=== PATIENT | male | born 1935 | race Caucasian/White ===

== ENCOUNTER 2018-07-13 18:11 | Inpatient (IN) | payer MEDICARE, BC ==
[2018-07-13] MEDS ORDERED: LORazepam 2 MG/ML INJ IM STA (19:20)
[2018-07-13 19:58] LABS: Basophils % (A) 0 %; Eosinophils # (A) 0.2 k/uL (0-0.7); Eosinophils % (A) 4 %; HCT 34.3 % (39.0-53.0); HGB 11.2 gm/dL (13.0-17.5); Lymphocytes # (A) 1.3 k/uL (1.0-4.8); Lymphocytes % (A) 26 %; MCH 31.4 pg (25.0-35.0); MCHC 32.7 g/dL (31.0-37.0); Mean Platelet Volume 7.8; Monocytes # (A) 0.5 k/uL (0-1.0); Monocytes % (A) 9 %; Neutrophils # (A) 2.8 k/uL (1.3-7.7); Neutrophils % (A) 58 %; Platelet Count 133 k/uL (150-450); RBC 3.57 m/uL (4.30-5.90); RDW 14.2 % (11.5-15.5); WBC 4.8 k/uL (3.8-10.6)
[2018-07-13 20:10] LABS: Acetaminophen <10.0 ug/mL; Alcohol <10 mg/dL; Anion Gap 6 mmol/L; Blood Urea Nitrogen 32 mg/dL (9-20); Calcium 8.6 mg/dL (8.4-10.2); Carbon Dioxide 31 mmol/L (22-30); Chloride 103 mmol/L (98-107); Glucose 84 mg/dL (74-99); Potassium 4.6 mmol/L (3.5-5.1); Salicylate <1.0 mg/dL; Sodium 140 mmol/L (137-145)
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
[2018-07-14 02:39] LABS: Appearance,Urine Cloudy (Clear); Bacteria,Urine Rare /hpf; Bilirubin,Urine Negative (Negative); Blood,Urine Large (Negative); Color,Urine Red; Glucose,Urine (UA) Negative (Negative); Ketones,Urine Trace (Negative); Leukocyte Esterase,Urine Trace (Negative); Nitrite,Urine Negative (Negative); PH, Urine 7.5 (5.0-8.0); Protein,Urine 2+ (Negative); RBC,Urine >182 /hpf (0-5); Specific Gravity,Urine 1.018 (1.001-1.035); Urobilinogen,Urine <2.0 mg/dL (<2.0); WBC,Urine 18 /hpf (0-5)
[2018-07-14 02:50] LABS: Amphetamine Screen,Urine Not Detected (NotDetected); Barbiturate Screen,Urine Not Detected (NotDetected); Benzodiazepines Screen,Urine Detected (NotDetected); Cocaine Screen,Urine Not Detected (NotDetected); Methadone Screen, Urine Not Detected (NotDetected); Opiate Screen,Urine Not Detected (NotDetected); Oxycodone Screen, Urine Not Detected (NotDetected); Phencyclidine Screen,Urine Not Detected (NotDetected); Tricyclic Antidepressant,Urine Not Detected (NotDetected); Urn Cannabinoid Scrn Not Detected (NotDetected)
[2018-07-14 05:13] LABS: Valproic Acid (Depakene) 71.6 ug/mL
[2018-07-15] MEDS ORDERED: traZODone HCL 50 MG TAB PO ONE (00:28)
[2018-07-16] MEDS ORDERED: LEVOTHYROXINE 25 MCG TAB PO SCH (08:00)
[2018-07-16] MEDS ORDERED: TAMSULOSIN 0.4 MG CAP.ER.24H PO SCH (08:30)
[2018-07-16] MEDS ORDERED: ASPIRIN 325 MG TAB PO SCH (09:00)
[2018-07-16] MEDS ORDERED: FUROSEMIDE 20 MG TAB PO SCH (09:00)
[2018-07-16] MEDS ORDERED: DIVALPROEX ER 250 MG TAB.ER.24H PO SCH (09:00)
[2018-07-16] MEDS ORDERED: MELOXICAM 7.5 MG TAB PO SCH (09:00)
[2018-07-16] MEDS ORDERED: LORATADINE 10 MG TAB PO SCH (09:00)
[2018-07-16] MEDS: SENNOSIDES 8.6 MG TAB PO SCH ×2 (09:09→21:51)
[2018-07-16] MEDS ORDERED: THIAMINE 100 MG TAB PO SCH (12:00)
[2018-07-16] MEDS ORDERED: FOLIC ACID 1 MG TAB PO SCH (12:00)
[2018-07-16] MEDS ORDERED: CHOLECALCIFEROL 1,000 UNIT TAB PO SCH (12:00)
[2018-07-16] MEDS ORDERED: traZODone HCL 50 MG TAB PO SCH (21:00)
[2018-07-16] MEDS ORDERED: DIVALPROEX 500 MG TABLET.DR PO SCH ×2 (21:00→22:00)
[2018-07-16] MEDS ORDERED: MAGNESIUM HYDROXIDE 2,400 MG/10 ML CUP PO PRN (21:37)
[2018-07-16] MEDS ORDERED: ACETAMINOPHEN TAB 325 MG TAB PO PRN (21:37)
[2018-07-16] MEDS ORDERED: MAG HYDROX/AL HYDROX/SIMETH 30 ML CUP PO PRN (21:37)
[2018-07-17] MEDS: HALOPERIDOL 1 MG TAB PO SCH ×3 (01:01→09:39)
[2018-07-17] MEDS: LEVOTHYROXINE 25 MCG TAB PO SCH (05:43)
[2018-07-17] MEDS ORDERED: LEVOTHYROXINE 25 MCG TAB PO SCH (06:00)
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
[2018-07-17 07:00] VITALS: RESP 20
[2018-07-17] MEDS ORDERED: MELOXICAM 7.5 MG TAB PO SCH (09:00)
[2018-07-17] MEDS ORDERED: TAMSULOSIN 0.4 MG CAP.ER.24H PO SCH (09:00)
[2018-07-17] MEDS ORDERED: SENNOSIDES 8.6 MG TAB PO SCH (09:00)
[2018-07-17] MEDS ORDERED: FUROSEMIDE 20 MG TAB PO SCH ×2 (09:00)
[2018-07-17] MEDS ORDERED: DIVALPROEX ER 250 MG TAB.ER.24H PO SCH (09:00)
[2018-07-17] MEDS ORDERED: ASPIRIN 325 MG TAB PO SCH (09:00)
[2018-07-17 09:39] LABS: HGB 12.4 gm/dL (13.0-17.5); MCH 30.9 pg (25.0-35.0); MCHC 31.7 g/dL (31.0-37.0); MCV 97.4 fL (80.0-100.0); Mean Platelet Volume 7.8; Platelet Count 156 k/uL (150-450); RBC 4.01 m/uL (4.30-5.90); RDW 14.5 % (11.5-15.5); WBC 6.1 k/uL (3.8-10.6)
[2018-07-17] MEDS: DIVALPROEX ER 250 MG TAB.ER.24H PO SCH (09:39)
[2018-07-17] MEDS: CHOLECALCIFEROL 1,000 UNIT TAB PO SCH (09:39)
[2018-07-17] MEDS: THIAMINE 100 MG TAB PO SCH (09:40)
[2018-07-17] MEDS: LORATADINE 10 MG TAB PO SCH (09:40)
[2018-07-17] MEDS: SENNOSIDES 8.6 MG TAB PO SCH (09:40)
[2018-07-17 09:48] LABS: Albumin 3.5 g/dL (3.5-5.0); Calcium 8.9 mg/dL (8.4-10.2); Potassium 5.5 mmol/L (3.5-5.1); Total Bilirubin 0.3 mg/dL (0.2-1.3); Total Protein 6.4 g/dL (6.3-8.2)
[2018-07-17 10:39] LABS: Band Neutrophils % 1 %; Eosinophils # (M) 0.31 k/uL (0-0.7); Lymphocytes # (M) 1.53 k/uL (1.0-4.8); Monocytes # (M) 0.49 k/uL (0-1.0); Neutrophils % (M) 61 %; Nucleated Red Blood Cells 0 /100 WBC (0-0); Total Cells Counted 100
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
[2018-07-17] MEDS ORDERED: ALBUTEROL NEBULIZED 2.5 MG/3 ML INHALATION PRN (11:12)
--- NOTE | 2018-07-17 12:03 | XR ---
EXAMINATION TYPE: XR chest 1V portable DATE OF EXAM: 07/17/2018 COMPARISON: 06/12/2013 HISTORY: Shortness of breath TECHNIQUE: Single frontal view of the chest is obtained. FINDINGS: There is no focal air space opacity, pleural effusion, or pneumothorax seen. Pulmonary hy perinflation and flattening the diaphragms is seen. Calcified right pleural plaques are noted along t he hemidiaphragm. Moderate multilevel degenerative change of the thoracic spine is noted. Diffuse oss eous demineralization is seen. The cardiac silhouette size is within normal limits. The osseous str uctures are intact. IMPRESSION: No acute cardiopulmonary process. Radiographic sequela of COPD.
[2018-07-17] MEDS: FOLIC ACID 1 MG TAB PO SCH (12:41)
[2018-07-17] MEDS: CEPHALEXIN 250 MG CAP PO SCH ×3 (12:42→20:50)
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
[2018-07-17 19:38] LABS: Hemoglobin A1C 5.7 % (4.0-6.0)
[2018-07-17] MEDS: risperiDONE ODT 1 MG TAB PO SCH (20:49)
[2018-07-17] MEDS ORDERED: traZODone HCL 50 MG TAB PO SCH ×2 (21:00)
[2018-07-17] MEDS: FORMOTEROL FUMARATE 20 MCG/2 ML NEBU INHALATION SCH (21:07)
[2018-07-17] MEDS: IPRATROPIUM 0.5 MG/2.5 ML NEBU INHALATION SCH (21:07)
[2018-07-17] MEDS ORDERED: DIVALPROEX 500 MG TABLET.DR PO SCH (22:00)
[2018-07-18] MEDS: LEVOTHYROXINE 25 MCG TAB PO SCH (05:32)
[2018-07-18 06:25] VITALS: BP 114/61; TEMP 98.1
[2018-07-18] MEDS: CEPHALEXIN 250 MG CAP PO SCH ×2 (08:15→14:17)
[2018-07-18] MEDS: risperiDONE ODT 1 MG TAB PO SCH (08:16)
[2018-07-18] MEDS: LORATADINE 10 MG TAB PO SCH (08:16)
[2018-07-18] MEDS: DIVALPROEX ER 250 MG TAB.ER.24H PO SCH (08:16)
[2018-07-18] MEDS: SENNOSIDES 8.6 MG TAB PO SCH (08:16)
[2018-07-18] MEDS: CHOLECALCIFEROL 1,000 UNIT TAB PO SCH (08:16)
[2018-07-18] MEDS: THIAMINE 100 MG TAB PO SCH (08:16)
[2018-07-18] MEDS: IPRATROPIUM 0.5 MG/2.5 ML NEBU INHALATION SCH ×2 (09:01→14:16)
[2018-07-18] MEDS: FORMOTEROL FUMARATE 20 MCG/2 ML NEBU INHALATION SCH (09:01)
[2018-07-18 10:14] LABS: Calcium 8.8 mg/dL (8.4-10.2); Potassium 5.8 mmol/L (3.5-5.1)
[2018-07-18] MEDS ORDERED: SODIUM POLYSTYRENE SULFONATE 15 GM/60 ML BOTTLE PO STA (10:40)
[2018-07-18] MEDS ORDERED: SODIUM CHLORIDE 0.9% 1,000 ML IV SCH (10:45)
--- NOTE | 2018-07-18 12:57 | P.PN ---
Progress Note - Text Progress Note Date: 07/18/18 Clinical Problems: Bipolar disorder type I most recent episode manic, acute exacerbation of COPD, hyperkalemia with dehydration, hematuria, tobacco use disorder, hypothyroidism Interim history: I reviewed the medical record, interviewed the patient and discussed case with the treatment team. I also spoke with the consulting heat set operator. The patient is a 83-year-old male with long history of a psychiatric illness. He presented to the unit voluntarily with a history of increasing agitation and aggressive behavior. Information obtainable from the patient is extremely limited due to his thought disorganization and slurred speech. He talked excessively about a number of topics often jumping erratically from topic to topic. He appears to believe that the admission was prompted by conflict with another resident at his [facility] home. According to the record he has attended some therapeutic groups and slept 5 hours last night. The therapist described him as disheveled, garbled with rapid and slurred speech. He has had no episodes of aggression since admission. I spoke with the consulting heat set operator who recommended transfer to medicine unit for the treatment of a hyperkalemia and dehydration. Mental status exam: He presented as a disheveled appearing elderly male who was pleasant on approach. He drooled during the interview. His T- shirt had multiple stains. He appeared to attend to the interview. He walked with an unsteady and slow gait. He had distressed facial expression. He was alert and oriented to person and place. He showed choreiform movements of the trunk arms and legs there were more prominent while he was talking. His speech was spontaneous with increased rate, rhythm and volume. His affect was labile and intense intense. He did not express suicidal ideation, wishes or homicidal ideation. He denied feeling depressed, hopeless or helpless. He is angry about this hospitalization. He appeared paranoid and suspicious and his monologue about another resident at his [facility] suggested paranoid delusions. His thinking was concrete and associations were not fully coherent, logical and goal directed. He denied hallucinations and did not appear to be responding to internal stimuli. Assessment: He appears severely and persistently mentally ill and unchanged from admission. He benefit from continue inpatient psychiatric hospitalization to address Mood and psychotic presentation. Plan: Transferred to the medicine unit as per recommendation of the medical receptionist assistant. One-to-one sitter while on medicine service. Continue current psychotropic medications-Depakote 500 mg at bedtime in 2049 mg daily, trazodone 50 mg at bedtime and Risperdal M tablets 1 mg twice a day. Transfer back to the psychiatric unit once medically stable.
[2018-07-18] MEDS: FOLIC ACID 1 MG TAB PO SCH (14:18)
[2018-07-18 14:25] VITALS: PULSE 92
== END 2018-07-18 14:41 | disposition short-term general hospital (02) | DRG 885 ==
LOC: EC 18:11 → 3MHU 07-16 21:30
PROVIDERS: ADMIT Psychiatry & Neurology Psychiatry; ATTEND Psychiatry & Neurology Psychiatry
DX: F31.2 Bipolar disorder, current episode manic severe with psychotic features (principal); J44.1 Chronic obstructive pulmonary disease with (acute) exacerbation; N39.0 Urinary tract infection, site not specified; E03.9 Hypothyroidism, unspecified; F17.200 Nicotine dependence, unspecified, uncomplicated; Z79.82 Long term (current) use of aspirin; Z79.899 Other long term (current) drug therapy; Z79.890 Hormone replacement therapy; Z65.3 Problems related to other legal circumstances; M19.90 Unspecified osteoarthritis, unspecified site; Z96.642 Presence of left artificial hip joint; F10.11 Alcohol abuse, in remission; E86.0 Dehydration; E87.5 Hyperkalemia; F03.90 Unspecified dementia, unspecified severity, without behavioral disturbance, psychotic disturbance, mood disturbance, and anxiety; I10 Essential (primary) hypertension; R09.02 Hypoxemia; Z91.81 History of falling; E55.9 Vitamin D deficiency, unspecified; R31.9 Hematuria, unspecified; Z80.3 Family history of malignant neoplasm of breast
CPT/HCPCS: 36415; 71045; 80048; 80053; 80061; 80164; 80306; 80320; 81001; 83036; 83520; 84443; 85025; 94640; 96372; 99285

== ENCOUNTER 2018-07-18 10:46 | Inpatient (IN) | payer MEDICARE, BC ==
[2018-07-18] MEDS ORDERED: ACETAMINOPHEN TAB 325 MG TAB PO PRN (15:25)
[2018-07-18] MEDS ORDERED: ONDANSETRON 4 MG/2 ML VIAL IVP PRN (15:25)
[2018-07-18] MEDS ORDERED: NALOXONE 0.4 MG/ML 1 ML VIAL IV PRN (15:25)
[2018-07-18] MEDS ORDERED: TEMAZEPAM 15 MG CAP PO PRN (15:25)
[2018-07-18 17:05] LABS: Calcium 8.4 mg/dL (8.4-10.2); Potassium 5.2 mmol/L (3.5-5.1)
[2018-07-18] MEDS ORDERED: ALBUTEROL NEBULIZED 2.5 MG/3 ML INHALATION PRN (17:34)
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
[2018-07-18] MEDS ORDERED: DIVALPROEX 500 MG TABLET.DR PO SCH (21:00)
[2018-07-18] MEDS: IPRATROPIUM-ALBUTEROL 3 ML NEB INHALATION SCH (21:12)
[2018-07-18] MEDS: risperiDONE ODT 1 MG TAB PO SCH (21:50)
[2018-07-18] MEDS: SENNOSIDES 8.6 MG TAB PO SCH (21:50)
[2018-07-18] MEDS: SODIUM CHLORIDE 0.9% 1,000 ML IV SCH (21:52)
[2018-07-19] MEDS: SODIUM CHLORIDE 0.9% 1,000 ML IV SCH ×2 (00:55→09:03)
[2018-07-19 06:01] LABS: Appearance,Urine Clear (Clear); Bilirubin,Urine Negative (Negative); Blood,Urine Negative (Negative); Color,Urine Yellow; Glucose,Urine (UA) Negative (Negative); Ketones,Urine Negative (Negative); Leukocyte Esterase,Urine Negative (Negative); Nitrite,Urine Negative (Negative); Protein,Urine Negative (Negative); Specific Gravity,Urine 1.013 (1.001-1.035); Urobilinogen,Urine <2.0 mg/dL (<2.0)
[2018-07-19 06:02] LABS: HCT 31.5 % (39.0-53.0); HGB 10.1 gm/dL (13.0-17.5); MCH 31.1 pg (25.0-35.0); MCHC 32.1 g/dL (31.0-37.0); MCV 96.7 fL (80.0-100.0); Mean Platelet Volume 7.1; Platelet Count 154 k/uL (150-450); RBC 3.26 m/uL (4.30-5.90); RDW 14.6 % (11.5-15.5); WBC 6.4 k/uL (3.8-10.6)
[2018-07-19 06:16] LABS: ALT 23 U/L (21-72); AST 26 U/L (17-59); Albumin 2.8 g/dL (3.5-5.0); Alkaline Phosphatase 47 U/L (38-126); Anion Gap 5 mmol/L; Blood Urea Nitrogen 34 mg/dL (9-20); Calcium 7.9 mg/dL (8.4-10.2); Carbon Dioxide 30 mmol/L (22-30); Chloride 105 mmol/L (98-107); Glucose 79 mg/dL (74-99); Magnesium 2.1 mg/dL (1.6-2.3); Potassium 4.7 mmol/L (3.5-5.1); Sodium 140 mmol/L (137-145); Total Bilirubin 0.3 mg/dL (0.2-1.3); Total Protein 5.4 g/dL (6.3-8.2)
[2018-07-19] MEDS: IPRATROPIUM-ALBUTEROL 3 ML NEB INHALATION SCH ×2 (07:44→10:55)
[2018-07-19 08:56] VITALS: RESP 18
[2018-07-19] MEDS: SENNOSIDES 8.6 MG TAB PO SCH (08:59)
[2018-07-19] MEDS: risperiDONE ODT 1 MG TAB PO SCH (08:59)
[2018-07-19] MEDS ORDERED: LORATADINE 10 MG TAB PO SCH (09:00)
[2018-07-19] MEDS ORDERED: predniSONE 20 MG TAB PO SCH (09:00)
[2018-07-19] MEDS ORDERED: DIVALPROEX ER 250 MG TAB.ER.24H PO SCH (09:00)
[2018-07-19] MEDS ORDERED: TAMSULOSIN 0.4 MG CAP.ER.24H PO SCH (09:00)
[2018-07-19] MEDS ORDERED: THIAMINE 100 MG TAB PO SCH (09:00)
[2018-07-19] MEDS ORDERED: FOLIC ACID 1 MG TAB PO SCH (09:00)
[2018-07-19] MEDS ORDERED: CHOLECALCIFEROL 1,000 UNIT TAB PO SCH (09:00)
[2018-07-19] MEDS ORDERED: traZODone HCL 50 MG TAB PO SCH (09:00)
--- NOTE | 2018-07-19 10:33 | P.DS ---
Providers Date of admission: 07/18/18 14:57 Expected date of discharge: 07/19/18 Attending physician: Charis Kirk DO Consults: 07/18/18 17:39 Consult Physician Routine Consulting Provider: Umair Koch Reason/Comments: aggression Do you want consulting provider notified?: Yes Primary care physician: Stated None Hospital Course: Discharge Diagnosis: 1. Hyperkalemia with dehydration, failed outpatient treatment 2. Acute exacerbation of COPD 3. Probably urinary tract infection, urine had cleared after Keflex was initiated one day prior mental health unit 4. Dementia with aggression 5. Tobacco abuse 6. Hypothyroidism Hospital Course: Patient is a 83-year-old male past medical history of COPD, hypertension, vitamin D deficiency, and mild dementia who initially was sent in from his adult foster care facility due to aggressive behaviors. Initially from the ER he was admitted to the psychiatric unit. On arrival to the psychiatric unit he did have an event of hypoxemia at 84% on room air. He was subsequently seen by our service for his H&P evaluation in the mental health unit. He was found have acute exacerbation of COPD and hematuria with possible urinary tract infection. He was started on bronchodilators, prednisone, and Keflex. He was noted to be slightly hyperkalemic and dehydrated. His diuretics were held and NSAIDs were stopped. Laboratory analysis was repeated this morning which confirmed worsening hyperkalemia and a potassium of 5.8. He is also appeared more dehydrated with elevated BUN. It was determined that he was more appropriate for the medical floor and hence he was transferred to selective care unit. He received a dose of Kayexalate and IV fluids. Repeat potassium was down to 5.2. His fluids were continued as his Lasix and NSAIDs or continue to be held. By the morning of 07/19 his potassium had normalized and his BUN was greatly improved. He was determined stable to return to mental health unit. He had improved faster than anticipated. He was subsequently discharged mental health. He will come to need to complete his prednisone therapy, Keflex, and maintain off of NSAIDs. His Lasix will be changed every other day. Patient seen and examined at bedside. Feeling well. Eating and drinking well. Still with a flight of ideas and difficult to obtain information. He states that he is not short of breath he has been up and moving to the bathroom without any difficulties. Vital signs reviewed and stable. General: non toxic, no distress, appears at stated age Derm: warm, dry Head: atraumatic, normocephalic, symmetric Eyes: EOMI, no lid lag, anicteric sclera Mouth: no lip lesion, mucus membranes moist Cardiovascular: S1S2 reg, no murmur, positive posterior tibial pulse bilateral, Lungs: CTA bilateral, no rhonchi, no rales , no accessory muscle use Abdominal: soft, nontender to palpation, no guarding, no appreciable organomegaly Ext: no gross muscle atrophy, no edema, no contractures Neuro: CN II-XI grossly intact, no focal neuro deficits Psych: Alert, oriented, pressured speech, flight of ideas, anxious A total of 25 minutes of time were spent preparing this complex discharge summary . Patient Condition at Discharge: Stable Plan - Discharge Summary Discharge Rx Participant: No New Discharge Prescriptions: New Acetaminophen Tab [Tylenol] 650 mg PO Q6HR PRN tab PRN Reason: Mild Pain Or Fever > 100.5 Albuterol Nebulized [Ventolin Nebulized] 2.5 mg INHALATION RT-Q2H PRN nebu PRN Reason: Shortness Of Breath Or Wheezing Cephalexin [Keflex] 250 mg PO Q6HR 3 Days #12 cap Ipratropium-Albuterol Nebulize [Duoneb 0.5 mg-3 mg/3 ml Soln] 3 ml INHALATION RT-QID ampul.neb Loratadine [Claritin] 10 mg PO DAILY tab predniSONE 40 mg PO DAILY 3 Days tab risperiDONE ODT [RisperDAL M-TAB] 1 mg PO BID tab Continue Tamsulosin HCl [Flomax] 0.4 mg PO DAILY traZODone HCL 50 mg PO DAILY Divalproex ER [Depakote ER] 250 mg PO DAILY Levothyroxine Sodium 25 mcg PO DAILY Thiamine [Vitamin B-1] 100 mg PO DAILY Sennosides [Senna] 8.6 mg PO BID Divalproex Sodium [Depakote] 500 mg PO HS Cholecalciferol (Vitamin D3) [Vitamin D3] 2,000 unit PO DAILY Discontinued Furosemide [Lasix] 20 mg PO DAILY Fexofenadine HCl 60 mg PO BID Folic Acid 1 mg PO DAILY Celecoxib [CeleBREX] 100 mg PO DAILY Aspirin EC [Ecotrin] 325 mg PO DAILY Discharge Medication List Divalproex ER [Depakote ER] 250 mg PO DAILY 07/13/18 [History] Levothyroxine Sodium 25 mcg PO DAILY 07/13/18 [History] Tamsulosin HCl [Flomax] 0.4 mg PO DAILY 07/13/18 [History] traZODone HCL 50 mg PO DAILY 07/13/18 [History] Cholecalciferol (Vitamin D3) [Vitamin D3] 2,000 unit PO DAILY 07/14/18 [History] Divalproex Sodium [Depakote] 500 mg PO HS 07/14/18 [History] Sennosides [Senna] 8.6 mg PO BID 07/14/18 [History] Thiamine [Vitamin B-1] 100 mg PO DAILY 07/14/18 [History] Acetaminophen Tab [Tylenol] 650 mg PO Q6HR PRN tab 07/19/18 [Rx] Albuterol Nebulized [Ventolin Nebulized] 2.5 mg INHALATION RT-Q2H PRN nebu [Rx] Cephalexin [Keflex] 250 mg PO Q6HR 3 Days #12 cap 07/19/18 [Rx] Ipratropium-Albuterol Nebulize [Duoneb 0.5 mg-3 mg/3 ml Soln] 3 ml INHALATION RT -QID ampul.neb 07/19/18 [Rx] Loratadine [Claritin] 10 mg PO DAILY tab 07/19/18 [Rx] predniSONE 40 mg PO DAILY 3 Days tab 07/19/18 [Rx] risperiDONE ODT [RisperDAL M-TAB] 1 mg PO BID tab 07/19/18 [Rx] Activity/Diet/Wound Care/Special Instructions: renal diet, activity as tolerated BMP in AM Discharge Disposition: TRANSFER TO PSYCH HOSP/UNIT
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
[2018-07-19 12:33] VITALS: BP 146/49; PULSE 89; TEMP 97.5
== END 2018-07-19 12:57 | DRG 641 ==
LOC: 3SCARD 14:57
PROVIDERS: ADMIT Internal Medicine; ATTEND Internal Medicine
DX: E87.5 Hyperkalemia (principal); F03.91 Unspecified dementia, unspecified severity, with behavioral disturbance; J44.1 Chronic obstructive pulmonary disease with (acute) exacerbation; N39.0 Urinary tract infection, site not specified; E03.9 Hypothyroidism, unspecified; E86.0 Dehydration; F17.200 Nicotine dependence, unspecified, uncomplicated; I10 Essential (primary) hypertension; R09.02 Hypoxemia; Z79.82 Long term (current) use of aspirin; Z80.3 Family history of malignant neoplasm of breast; Z87.440 Personal history of urinary (tract) infections; Z96.642 Presence of left artificial hip joint; Z79.899 Other long term (current) drug therapy; F31.9 Bipolar disorder, unspecified
CPT/HCPCS: 80048; 80053; 81003; 83735; 85027; 94640

== ENCOUNTER 2018-07-19 12:33 | Inpatient (IN) | payer MEDICARE, BC ==
[2018-07-19] MEDS ORDERED: MAGNESIUM HYDROXIDE 2,400 MG/10 ML CUP PO PRN (14:31)
[2018-07-19] MEDS ORDERED: MAG HYDROX/AL HYDROX/SIMETH 30 ML CUP PO PRN (14:31)
[2018-07-19] MEDS ORDERED: ACETAMINOPHEN TAB 325 MG TAB PO PRN (14:31)
[2018-07-19 14:47] VITALS: BMI 24.5
[2018-07-19] MEDS: CEPHALEXIN 250 MG CAP PO SCH ×2 (17:58→22:59)
[2018-07-19] MEDS: DIVALPROEX 500 MG TABLET.DR PO SCH (20:23)
[2018-07-19] MEDS: SENNOSIDES 8.6 MG TAB PO SCH (20:24)
[2018-07-19] MEDS: risperiDONE ODT 1 MG TAB PO SCH (20:24)
[2018-07-19] MEDS: IPRATROPIUM-ALBUTEROL 3 ML NEB INHALATION SCH ×2 (20:38→20:39)
[2018-07-20] MEDS: LEVOTHYROXINE 25 MCG TAB PO SCH (05:37)
[2018-07-20] MEDS: CEPHALEXIN 250 MG CAP PO SCH ×4 (05:37→23:12)
[2018-07-20] MEDS: CHOLECALCIFEROL 1,000 UNIT TAB PO SCH (08:57)
[2018-07-20] MEDS: DIVALPROEX ER 250 MG TAB.ER.24H PO SCH (08:57)
[2018-07-20] MEDS: SENNOSIDES 8.6 MG TAB PO SCH ×2 (08:58→20:33)
[2018-07-20] MEDS: THIAMINE 100 MG TAB PO SCH (08:58)
[2018-07-20] MEDS: predniSONE 20 MG TAB PO SCH (08:58)
[2018-07-20] MEDS: FUROSEMIDE 10 MG TAB PO SCH (08:58)
[2018-07-20] MEDS: risperiDONE ODT 1 MG TAB PO SCH ×2 (08:58→20:33)
[2018-07-20] MEDS: LORATADINE 10 MG TAB PO SCH (08:58)
[2018-07-20] MEDS: TAMSULOSIN 0.4 MG CAP.ER.24H PO SCH (08:58)
[2018-07-20] MEDS: IPRATROPIUM-ALBUTEROL 3 ML NEB INHALATION SCH ×4 (09:33→18:47)
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
[2018-07-20] MEDS: DIVALPROEX 500 MG TABLET.DR PO SCH (20:32)
[2018-07-20] MEDS: traZODone HCL 50 MG TAB PO SCH (20:33)
[2018-07-20] MEDS: TEMAZEPAM 15 MG CAP PO PRN (23:12)
[2018-07-21] MEDS: CEPHALEXIN 250 MG CAP PO SCH ×4 (06:45→22:46)
[2018-07-21] MEDS: LEVOTHYROXINE 25 MCG TAB PO SCH (06:45)
[2018-07-21] MEDS: FUROSEMIDE 10 MG TAB PO SCH (09:02)
[2018-07-21] MEDS: DIVALPROEX ER 250 MG TAB.ER.24H PO SCH (09:02)
[2018-07-21] MEDS: LORATADINE 10 MG TAB PO SCH (09:02)
[2018-07-21] MEDS: CHOLECALCIFEROL 1,000 UNIT TAB PO SCH (09:02)
[2018-07-21] MEDS: risperiDONE ODT 1 MG TAB PO SCH ×2 (09:03→20:28)
[2018-07-21] MEDS: predniSONE 20 MG TAB PO SCH (09:03)
[2018-07-21] MEDS: TAMSULOSIN 0.4 MG CAP.ER.24H PO SCH (09:03)
[2018-07-21] MEDS: THIAMINE 100 MG TAB PO SCH (09:03)
[2018-07-21] MEDS: SENNOSIDES 8.6 MG TAB PO SCH ×2 (09:03→20:28)
[2018-07-21] MEDS: IPRATROPIUM-ALBUTEROL 3 ML NEB INHALATION SCH ×4 (09:43→20:51)
--- NOTE | 2018-07-21 20:18 | P.PN ---
Progress Note - Text Progress Note Date: 07/21/18 IDENTIFICATION DATA: 83 year male transferred back to the mental health unit after spending a day on the medical floor for dehydration and hyperkalemia. [facility] petitioned the patient for hostile, threatening, aggressive, and sexually inappropirate behaviors. INTERVAL HISTORY: No major behavioral problems reported on the unit. He says he likes going to all his assigned groups. He reports six to seven hours of sleep. He reports good appetite. He reports being compliant with his medications. No side effects reported. He denies current symptoms of depression. 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 MENTAL STATUS EXAMINATION: Patient walks with a walker. He appeared younger than his stated age in fair grooming and hygiene. He has pill rolling tremor. His speech and thought process are tangential, pressured with flight of ideas. He denies current auditory or visual hallucinations. He denies paranoia. He is alert and oriented. X 4. He denies current suicidal or homicidal ideations. ASSESSMENT AND PLAN: Continue current medications Continue 1:1 monitoring Continue safety precautions
[2018-07-21] MEDS: traZODone HCL 50 MG TAB PO SCH (20:28)
[2018-07-21] MEDS: DIVALPROEX 500 MG TABLET.DR PO SCH (20:28)
[2018-07-21] MEDS: TEMAZEPAM 15 MG CAP PO PRN (22:46)
[2018-07-22] MEDS: CEPHALEXIN 250 MG CAP PO SCH ×3 (06:39→18:04)
[2018-07-22] MEDS: LEVOTHYROXINE 25 MCG TAB PO SCH (06:39)
[2018-07-22] MEDS: LORazepam 1 MG TAB PO PRN (06:54)
[2018-07-22] MEDS: SENNOSIDES 8.6 MG TAB PO SCH ×2 (08:48→20:33)
[2018-07-22] MEDS: CHOLECALCIFEROL 1,000 UNIT TAB PO SCH (08:48)
[2018-07-22] MEDS: predniSONE 20 MG TAB PO SCH (08:48)
[2018-07-22] MEDS: FUROSEMIDE 10 MG TAB PO SCH (08:49)
[2018-07-22] MEDS: THIAMINE 100 MG TAB PO SCH (08:49)
[2018-07-22] MEDS: LORATADINE 10 MG TAB PO SCH (08:49)
[2018-07-22] MEDS: DIVALPROEX ER 250 MG TAB.ER.24H PO SCH (08:49)
[2018-07-22] MEDS: risperiDONE ODT 1 MG TAB PO SCH ×2 (08:49→20:33)
[2018-07-22] MEDS: TAMSULOSIN 0.4 MG CAP.ER.24H PO SCH (08:49)
[2018-07-22] MEDS: IPRATROPIUM-ALBUTEROL 3 ML NEB INHALATION SCH ×4 (09:03→20:19)
--- NOTE | 2018-07-22 18:29 | P.PN ---
Progress Note - Text Progress Note Date: 07/22/18 IDENTIFICATION DATA: 83 year male transferred back to the mental health unit after spending a day on the medical floor for dehydration and hyperkalemia. [facility] petitioned the patient for hostile, threatening, aggressive, and sexually inappropirate behaviors. INTERVAL HISTORY: He says he enjoys going to groups and says they have good conversations there. He says staff here are nice. 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 He reports good sleep and appetite. He is not sure if his friend will visit him today or not. He takes his medications as prescribed. MENTAL STATUS EXAMINATION: Patient walks with a walker. He appeared his stated age in fair grooming and hygiene. He has pill rolling tremor. His speech and thought process are tangential, pressured with flight of ideas. He denies current auditory or visual hallucinations. He denies paranoia. He is alert and oriented. X 4. He denies current suicidal or homicidal ideations. ASSESSMENT AND PLAN: Continue current medications Continue 1:1 monitoring Continue safety precautions
[2018-07-22] MEDS: traZODone HCL 50 MG TAB PO SCH (20:33)
[2018-07-22] MEDS: DIVALPROEX 500 MG TABLET.DR PO SCH (20:33)
[2018-07-23] MEDS: LORazepam 1 MG TAB PO PRN (04:10)
[2018-07-23] MEDS: DIVALPROEX ER 250 MG TAB.ER.24H PO SCH (08:13)
[2018-07-23] MEDS: TAMSULOSIN 0.4 MG CAP.ER.24H PO SCH (08:13)
[2018-07-23] MEDS: SENNOSIDES 8.6 MG TAB PO SCH ×2 (08:13→20:57)
[2018-07-23] MEDS: risperiDONE ODT 1 MG TAB PO SCH ×2 (08:13→20:57)
[2018-07-23] MEDS: LORATADINE 10 MG TAB PO SCH (08:13)
[2018-07-23] MEDS: LEVOTHYROXINE 25 MCG TAB PO SCH (08:13)
[2018-07-23] MEDS: CHOLECALCIFEROL 1,000 UNIT TAB PO SCH (08:13)
[2018-07-23] MEDS: THIAMINE 100 MG TAB PO SCH (08:13)
[2018-07-23] MEDS: FUROSEMIDE 10 MG TAB PO SCH (08:13)
[2018-07-23] MEDS: IPRATROPIUM-ALBUTEROL 3 ML NEB INHALATION SCH ×4 (08:54→21:48)
[2018-07-23] MEDS ORDERED: LORazepam 0.5 MG TAB PO PRN (12:49)
--- NOTE | 2018-07-23 12:59 | P.PN ---
Progress Note - Text Progress Note Date: 07/23/18 Clinical Problems: Bipolar disorder type I most recent episode manic, acute exacerbation of COPD, hyperkalemia with dehydration resells, hematuria, tobacco use disorder, hypothyroidism, alcohol use disorder unspecified. Interim history: I reviewed the medical record, interviewed the patient and discuss his treatment and treatment plan during team meeting. He was difficult to interview. He appeared sedated and his speech was more dysarthric. According to the record, he received 1 mg of lorazepam this morning for agitation. He slept only 2 hours last night. He remains on one-to-one due to his unsteady gait and generalized weakness. The last metabolic panel was from 07/19/2018. Mental status exam: He presented as a frail and casually groomed and dressed elderly male who was pleasant on approach. He did not make eye contact but appeared to attend to the interview. He traveled some but not as much as he did prior to his transfer to the medicine unit. He had a flat facial expression. He was oriented to person only. He was not restless or agitated. He showed chloroform movements of his arms and legs. His gait was unsteady and he walked with the aid of a 4-point walker. His speech was dysarthric and difficult to understand. His affect was blunted. He did not express clear ideas reference or delusional thoughts. His thinking was concrete. He did not appear to be responding to internal stimuli. Assessment: He appears more sedated than he did on Monday. His speech is more dysarthric. His gait is more unsteady. I suspect the changes are related to the use of when necessary lorazepam or possibly increasing the dose of risperidone (to 2 mg twice a day). Plan: Continue inpatient hospitalization. Continue safety precautions with one- to-one. Continue Depakote 250 mg daily and 500 mg at bedtime, Risperdal 2 mg twice a day and trazodone 50 mg at bedtime. Discontinue temazepam 15 mg at bedtime and decrease lorazepam to 0.5 mg by mouth 3 times a day when necessary for agitation or anxiety. Repeat basic metabolic panel. Encourage participation in therapeutic groups and activities as tolerated. Evaluate clinical status and response to treatment on a daily basis.
[2018-07-23 16:02] LABS: Calcium 8.9 mg/dL (8.4-10.2); Potassium 4.6 mmol/L (3.5-5.1)
[2018-07-23] MEDS: DIVALPROEX 500 MG TABLET.DR PO SCH (20:57)
[2018-07-23] MEDS: traZODone HCL 50 MG TAB PO SCH (20:57)
[2018-07-24] MEDS: ALBUTEROL NEBULIZED 2.5 MG/3 ML INHALATION PRN (04:55)
[2018-07-24] MEDS: LEVOTHYROXINE 25 MCG TAB PO SCH (05:45)
[2018-07-24] MEDS: risperiDONE ODT 1 MG TAB PO SCH ×2 (07:53→20:06)
[2018-07-24] MEDS: LORATADINE 10 MG TAB PO SCH (07:54)
[2018-07-24] MEDS: TAMSULOSIN 0.4 MG CAP.ER.24H PO SCH (07:54)
[2018-07-24] MEDS: DIVALPROEX ER 250 MG TAB.ER.24H PO SCH (07:54)
[2018-07-24] MEDS: THIAMINE 100 MG TAB PO SCH (07:54)
[2018-07-24] MEDS: SENNOSIDES 8.6 MG TAB PO SCH ×2 (07:54→20:06)
[2018-07-24] MEDS: CHOLECALCIFEROL 1,000 UNIT TAB PO SCH (07:54)
[2018-07-24] MEDS: FUROSEMIDE 10 MG TAB PO SCH (07:54)
[2018-07-24] MEDS: IPRATROPIUM-ALBUTEROL 3 ML NEB INHALATION SCH ×4 (10:58→20:41)
--- NOTE | 2018-07-24 11:48 | P.PN ---
Progress Note - Text Interval history: The patient is found in group he continues to be on one-to- one supervision for fall risk staff report that the patient has been demonstrating improvement. He is demonstrated no agitated behavior he has been participating in groups to the best of his ability. He has been compliant with medication. In my absence it appears he was admitted to the medical floor briefly for hyperkalemia that has now normalized. He continues on Depakote and Risperdal was titrated to 2 mg twice daily. The patient's states he is doing well here he feels the staff have been helpful He indicates he is eating adequately, and sleeping at night. He is willing to return to his [facility] home placement. Mental status exam: The patient is a thin elderly male dressed in his own clothing. He is ambulating with a walker with shuffling steps. Eye contact is appropriate. He has a mumbling type speech most of what he is sane is understandable however. He indicates his mood is good he is reporting no suicidal or homicidal thoughts. He is reporting no auditory or visual hallucinations or any specific delusions. He demonstrates no verbal or physical aggressiveness. He continues to have some circumstantial thinking. He does continue to demonstrate movement of his extremities which may be a chronic phenomenon due to prior medication use. Affect is appropriately expressive. He is oriented to person he is able to name this place as a psychiatric unit in [place] he incorrectly names a day the week as Monday and then with another attempt later in the interview he states Monday. Plan: The patient is demonstrating improvement. He has been placed on Risperdal which is been titrated. A presumed UTI was treated. Hyperkalemia was discovered and treated. It appears that he is stabilizing we will consider a transition back to his [facility] home placement possibly this week. Vital signs reviewed. We will continue to monitor him for safety.
[2018-07-24] MEDS: DIVALPROEX 500 MG TABLET.DR PO SCH (20:06)
[2018-07-24] MEDS: traZODone HCL 50 MG TAB PO SCH (20:06)
[2018-07-25] MEDS: LEVOTHYROXINE 25 MCG TAB PO SCH (05:49)
[2018-07-25] MEDS: DIVALPROEX ER 250 MG TAB.ER.24H PO SCH (08:50)
[2018-07-25] MEDS: FUROSEMIDE 10 MG TAB PO SCH (08:50)
[2018-07-25] MEDS: risperiDONE ODT 1 MG TAB PO SCH ×2 (08:50→21:06)
[2018-07-25] MEDS: SENNOSIDES 8.6 MG TAB PO SCH ×2 (08:50→21:06)
[2018-07-25] MEDS: LORATADINE 10 MG TAB PO SCH (08:50)
[2018-07-25] MEDS: THIAMINE 100 MG TAB PO SCH (08:50)
[2018-07-25] MEDS: CHOLECALCIFEROL 1,000 UNIT TAB PO SCH (08:51)
[2018-07-25] MEDS: TAMSULOSIN 0.4 MG CAP.ER.24H PO SCH (08:51)
[2018-07-25] MEDS: IPRATROPIUM-ALBUTEROL 3 ML NEB INHALATION SCH ×4 (08:57→20:42)
--- NOTE | 2018-07-25 11:02 | P.PN ---
Progress Note - Text Interval history: The patient is found in the [facility] he continues to have one-to-one supervision for fall risk. He indicates his mood is good. He states everyone is been helpful he enjoys the food here. Staff report that he has slowed down in terms of his manic symptoms. He demonstrates no agitated behavior. Staff report that he is participating in groups playing card games etc. The patient is eligible to return to his [facility] home upon discharge. Mental status exam: The patient is a thin male appearing his stated age. He is dressed in his own clothing. He ambulates with a walker. Eye contact is appropriate. He is verbose he has spontaneous speech. He is redirectable. He does mumble at times but is able to clarify his statement once asked to repeat himself. He is reporting no suicidal or homicidal thoughts. He is endorsing no auditory or visual hallucinations he is endorsing no specific delusions. There is no observed evidence of psychosis at this time he does not appear hypomanic or manic. Insight and judgment improved. Plan: The patient will be appropriate for discharge tomorrow. We will draw a Depakote level tomorrow morning. We will continue to monitor him for safety. He is on one-to-one supervision for fall precautions only.
[2018-07-25] MEDS ORDERED: DIVALPROEX ER 500 MG TAB.ER.24H PO SCH (21:00)
[2018-07-25] MEDS: traZODone HCL 50 MG TAB PO SCH (21:06)
[2018-07-26 00:31] VITALS: BP 165/71; RESP 22; TEMP 97.8
[2018-07-26] MEDS: ALBUTEROL NEBULIZED 2.5 MG/3 ML INHALATION PRN (00:39)
[2018-07-26] MEDS: LEVOTHYROXINE 25 MCG TAB PO SCH (05:55)
[2018-07-26] MEDS: THIAMINE 100 MG TAB PO SCH (09:39)
[2018-07-26] MEDS: risperiDONE ODT 1 MG TAB PO SCH (09:39)
[2018-07-26] MEDS: TAMSULOSIN 0.4 MG CAP.ER.24H PO SCH (09:40)
[2018-07-26] MEDS: DIVALPROEX ER 250 MG TAB.ER.24H PO SCH (09:40)
[2018-07-26] MEDS: LORATADINE 10 MG TAB PO SCH (09:40)
[2018-07-26] MEDS: SENNOSIDES 8.6 MG TAB PO SCH (09:40)
[2018-07-26] MEDS: CHOLECALCIFEROL 1,000 UNIT TAB PO SCH (09:40)
[2018-07-26] MEDS: FUROSEMIDE 10 MG TAB PO SCH (09:40)
[2018-07-26] MEDS: IPRATROPIUM-ALBUTEROL 3 ML NEB INHALATION SCH ×3 (10:00→17:57)
[2018-07-26 10:12] VITALS: PULSE 80
--- NOTE | 2018-07-26 10:55 | P.DS ---
Providers Date of admission: 07/19/18 13:07 Expected date of discharge: 07/26/18 Attending physician: Mason Hua Consults: 07/19/18 14:31 Consult Physician Routine Consulting Provider: Ramon Whitaker Consult Reason/Comments: history and physical Do you want consulting provider notified?: Yes Primary care physician: Stated None - Discharge Diagnosis(es) (1) Severe manic bipolar 1 disorder with psychotic behavior Current Visit: Yes Status: Acute Priority: High Hospital Course: Brief summary of admission note: This patient is an 83-year-old male who was admitted to the mental health unit from his [facility] home with acute symptoms of shira and psychosis. The patient has a well-established diagnosis of bipolar disorder and has had multiple psychiatric hospitalizations in the past. He has a history of excessive alcohol use but that has been in remission for years. He had been more restless impulsive and aggressive and had symptoms of psychosis. He demonstrated pressured speech flight of ideas and a labile affect. For full details please refer to my psychiatric evaluation. Summary of hospital course: The patient was admitted to the mental health unit in voluntarily. I performed the initial psychiatric evaluation. It was discovered that he had hyperkalemia and he was transferred to the general medical floor for ongoing treatment. He was given IV fluids and was medically stabilized with Kayexalate. He was treated for presumed urinary tract infection. The patient was continued on his Depakote and Risperdal was started initially at 1 mg twice daily. This was titrated to 2 mg twice daily. The patient demonstrated significant improvement while on the mental health unit. He is no longer demonstrating symptoms of shira or psychosis. We have maintained him on a one-to-one supervision for fall risk but not for behavior. Staff report that the patient has been participating in eating showering and has been pleasant and cooperative. A motor vehicle representative from his [facility] home will be meeting with him today prior to discharge. Mental status exam: The patient is an alert 83-year-old male appearing his stated age. He is dressed in his own clothing. He is able to ambulate with a walker. Eye contact is appropriate. He recognizes me by name upon approach. He is reporting a good mood he states he feels calm. He endorses no feelings of irritability or anger. He is endorsing no auditory or visual hallucinations or any specific delusions. He reports no thoughts of self -harm or harm to others. Thought process can be circumstantial and tangential at times but he does not appear to be manic any longer. Insight and judgment have improved. He demonstrates repetitive movements of his arms and legs that have been observed throughout the admission. Affect is bright and pleasant. He uses humor very often throughout our interaction. Impressions 1. Bipolar 1 disorder most recent manic with psychosis, alcohol use disorder in sustained remission 2. History of COPD, recent hyperkalemia and dehydration, recent suspected urinary tract infection Plan: The patient will be discharged today back to his [facility] home. He will continue on Depakote ER 500 mg in the evening 250 mg in the morning, Risperdal 2 mg twice daily. There is no imminent safety risk is appropriate for transition back to his AF home placement. He is instructed to return to the hospital if any acute safety concerns. The [facility] home staff will meet with the patient prior to his discharge. The patient will follow-up with his primary care physician and any other necessary specialist as needed. Patient Condition at Discharge: Stable Plan - Discharge Summary New Discharge Prescriptions: New Divalproex ER [Depakote ER] 500 mg PO HS #30 tab.er.24h risperiDONE [RisperDAL] 2 mg PO BID #60 tab traZODone HCL [Desyrel] 50 mg PO HS #30 tab Continue Tamsulosin HCl [Flomax] 0.4 mg PO DAILY Levothyroxine Sodium 25 mcg PO DAILY Thiamine [Vitamin B-1] 100 mg PO DAILY Sennosides [Senna] 8.6 mg PO BID Cholecalciferol (Vitamin D3) [Vitamin D3] 2,000 unit PO DAILY Acetaminophen Tab [Tylenol] 650 mg PO Q6HR PRN tab PRN Reason: Mild Pain Or Fever > 100.5 Albuterol Nebulized [Ventolin Nebulized] 2.5 mg INHALATION RT-Q2H PRN nebu PRN Reason: Shortness Of Breath Or Wheezing Ipratropium-Albuterol Nebulize [Duoneb 0.5 mg-3 mg/3 ml Soln] 3 ml INHALATION RT-QID ampul.neb Loratadine [Claritin] 10 mg PO DAILY tab Furosemide [Lasix] 10 mg PO DAILY #30 dose Divalproex ER [Depakote ER] 250 mg PO DAILY #30 tab.er.24h Discontinued traZODone HCL 50 mg PO DAILY Divalproex Sodium [Depakote] 500 mg PO HS Cephalexin [Keflex] 250 mg PO Q6HR 3 Days #12 cap predniSONE 40 mg PO DAILY 3 Days tab risperiDONE ODT [RisperDAL M-TAB] 1 mg PO BID tab Discharge Medication List Levothyroxine Sodium 25 mcg PO DAILY 07/13/18 [History] Tamsulosin HCl [Flomax] 0.4 mg PO DAILY 07/13/18 [History] Cholecalciferol (Vitamin D3) [Vitamin D3] 2,000 unit PO DAILY 07/14/18 [History] Sennosides [Senna] 8.6 mg PO BID 07/14/18 [History] Thiamine [Vitamin B-1] 100 mg PO DAILY 07/14/18 [History] Acetaminophen Tab [Tylenol] 650 mg PO Q6HR PRN tab 07/19/18 [Rx] Albuterol Nebulized [Ventolin Nebulized] 2.5 mg INHALATION RT-Q2H PRN nebu [Rx] Furosemide [Lasix] 10 mg PO DAILY #30 dose 07/19/18 [Rx] Ipratropium-Albuterol Nebulize [Duoneb 0.5 mg-3 mg/3 ml Soln] 3 ml INHALATION RT -QID ampul.neb 07/19/18 [Rx] Loratadine [Claritin] 10 mg PO DAILY tab 07/19/18 [Rx] Divalproex ER [Depakote ER] 250 mg PO DAILY #30 tab.er.24h 07/26/18 [Rx] Divalproex ER [Depakote ER] 500 mg PO HS #30 tab.er.24h 07/26/18 [Rx] risperiDONE [RisperDAL] 2 mg PO BID #60 tab 07/26/18 [Rx] traZODone HCL [Desyrel] 50 mg PO HS #30 tab 07/26/18 [Rx] Follow up Appointment(s)/Referral(s): Leeroy John MD [STAFF PHYSICIAN] - 1 Week
== END 2018-07-26 16:56 | disposition home or self-care (01) | DRG 885 ==
LOC: 3MHU 13:07
PROVIDERS: ADMIT Psychiatry & Neurology Psychiatry; ATTEND Psychiatry & Neurology Psychiatry
DX: F31.2 Bipolar disorder, current episode manic severe with psychotic features (principal); J44.1 Chronic obstructive pulmonary disease with (acute) exacerbation; N39.0 Urinary tract infection, site not specified; J44.9 Chronic obstructive pulmonary disease, unspecified; F03.90 Unspecified dementia, unspecified severity, without behavioral disturbance, psychotic disturbance, mood disturbance, and anxiety; R31.9 Hematuria, unspecified; I10 Essential (primary) hypertension; E55.9 Vitamin D deficiency, unspecified; M19.91 Primary osteoarthritis, unspecified site; R47.1 Dysarthria and anarthria; E03.9 Hypothyroidism, unspecified; F17.210 Nicotine dependence, cigarettes, uncomplicated; Z71.6 Tobacco abuse counseling; Z96.642 Presence of left artificial hip joint; Z87.81 Personal history of (healed) traumatic fracture; Z80.3 Family history of malignant neoplasm of breast; Z79.890 Hormone replacement therapy; Z79.52 Long term (current) use of systemic steroids; Z79.899 Other long term (current) drug therapy; Z65.3 Problems related to other legal circumstances; F10.11 Alcohol abuse, in remission; Z87.440 Personal history of urinary (tract) infections; Z91.81 History of falling
CPT/HCPCS: 80048; 80164; 94640

== ENCOUNTER 2018-08-31 19:57 | Inpatient (IN) | payer MEDICARE, BC ==
[2018-08-31] MEDS ORDERED: IPRATROPIUM-ALBUTEROL 3 ML NEB INHALATION STA ×2 (20:34→22:34)
[2018-08-31 20:50] LABS: Anisocytosis Slight; Basophils % (A) 0 %; Eosinophils % (A) 0 %; HCT 36.6 % (39.0-53.0); HGB 10.9 gm/dL (13.0-17.5); Hypochromasia Marked; Lymphocytes # (A) 0.4 k/uL (1.0-4.8); Lymphocytes % (A) 5 %; MCHC 29.8 g/dL (31.0-37.0); Macrocytosis Moderate; Mean Platelet Volume 7.7; Monocytes # (A) 0.6 k/uL (0-1.0); Monocytes % (A) 8 %; Neutrophils # (A) 6.8 k/uL (1.3-7.7); Neutrophils % (A) 85 %; Platelet Count 131 k/uL (150-450); RBC 3.52 m/uL (4.30-5.90); RDW 16.5 % (11.5-15.5); WBC 8.1 k/uL (3.8-10.6)
[2018-08-31 20:51] LABS: MCV 103.9 fL (80.0-100.0)
[2018-08-31 20:56] LABS: Partial Thromboplastin Time 29.8 sec (22.0-30.0); Prothrombin Time 10.5 sec (9.0-12.0)
[2018-08-31 20:59] LABS: ALT 98 U/L (21-72); AST 71 U/L (17-59); Albumin 3.4 g/dL (3.5-5.0); Alkaline Phosphatase 74 U/L (38-126); Blood Urea Nitrogen 50 mg/dL (9-20); Calcium 8.9 mg/dL (8.4-10.2); Chloride 97 mmol/L (98-107); Glucose 162 mg/dL (74-99); Potassium 5.8 mmol/L (3.5-5.1); Salicylate <1.0 mg/dL; Sodium 143 mmol/L (137-145); Total Bilirubin 0.2 mg/dL (0.2-1.3); Total Protein 6.5 g/dL (6.3-8.2)
[2018-08-31 21:05] LABS: Anion Gap 5 mmol/L
[2018-08-31 21:06] LABS: Carbon Dioxide 41 mmol/L (22-30)
--- NOTE | 2018-08-31 21:29 | CT ---
EXAMINATION TYPE: CT brain wo con DATE OF EXAM: 08/31/2018 COMPARISON: None HISTORY: AMS CT DLP: 1274.40 mGycm Automated exposure control for dose reduction was used. FINDINGS: There is patchy hypodensity in the periventricular white matter. There is cerebral cortical atrophy. There is no mass effect nor midline shift. There is no sign of intracranial hemorrhage. There is muco berlin thickening in the ethmoid air cells. Calvarium is intact. IMPRESSION: CEREBRAL ATROPHY AND CHRONIC SMALL VESSEL ISCHEMIA. NO HEMORRHAGE. ETHMOID SINUSITIS.
--- NOTE | 2018-08-31 21:35 | XR ---
EXAMINATION TYPE: XR chest 1V DATE OF EXAM: 08/31/2018 COMPARISON: 07/17/2018 HISTORY: Altered mental status TECHNIQUE: Single frontal view of the chest is obtained. FINDINGS: There is patchy infiltrate in the right lung. Heart is borderline enlarged. There is sligh t blunting of right costophrenic angle. There is mild congestion. Thoracic aorta is atheromatous. IMPRESSION: There is probably new mild heart failure compared to old exam. Right lower lobe pneumoni a is possible.
[2018-08-31 21:44] LABS: VBG PH 7.27 (7.31-7.41)
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
[2018-08-31] MEDS ORDERED: FUROSEMIDE 10 MG/ML 2 ML VIAL IV ONE (22:34)
[2018-08-31] MEDS ORDERED: methylPREDNISolone SOD SUCCI 125 MG/2 ML VIAL IV STA (22:46)
[2018-08-31 22:51] LABS: Appearance,Urine Clear (Clear); Bilirubin,Urine Negative (Negative); Blood,Urine Negative (Negative); Color,Urine Light Yellow; Glucose,Urine (UA) Negative (Negative); Ketones,Urine Negative (Negative); Leukocyte Esterase,Urine Negative (Negative); Nitrite,Urine Negative (Negative); Protein,Urine Negative (Negative); Urobilinogen,Urine <2.0 mg/dL (<2.0)
[2018-08-31 23:05] LABS: Amphetamine Screen,Urine Not Detected (NotDetected); Barbiturate Screen,Urine Not Detected (NotDetected); Benzodiazepines Screen,Urine Not Detected (NotDetected); Cocaine Screen,Urine Not Detected (NotDetected); Methadone Screen, Urine Not Detected (NotDetected); Opiate Screen,Urine Not Detected (NotDetected); Oxycodone Screen, Urine Not Detected (NotDetected); Phencyclidine Screen,Urine Not Detected (NotDetected); Tricyclic Antidepressant,Urine Not Detected (NotDetected); Urn Cannabinoid Scrn Not Detected (NotDetected)
[2018-08-31] MEDS ORDERED: CEFEPIME 2 GM in SODIUM CHLORIDE 0.9% 50 ML IVPB STA (23:12)
[2018-08-31] MEDS ORDERED: VANCOMYCIN IV PER PHARMACY 1 EACH MISC MISCELLANE PRN (23:12)
[2018-08-31 23:20] LABS: ABG Base Excess 24.2 mmol/L; ABG PH 7.42 (7.35-7.45); ABG PO2 134 mmHg (83-108); ABG TCO2 51 mmol/L (19-24)
[2018-08-31 23:24] LABS: ABG PCO2 76 mmHg (35-45)
[2018-08-31 23:25] LABS: ABG HCO3 49 mmol/L (21-25)
[2018-08-31] MEDS ORDERED: NALOXONE 0.4 MG/ML 1 ML VIAL IV PRN (23:39)
[2018-08-31] MEDS ORDERED: ACETAMINOPHEN TAB 325 MG TAB PO PRN (23:39)
[2018-08-31] MEDS ORDERED: ALBUTEROL NEBULIZED 2.5 MG/3 ML INHALATION PRN (23:42)
[2018-08-31] MEDS ORDERED: VANCOMYCIN 1,500 MG in SODIUM CHLORIDE 0.9% 250 ML IVPB ONE (23:45)
[2018-09-01] MEDS ORDERED: CEFEPIME 2 GM in SODIUM CHLORIDE 0.9% 50 ML IVPB SCH ×2
[2018-09-01] MEDS ORDERED: methylPREDNISolone SOD SUCCI 125 MG/2 ML VIAL IV SCH
[2018-09-01] MEDS: ALBUTEROL NEBULIZED 2.5 MG/3 ML INHALATION SCH ×3 (01:23→07:12)
[2018-09-01 03:21] LABS: Glucose,Whole Blood 81 mg/dL (75-99)
[2018-09-01 05:59] LABS: Glucose,Whole Blood 199 mg/dL (75-99)
[2018-09-01 06:03] LABS: Anisocytosis Slight; Basophils % (A) 0 %; Eosinophils % (A) 0 %; HCT 32.9 % (39.0-53.0); Hypochromasia Moderate; Lymphocytes # (A) 0.3 k/uL (1.0-4.8); Lymphocytes % (A) 3 %; MCH 31.6 pg (25.0-35.0); MCHC 30.5 g/dL (31.0-37.0); MCV 103.5 fL (80.0-100.0); Macrocytosis Moderate; Mean Platelet Volume 7.5; Monocytes # (A) 0.5 k/uL (0-1.0); Monocytes % (A) 5 %; Neutrophils # (A) 9.3 k/uL (1.3-7.7); Neutrophils % (A) 91 %; Platelet Count 135 k/uL (150-450); RBC 3.18 m/uL (4.30-5.90); WBC 10.1 k/uL (3.8-10.6)
--- NOTE | 2018-09-01 06:04 | XR ---
EXAMINATION TYPE: XR chest 1V DATE OF EXAM: 09/01/2018 HISTORY: CHF. REFERENCE: Previous study dated 08/31/2018. FINDINGS: Lung volumes are prominent. The heart is mildly enlarged. There is vascular congestion and improving changes of pulmonary edema. There is worsening, confluent airspace opacity in the left lowe r lobe. There is also some increased opacity in the right lower lobe. IMPRESSION: 1. COPD. 2. MILD CARDIOMEGALY. 3. IMPROVING CHANGES OF CONGESTIVE HEART FAILURE. 4. I CANNOT EXCLUDE CONFLUENT EDEMA OR PNEUMONIA BOTH LUNG BASES.
[2018-09-01 06:05] LABS: Blood Urea Nitrogen 50 mg/dL (9-20); Calcium 8.6 mg/dL (8.4-10.2); Chloride 97 mmol/L (98-107); Glucose 79 mg/dL (74-99); Magnesium 2.3 mg/dL (1.6-2.3); Phosphorus 4.9 mg/dL (2.5-4.5); Potassium 5.7 mmol/L (3.5-5.1); Sodium 143 mmol/L (137-145)
[2018-09-01 06:06] LABS: ABG Base Excess 22.3 mmol/L; ABG PCO2 68 mmHg (35-45); ABG PH 7.44 (7.35-7.45); ABG PO2 67 mmHg (83-108); ABG TCO2 49 mmol/L (19-24)
[2018-09-01 06:11] LABS: Anion Gap 3 mmol/L
[2018-09-01 06:13] LABS: Carbon Dioxide 43 mmol/L (22-30)
[2018-09-01 06:38] LABS: Poikilocytosis (M) Present; Toxic Granulation Present
[2018-09-01] MEDS: methylPREDNISolone SOD SUCCI 125 MG/2 ML VIAL IV SCH ×3 (06:55→21:34)
[2018-09-01] MEDS: HEPARIN SODIUM,PORCINE 5,000 UNIT/ML 1 ML VIAL SQ SCH ×2 (08:45→16:07)
[2018-09-01] MEDS: PANTOPRAZOLE 40 MG/10 ML VIAL IV SCH (08:45)
[2018-09-01] MEDS: CEFEPIME 2 GM in SODIUM CHLORIDE 0.9% 50 ML IVPB SCH ×2 (08:45→16:07)
[2018-09-01] MEDS: VANCOMYCIN 1,500 MG in SODIUM CHLORIDE 0.9% 250 ML IVPB SCH ×2 (08:45→21:37)
[2018-09-01] MEDS: FUROSEMIDE 10 MG/ML 2 ML VIAL IV SCH ×2 (08:46→21:33)
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
[2018-09-01] MEDS ORDERED: PIPERACILLIN-TAZOBACTAM 3.375 GM in SODIUM CHLORIDE 0.9% 100 ML IVPB SCH (09:30)
[2018-09-01] MEDS: IPRATROPIUM-ALBUTEROL 3 ML NEB INHALATION SCH ×4 (10:46→23:00)
[2018-09-01] MEDS ORDERED: BENZOCAINE SPRAY 1 CAN TOPICAL STA (12:03)
[2018-09-01 12:14] LABS: Glucose,Whole Blood 96 mg/dL (75-99)
[2018-09-01] MEDS ORDERED: SODIUM POLYSTYRENE SULFONATE 15 GM/60 ML BOTTLE PO STA (13:42)
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
[2018-09-01] MEDS ORDERED: VANCOMYCIN 1,250 MG in SODIUM CHLORIDE 0.9% 250 ML IVPB SCH (18:00)
[2018-09-01 18:13] LABS: Glucose,Whole Blood 112 mg/dL (75-99)
[2018-09-01] MEDS: traZODone HCL 50 MG TAB PO SCH (21:34)
[2018-09-01] MEDS: DIVALPROEX ER 500 MG TAB.ER.24H PO SCH (21:34)
[2018-09-01] MEDS: SENNOSIDES 8.6 MG TAB PO SCH (21:34)
[2018-09-01] MEDS: risperiDONE 2 MG TAB PO SCH (21:34)
[2018-09-01] MEDS: PIPERACILLIN-TAZOBACTAM 3.375 GM in SODIUM CHLORIDE 0.9% 100 ML IVPB SCH (21:38)
[2018-09-02 00:03] LABS: Glucose,Whole Blood 94 mg/dL (75-99)
[2018-09-02] MEDS: CEFEPIME 2 GM in SODIUM CHLORIDE 0.9% 50 ML IVPB SCH ×3 (00:06→16:13)
[2018-09-02] MEDS: HEPARIN SODIUM,PORCINE 5,000 UNIT/ML 1 ML VIAL SQ SCH ×3 (00:06→16:13)
[2018-09-02] MEDS: methylPREDNISolone SOD SUCCI 125 MG/2 ML VIAL IV SCH ×4 (00:06→18:23)
[2018-09-02] MEDS: IPRATROPIUM-ALBUTEROL 3 ML NEB INHALATION SCH ×6 (03:11→23:15)
[2018-09-02] MEDS: PIPERACILLIN-TAZOBACTAM 3.375 GM in SODIUM CHLORIDE 0.9% 100 ML IVPB SCH ×3 (04:18→20:40)
[2018-09-02 04:56] LABS: Anisocytosis Slight; Basophils % (A) 0 %; Eosinophils % (A) 0 %; HCT 32.3 % (39.0-53.0); HGB 10.3 gm/dL (13.0-17.5); Hypochromasia Slight; Lymphocytes # (A) 0.5 k/uL (1.0-4.8); Lymphocytes % (A) 4 %; MCH 31.7 pg (25.0-35.0); MCHC 31.9 g/dL (31.0-37.0); MCV 99.4 fL (80.0-100.0); Macrocytosis Slight; Mean Platelet Volume 8.4; Monocytes # (A) 0.6 k/uL (0-1.0); Monocytes % (A) 5 %; Neutrophils # (A) 11.3 k/uL (1.3-7.7); Neutrophils % (A) 90 %; RBC 3.25 m/uL (4.30-5.90); RDW 17.4 % (11.5-15.5); WBC 12.7 k/uL (3.8-10.6)
[2018-09-02 05:04] LABS: Calcium 8.4 mg/dL (8.4-10.2); Magnesium 2.3 mg/dL (1.6-2.3); Phosphorus 4.3 mg/dL (2.5-4.5)
[2018-09-02] MEDS: LEVOTHYROXINE 25 MCG TAB PO SCH (05:35)
[2018-09-02 05:57] LABS: Platelet Count 97 k/uL (150-450)
--- NOTE | 2018-09-02 06:13 | XR ---
EXAMINATION TYPE: XR chest 1V DATE OF EXAM: 09/02/2018 HISTORY: CHF. REFERENCE: Previous study dated 09/01/2018. FINDINGS: The heart remains mildly prominent. There continues be vascular congestion. There is conflu ent airspace disease at the right lung base. I cannot exclude tiny, bilateral effusions. IMPRESSION: 1. MILD CARDIOMEGALY. 2. MILD, CONTINUING CHANGES OF CONGESTIVE HEART FAILURE. 3. I CANNOT EXCLUDE CONFLUENT EDEMA OR PNEUMONIA RIGHT LUNG BASE.
--- NOTE | 2018-09-02 06:53 | ECHOF ---
Referral Reason:chf MEASUREMENTS -------- HEIGHT: 180.3 cm WEIGHT: 81.6 kg BP: 140/72 RVIDd: 3.4 cm (< 3.3) IVSd: 1.2 cm (0.6 - 1.1) LVIDd: 5.1 cm (3.9 - 5.3) LVPWd: 1.2 cm (0.6 - 1.1) IVSs: 1.5 cm LVIDs: 3.5 cm LVPWs: 1.5 cm LAESV Index (A-L): 28.98 ml/m Ao Diam: 3.6 cm (2.0 - 3.7) AV Cusp: 1.7 cm (1.5 - 2.6) LA Diam: 3.2 cm (2.7 - 3.8) EPSS: 0.5 cm MV E Kingsley: 1.02 m/s MV DecT: 220 ms MV A Kingsley: 0.95 m/s MV E/A Ratio: 1.08 RAP: 15.00 mmHg RVSP: 45.97 mmHg MV EF SLOPE: 176.05 mm/s (70 - 150) MV EXCURSION: 2.21 cm (> 18.000) FINDINGS -------- Sinus rhythm. This was a technically good study. The left ventricular size is normal. There is mild concentric left ventricular hypertrophy. Overa ll left ventricular systolic function is normal with, an EF between 55 - 60 %. The right ventricle is mildly enlarged. LA is midly dilated 29-33ml/m2. RA appears enlarged. Aortic valve is trileaflet and is moderately thickened. There is no evidence of aortic regurgitatio n. There is no evidence of aortic stenosis. The mitral valve is normal. The mitral valve leaflets are mildly thickened. Moderate mitral regur gitation is present. Mild tricuspid regurgitation present. There is mild pulmonary hypertension. The right ventricular systolic pressure, as measured by Doppler, is 45.97mmHg. Trace/mild (physiologic) pulmonic regurgitation. The aortic root size is normal. The inferior vena cava is dilated with poor inspiratory collapse which is consistent with estimated r ight atrial pressure of 20 mmHg. There is a trivial pericardial effusion present. CONCLUSIONS -------- 1. Sinus rhythm. 2. This was a technically good study. 3. The left ventricular size is normal. 4. There is mild concentric left ventricular hypertrophy. 5. Overall left ventricular systolic function is normal with, an EF between 55 - 60 %. 6. The right ventricle is mildly enlarged. 7. LA is midly dilated 29-33ml/m2. 8. RA appears enlarged. 9. Aortic valve is trileaflet and is moderately thickened. 10. The mitral valve is normal. 11. The mitral valve leaflets are mildly thickened. 12. Moderate mitral regurgitation is present. 13. Mild tricuspid regurgitation present. 14. There is mild pulmonary hypertension. 15. The right ventricular systolic pressure, as measured by Doppler, is 45.97mmHg. 16. Trace/mild (physiologic) pulmonic regurgitation. 17. The aortic root size is normal. 18. The inferior vena cava is dilated with poor inspiratory collapse which is consistent with estimat ed right atrial pressure of 20 mmHg. 19. There is a trivial pericardial effusion present. CONTINUOUS CONVEYOR SCREEN DRIER: Fahad Cobb RDCS
[2018-09-02 07:19] LABS: Glucose,Whole Blood 100 mg/dL (75-99)
[2018-09-02] MEDS: DIVALPROEX ER 500 MG TAB.ER.24H PO SCH ×2 (08:52→22:37)
[2018-09-02] MEDS: SENNOSIDES 8.6 MG TAB PO SCH ×2 (08:52→22:37)
[2018-09-02] MEDS: risperiDONE 2 MG TAB PO SCH ×2 (08:52→22:37)
[2018-09-02] MEDS: THIAMINE 100 MG TAB PO SCH (08:53)
[2018-09-02] MEDS: TAMSULOSIN 0.4 MG CAP.ER.24H PO SCH (08:53)
[2018-09-02] MEDS: VANCOMYCIN 1,500 MG in SODIUM CHLORIDE 0.9% 250 ML IVPB SCH ×2 (08:56→20:40)
[2018-09-02] MEDS: FUROSEMIDE 10 MG/ML 2 ML VIAL IV SCH (08:56)
[2018-09-02] MEDS: PANTOPRAZOLE 40 MG/10 ML VIAL IV SCH (08:56)
[2018-09-02 12:16] LABS: Glucose,Whole Blood 111 mg/dL (75-99)
--- NOTE | 2018-09-02 13:01 | P.PN ---
Subjective Progress Note Date: 09/02/18 This is a 83-year-old male patient, extensive psychiatric history, no history of COPD with chronic hypoxic and hypercapnic respiratory failure in addition to hypertension and dementia. The patient is able to answer only simple questions. He spine's by saying yes and no. Able to respond to more questions. The baseline mentation is not known to me at this point. Were unable to get useful information from the assisted where he resides. Further Will be done to establish at least his baseline neurological and psychiatric and status. In summary, the patient has had history of dementia and chronic psychiatric disorder in addition to COPD and is a vague history of CHF in addition. I'm not aware of any based on echocardiogram on this patient. He comes in with worsening shortness of breath and cough and congestion. Chest x- ray revealed early megaly and COPD in addition to lung volumes being prominent. There is also confluent airspace disease in the lower lobes right more than left. He has a congested cough. Unable to bring up much sputum. No clear-cut history of aspiration. His white cell count is at 10.1. Blood gases at time of emergency arrival showed a pH of 7.42 with a pCO2 of 76 and pO2 of 134 and this was done while the patient a BiPAP at a pressure of 12 and 5 with an FiO2 of 50%. He obviously has chronic hypercapnic respiratory failure as this patient's blood work indicates chronic metabolic alkalosis. It is scan of the brain shows chronic small vessel ischemia and cerebral atrophy. No hemorrhage. There is evidence of ethmoid sinusitis. Currently the patient on BiPAP at a pressure of 12/5 cm of water. He is synchronous with the BiPAP fullface mask. He is calm and comfortable. No agitation. He is able to move all 4 extremities. He is slow in answering questions. Still quite lethargic. In the emergency department the patient was placed on IV cefepime and vancomycin. The patient was also started on IV Solu-Medrol. He is on albuterol nebulized treatments every 4 hours and when necessary. He was placed on IV Lasix. A pulmonary consultation was requested. He is currently in the intensive care unit. Outpatient psychiatric medications include Benadryl, Risperdal, and Depakote. On 09/02/2018 I'm seeing this patient for a follow-up. More awake and alert compared to yesterday. He is able to hold a short conversation. He has a congested cough. Unable to bring up much sputum. His swallow is poor. The patient aspirates. Unable to take his medication orally units. He is able to move all 4 extremities without any limitation and there is no focal neurological deficit. He had been scheduled for a follow-up CAT scan of the brain however this Canceled as the patient was not cooperative. Meanwhile, the patient is being treated for right lower lobe pneumonia. The patient is also being diuresed. The net fluid balance negative over the past 24 hours and the patient has diuresed approximately 3.2 L he had no fever. No chills. No leukocytosis. Hemoglobin is at 10.3. Repeat potassium level is at 5.6. Patient is on DuoNeb nebulized treatments around the clock, currently on a combination of IV Zosyn and vancomycin. He is also on IV Solu-Medrol. Last bronchus spastic and wheezy compared to yesterday. Urine drug screen was negative. Valproic acid level was 41.2. Objective - Vital Signs Vital signs: Vital Signs Temp 97 F L 09/02/18 12:00 Pulse 73 09/02/18 12:00 Resp 18 09/02/18 12:00 BP 170/72 09/02/18 12:00 Pulse Ox 94 L 09/02/18 12:00 Intake & Output 09/01/18 09/02/18 09/02/18 18:59 06:59 18:59 Intake Total 560 535 400 Output Total 2115 2270 1700 Balance -1555 -1735 -1300 Weight 86.4 kg Intake: IV 560 535 400 0.9 KVO 110 110 50 Cefepime 2 gm In Sodium 100 100 50 Chloride 0.9% 50 ml @ 100 mls/hr IVPB Q8HR RUT Rx# :[id number] Piperacillin-Tazobactam 3 100 200 50 .375 gm In Sodium Chloride 0.9% 100 ml @ 25 mls/hr IVPB Q8HR RUT Rx# :[id number] Vancomycin 1,500 mg In 250 125 250 Sodium Chloride 0.9% 250 ml @ 125 mls/hr IVPB Q12HR RUT Rx#:[id number] Output: Urine 2115 2270 1700 Other: Voiding Method Indwelling Catheter Indwelling Catheter Indwelling Catheter - Exam General: The patient is calm and comfortable. Currently on oxygen by nasal cannula. No significant rest or distress. Derm: no unusual rashes/lesions no unusual ecchymoses, warm, dry Head: atraumatic, normocephalic, symmetric Eyes: EOMI, no lid lag, anicteric sclera, pupils equal round reactive to light ENT: Nose and ears atraumatic, no thrush, no pharyngeal erythema Neck: No thyromegaly, no cervical lymphadenopathy, trachea midline, supple Mouth: no lip lesion, mucus membranes moist, poor dentition Cardiovascular: S1S2 reg, no murmur, positive posterior tibial pulse bilateral, no edema, capillary refill less than 2 seconds Lungs: Distress sounds bilaterally along with scattered rhonchi and scattered expiratory wheezes throughout the lung moser. Crackles at lung bases right more than left. Abdominal: soft, nontender to palpation, no guarding, no appreciable organomegaly, normal bowel sounds Ext: no gross muscle atrophy, muscle strength 5 out of 5 in all 4 extremities grossly, no contractures, Neuro: CN II-XI grossly intact, he is able to move all 4 extremities. He is awake. He is communicating. He is following simple commands. He is moving all 4 extremities to commands. Failed the swallow evaluation. He remains nothing by mouth. - Labs CBC & Chem 7: 09/02/18 04:11 09/02/18 10:06 Labs: Abnormal Lab Results - Last 24 Hours (Table) 09/01/18 09/02/18 09/02/18 Range/Units 18:11 04:11 04:11 WBC 12.7 H (3.8-10.6) k/uL RBC 3.25 L (4.30-5.90) m/uL Hgb 10.3 L (13.0-17.5) gm/dL Hct 32.3 L (39.0-53.0) % RDW 17.4 H (11.5-15.5) % Plt Count 97 L (150-450) k/uL Neutrophils # 11.3 H (1.3-7.7) k/uL Lymphocytes # 0.5 L (1.0-4.8) k/uL Potassium 6.0 H (3.5-5.1) mmol/L Carbon Dioxide 36 H (22-30) mmol/L BUN 55 H (9-20) mg/dL POC Glucose (mg/dL) 112 H (75-99) mg/dL 09/02/18 09/02/18 09/02/18 Range/Units 07:18 10:06 12:14 WBC (3.8-10.6) k/uL RBC (4.30-5.90) m/uL Hgb (13.0-17.5) gm/dL Hct (39.0-53.0) % RDW (11.5-15.5) % Plt Count (150-450) k/uL Neutrophils # (1.3-7.7) k/uL Lymphocytes # (1.0-4.8) k/uL Potassium 5.6 H (3.5-5.1) mmol/L Carbon Dioxide (22-30) mmol/L BUN (9-20) mg/dL POC Glucose (mg/dL) 100 H 111 H (75-99) mg/dL Microbiology - Last 24 Hours (Table) 08/31/18 20:35 Blood Culture - Preliminary Blood No Growth after 24 hours Assessment and Plan Plan: Assessment 1 acute respiratory distress secondary to a COPD exacerbation right lower lobe pneumonia. Cannot rule out a component of CHF in addition. The patient is on a combination of antibiotics and I put the patient a combination of Zosyn and vancomycin. The patient has been diuresed with IV Lasix. Clinically improved compared to yesterday and the BiPAP has been discontinued. Follow-up chest exit from today shows mild cardiomegaly. Mild changes of CHF still present and there is a still a right lower lobe pneumonia. 2 chronic hypoxic respiratory failure my improving and the patient's oxygenation is improved considerably. 3 chronic hypercapnic respiratory failure well compensated mother patient required BiPAP for respiratory support at time of admission currently on 4 L of oxygen by nasal cannula. 4 chronic smoker 5 chronic dementia with previous history of aggressive behaviors 6 chronic psychiatric disorder with multiple admissions to psychiatric unit, with history of manic and psychotic symptoms, in addition to bipolar disorder and previous history of alcohol use disorder. His last admission was on 2017 to the psychiatric unit for a manic psychosis. 7 hypothyroidism 8 degenerative arthritis with previous history of vitamin D deficiency 9 hypertension 10 patient resides in a assisted. 11 failed swallow evaluation, rule out underlying CVA. 12 secondary pulmonary hypertension with a PA pressure of around 45 based on the right ventricular systolic pressure. LV function is within normal limits. Plan Repeat the CAT scan of the chest. Obtain a psychiatric consultation. Keep the patient nothing by mouth. Monitor the swallow reevaluated in a.m. Echocardiac Jorge L was noted and the patient has a preserved LV function with an ejection fraction of 55-60%. The IVC was dilated and there was a poor inspiratory collapse consistent with elevated right-sided pressures. There may be some underlying secondary pulmonary hypertension with a right ventricular systolic pressure estimated to be around 45. Depakote level was nontoxic. We'll continue to follow. The patient be kept in ICU for now. Be kept nothing by mouth. Repeat potassium level is at 5.6.
--- NOTE | 2018-09-02 15:01 | P.PN ---
Subjective Patient is admitted for acute respiratory failure both hypoxic and hypercapnic and patient is presently on aspirin and Lanoxin 4 L per. Patient is wheezing quite a bit and patient is being treated for COPD patient was confused yesterday L leg much less awake lethargic all of which improved today patient is able to communicate and mental status close to his baseline. Constitutional: Denied any fatigue denied any fever. Cardio vascular: denied any chest pain, palpitations Gastrointestinal denied any nausea vomiting Pulmonary: his of breath significantly improved and feeling much better Neurologic denied any new focal deficits All inpatient medications were reviewed and appropriate changes in these medications as dictated in the interval history and assessment and plan. Objective - Vital Signs Vital signs: Vital Signs Temp 97 F L 09/02/18 12:00 Pulse 70 09/02/18 14:00 Resp 17 09/02/18 14:00 BP 163/71 09/02/18 14:00 Pulse Ox 90 L 09/02/18 14:00 Intake & Output 09/01/18 09/02/18 09/02/18 18:59 06:59 18:59 Intake Total 560 535 420 Output Total 21140 211 Balance -1555 -1735 -1695 Weight 86.4 kg Intake: IV 560 535 420 0.9 KVO 110 110 70 Cefepime 2 gm In Sodium 100 100 50 Chloride 0.9% 50 ml @ 100 mls/hr IVPB Q8HR RUT Rx# :[id number] Piperacillin-Tazobactam 3 100 200 50 .375 gm In Sodium Chloride 0.9% 100 ml @ 25 mls/hr IVPB Q8HR RUT Rx# :[id number] Vancomycin 1,500 mg In 250 125 250 Sodium Chloride 0.9% 250 ml @ 125 mls/hr IVPB Q12HR RUT Rx#:[id number] Output: Urine 21140 2115 Other: Voiding Method Indwelling Catheter Indwelling Catheter Indwelling Catheter - Exam PHYSICAL EXAMINATION: GENERAL: The patient is alert and able to assess orientation, is on many mask, was on BiPAP is unable to tolerate that because of which switched to Ventimask has an NG tube in place with some nasal trauma HEENT: Pupils are round and equally reacting to light. EOMI. No scleral icterus. No conjunctival pallor. Normocephalic, atraumatic. No pharyngeal erythema. No thyromegaly. CARDIOVASCULAR: S1 and S2 present. No murmurs, rubs, or gallops. PULMONARY: Rhonchus breath sounds expiratory wheezing or crackles in the right lower lung bases ABDOMEN: Soft, nontender, nondistended, normoactive bowel sounds. No palpable organomegaly. MUSCULOSKELETAL: No joint swelling or deformity. EXTREMITIES: No cyanosis, clubbing, I'll bilateral pedal edema NEUROLOGICAL: Unable to assess SKIN: No rashes. - Labs CBC & Chem 7: 09/02/18 04:11 09/02/18 10:06 Labs: Abnormal Lab Results - Last 24 Hours (Table) 09/01/18 09/02/18 09/02/18 Range/Units 18:11 04:11 04:11 WBC 12.7 H (3.8-10.6) k/uL RBC 3.25 L (4.30-5.90) m/uL Hgb 10.3 L (13.0-17.5) gm/dL Hct 32.3 L (39.0-53.0) % RDW 17.4 H (11.5-15.5) % Plt Count 97 L (150-450) k/uL Neutrophils # 11.3 H (1.3-7.7) k/uL Lymphocytes # 0.5 L (1.0-4.8) k/uL Potassium 6.0 H (3.5-5.1) mmol/L Carbon Dioxide 36 H (22-30) mmol/L BUN 55 H (9-20) mg/dL POC Glucose (mg/dL) 112 H (75-99) mg/dL 09/02/18 09/02/18 09/02/18 Range/Units 07:18 10:06 12:14 WBC (3.8-10.6) k/uL RBC (4.30-5.90) m/uL Hgb (13.0-17.5) gm/dL Hct (39.0-53.0) % RDW (11.5-15.5) % Plt Count (150-450) k/uL Neutrophils # (1.3-7.7) k/uL Lymphocytes # (1.0-4.8) k/uL Potassium 5.6 H (3.5-5.1) mmol/L Carbon Dioxide (22-30) mmol/L BUN (9-20) mg/dL POC Glucose (mg/dL) 100 H 111 H (75-99) mg/dL Microbiology - Last 24 Hours (Table) 08/31/18 20:35 Blood Culture - Preliminary Blood No Growth after 24 hours Assessment and Plan Plan: Acute hypercapnic and hypoxic respiratory failure probably secondary to COPD exacerbation, low possibility of CHF patient systemic steroids inhalational treatments respiratory support with BiPAP on Ventimask as mentioned above there may be an aspiration pneumonia for which patient was Zosyn patient is on IV steroids inhalational treatments continues to be significantly. 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
[2018-09-02] MEDS: HALOPERIDOL LACTATE 5 MG/ML 1 ML VIAL IVP PRN ×2 (15:25→18:23)
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
[2018-09-02 18:16] LABS: Glucose,Whole Blood 115 mg/dL (75-99)
[2018-09-02] MEDS ORDERED: HALOPERIDOL LACTATE 5 MG/ML 1 ML VIAL IVP PRN (19:24)
[2018-09-02] MEDS: traZODone HCL 50 MG TAB PO SCH (22:37)
[2018-09-03] MEDS: CEFEPIME 2 GM in SODIUM CHLORIDE 0.9% 50 ML IVPB SCH ×3 (00:19→16:12)
[2018-09-03] MEDS: methylPREDNISolone SOD SUCCI 125 MG/2 ML VIAL IV SCH ×4 (00:19→18:43)
[2018-09-03] MEDS: HEPARIN SODIUM,PORCINE 5,000 UNIT/ML 1 ML VIAL SQ SCH ×3 (00:19→16:12)
[2018-09-03] MEDS: hydrALAZINE HCL 20 MG/ML 1 ML VIAL IVP PRN (00:19)
[2018-09-03] MEDS: HALOPERIDOL LACTATE 5 MG/ML 1 ML VIAL IVP PRN (01:33)
[2018-09-03] MEDS: IPRATROPIUM-ALBUTEROL 3 ML NEB INHALATION SCH ×6 (03:15→23:32)
[2018-09-03] MEDS: PIPERACILLIN-TAZOBACTAM 3.375 GM in SODIUM CHLORIDE 0.9% 100 ML IVPB SCH ×3 (04:48→19:58)
[2018-09-03 05:38] LABS: Anisocytosis Slight; Basophils % (A) 0 %; Eosinophils % (A) 0 %; HCT 33.8 % (39.0-53.0); HGB 10.6 gm/dL (13.0-17.5); Hypochromasia Slight; Lymphocytes # (A) 0.5 k/uL (1.0-4.8); Lymphocytes % (A) 5 %; MCH 31.7 pg (25.0-35.0); MCHC 31.4 g/dL (31.0-37.0); Macrocytosis Slight; Mean Platelet Volume 8.1; Monocytes # (A) 0.4 k/uL (0-1.0); Monocytes % (A) 5 %; Neutrophils % (A) 89 %; RBC 3.35 m/uL (4.30-5.90); RDW 17.5 % (11.5-15.5)
[2018-09-03] MEDS: LEVOTHYROXINE 25 MCG TAB PO SCH (05:38)
[2018-09-03 05:48] LABS: Anion Gap 8 mmol/L; Calcium 8.4 mg/dL (8.4-10.2); Carbon Dioxide 28 mmol/L (22-30); Chloride 105 mmol/L (98-107); Glucose 100 mg/dL (74-99); Sodium 141 mmol/L (137-145)
[2018-09-03 05:52] LABS: Platelet Count 96 k/uL (150-450)
[2018-09-03 05:55] LABS: Potassium 4.9 mmol/L (3.5-5.1)
[2018-09-03 05:56] LABS: Blood Urea Nitrogen 51 mg/dL (9-20); Magnesium 2.4 mg/dL (1.6-2.3)
[2018-09-03] MEDS ORDERED: VANCOMYCIN TROUGH DUE 1 EACH MISC MISCELLANE ONE (08:00)
[2018-09-03] MEDS: DIVALPROEX ER 500 MG TAB.ER.24H PO SCH ×2 (08:12→20:29)
[2018-09-03] MEDS: risperiDONE 2 MG TAB PO SCH ×2 (08:12→20:29)
[2018-09-03] MEDS: SENNOSIDES 8.6 MG TAB PO SCH ×2 (08:13→20:29)
[2018-09-03] MEDS: THIAMINE 100 MG TAB PO SCH (08:13)
[2018-09-03] MEDS: TAMSULOSIN 0.4 MG CAP.ER.24H PO SCH (08:13)
[2018-09-03] MEDS: PANTOPRAZOLE 40 MG/10 ML VIAL IV SCH (08:16)
--- NOTE | 2018-09-03 08:49 | XR ---
EXAMINATION TYPE: XR chest 1V DATE OF EXAM: 09/03/2018 COMPARISON: 09/02/2018 INDICATION: CHF TECHNIQUE: Single frontal view of the chest is obtained. FINDINGS: The heart size is borderline in size. The pulmonary vasculature is subtly prominent. There may be some mild infiltrate at the lung bases. Atypical pulmonary edema and subsegmental atelec tasis could be considered. Pneumonia is not entirely excluded. IMPRESSION: 1. Some mild CHF is not excluded. Findings are similar to comparison. Continued follow-up is recommen ded.
[2018-09-03] MEDS: VANCOMYCIN 1,500 MG in SODIUM CHLORIDE 0.9% 250 ML IVPB SCH (09:20)
[2018-09-03 10:27] LABS: ABG HCO3 46 mmol/L (21-25)
--- NOTE | 2018-09-03 11:50 | P.PN ---
Subjective Progress Note Date: 09/03/18 Principal diagnosis: Acute on chronic hypoxic and hypercapnic respiratory failure, multifactorial secondary to COPD, right lower lobe pneumonia, and congestive heart failure. This is a 83-year-old male patient, extensive psychiatric history, no history of COPD with chronic hypoxic and hypercapnic respiratory failure in addition to hypertension and dementia. The patient is able to answer only simple questions. He spine's by saying yes and no. Able to respond to more questions. The baseline mentation is not known to me at this point. Were unable to get useful information from the nursing home where he resides. Further Will be done to establish at least his baseline neurological and psychiatric and status. In summary, the patient has had history of dementia and chronic psychiatric disorder in addition to COPD and is a vague history of CHF in addition. I'm not aware of any based on echocardiogram on this patient. He comes in with worsening shortness of breath and cough and congestion. Chest x- ray revealed early megaly and COPD in addition to lung volumes being prominent. There is also confluent airspace disease in the lower lobes right more than left. He has a congested cough. Unable to bring up much sputum. No clear-cut history of aspiration. His white cell count is at 10.1. Blood gases at time of emergency arrival showed a pH of 7.42 with a pCO2 of 76 and pO2 of 134 and this was done while the patient a BiPAP at a pressure of 12 and 5 with an FiO2 of 50%. He obviously has chronic hypercapnic respiratory failure as this patient's blood work indicates chronic metabolic alkalosis. It is scan of the brain shows chronic small vessel ischemia and cerebral atrophy. No hemorrhage. There is evidence of ethmoid sinusitis. Currently the patient on BiPAP at a pressure of 12/5 cm of water. He is synchronous with the BiPAP fullface mask. He is calm and comfortable. No agitation. He is able to move all 4 extremities. He is slow in answering questions. Still quite lethargic. In the emergency department the patient was placed on IV cefepime and vancomycin. The patient was also started on IV Solu-Medrol. He is on albuterol nebulized treatments every 4 hours and when necessary. He was placed on IV Lasix. A pulmonary consultation was requested. He is currently in the intensive care unit. Outpatient psychiatric medications include Benadryl, Risperdal, and Depakote. On 09/02/2018 I'm seeing this patient for a follow-up. More awake and alert compared to yesterday. He is able to hold a short conversation. He has a congested cough. Unable to bring up much sputum. His swallow is poor. The patient aspirates. Unable to take his medication orally units. He is able to move all 4 extremities without any limitation and there is no focal neurological deficit. He had been scheduled for a follow-up CAT scan of the brain however this Canceled as the patient was not cooperative. Meanwhile, the patient is being treated for right lower lobe pneumonia. The patient is also being diuresed. The net fluid balance negative over the past 24 hours and the patient has diuresed approximately 3.2 L he had no fever. No chills. No leukocytosis. Hemoglobin is at 10.3. Repeat potassium level is at 5.6. Patient is on DuoNeb nebulized treatments around the clock, currently on a combination of IV Zosyn and vancomycin. He is also on IV Solu-Medrol. Less broncho spastic and wheezy compared to yesterday. Urine drug screen was negative. Valproic acid level was 41.2. Patient was reevaluated today on 09/03/2018, feeling better from the pulmonary perspective, however the patient remains confused, and intermittently agitated. Remains on antibiotics, bronchodilators, steroids, and he is definitely less bronchospastic, and less wheezy. Chest x-ray continues to show mild congestive heart failure changes, limited infiltrate in the bases is not entirely ruled out , there is also some subsegmental atelectasis. Pneumonia is not entirely ruled out. Blood cultures remain negative so far since admission. WBC count is 9 hemoglobin is 10.6 electrolytes are normal BUN is [address] of the brain is pending. Patient remains on cefepime, vancomycin, Solu- Medrol, and albuterol with Atrovent updraft treatments. He is also on Lasix. Psychiatric hardy, remains on multiple psych medications as noted. And he is to be seen by psychiatry. Objective - Vital Signs Vital signs: Vital Signs Temp 98.2 F 09/03/18 08:00 Pulse 64 09/03/18 10:40 Resp 6 L 09/03/18 10:00 BP 165/78 09/03/18 10:00 Pulse Ox 97 09/03/18 09:00 Intake & Output 09/02/18 09/03/18 09/03/18 18:59 06:59 18:59 Intake Total 510 520 375 Output Total 2710 1500 505 Balance -2200 -980 -130 Weight 86 kg Intake: IV 510 520 125 0.9 KVO 110 120 50 Cefepime 2 gm In Sodium 100 50 Chloride 0.9% 50 ml @ 100 mls/hr IVPB Q8HR [facility] Rx# :[id number] Piperacillin-Tazobactam 3 150 25 .375 gm In Sodium Chloride 0.9% 100 ml @ 25 mls/hr IVPB Q8H [facility] Rx#: [id number] Piperacillin-Tazobactam 3 50 .375 gm In Sodium Chloride 0.9% 100 ml @ 25 mls/hr IVPB Q8HR [facility] Rx# :[id number] Vancomycin 1,500 mg In 250 250 Sodium Chloride 0.9% 250 ml @ 125 mls/hr IVPB Q12HR [facility] Rx#:[id number] Intake, IV Titration 250 Amount Vancomycin 1,500 mg In 250 Sodium Chloride 0.9% 250 ml @ 125 mls/hr IVPB Q12HR [facility] Rx#:[id number] Output: Urine 2710 1500 505 Other: Voiding Method Indwelling Catheter Indwelling Catheter Indwelling Catheter - Exam Physical Exam: Revealed a 83-year-old white male, comfortable, in no distress. Head: Atraumatic, normocephalic. HEENT: PERRLA, EOMI, moist mucous membranes. [Neck is supple.] [No neck masses. ] [No thyromegaly.] [No JVD.] Chest: [Crackles at the bases, minimal wheezing on forced expiratory maneuver was noted. Right more so than left. Symmetrical chest expansion, no chest wall tenderness.] Cardiac Exam: [Normal S1 and S2, no S3 gallop, no murmur.] Abdomen: [Soft, nontender, no megaly, no rebound, no guarding, normal bowel sounds.] Extremities: [No clubbing, no edema, no cyanosis.] Neurological Exam: [No focal neurologic deficit.] However the patient is a bit confused, communicative, able to move all 4 extremities. Psychiatric: Blunted mood and affect, poor mental status examination and insight. - Labs CBC & Chem 7: 09/03/18 05:06 09/03/18 05:06 Labs: Abnormal Lab Results - Last 24 Hours (Table) 09/01/18 09/02/18 09/02/18 Range/Units 06:04 12:14 18:14 RBC (4.30-5.90) m/uL Hgb (13.0-17.5) gm/dL Hct (39.0-53.0) % MCV (80.0-100.0) fL RDW (11.5-15.5) % Plt Count (150-450) k/uL Neutrophils # (1.3-7.7) k/uL Lymphocytes # (1.0-4.8) k/uL ABG HCO3 46 H* (21-25) mmol/L BUN (9-20) mg/dL Glucose (74-99) mg/dL POC Glucose (mg/dL) 111 H 115 H (75-99) mg/dL Magnesium (1.6-2.3) mg/dL 09/03/18 09/03/18 Range/Units 05:06 05:06 RBC 3.35 L (4.30-5.90) m/uL Hgb 10.6 L (13.0-17.5) gm/dL Hct 33.8 L (39.0-53.0) % MCV 101.0 H (80.0-100.0) fL RDW 17.5 H (11.5-15.5) % Plt Count 96 L (150-450) k/uL Neutrophils # 8.0 H (1.3-7.7) k/uL Lymphocytes # 0.5 L (1.0-4.8) k/uL ABG HCO3 (21-25) mmol/L BUN 51 H (9-20) mg/dL Glucose 100 H (74-99) mg/dL POC Glucose (mg/dL) (75-99) mg/dL Magnesium 2.4 H (1.6-2.3) mg/dL Microbiology - Last 24 Hours (Table) 08/31/18 20:35 Blood Culture - Preliminary Blood No Growth after 48 hours Assessment and Plan Assessment: Impression: 1 acute on chronic hypoxic and hypercapnic respiratory failure, multifactorial secondary to COPD exacerbation. Congestive heart failure possibly diastolic in nature. Suspect a right lower lobe aspiration pneumonia. 2 chronic dementia with previous aggressive behavior. 3 chronic psychiatric disorder/bipolar disorder and history of psychotic features. Patient has history of manic psychosis. 4 hypothyroidism 5 hypertension 6 degenerative joint disease and vitamin D deficiency 7 failed swallow evaluation, suspect aspiration pneumonia involving the right lower lobe. 8 possible CVA bit, being followed by neurology, repeat CT of the brain is pending. 9 pulmonary hypertension as noted on his echocardiogram, good LV function was noted. His PA pressures are around 45. Recommendation: Continue present supportive care measures, continue antibiotics , consider repeat swallow evaluation, continue bronchodilators, steroids, psych medications, patient could be transferred out of the ICU as long as we could arrange for a sitter at bedside to keep a close watch on the patient especially with his psychotic behavior at times. We'll continue to follow. Time with Patient: Less than 30
--- NOTE | 2018-09-03 13:49 | P.PN ---
Subjective Patient is admitted for acute respiratory failure both hypoxic and hypercapnic and patient is presently on aspirin and Lanoxin 4 L per. Patient is wheezing quite a bit and patient is being treated for COPD patient was confused yesterday L leg much less awake lethargic all of which improved today patient is able to communicate and mental status close to his baseline. 07/06/2018 Patient seen and examined by me in the ICU. Patient the breathing is better than his of BiPAP on nasal cannula oxygen with saturating 95% on 5 L high flow. This always confused but he is oriented to place. He has some left-sided facial droop she denies chest pain or tenderness. CBC and BMP were reviewed with no significant change. Neurology and critical care input is appreciated. Constitutional: Denied any fatigue denied any fever. Cardio vascular: denied any chest pain, palpitations Gastrointestinal denied any nausea vomiting Pulmonary: his of breath significantly improved and feeling much better Neurologic denied any new focal deficits All inpatient medications were reviewed and appropriate changes in these medications as dictated in the interval history and assessment and plan. Objective - Vital Signs Vital signs: Vital Signs Temp 98.5 F 09/03/18 12:00 Pulse 78 09/03/18 12:00 Resp 17 09/03/18 12:00 BP 141/72 09/03/18 12:00 Pulse Ox 95 09/03/18 12:00 Intake & Output 09/02/18 09/03/18 09/03/18 18:59 06:59 18:59 Intake Total 510 520 900 Output Total 2710 1500 755 Balance -2200 -980 145 Weight 86 kg Intake: IV 510 520 350 0.9 KVO 110 120 50 Cefepime 2 gm In Sodium 100 50 Chloride 0.9% 50 ml @ 100 mls/hr IVPB Q8HR [facility] Rx# :[id number] Piperacillin-Tazobactam 3 150 125 .375 gm In Sodium Chloride 0.9% 100 ml @ 25 mls/hr IVPB Q8H [facility] Rx#: [id number] Piperacillin-Tazobactam 3 50 .375 gm In Sodium Chloride 0.9% 100 ml @ 25 mls/hr IVPB Q8HR [facility] Rx# :[id number] Vancomycin 1,500 mg In 250 250 125 Sodium Chloride 0.9% 250 ml @ 125 mls/hr IVPB Q12HR [facility] Rx#:[id number] Intake, IV Titration 250 Amount Vancomycin 1,500 mg In 250 Sodium Chloride 0.9% 250 ml @ 125 mls/hr IVPB Q12HR [facility] Rx#:[id number] Oral 300 Output: Urine 2710 1500 755 Other: Voiding Method Indwelling Catheter Indwelling Catheter Indwelling Catheter - Exam -GENERAL: The patient is alert and awake, oriented to place only, is on nasal cannula HEENT: Pupils are round and equally reacting to light. EOMI. No scleral icterus. No conjunctival pallor. Normocephalic, atraumatic. No pharyngeal erythema. No thyromegaly. CARDIOVASCULAR: S1 and S2 present. No murmurs, rubs, or gallops. PULMONARY: Rhonchus breath sounds expiratory wheezing or crackles in the right lower lung bases ABDOMEN: Soft, nontender, nondistended, normoactive bowel sounds. No palpable organomegaly. MUSCULOSKELETAL: No joint swelling or deformity. EXTREMITIES: No cyanosis, clubbing, I'll bilateral pedal edema NEUROLOGICAL: Unilateral facial droop. No weakness in arms or legs. No abnormal sensation rest of cranial nerves are grossly intact. Meningeal signs are absent SKIN: No rashes. - Labs CBC & Chem 7: 09/03/18 05:06 09/03/18 05:06 Labs: Abnormal Lab Results - Last 24 Hours (Table) 09/01/18 09/02/18 09/03/18 Range/Units 06:04 18:14 05:06 RBC 3.35 L (4.30-5.90) m/uL Hgb 10.6 L (13.0-17.5) gm/dL Hct 33.8 L (39.0-53.0) % MCV 101.0 H (80.0-100.0) fL RDW 17.5 H (11.5-15.5) % Plt Count 96 L (150-450) k/uL Neutrophils # 8.0 H (1.3-7.7) k/uL Lymphocytes # 0.5 L (1.0-4.8) k/uL ABG HCO3 46 H* (21-25) mmol/L BUN (9-20) mg/dL Glucose (74-99) mg/dL POC Glucose (mg/dL) 115 H (75-99) mg/dL Magnesium (1.6-2.3) mg/dL 09/03/18 Range/Units 05:06 RBC (4.30-5.90) m/uL Hgb (13.0-17.5) gm/dL Hct (39.0-53.0) % MCV (80.0-100.0) fL RDW (11.5-15.5) % Plt Count (150-450) k/uL Neutrophils # (1.3-7.7) k/uL Lymphocytes # (1.0-4.8) k/uL ABG HCO3 (21-25) mmol/L BUN 51 H (9-20) mg/dL Glucose 100 H (74-99) mg/dL POC Glucose (mg/dL) (75-99) mg/dL Magnesium 2.4 H (1.6-2.3) mg/dL Microbiology - Last 24 Hours (Table) 08/31/18 20:35 Blood Culture - Preliminary Blood No Growth after 48 hours Assessment and Plan Assessment: Assessment and Plan: Acute hypercapnic and hypoxic respiratory failure probably secondary to COPD exacerbation, low possibility of CHF patient systemic steroids inhalational treatments respiratory support with BiPAP on Ventimask as mentioned above there may be an aspiration pneumonia for which patient was Zosyn patient is on IV steroids inhalational treatments continues to be significantly. Significant improvement in his respiratory status from 100% Ventimask to 3-4 L today -Suspected stroke with fascial droop on 1 side. 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
--- NOTE | 2018-09-03 18:52 | MR ---
EXAMINATION TYPE: MR brain wo con DATE OF EXAM: 09/03/2018 COMPARISON: None HISTORY: Dementia Standard multiplanar, multisequence MRI departmental protocol Multiplanar, multisequence images of the were acquired. Diffusion weighted imaging was performed. FINDINGS: There is on the T2 and FLAIR images extensive coalescent increased density in the periventr icular white matter. These measure up to 2 cm. There is mild enlargement of the ventricles. There is cerebral cortical atrophy. There is no midline shift. There is no sign of intracranial hemorrhage. Th ere is thinning of the corpus callosum. Brainstem appears intact. Sella turcica appears intact. There is no evidence of a cortical infarct. IMPRESSION: Cerebral atrophy. Mild hydrocephalus. Extensive white matter changes probably due to chronic small ve ssel ischemia. Ethmoid and frontal sinusitis noted.
[2018-09-03] MEDS: traZODone HCL 50 MG TAB PO SCH (20:29)
--- NOTE | 2018-09-03 23:50 | P.PN ---
Subjective Progress Note Date: 09/03/18 Patient seen today in the Intensive Care unit for neurologic follow-up. The patient is being evaluated for altered mental status and possible stroke. The patient was very agitated earlier this morning. He refused to have his EEG procedure done. The patient was able to go for MRI of the brain today which was reviewed. MRI does not reveal any evidence of acute stroke however there is extensive white matter changes in both hemispheres of the brain suggesting vascular dementia. There was mild enlargement of the ventricles noted as well. The patient is remaining in the intensive care unit today. He still remains quite confused at times. His speech remains somewhat garbled and hard to comprehend at times. The patient was seen by speech pathology and they have placed him on some restrictions. Patient was evaluated in the ICU today and is asking for increase in his diet stating that he has only been taking pudding. The patient was unable to have EEG but apparently they will try again tomorrow. The patient seems to be doing somewhat better and that he is much more verbal today. Once again there is no evidence of acute stroke based on his MRI scan. The patient was seen by psychiatry and his psychiatric medications have all been restarted. We will continue close neurological follow-up with this patient in the intensive care unit. His overall prognosis at this time remains guarded. Objective - Vital Signs Vital signs: Vital Signs Temp 97.5 F L 09/03/18 16:00 Pulse 59 L 09/03/18 16:00 Resp 19 09/03/18 16:00 BP 146/83 09/03/18 16:00 Pulse Ox 95 09/03/18 16:00 Intake & Output 09/02/18 09/03/18 09/03/18 18:59 06:59 18:59 Intake Total 512 211 1538 Output Total 2710 1500 905 Balance -2200 -980 120 Weight 86 kg Intake: IV 510 520 475 0.9 KVO 110 120 50 Cefepime 2 gm In Sodium 100 50 Chloride 0.9% 50 ml @ 100 mls/hr IVPB Q8HR [facility] Rx# :[id number] Piperacillin-Tazobactam 3 150 125 .375 gm In Sodium Chloride 0.9% 100 ml @ 25 mls/hr IVPB Q8H [facility] Rx#: [id number] Piperacillin-Tazobactam 3 50 .375 gm In Sodium Chloride 0.9% 100 ml @ 25 mls/hr IVPB Q8HR [facility] Rx# :[id number] Vancomycin 1,500 mg In 250 250 250 Sodium Chloride 0.9% 250 ml @ 125 mls/hr IVPB Q12HR [facility] Rx#:[id number] Intake, IV Titration 250 Amount Vancomycin 1,500 mg In 250 Sodium Chloride 0.9% 250 ml @ 125 mls/hr IVPB Q12HR [facility] Rx#:[id number] Oral 300 Output: Urine 2710 1500 905 Other: Voiding Method Indwelling Catheter Indwelling Catheter Indwelling Catheter # Voids 1 - Exam Physical examination: PHYSICAL EXAMINATION: Patient is resting comfortably in bed. Patient remains confused in the intensive care unit and disoriented. VITAL SIGNS: Blood pressure is [116/92]. Heart rate is [67]. Respiration is [25] . Temperature is [97.7]. HEENT: Head is atraumatic, neck is supple, there were no carotid bruits. CHEST: Lungs are clear to auscultation and percussion. CARDIAC: S1, S2 normal rate and rhythm. There is no murmur. ABDOMEN: Soft and nontender. Bowel sounds are present. EXTREMITIES: There is no pedal edema. Peripheral pulses are present. Neurological examination: Patient's neurological examination is unchanged from yesterday. Patient is much more verbal today and speech is slightly improved. He still has some episodes of garbled speech. He is moving all 4 extremities. Deep tendon reflexes are 1+ and symmetric. Plantar responses flexor bilaterally. - Labs CBC & Chem 7: 09/03/18 05:06 09/03/18 05:06 Labs: Abnormal Lab Results - Last 24 Hours (Table) 09/01/18 09/02/18 09/03/18 Range/Units 06:04 18:14 05:06 RBC 3.35 L (4.30-5.90) m/uL Hgb 10.6 L (13.0-17.5) gm/dL Hct 33.8 L (39.0-53.0) % MCV 101.0 H (80.0-100.0) fL RDW 17.5 H (11.5-15.5) % Plt Count 96 L (150-450) k/uL Neutrophils # 8.0 H (1.3-7.7) k/uL Lymphocytes # 0.5 L (1.0-4.8) k/uL ABG HCO3 46 H* (21-25) mmol/L BUN (9-20) mg/dL Glucose (74-99) mg/dL POC Glucose (mg/dL) 115 H (75-99) mg/dL Magnesium (1.6-2.3) mg/dL 09/03/18 Range/Units 05:06 RBC (4.30-5.90) m/uL Hgb (13.0-17.5) gm/dL Hct (39.0-53.0) % MCV (80.0-100.0) fL RDW (11.5-15.5) % Plt Count (150-450) k/uL Neutrophils # (1.3-7.7) k/uL Lymphocytes # (1.0-4.8) k/uL ABG HCO3 (21-25) mmol/L BUN 51 H (9-20) mg/dL Glucose 100 H (74-99) mg/dL POC Glucose (mg/dL) (75-99) mg/dL Magnesium 2.4 H (1.6-2.3) mg/dL Microbiology - Last 24 Hours (Table) 08/31/18 20:35 Blood Culture - Preliminary Blood No Growth after 48 hours Assessment and Plan (1) Hypercapnic respiratory failure Current Visit: Yes Status: Acute Code(s): J96.92 - RESPIRATORY FAILURE, UNSPECIFIED WITH HYPERCAPNIA SNOMED Code(s): 535628520 (2) Acute metabolic encephalopathy Current Visit: Yes Status: Acute Code(s): G93.41 - METABOLIC ENCEPHALOPATHY SNOMED Code(s): 99527596 (3) Acute exacerbation of chronic obstructive airways disease Current Visit: Yes Status: Acute Code(s): J44.1 - CHRONIC OBSTRUCTIVE PULMONARY DISEASE W (ACUTE) EXACERBATION SNOMED Code(s): 263913596 (4) Acute psychosis Current Visit: No Status: Acute Code(s): F23 - BRIEF PSYCHOTIC DISORDER SNOMED Code(s): 88104821 (5) Severe manic bipolar 1 disorder with psychotic behavior Current Visit: No Status: Acute Priority: High Code(s): F31.2 - BIPOLAR DISORD, CRNT EPISODE MANIC SEVERE W PSYCH FEATURES SNOMED Code(s): 50262251 Plan: This patient is a 83-year-old male who was evaluated today in the intensive care unit for increased confusion and history of underlying dementia. Patient was residing in a retirement and was brought into the hospital for evaluation of respiratory distress. He was found to have evidence of hypercapnic respiratory failure and was placed on BiPAP. He was transferred to the intensive care unit back on 08/31/2018 following admission. Neurology was consulted today due to increased confusion. CAT scan of the brain was reviewed which was performed back on 08/31/2018. CAT scan reveals cerebral atrophy and chronic small vessel ischemia. No evidence of acute hemorrhage. Multiple areas of patchy hypodensity were noted. We have recommended the patient to undergo MRI of the brain for further evaluation of these multiple areas of hypodensity. The patient was able to complete MRI of the brain today. Results are as noted above. MRI findings would be compatible with underlying vascular dementia. We will obtain routine EEG for further assessment of his cognitive function. 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 He does have complex past medical history which may be worsening her continuing to his confusional state including history of bipolar disorder and underlying dementia. Patient is being followed by speech therapy. He is on a restricted diet at this time with close monitoring for aspiration. His overall prognosis at this time remains very guarded. We will await further recommendations from psychiatry as well and in the meantime he has been restarted on his psychiatric medications. We will continue to follow his progress closely in the intensive care unit. His overall prognosis at this time remains very guarded.
[2018-09-04] MEDS ORDERED: VANCOMYCIN 1,500 MG in SODIUM CHLORIDE 0.9% 250 ML IVPB SCH ×2
[2018-09-04] MEDS: CEFEPIME 2 GM in SODIUM CHLORIDE 0.9% 50 ML IVPB SCH ×3 (01:08→16:36)
[2018-09-04] MEDS: methylPREDNISolone SOD SUCCI 125 MG/2 ML VIAL IV SCH ×3 (01:08→12:28)
[2018-09-04] MEDS: HEPARIN SODIUM,PORCINE 5,000 UNIT/ML 1 ML VIAL SQ SCH ×3 (01:08→16:37)
[2018-09-04] MEDS: IPRATROPIUM-ALBUTEROL 3 ML NEB INHALATION SCH ×5 (03:43→21:31)
[2018-09-04] MEDS: hydrALAZINE HCL 20 MG/ML 1 ML VIAL IVP PRN (04:29)
[2018-09-04] MEDS: PIPERACILLIN-TAZOBACTAM 3.375 GM in SODIUM CHLORIDE 0.9% 100 ML IVPB SCH ×3 (04:29→20:54)
[2018-09-04 04:48] LABS: Anisocytosis Slight; Basophils % (A) 0 %; Eosinophils % (A) 0 %; HCT 35.7 % (39.0-53.0); HGB 11.4 gm/dL (13.0-17.5); Hypochromasia Slight; Lymphocytes # (A) 0.5 k/uL (1.0-4.8); Lymphocytes % (A) 7 %; MCH 31.5 pg (25.0-35.0); MCHC 31.8 g/dL (31.0-37.0); Macrocytosis Slight; Mean Platelet Volume 7.7; Monocytes # (A) 0.4 k/uL (0-1.0); Monocytes % (A) 6 %; Neutrophils # (A) 6.5 k/uL (1.3-7.7); Neutrophils % (A) 86 %; Platelet Count 103 k/uL (150-450); RBC 3.61 m/uL (4.30-5.90); RDW 16.8 % (11.5-15.5); WBC 7.5 k/uL (3.8-10.6)
[2018-09-04 04:59] LABS: Anion Gap 1 mmol/L; Blood Urea Nitrogen 51 mg/dL (9-20); Calcium 8.1 mg/dL (8.4-10.2); Carbon Dioxide 33 mmol/L (22-30); Chloride 105 mmol/L (98-107); Glucose 104 mg/dL (74-99); Magnesium 2.5 mg/dL (1.6-2.3); Phosphorus 3.5 mg/dL (2.5-4.5); Potassium 4.6 mmol/L (3.5-5.1); Sodium 139 mmol/L (137-145)
[2018-09-04] MEDS: LEVOTHYROXINE 25 MCG TAB PO SCH (06:09)
--- NOTE | 2018-09-04 06:30 | XR ---
EXAMINATION TYPE: XR chest 1V DATE OF EXAM: 09/04/2018 CLINICAL HISTORY: Difficulty breathing and CHF progress study. TECHNIQUE: Single AP portable upright view of the chest is obtained. COMPARISON: Chest x-ray from one day earlier and older studies. FINDINGS: There is persistent cardiomegaly with small bilateral pleural effusions and central vascul ar congestion. Bibasilar opacity with silhouetting of left hemidiaphragm is again seen. Upper lungs r emain clear without pneumothorax. Atherosclerotic and ectatic thoracic aorta is redemonstrated. Curre nt exam is suboptimal due to low lying chin. Osseous structures are somewhat demineralized. Multileve l spurring in thoracic spine is redemonstrated. Pleural calcifications may be present right lung base unchanged from prior. IMPRESSION: Overall stable findings, cardiomegaly with central vascular congestion and small bilate ral pleural effusions felt present, underlying bibasilar atelectasis and/or infiltrate is redemonstra gretchen. No significant change from one day earlier.
[2018-09-04] MEDS: DIVALPROEX ER 500 MG TAB.ER.24H PO SCH ×2 (09:11→20:55)
[2018-09-04] MEDS: TAMSULOSIN 0.4 MG CAP.ER.24H PO SCH (09:12)
[2018-09-04] MEDS: SENNOSIDES 8.6 MG TAB PO SCH ×2 (09:12→20:55)
[2018-09-04] MEDS: risperiDONE 2 MG TAB PO SCH ×2 (09:12→20:54)
[2018-09-04] MEDS: PANTOPRAZOLE 40 MG/10 ML VIAL IV SCH (09:13)
[2018-09-04] MEDS: THIAMINE 100 MG TAB PO SCH (09:13)
--- NOTE | 2018-09-04 12:31 | CT ---
EXAMINATION TYPE: CT discontinued procedure DATE OF EXAM: 09/03/2018 COMPARISON: CT brain 08/31/2018 HISTORY: Altered mental status, pt uncooperative, restrained, multiple attempts made CT DLP: 2425.6 mGycm Automated exposure control for dose reduction was used. Helical imaging through the brain. FINDINGS: There is patient motion on the exam. No gross interval change is evident. Periventricular white matte r low-attenuation is again seen. There are changes of ethmoid sinus disease. No gross hemorrhage or h ydrocephalus. IMPRESSION: THERE IS PATIENT MOTION ON THE EXAM. FOLLOW-UP INDICATED.
--- NOTE | 2018-09-04 13:02 | P.PN ---
Subjective Progress Note Date: 09/04/18 Principal diagnosis: Acute on chronic hypoxic and hypercapnic respiratory failure, multifactorial secondary to COPD, right lower lobe pneumonia, and congestive heart failure. This is a 83-year-old male patient, extensive psychiatric history, no history of COPD with chronic hypoxic and hypercapnic respiratory failure in addition to hypertension and dementia. The patient is able to answer only simple questions. He spine's by saying yes and no. Able to respond to more questions. The baseline mentation is not known to me at this point. Were unable to get useful information from the [facility]. Further Will be done to establish at least his baseline neurological and psychiatric and status. In summary, the patient has had history of dementia and chronic psychiatric disorder in addition to COPD and is a vague history of CHF in addition. I'm not aware of any based on echocardiogram on this patient. He comes in with worsening shortness of breath and cough and congestion. Chest x- ray revealed early megaly and COPD in addition to lung volumes being prominent. There is also confluent airspace disease in the lower lobes right more than left. He has a congested cough. Unable to bring up much sputum. No clear-cut history of aspiration. His white cell count is at 10.1. Blood gases at time of emergency arrival showed a pH of 7.42 with a pCO2 of 76 and pO2 of 134 and this was done while the patient a BiPAP at a pressure of 12 and 5 with an FiO2 of 50%. He obviously has chronic hypercapnic respiratory failure as this patient's blood work indicates chronic metabolic alkalosis. It is scan of the brain shows chronic small vessel ischemia and cerebral atrophy. No hemorrhage. There is evidence of ethmoid sinusitis. Currently the patient on BiPAP at a pressure of 12/5 cm of water. He is synchronous with the BiPAP fullface mask. He is calm and comfortable. No agitation. He is able to move all 4 extremities. He is slow in answering questions. Still quite lethargic. In the emergency department the patient was placed on IV cefepime and vancomycin. The patient was also started on IV Solu-Medrol. He is on albuterol nebulized treatments every 4 hours and when necessary. He was placed on IV Lasix. A pulmonary consultation was requested. He is currently in the intensive care unit. Outpatient psychiatric medications include Benadryl, Risperdal, and Depakote. On 09/02/2018 I'm seeing this patient for a follow-up. More awake and alert compared to yesterday. He is able to hold a short conversation. He has a congested cough. Unable to bring up much sputum. His swallow is poor. The patient aspirates. Unable to take his medication orally units. He is able to move all 4 extremities without any limitation and there is no focal neurological deficit. He had been scheduled for a follow-up CAT scan of the brain however this Canceled as the patient was not cooperative. Meanwhile, the patient is being treated for right lower lobe pneumonia. The patient is also being diuresed. The net fluid balance negative over the past 24 hours and the patient has diuresed approximately 3.2 L he had no fever. No chills. No leukocytosis. Hemoglobin is at 10.3. Repeat potassium level is at 5.6. Patient is on DuoNeb nebulized treatments around the clock, currently on a combination of IV Zosyn and vancomycin. He is also on IV Solu-Medrol. Less broncho spastic and wheezy compared to yesterday. Urine drug screen was negative. Valproic acid level was 41.2. Patient was reevaluated today on 09/03/2018, feeling better from the pulmonary perspective, however the patient remains confused, and intermittently agitated. Remains on antibiotics, bronchodilators, steroids, and he is definitely less bronchospastic, and less wheezy. Chest x-ray continues to show mild congestive heart failure changes, limited infiltrate in the bases is not entirely ruled out , there is also some subsegmental atelectasis. Pneumonia is not entirely ruled out. Blood cultures remain negative so far since admission. WBC count is 9 hemoglobin is 10.6 electrolytes are normal BUN is [address] of the brain is pending. Patient remains on cefepime, vancomycin, Solu- Medrol, and albuterol with Atrovent updraft treatments. He is also on Lasix. Psychiatric hardy, remains on multiple psych medications as noted. And he is to be seen by psychiatry. Patient was reevaluated today on 09/04/2018, continues to improve from the pulmonary perspective, however his mental status seems to be very poor. Patient had an MRI already, ruled out CVA, but it is suggestive of vascular dementia. Patient was seen by speech pathology, and he was placed on restriction for possible aspiration pneumonia. His chest x-ray is basically the same continues to show cardiomegaly, prominent interstitium, and bibasilar atelectasis or infiltrates. Labs showed relatively normal CBC and normal basic metabolic profile, BUN remains 51 creatinine 0.90. Remains on broad-spectrum antibiotics, and he is presently overflow in the ICU. Considering blood cultures remain negative, I will go ahead and discontinue vancomycin. Will also switch his methylprednisolone to prednisone. Objective - Vital Signs Vital signs: Vital Signs Temp 97.6 F 09/04/18 08:00 Pulse 84 09/04/18 11:00 Resp 15 09/04/18 11:00 BP 138/65 09/04/18 11:00 Pulse Ox 95 09/04/18 08:00 Intake & Output 09/03/18 09/04/18 09/04/18 18:59 06:59 18:59 Intake Total 6629 221 4686 Output Total 905 Balance 146 242 7811 Weight 82.8 kg Intake: IV 475 620 300 0.9 KVO 50 20 Cefepime 2 gm In Sodium 50 50 200 Chloride 0.9% 50 ml @ 100 mls/hr IVPB Q8HR [facility] Rx# :[id number] Piperacillin-Tazobactam 3 125 300 100 .375 gm In Sodium Chloride 0.9% 100 ml @ 25 mls/hr IVPB Q8H [facility] Rx#: [id number] Vancomycin 1,500 mg In 250 250 Sodium Chloride 0.9% 250 ml @ 125 mls/hr IVPB Q12HR [facility] Rx#:[id number] Intake, IV Titration 250 Amount Vancomycin 1,500 mg In 250 Sodium Chloride 0.9% 250 ml @ 125 mls/hr IVPB Q12HR [facility] Rx#:[id number] Oral [phone] Output: Urine 905 Other: Voiding Method Indwelling Catheter Indwelling Catheter Indwelling Catheter # Voids 1 2 1 - Exam Physical Exam: Revealed a 83-year-old white male, comfortable, in no distress. Patient is confused, has garbled speech, difficult to comprehend. Head: Atraumatic, normocephalic. HEENT: PERRLA, EOMI, moist mucous membranes. [Neck is supple.] [No neck masses. ] [No thyromegaly.] [No JVD.] Chest: [Crackles at the bases, minimal wheezing on forced expiratory maneuver was noted. Symmetrical chest expansion, no chest wall tenderness.] Cardiac Exam: [Normal S1 and S2, no S3 gallop, no murmur.] Abdomen: [Soft, nontender, no megaly, no rebound, no guarding, normal bowel sounds.] Extremities: [No clubbing, no edema, no cyanosis.] Neurological Exam: [No focal neurologic deficit.] However the patient is a bit confused, communicative, able to move all 4 extremities. Psychiatric: Blunted mood and affect, poor mental status examination and insight. - Labs CBC & Chem 7: 09/04/18 04:09 09/04/18 04:09 Labs: Abnormal Lab Results - Last 24 Hours (Table) 09/04/18 09/04/18 Range/Units 04:09 04:09 RBC 3.61 L (4.30-5.90) m/uL Hgb 11.4 L (13.0-17.5) gm/dL Hct 35.7 L (39.0-53.0) % RDW 16.8 H (11.5-15.5) % Plt Count 103 L (150-450) k/uL Lymphocytes # 0.5 L (1.0-4.8) k/uL Carbon Dioxide 33 H (22-30) mmol/L BUN 51 H (9-20) mg/dL Glucose 104 H (74-99) mg/dL Calcium 8.1 L (8.4-10.2) mg/dL Magnesium 2.5 H (1.6-2.3) mg/dL Microbiology - Last 24 Hours (Table) 08/31/18 20:35 Blood Culture - Preliminary Blood No Growth after 72 hours Assessment and Plan Assessment: Impression: 1 acute on chronic hypoxic and hypercapnic respiratory failure, multifactorial secondary to COPD exacerbation. Congestive heart failure possibly diastolic in nature. Suspect a right lower lobe aspiration pneumonia. 2 chronic dementia with previous aggressive behavior. 3 chronic psychiatric disorder/bipolar disorder and history of psychotic features. Patient has history of manic psychosis. 4 hypothyroidism 5 hypertension 6 degenerative joint disease and vitamin D deficiency 7 failed swallow evaluation, suspect aspiration pneumonia involving the right lower lobe. 8 possible CVA bit, being followed by neurology, repeat CT of the brain is pending. 9 pulmonary hypertension as noted on his echocardiogram, good LV function was noted. His PA pressures are around 45. Recommendation: Continue present supportive care measures, continue antibiotics , continue aspiration precautions, discontinue vancomycin, continue Zosyn, discontinue Solu-Medrol and placed on prednisone 20 mg daily. Patient could be transferred out of the ICU to a regular medical floor. We'll continue to follow. Time with Patient: Less than 30
--- NOTE | 2018-09-04 14:19 | CDI ---
Documentation Clarification Form Date: 09/04/2018 1:52:50 PM From: Nazia Crook RN, Admit Date: 08/31/2018 11:32:00 PM Patient Name: Sampson Dobson Visit Number: [id number] Discharge Date: ATTENTION: The Clinical Documentation Specialists (CDI) and [facility] Coding Staff appreciate your assistance in clarifying documentation. Please respond to the clarification below the line at the bottom and electronically sign. The CDI & [facility] Coding staff will review the response and follow-up if needed. Please note: Queries are made part of the Legal Health Record. If you have any questions, please contact the author of this message via ITS. Dr. Maggei Smith CHF is documented in the ED assessment and your ongoing progress notes starting 09/03/18 congestive heart failure possibly diastolic in nature. History/Risk Factors: Heart Failure COPD, Pneumonia, Hypoxic and Hypercapnic respiratory failure acute on chronic, Dementia, Hypertension, Current every day smoker Clinical Indicators: ED for shortness of breath and altered mental status. His Lasix for CHF recently decreased. On admission he was tachypnic and started on BIPAP. VS/Pulse OX: 116/57 58 24 93 % 2/L 98 % BIPAP BNP: 1030 Echocardiogram Results: EF between 55-60 % Chest X Ray: 08/31/18 CHF exacerbation, possible pneumonia (per ED assessment) Chest X ray 09/02/18 Mild, continuing changes of congestive heart failure Chest x-ray 09/03/18: Mild CHF is not excluded. Treatment: Lasix IV (now DC) Serial chest x-ray's In your professional opinion, can you please clarify the acuity and type of CHF if known? : Acute Diastolic Heart Failure Chronic Diastolic Heart Failure Acute on Chronic Diastolic Heart Failure Unable to Determine Other, please specify (Last Revision: December 2017) MTDD
--- NOTE | 2018-09-04 14:42 | P.PN ---
Progress Note - Text Progress Note Date: 09/04/18 This is a documentation verification on this patient, in my previous notes I have clearly mentioned that the congestive heart failure suspected is diastolic in nature patient had a normal LV function, and is clearly not systolic in nature.
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
[2018-09-04] MEDS: predniSONE 20 MG TAB PO SCH (16:45)
--- NOTE | 2018-09-04 18:48 | P.PN ---
Subjective Patient is admitted for acute respiratory failure both hypoxic and hypercapnic and patient is presently on aspirin and Lanoxin 4 L per. Patient is wheezing quite a bit and patient is being treated for COPD patient was confused yesterday L leg much less awake lethargic all of which improved today patient is able to communicate and mental status close to his baseline. 09/03/2018 Patient seen and examined by me in the ICU. Patient the breathing is better than his of BiPAP on nasal cannula oxygen with saturating 95% on 5 L high flow. This always confused but he is oriented to place. He has some left-sided facial droop she denies chest pain or tenderness. CBC and BMP were reviewed with no significant change. Neurology and critical care input is appreciated. 09/04/2018 Patient seen and examined by me in the ICU. Patient the breathing is better than his of BiPAP on nasal cannula oxygen with saturating 95% on 5 L high flow. This always confused but he is oriented to place. He has some left-sided facial droop she denies chest pain or tenderness. CBC and BMP were reviewed with no significant change. Neurology and critical care input is appreciated. he is on steroids and zosyn . vancomycin was dc . his MRI is negative for stroke but suggestive of vascular dementia. pt is selective floor overflow Constitutional: Denied any fatigue denied any fever. Cardio vascular: denied any chest pain, palpitations Gastrointestinal denied any nausea vomiting Pulmonary: his of breath significantly improved and feeling much better Neurologic denied any new focal deficits All inpatient medications were reviewed and appropriate changes in these medications as dictated in the interval history and assessment and plan. Objective - Vital Signs Vital signs: Vital Signs Temp 97.6 F 09/04/18 16:00 Pulse 70 09/04/18 16:58 Resp 22 09/04/18 16:00 BP 139/7 09/04/18 16:00 Pulse Ox 91 L 09/04/18 16:50 Intake & Output 09/03/18 09/04/18 09/04/18 18:59 06:59 18:59 Intake Total 8905 379 3348 Output Total 905 Balance 411 582 9463 Weight 82.8 kg Intake: IV 475 620 400 0.9 KVO 50 20 Cefepime 2 gm In Sodium 50 50 300 Chloride 0.9% 50 ml @ 100 mls/hr IVPB Q8HR [facility] Rx# :[id number] Piperacillin-Tazobactam 3 125 300 100 .375 gm In Sodium Chloride 0.9% 100 ml @ 25 mls/hr IVPB Q8H [facility] Rx#: [id number] Vancomycin 1,500 mg In 250 250 Sodium Chloride 0.9% 250 ml @ 125 mls/hr IVPB Q12HR [facility] Rx#:[id number] Intake, IV Titration 250 Amount Vancomycin 1,500 mg In 250 Sodium Chloride 0.9% 250 ml @ 125 mls/hr IVPB Q12HR [facility] Rx#:[id number] Oral [phone] Output: Urine 905 Other: Voiding Method Indwelling Catheter Indwelling Catheter Indwelling Catheter # Voids 1 2 1 - Exam -GENERAL: The patient is alert and awake, oriented to place only, is on nasal cannula HEENT: Pupils are round and equally reacting to light. EOMI. No scleral icterus. No conjunctival pallor. Normocephalic, atraumatic. No pharyngeal erythema. No thyromegaly. CARDIOVASCULAR: S1 and S2 present. No murmurs, rubs, or gallops. PULMONARY: Rhonchus breath sounds expiratory wheezing or crackles in the right lower lung bases ABDOMEN: Soft, nontender, nondistended, normoactive bowel sounds. No palpable organomegaly. MUSCULOSKELETAL: No joint swelling or deformity. EXTREMITIES: No cyanosis, clubbing, I'll bilateral pedal edema NEUROLOGICAL: Unilateral facial droop. No weakness in arms or legs. No abnormal sensation rest of cranial nerves are grossly intact. Meningeal signs are absent SKIN: No rashes. - Labs CBC & Chem 7: 09/04/18 04:09 09/04/18 04:09 Labs: Abnormal Lab Results - Last 24 Hours (Table) 09/04/18 09/04/18 Range/Units 04:09 04:09 RBC 3.61 L (4.30-5.90) m/uL Hgb 11.4 L (13.0-17.5) gm/dL Hct 35.7 L (39.0-53.0) % RDW 16.8 H (11.5-15.5) % Plt Count 103 L (150-450) k/uL Lymphocytes # 0.5 L (1.0-4.8) k/uL Carbon Dioxide 33 H (22-30) mmol/L BUN 51 H (9-20) mg/dL Glucose 104 H (74-99) mg/dL Calcium 8.1 L (8.4-10.2) mg/dL Magnesium 2.5 H (1.6-2.3) mg/dL Microbiology - Last 24 Hours (Table) 08/31/18 20:35 Blood Culture - Preliminary Blood No Growth after 72 hours Assessment and Plan Assessment: Assessment and Plan: Acute hypercapnic and hypoxic respiratory failure probably secondary to COPD exacerbation, low possibility of CHF patient systemic steroids inhalational treatments respiratory support with BiPAP on Ventimask as mentioned above there may be an aspiration pneumonia for which patient was Zosyn patient is on IV steroids inhalational treatments continues to be significantly. Significant improvement in his respiratory status from 100% Ventimask to 3-4 L today -Suspected stroke with fascial droop on 1 side. 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
--- NOTE | 2018-09-04 20:10 | P.PN ---
Subjective Progress Note Date: 09/04/18 Patient seen today in the Intensive Care unit for neurologic follow-up. The patient is being evaluated for altered mental status and possible stroke. The patient was very agitated earlier this morning. He refused to have his EEG procedure done. The patient was able to go for MRI of the brain today which was reviewed. MRI does not reveal any evidence of acute stroke however there is extensive white matter changes in both hemispheres of the brain suggesting vascular dementia. There was mild enlargement of the ventricles noted as well. The patient is remaining in the intensive care unit today. He still remains quite confused at times. His speech remains somewhat garbled and hard to comprehend at times. The patient was seen by speech pathology and they have placed him on some restrictions. Patient was evaluated in the ICU today and is asking for increase in his diet stating that he has only been taking pudding. The patient was unable to have EEG but apparently they will try again tomorrow. The patient seems to be doing somewhat better and that he is much more verbal today. Once again there is no evidence of acute stroke based on his MRI scan. The patient was seen by psychiatry and his psychiatric medications have all been restarted. The patient has a known history of bipolar illness. He presented with signs and symptoms of acute shira which she developed over the last 3 months. Psychiatry is restarted his psychiatric medications. 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 He states following this initial episode he has had recurrent episodes of numbness in his hands and feet. We've explained to him that this may be the long-term effect of GBS. The patient seems to be doing better overall in terms of his mental status today. He has a legal guardian and apparently will be going back to the [facility] home once he is medically stable. We will continue close neurological follow- up with this patient in the intensive care unit. His overall prognosis at this time remains guarded. Objective - Vital Signs Vital signs: Vital Signs Temp 97.6 F 09/04/18 16:00 Pulse 70 09/04/18 16:58 Resp 22 09/04/18 16:00 BP 139/7 09/04/18 16:00 Pulse Ox 91 L 09/04/18 16:50 Intake & Output 09/03/18 09/04/18 09/04/18 18:59 06:59 18:59 Intake Total 3268 239 5158 Output Total 905 Balance 128 954 3992 Weight 82.8 kg Intake: IV 475 620 400 0.9 KVO 50 20 Cefepime 2 gm In Sodium 50 50 300 Chloride 0.9% 50 ml @ 100 mls/hr IVPB Q8HR [facility] Rx# :[id number] Piperacillin-Tazobactam 3 125 300 100 .375 gm In Sodium Chloride 0.9% 100 ml @ 25 mls/hr IVPB Q8H [facility] Rx#: [id number] Vancomycin 1,500 mg In 250 250 Sodium Chloride 0.9% 250 ml @ 125 mls/hr IVPB Q12HR [facility] Rx#:[id number] Intake, IV Titration 250 Amount Vancomycin 1,500 mg In 250 Sodium Chloride 0.9% 250 ml @ 125 mls/hr IVPB Q12HR [facility] Rx#:[id number] Oral [id number] Output: Urine 905 Other: Voiding Method Indwelling Catheter Indwelling Catheter Indwelling Catheter # Voids 1 2 1 - Exam Physical examination: PHYSICAL EXAMINATION: Patient is resting comfortably in bed. Patient remains confused in the intensive care unit and disoriented. VITAL SIGNS: Blood pressure is [116/92]. Heart rate is [67]. Respiration is [25] . Temperature is [97.7]. HEENT: Head is atraumatic, neck is supple, there were no carotid bruits. CHEST: Lungs are clear to auscultation and percussion. CARDIAC: S1, S2 normal rate and rhythm. There is no murmur. ABDOMEN: Soft and nontender. Bowel sounds are present. EXTREMITIES: There is no pedal edema. Peripheral pulses are present. Neurological examination: Patient's neurological examination is unchanged from yesterday. Patient is much more verbal today and speech is slightly improved. He still has some episodes of garbled speech. He is moving all 4 extremities. Deep tendon reflexes are 1+ and symmetric. Plantar responses flexor bilaterally. - Labs CBC & Chem 7: 09/04/18 04:09 09/04/18 04:09 Labs: Abnormal Lab Results - Last 24 Hours (Table) 09/04/18 09/04/18 Range/Units 04:09 04:09 RBC 3.61 L (4.30-5.90) m/uL Hgb 11.4 L (13.0-17.5) gm/dL Hct 35.7 L (39.0-53.0) % RDW 16.8 H (11.5-15.5) % Plt Count 103 L (150-450) k/uL Lymphocytes # 0.5 L (1.0-4.8) k/uL Carbon Dioxide 33 H (22-30) mmol/L BUN 51 H (9-20) mg/dL Glucose 104 H (74-99) mg/dL Calcium 8.1 L (8.4-10.2) mg/dL Magnesium 2.5 H (1.6-2.3) mg/dL Microbiology - Last 24 Hours (Table) 08/31/18 20:35 Blood Culture - Preliminary Blood No Growth after 72 hours Assessment and Plan (1) Hypercapnic respiratory failure Current Visit: Yes Status: Acute Code(s): J96.92 - RESPIRATORY FAILURE, UNSPECIFIED WITH HYPERCAPNIA SNOMED Code(s): 085758668 (2) Acute metabolic encephalopathy Current Visit: Yes Status: Acute Code(s): G93.41 - METABOLIC ENCEPHALOPATHY SNOMED Code(s): 63316392 (3) Acute exacerbation of chronic obstructive airways disease Current Visit: Yes Status: Acute Code(s): J44.1 - CHRONIC OBSTRUCTIVE PULMONARY DISEASE W (ACUTE) EXACERBATION SNOMED Code(s): 463838579 (4) Acute psychosis Current Visit: No Status: Acute Code(s): F23 - BRIEF PSYCHOTIC DISORDER SNOMED Code(s): 46413590 (5) Severe manic bipolar 1 disorder with psychotic behavior Current Visit: No Status: Acute Priority: High Code(s): F31.2 - BIPOLAR DISORD, CRNT EPISODE MANIC SEVERE W PSYCH FEATURES SNOMED Code(s): 60841578 Plan: This patient is a 83-year-old male who was evaluated today in the intensive care unit for increased confusion and history of underlying dementia. Patient was residing in a chcf and was brought into the hospital for evaluation of respiratory distress. He was found to have evidence of hypercapnic respiratory failure and was placed on BiPAP. He was transferred to the intensive care unit back on 08/31/2018 following admission. Neurology was consulted today due to increased confusion. CAT scan of the brain was reviewed which was performed back on 08/31/2018. CAT scan reveals cerebral atrophy and chronic small vessel ischemia. No evidence of acute hemorrhage. Multiple areas of patchy hypodensity were noted. We have recommended the patient to undergo MRI of the brain for further evaluation of these multiple areas of hypodensity. The patient was able to complete MRI of the brain today. Results are as noted above. MRI findings would be compatible with underlying vascular dementia. We will obtain routine EEG for further assessment of his cognitive function. 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 He does have complex past medical history which may be worsening her continuing to his confusional state including history of bipolar disorder and underlying dementia. Patient is being followed by speech therapy. He is on a restricted diet at this time with close monitoring for aspiration. The patient was seen by psychiatry today and Dr. Pabon. His psychiatric medications were reviewed and he has been restarted for further management of his long history of bipolar illness. He has presented with signs and symptoms of acute shira which has been gradually progressing over the last 3 months. The patient is resting comfortably in the ICU. He is able to follow simple commands. He did mention today a history of having suffered Guillain-Davis syndrome 12 years ago. Following this he has been complaining of paresthesias in his hands and feet which is a late effect of this condition. The patient will likely return to his [facility] home where he was residing. Legal guardian is been contacted as well. We will continue to follow his progress closely in the intensive care unit. His overall prognosis at this time remains very guarded.
[2018-09-04] MEDS: traZODone HCL 50 MG TAB PO SCH (20:55)
[2018-09-05] MEDS: HEPARIN SODIUM,PORCINE 5,000 UNIT/ML 1 ML VIAL SQ SCH ×3 (00:56→16:46)
[2018-09-05] MEDS: CEFEPIME 2 GM in SODIUM CHLORIDE 0.9% 50 ML IVPB SCH ×3 (00:56→16:46)
[2018-09-05] MEDS: IPRATROPIUM-ALBUTEROL 3 ML NEB INHALATION SCH ×6 (00:56→20:27)
[2018-09-05 04:55] LABS: Anisocytosis Slight; Basophils % (A) 0 %; Eosinophils % (A) 0 %; HCT 40.4 % (39.0-53.0); HGB 12.5 gm/dL (13.0-17.5); Hypochromasia Slight; Lymphocytes # (A) 0.9 k/uL (1.0-4.8); Lymphocytes % (A) 10 %; MCH 30.7 pg (25.0-35.0); MCHC 30.8 g/dL (31.0-37.0); MCV 99.6 fL (80.0-100.0); Macrocytosis Slight; Mean Platelet Volume 7.7; Monocytes # (A) 1.1 k/uL (0-1.0); Monocytes % (A) 12 %; Neutrophils # (A) 6.9 k/uL (1.3-7.7); Neutrophils % (A) 75 %; Platelet Count 112 k/uL (150-450); RBC 4.06 m/uL (4.30-5.90); RDW 16.9 % (11.5-15.5); WBC 9.2 k/uL (3.8-10.6)
[2018-09-05 05:03] LABS: Calcium 8.5 mg/dL (8.4-10.2); Magnesium 2.6 mg/dL (1.6-2.3); Potassium 4.4 mmol/L (3.5-5.1)
[2018-09-05] MEDS ORDERED: VANCOMYCIN TROUGH DUE 1 EACH MISC MISCELLANE ONE (07:00)
--- NOTE | 2018-09-05 07:03 | XR ---
EXAMINATION TYPE: XR chest 1V DATE OF EXAM: 09/05/2018 COMPARISON: 09/04/2018 INDICATION: CHF TECHNIQUE: Single frontal view of the chest is obtained. FINDINGS: The heart size is normal. The pulmonary vasculature is normal. There is a minimal left pleural effusion. Mild subsegmental atelectasis may be at the lung bases. IMPRESSION: 1. Improvement of pulmonary vascular markings and cardiomegaly. Some minimal residual left pleural ef fusion may be present.
[2018-09-05] MEDS: PIPERACILLIN-TAZOBACTAM 3.375 GM in SODIUM CHLORIDE 0.9% 100 ML IVPB SCH ×3 (08:00→20:13)
[2018-09-05] MEDS: SENNOSIDES 8.6 MG TAB PO SCH ×2 (08:17→19:57)
[2018-09-05] MEDS: risperiDONE 2 MG TAB PO SCH ×2 (08:21→20:45)
[2018-09-05] MEDS: THIAMINE 100 MG TAB PO SCH (08:21)
[2018-09-05] MEDS: PANTOPRAZOLE 40 MG/10 ML VIAL IV SCH (08:21)
[2018-09-05] MEDS: LEVOTHYROXINE 25 MCG TAB PO SCH (08:21)
[2018-09-05] MEDS: predniSONE 20 MG TAB PO SCH (08:21)
[2018-09-05] MEDS: DIVALPROEX ER 500 MG TAB.ER.24H PO SCH ×2 (08:21→20:45)
[2018-09-05] MEDS: TAMSULOSIN 0.4 MG CAP.ER.24H PO SCH (08:21)
[2018-09-05] MEDS: HALOPERIDOL LACTATE 5 MG/ML 1 ML VIAL IVP PRN ×3 (10:14→21:20)
--- NOTE | 2018-09-05 12:13 | P.PN ---
Subjective Progress Note Date: 09/05/18 Principal diagnosis: Acute on chronic hypoxic and hypercapnic respiratory failure, multifactorial secondary to COPD, right lower lobe pneumonia, and congestive heart failure. This is a 83-year-old male patient, extensive psychiatric history, no history of COPD with chronic hypoxic and hypercapnic respiratory failure in addition to hypertension and dementia. The patient is able to answer only simple questions. He spine's by saying yes and no. Able to respond to more questions. The baseline mentation is not known to me at this point. Were unable to get useful information from the [facility]. Further Will be done to establish at least his baseline neurological and psychiatric and status. In summary, the patient has had history of dementia and chronic psychiatric disorder in addition to COPD and is a vague history of CHF in addition. I'm not aware of any based on echocardiogram on this patient. He comes in with worsening shortness of breath and cough and congestion. Chest x- ray revealed early megaly and COPD in addition to lung volumes being prominent. There is also confluent airspace disease in the lower lobes right more than left. He has a congested cough. Unable to bring up much sputum. No clear-cut history of aspiration. His white cell count is at 10.1. Blood gases at time of emergency arrival showed a pH of 7.42 with a pCO2 of 76 and pO2 of 134 and this was done while the patient a BiPAP at a pressure of 12 and 5 with an FiO2 of 50%. He obviously has chronic hypercapnic respiratory failure as this patient's blood work indicates chronic metabolic alkalosis. It is scan of the brain shows chronic small vessel ischemia and cerebral atrophy. No hemorrhage. There is evidence of ethmoid sinusitis. Currently the patient on BiPAP at a pressure of 12/5 cm of water. He is synchronous with the BiPAP fullface mask. He is calm and comfortable. No agitation. He is able to move all 4 extremities. He is slow in answering questions. Still quite lethargic. In the emergency department the patient was placed on IV cefepime and vancomycin. The patient was also started on IV Solu-Medrol. He is on albuterol nebulized treatments every 4 hours and when necessary. He was placed on IV Lasix. A pulmonary consultation was requested. He is currently in the intensive care unit. Outpatient psychiatric medications include Benadryl, Risperdal, and Depakote. On 09/02/2018 I'm seeing this patient for a follow-up. More awake and alert compared to yesterday. He is able to hold a short conversation. He has a congested cough. Unable to bring up much sputum. His swallow is poor. The patient aspirates. Unable to take his medication orally units. He is able to move all 4 extremities without any limitation and there is no focal neurological deficit. He had been scheduled for a follow-up CAT scan of the brain however this Canceled as the patient was not cooperative. Meanwhile, the patient is being treated for right lower lobe pneumonia. The patient is also being diuresed. The net fluid balance negative over the past 24 hours and the patient has diuresed approximately 3.2 L he had no fever. No chills. No leukocytosis. Hemoglobin is at 10.3. Repeat potassium level is at 5.6. Patient is on DuoNeb nebulized treatments around the clock, currently on a combination of IV Zosyn and vancomycin. He is also on IV Solu-Medrol. Less broncho spastic and wheezy compared to yesterday. Urine drug screen was negative. Valproic acid level was 41.2. Patient was reevaluated today on 09/03/2018, feeling better from the pulmonary perspective, however the patient remains confused, and intermittently agitated. Remains on antibiotics, bronchodilators, steroids, and he is definitely less bronchospastic, and less wheezy. Chest x-ray continues to show mild congestive heart failure changes, limited infiltrate in the bases is not entirely ruled out , there is also some subsegmental atelectasis. Pneumonia is not entirely ruled out. Blood cultures remain negative so far since admission. WBC count is 9 hemoglobin is 10.6 electrolytes are normal BUN is [address] of the brain is pending. Patient remains on cefepime, vancomycin, Solu- Medrol, and albuterol with Atrovent updraft treatments. He is also on Lasix. Psychiatric hardy, remains on multiple psych medications as noted. And he is to be seen by psychiatry. Patient was reevaluated today on 09/04/2018, continues to improve from the pulmonary perspective, however his mental status seems to be very poor. Patient had an MRI already, ruled out CVA, but it is suggestive of vascular dementia. Patient was seen by speech pathology, and he was placed on restriction for possible aspiration pneumonia. His chest x-ray is basically the same continues to show cardiomegaly, prominent interstitium, and bibasilar atelectasis or infiltrates. Labs showed relatively normal CBC and normal basic metabolic profile, BUN remains 51 creatinine 0.90. Remains on broad-spectrum antibiotics, and he is presently overflow in the ICU. Considering blood cultures remain negative, I will go ahead and discontinue vancomycin. Will also switch his methylprednisolone to prednisone. Reevaluated today on 09/05/2018, patient is basically about the same, he has no active pulmonary symptoms, no cough no wheezing no shortness of breath. Remains confused, and his follow-up chest x-ray showed significant improvement in the pulmonary vasculature markings, there is minimal residual left pleural effusion. No cough no wheezing no fever no chills no hemoptysis. Labs including CBC and basic metabolic profile are basically the same on unchanged. All his meds were reviewed, remains on his usual psychiatric medications, Zosyn , albuterol with Atrovent, prednisone at 20 mg daily, (will remain the same for now. Objective - Vital Signs Vital signs: Vital Signs Temp 96.9 F L 09/05/18 07:00 Pulse 70 09/05/18 11:03 Resp 16 09/05/18 07:00 BP 163/83 09/04/18 23:00 Pulse Ox 91 L 09/05/18 07:00 Intake & Output 09/04/18 09/05/18 09/05/18 18:59 06:59 18:59 Intake Total 2150 100 Balance 2150 100 Weight 82 kg Intake: IV 400 100 Cefepime 2 gm In Sodium 300 Chloride 0.9% 50 ml @ 100 mls/hr IVPB Q8HR [facility] Rx# :[id number] Piperacillin-Tazobactam 3 100 100 .375 gm In Sodium Chloride 0.9% 100 ml @ 25 mls/hr IVPB Q8H [facility] Rx#: [id number] Oral 1750 Other: Voiding Method Indwelling Catheter Indwelling Catheter Indwelling Catheter # Voids 1 1 # Bowel Movements 1 - Exam Physical Exam: Revealed a 83-year-old white male, comfortable, in no distress. Head: Atraumatic, normocephalic. HEENT: PERRLA, EOMI, moist mucous membranes. [Neck is supple.] [No neck masses. ] [No thyromegaly.] [No JVD.] Chest: [Crackles at the bases, minimal wheezing on forced expiratory maneuver was noted. Symmetrical chest expansion, no chest wall tenderness.] Cardiac Exam: [Normal S1 and S2, no S3 gallop, no murmur.] Abdomen: [Soft, nontender, no megaly, no rebound, no guarding, normal bowel sounds.] Extremities: [No clubbing, no edema, no cyanosis.] Neurological Exam: [No focal neurologic deficit.] However the patient is a bit confused, communicative, able to move all 4 extremities. Psychiatric: Blunted mood and affect, poor insight. - Labs CBC & Chem 7: 09/05/18 04:06 09/05/18 04:06 Labs: Abnormal Lab Results - Last 24 Hours (Table) 09/05/18 09/05/18 Range/Units 04:06 04:06 RBC 4.06 L (4.30-5.90) m/uL Hgb 12.5 L (13.0-17.5) gm/dL MCHC 30.8 L (31.0-37.0) g/dL RDW 16.9 H (11.5-15.5) % Plt Count 112 L (150-450) k/uL Lymphocytes # 0.9 L (1.0-4.8) k/uL Monocytes # 1.1 H (0-1.0) k/uL BUN 54 H (9-20) mg/dL Magnesium 2.6 H (1.6-2.3) mg/dL Microbiology - Last 24 Hours (Table) 08/31/18 20:35 Blood Culture - Preliminary Blood No Growth after 96 hours Assessment and Plan Assessment: Impression: 1 acute on chronic hypoxic and hypercapnic respiratory failure, multifactorial secondary to COPD exacerbation. Acute Diastolic Congestive heart failure . Suspect a right lower lobe aspiration pneumonia. Chest x-ray today has shown a significant improvement in his overall pulmonary findings. 2 chronic dementia with previous aggressive behavior. 3 chronic psychiatric disorder/bipolar disorder and history of psychotic features. Patient has history of manic psychosis. 4 hypothyroidism 5 hypertension 6 degenerative joint disease and vitamin D deficiency 7 failed swallow evaluation, suspect aspiration pneumonia involving the right lower lobe. 8 possible CVA bit, being followed by neurology, repeat CT of the brain is pending. 9 pulmonary hypertension as noted on his echocardiogram, good LV function was noted. His PA pressures are around 45. Recommendation: Continue present supportive care measures, continue antibiotics , continue aspiration precautions, continue Zosyn, continue prednisone, continue DuoNeb updrafts 4 times a day and when necessary. Transfer out of the ICU today. Time with Patient: Less than 30
[2018-09-05] MEDS: traZODone HCL 50 MG TAB PO SCH (20:45)
--- NOTE | 2018-09-05 23:16 | P.PN ---
Subjective Patient is admitted for acute respiratory failure both hypoxic and hypercapnic and patient is presently on aspirin and Lanoxin 4 L per. Patient is wheezing quite a bit and patient is being treated for COPD patient was confused yesterday L leg much less awake lethargic all of which improved today patient is able to communicate and mental status close to his baseline. 09/03/2018 Patient seen and examined by me in the ICU. Patient the breathing is better than his of BiPAP on nasal cannula oxygen with saturating 95% on 5 L high flow. This always confused but he is oriented to place. He has some left-sided facial droop she denies chest pain or tenderness. CBC and BMP were reviewed with no significant change. Neurology and critical care input is appreciated. 09/04/2018 Patient seen and examined by me in the ICU. Patient the breathing is better than his of BiPAP on nasal cannula oxygen with saturating 95% on 5 L high flow. This always confused but he is oriented to place. He has some left-sided facial droop she denies chest pain or tenderness. CBC and BMP were reviewed with no significant change. Neurology and critical care input is appreciated. he is on steroids and zosyn . vancomycin was dc . his MRI is negative for stroke but suggestive of vascular dementia. pt is selective floor overflow 09/05/2018 pt is in ICU however he is select overflow. was sitting in chair comfortable , not in distress. with no significant change in his medication , CXR improving pulmonary vascular marking and cardiomegaly . CBC and BMP unremarkable , magnesium on the high side Constitutional: Denied any fatigue denied any fever. Cardio vascular: denied any chest pain, palpitations Gastrointestinal denied any nausea vomiting Pulmonary: his of breath significantly improved and feeling much better Neurologic denied any new focal deficits All inpatient medications were reviewed and appropriate changes in these medications as dictated in the interval history and assessment and plan. Objective - Vital Signs Vital signs: Vital Signs Temp 96.9 F L 09/05/18 07:00 Pulse 60 09/05/18 15:00 Resp 20 09/05/18 15:00 BP 146/82 09/05/18 15:00 Pulse Ox 91 L 09/05/18 07:00 Intake & Output 09/05/18 09/05/18 09/06/18 06:59 18:59 06:59 Intake Total 100 300 Balance 100 300 Weight 82 kg Intake: IV 100 300 Cefepime 2 gm In Sodium 100 Chloride 0.9% 50 ml @ 100 mls/hr IVPB Q8HR [facility] Rx# :[id number] Piperacillin-Tazobactam 3 100 200 .375 gm In Sodium Chloride 0.9% 100 ml @ 25 mls/hr IVPB Q8H [facility] Rx#: [id number] Other: Voiding Method Indwelling Catheter Toilet # Voids 1 2 # Bowel Movements 1 - Exam -GENERAL: The patient is alert and awake, oriented to place only, is on nasal cannula HEENT: Pupils are round and equally reacting to light. EOMI. No scleral icterus. No conjunctival pallor. Normocephalic, atraumatic. No pharyngeal erythema. No thyromegaly. CARDIOVASCULAR: S1 and S2 present. No murmurs, rubs, or gallops. PULMONARY: Rhonchus breath sounds expiratory wheezing or crackles in the right lower lung bases ABDOMEN: Soft, nontender, nondistended, normoactive bowel sounds. No palpable organomegaly. MUSCULOSKELETAL: No joint swelling or deformity. EXTREMITIES: No cyanosis, clubbing, I'll bilateral pedal edema NEUROLOGICAL: Unilateral facial droop. No weakness in arms or legs. No abnormal sensation rest of cranial nerves are grossly intact. Meningeal signs are absent SKIN: No rashes. - Labs CBC & Chem 7: 09/05/18 04:06 09/05/18 04:06 Labs: Abnormal Lab Results - Last 24 Hours (Table) 09/05/18 09/05/18 Range/Units 04:06 04:06 RBC 4.06 L (4.30-5.90) m/uL Hgb 12.5 L (13.0-17.5) gm/dL MCHC 30.8 L (31.0-37.0) g/dL RDW 16.9 H (11.5-15.5) % Plt Count 112 L (150-450) k/uL Lymphocytes # 0.9 L (1.0-4.8) k/uL Monocytes # 1.1 H (0-1.0) k/uL BUN 54 H (9-20) mg/dL Magnesium 2.6 H (1.6-2.3) mg/dL Microbiology - Last 24 Hours (Table) 08/31/18 20:35 Blood Culture - Preliminary Blood No Growth after 96 hours Assessment and Plan Assessment: Assessment and Plan: Acute hypercapnic and hypoxic respiratory failure probably secondary to COPD exacerbation, low possibility of CHF patient systemic steroids inhalational treatments respiratory support with BiPAP on Ventimask as mentioned above there may be an aspiration pneumonia for which patient was Zosyn patient is on IV steroids inhalational treatments continues to be significantly. Significant improvement in his respiratory status from 100% Ventimask to 3-4 L today -Suspected stroke with fascial droop on 1 side. 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
[2018-09-06] MEDS: IPRATROPIUM-ALBUTEROL 3 ML NEB INHALATION SCH ×7 (00:23→22:55)
[2018-09-06] MEDS: CEFEPIME 2 GM in SODIUM CHLORIDE 0.9% 50 ML IVPB SCH ×4 (02:14→23:23)
[2018-09-06] MEDS: HEPARIN SODIUM,PORCINE 5,000 UNIT/ML 1 ML VIAL SQ SCH ×3 (02:14→17:28)
[2018-09-06] MEDS: PIPERACILLIN-TAZOBACTAM 3.375 GM in SODIUM CHLORIDE 0.9% 100 ML IVPB SCH ×3 (04:05→19:45)
[2018-09-06] MEDS: LEVOTHYROXINE 25 MCG TAB PO SCH (05:26)
[2018-09-06 05:51] LABS: Anisocytosis Slight; Basophils % (A) 0 %; Eosinophils # (A) 0.1 k/uL (0-0.7); Eosinophils % (A) 1 %; HCT 38.7 % (39.0-53.0); Hypochromasia Moderate; Lymphocytes # (A) 1.2 k/uL (1.0-4.8); Lymphocytes % (A) 18 %; MCH 31.5 pg (25.0-35.0); MCHC 31.1 g/dL (31.0-37.0); MCV 101.2 fL (80.0-100.0); Macrocytosis Slight; Mean Platelet Volume 7.2; Monocytes # (A) 0.8 k/uL (0-1.0); Monocytes % (A) 13 %; Neutrophils # (A) 4.4 k/uL (1.3-7.7); Neutrophils % (A) 65 %; RBC 3.82 m/uL (4.30-5.90); RDW 17.1 % (11.5-15.5); WBC 6.7 k/uL (3.8-10.6)
[2018-09-06 05:52] LABS: Platelet Count 96 k/uL (150-450)
[2018-09-06 06:01] LABS: Anion Gap 3 mmol/L; Blood Urea Nitrogen 42 mg/dL (9-20); Calcium 7.9 mg/dL (8.4-10.2); Carbon Dioxide 31 mmol/L (22-30); Chloride 103 mmol/L (98-107); Glucose 67 mg/dL (74-99); Magnesium 2.4 mg/dL (1.6-2.3); Phosphorus 2.8 mg/dL (2.5-4.5); Potassium 4.8 mmol/L (3.5-5.1); Sodium 137 mmol/L (137-145)
--- NOTE | 2018-09-06 07:33 | XR ---
EXAMINATION TYPE: XR chest 1V DATE OF EXAM: 09/06/2018 CLINICAL HISTORY: Difficulty breathing progress study. TECHNIQUE: Single AP portable upright view of the chest is obtained. COMPARISON: Chest x-ray from one day earlier and older studies. FINDINGS: There is persistent mild cardiomegaly with small bilateral pleural effusions . Bibasilar o pacity is again seen. Upper lungs remain clear without pneumothorax. Atherosclerotic and ectatic thor acic aorta is redemonstrated. Osseous structures are somewhat demineralized. Multilevel spurring in t horacic spine is redemonstrated. Pleural calcifications may be present right lung base unchanged from prior. Old posterior left upper rib fractures are redemonstrated third through fifth ribs. IMPRESSION: Chronic parenchymal change with small to tiny bilateral pleural effusions and associated bibasilar atelectasis and/or infiltrate all redemonstrated.
[2018-09-06] MEDS: DIVALPROEX ER 500 MG TAB.ER.24H PO SCH ×2 (08:31→21:16)
[2018-09-06] MEDS: SENNOSIDES 8.6 MG TAB PO SCH ×2 (08:33→23:22)
[2018-09-06] MEDS: THIAMINE 100 MG TAB PO SCH (08:33)
[2018-09-06] MEDS: TAMSULOSIN 0.4 MG CAP.ER.24H PO SCH (08:33)
[2018-09-06] MEDS: risperiDONE 2 MG TAB PO SCH ×2 (08:33→21:16)
[2018-09-06] MEDS: PANTOPRAZOLE 40 MG/10 ML VIAL IV SCH (08:37)
[2018-09-06] MEDS: predniSONE 20 MG TAB PO SCH (08:38)
[2018-09-06] MEDS: HALOPERIDOL LACTATE 5 MG/ML 1 ML VIAL IVP PRN (09:42)
--- NOTE | 2018-09-06 15:38 | P.PN ---
Subjective Progress Note Date: 09/06/18 Principal diagnosis: Acute on chronic hypoxic and hypercapnic respiratory failure, multifactorial secondary to COPD, right lower lobe pneumonia, and congestive heart failure. This is a 83-year-old male patient, extensive psychiatric history, no history of COPD with chronic hypoxic and hypercapnic respiratory failure in addition to hypertension and dementia. The patient is able to answer only simple questions. He spine's by saying yes and no. Able to respond to more questions. The baseline mentation is not known to me at this point. Were unable to get useful information from the long term where he resides. Further Will be done to establish at least his baseline neurological and psychiatric and status. In summary, the patient has had history of dementia and chronic psychiatric disorder in addition to COPD and is a vague history of CHF in addition. I'm not aware of any based on echocardiogram on this patient. He comes in with worsening shortness of breath and cough and congestion. Chest x- ray revealed early megaly and COPD in addition to lung volumes being prominent. There is also confluent airspace disease in the lower lobes right more than left. He has a congested cough. Unable to bring up much sputum. No clear-cut history of aspiration. His white cell count is at 10.1. Blood gases at time of emergency arrival showed a pH of 7.42 with a pCO2 of 76 and pO2 of 134 and this was done while the patient a BiPAP at a pressure of 12 and 5 with an FiO2 of 50%. He obviously has chronic hypercapnic respiratory failure as this patient's blood work indicates chronic metabolic alkalosis. It is scan of the brain shows chronic small vessel ischemia and cerebral atrophy. No hemorrhage. There is evidence of ethmoid sinusitis. Currently the patient on BiPAP at a pressure of 12/5 cm of water. He is synchronous with the BiPAP fullface mask. He is calm and comfortable. No agitation. He is able to move all 4 extremities. He is slow in answering questions. Still quite lethargic. In the emergency department the patient was placed on IV cefepime and vancomycin. The patient was also started on IV Solu-Medrol. He is on albuterol nebulized treatments every 4 hours and when necessary. He was placed on IV Lasix. A pulmonary consultation was requested. He is currently in the intensive care unit. Outpatient psychiatric medications include Benadryl, Risperdal, and Depakote. On 09/02/2018 I'm seeing this patient for a follow-up. More awake and alert compared to yesterday. He is able to hold a short conversation. He has a congested cough. Unable to bring up much sputum. His swallow is poor. The patient aspirates. Unable to take his medication orally units. He is able to move all 4 extremities without any limitation and there is no focal neurological deficit. He had been scheduled for a follow-up CAT scan of the brain however this Canceled as the patient was not cooperative. Meanwhile, the patient is being treated for right lower lobe pneumonia. The patient is also being diuresed. The net fluid balance negative over the past 24 hours and the patient has diuresed approximately 3.2 L he had no fever. No chills. No leukocytosis. Hemoglobin is at 10.3. Repeat potassium level is at 5.6. Patient is on DuoNeb nebulized treatments around the clock, currently on a combination of IV Zosyn and vancomycin. He is also on IV Solu-Medrol. Less broncho spastic and wheezy compared to yesterday. Urine drug screen was negative. Valproic acid level was 41.2. Patient was reevaluated today on 09/03/2018, feeling better from the pulmonary perspective, however the patient remains confused, and intermittently agitated. Remains on antibiotics, bronchodilators, steroids, and he is definitely less bronchospastic, and less wheezy. Chest x-ray continues to show mild congestive heart failure changes, limited infiltrate in the bases is not entirely ruled out , there is also some subsegmental atelectasis. Pneumonia is not entirely ruled out. Blood cultures remain negative so far since admission. WBC count is 9 hemoglobin is 10.6 electrolytes are normal BUN is [address] of the brain is pending. Patient remains on cefepime, vancomycin, Solu- Medrol, and albuterol with Atrovent updraft treatments. He is also on Lasix. Psychiatric hardy, remains on multiple psych medications as noted. And he is to be seen by psychiatry. Patient was reevaluated today on 09/04/2018, continues to improve from the pulmonary perspective, however his mental status seems to be very poor. Patient had an MRI already, ruled out CVA, but it is suggestive of vascular dementia. Patient was seen by speech pathology, and he was placed on restriction for possible aspiration pneumonia. His chest x-ray is basically the same continues to show cardiomegaly, prominent interstitium, and bibasilar atelectasis or infiltrates. Labs showed relatively normal CBC and normal basic metabolic profile, BUN remains 51 creatinine 0.90. Remains on broad-spectrum antibiotics, and he is presently overflow in the ICU. Considering blood cultures remain negative, I will go ahead and discontinue vancomycin. Will also switch his methylprednisolone to prednisone. Reevaluated today on 09/05/2018, patient is basically about the same, he has no active pulmonary symptoms, no cough no wheezing no shortness of breath. Remains confused, and his follow-up chest x-ray showed significant improvement in the pulmonary vasculature markings, there is minimal residual left pleural effusion. No cough no wheezing no fever no chills no hemoptysis. Labs including CBC and basic metabolic profile are basically the same on unchanged. All his meds were reviewed, remains on his usual psychiatric medications, Zosyn , albuterol with Atrovent, prednisone at 20 mg daily, (will remain the same for now. Patient was reevaluated today on 09/06/2018, remains as an overflow, sitting in a bedside chair, very comfortable, in no distress, chest x-ray is showing steady improvement in his congestive heart failure and in his pneumonia. Patient is becoming less agitated, and seems to be a bit more appropriate today. Less confused. All his labs were reviewed including CBC and basic metabolic profile, and his renal profile continues to show some improvement. Objective - Vital Signs Vital signs: Vital Signs Temp 98.6 F 09/06/18 11:30 Pulse 68 09/06/18 14:39 Resp 16 09/06/18 14:39 BP 125/60 09/06/18 14:39 Pulse Ox 94 L 09/06/18 14:39 Intake & Output 09/05/18 09/06/18 09/06/18 18:59 06:59 18:59 Intake Total 300 390 200 Balance 300 390 200 Intake: IV 300 300 200 Cefepime 2 gm In Sodium 100 100 100 Chloride 0.9% 50 ml @ 100 mls/hr IVPB Q8HR [facility] Rx# :[id number] Piperacillin-Tazobactam 3 200 200 100 .375 gm In Sodium Chloride 0.9% 100 ml @ 25 mls/hr IVPB Q8H [facility] Rx#: [id number] Oral 90 Other: Voiding Method Toilet Toilet Toilet # Voids 2 1 - Exam Physical Exam: Revealed a 83-year-old white male, comfortable, in no distress. Head: Atraumatic, normocephalic. HEENT: PERRLA, EOMI, moist mucous membranes. [Neck is supple.] [No neck masses. ] [No thyromegaly.] [No JVD.] Chest: [Crackles at the bases, no rhonchi, no wheezes. Symmetrical chest expansion, no chest wall tenderness.] Cardiac Exam: [Normal S1 and S2, no S3 gallop, no murmur.] Abdomen: [Soft, nontender, no megaly, no rebound, no guarding, normal bowel sounds.] Extremities: [No clubbing, no edema, no cyanosis.] Neurological Exam: [No focal neurologic deficit.] However the patient is a bit confused, communicative, able to move all 4 extremities. Psychiatric: Blunted mood and affect, poor insight. - Labs CBC & Chem 7: 09/06/18 05:02 09/06/18 05:02 Labs: Abnormal Lab Results - Last 24 Hours (Table) 09/06/18 09/06/18 Range/Units 05:02 05:02 RBC 3.82 L (4.30-5.90) m/uL Hgb 12.0 L (13.0-17.5) gm/dL Hct 38.7 L (39.0-53.0) % MCV 101.2 H (80.0-100.0) fL RDW 17.1 H (11.5-15.5) % Plt Count 96 L (150-450) k/uL Carbon Dioxide 31 H (22-30) mmol/L BUN 42 H (9-20) mg/dL Glucose 67 L (74-99) mg/dL Calcium 7.9 L (8.4-10.2) mg/dL Magnesium 2.4 H (1.6-2.3) mg/dL Microbiology - Last 24 Hours (Table) 08/31/18 20:35 Blood Culture - Preliminary Blood No Growth after 120 hours Assessment and Plan Assessment: Impression: 1 acute on chronic hypoxic and hypercapnic respiratory failure, multifactorial secondary to COPD exacerbation. Acute Diastolic Congestive heart failure . Suspect a right lower lobe aspiration pneumonia. Chest x-ray today has shown a significant improvement in his overall pulmonary findings. 2 chronic dementia with previous aggressive behavior. 3 chronic psychiatric disorder/bipolar disorder and history of psychotic features. Patient has history of manic psychosis. 4 hypothyroidism 5 hypertension 6 degenerative joint disease and vitamin D deficiency 7 failed swallow evaluation, suspect aspiration pneumonia involving the right lower lobe. 8 possible CVA bit, being followed by neurology, repeat CT of the brain is pending. 9 pulmonary hypertension as noted on his echocardiogram, good LV function was noted. His PA pressures are around 45. Recommendation: Continue present supportive care measures, continue antibiotics , continue aspiration precautions, continue Zosyn, continue prednisone, continue DuoNeb updrafts 4 times a day and when necessary. Awaiting to transfer the patient to a regular medical floor hopefully today if a bed becomes available. Patient will definitely need placement. Time with Patient: Less than 30
[2018-09-06] MEDS: traZODone HCL 50 MG TAB PO SCH (21:16)
--- NOTE | 2018-09-06 23:39 | P.PN ---
Subjective Patient is admitted for acute respiratory failure both hypoxic and hypercapnic and patient is presently on aspirin and Lanoxin 4 L per. Patient is wheezing quite a bit and patient is being treated for COPD patient was confused yesterday L leg much less awake lethargic all of which improved today patient is able to communicate and mental status close to his baseline. 09/03/2018 Patient seen and examined by me in the ICU. Patient the breathing is better than his of BiPAP on nasal cannula oxygen with saturating 95% on 5 L high flow. This always confused but he is oriented to place. He has some left-sided facial droop she denies chest pain or tenderness. CBC and BMP were reviewed with no significant change. Neurology and critical care input is appreciated. 09/04/2018 Patient seen and examined by me in the ICU. Patient the breathing is better than his of BiPAP on nasal cannula oxygen with saturating 95% on 5 L high flow. This always confused but he is oriented to place. He has some left-sided facial droop she denies chest pain or tenderness. CBC and BMP were reviewed with no significant change. Neurology and critical care input is appreciated. he is on steroids and zosyn . vancomycin was dc . his MRI is negative for stroke but suggestive of vascular dementia. pt is selective floor overflow 09/05/2018 pt is in ICU however he is select overflow. was sitting in chair comfortable , not in distress. with no significant change in his medication , CXR improving pulmonary vascular marking and cardiomegaly . CBC and BMP unremarkable , magnesium on the high side 09/06/2018 pt is in ICU however he is select overflow still today. was sitting in chair comfortable , not in distress. with no significant change in his medication , CXR improving pulmonary vascular marking and cardiomegaly . CBC and BMP unremarkable , no much change in his clinical status, labs and medications reviewed Constitutional: Denied any fatigue denied any fever. Cardio vascular: denied any chest pain, palpitations Gastrointestinal denied any nausea vomiting Pulmonary: his of breath significantly improved and feeling much better Neurologic denied any new focal deficits All inpatient medications were reviewed and appropriate changes in these medications as dictated in the interval history and assessment and plan. Objective - Vital Signs Vital signs: Vital Signs Temp 98.6 F 09/06/18 11:30 Pulse 58 L 09/06/18 22:47 Resp 14 09/06/18 22:47 BP 156/80 09/06/18 22:47 Pulse Ox 93 L 09/06/18 22:47 Intake & Output 09/06/18 09/06/18 09/07/18 06:59 18:59 06:59 Intake Total 390 200 100 Balance 390 200 100 Intake: IV 300 200 100 Cefepime 2 gm In Sodium 100 100 Chloride 0.9% 50 ml @ 100 mls/hr IVPB Q8HR [facility] Rx# :[id number] Piperacillin-Tazobactam 3 200 100 100 .375 gm In Sodium Chloride 0.9% 100 ml @ 25 mls/hr IVPB Q8H [facility] Rx#: [id number] Oral 90 Other: Voiding Method Toilet Toilet # Voids 1 - Exam -GENERAL: The patient is alert and awake, oriented to place only, is on nasal cannula HEENT: Pupils are round and equally reacting to light. EOMI. No scleral icterus. No conjunctival pallor. Normocephalic, atraumatic. No pharyngeal erythema. No thyromegaly. CARDIOVASCULAR: S1 and S2 present. No murmurs, rubs, or gallops. PULMONARY: Rhonchus breath sounds expiratory wheezing or crackles in the right lower lung bases ABDOMEN: Soft, nontender, nondistended, normoactive bowel sounds. No palpable organomegaly. MUSCULOSKELETAL: No joint swelling or deformity. EXTREMITIES: No cyanosis, clubbing, I'll bilateral pedal edema NEUROLOGICAL: Unilateral facial droop. No weakness in arms or legs. No abnormal sensation rest of cranial nerves are grossly intact. Meningeal signs are absent SKIN: No rashes. - Labs CBC & Chem 7: 09/06/18 05:02 09/06/18 05:02 Labs: Abnormal Lab Results - Last 24 Hours (Table) 09/06/18 09/06/18 Range/Units 05:02 05:02 RBC 3.82 L (4.30-5.90) m/uL Hgb 12.0 L (13.0-17.5) gm/dL Hct 38.7 L (39.0-53.0) % MCV 101.2 H (80.0-100.0) fL RDW 17.1 H (11.5-15.5) % Plt Count 96 L (150-450) k/uL Carbon Dioxide 31 H (22-30) mmol/L BUN 42 H (9-20) mg/dL Glucose 67 L (74-99) mg/dL Calcium 7.9 L (8.4-10.2) mg/dL Magnesium 2.4 H (1.6-2.3) mg/dL Microbiology - Last 24 Hours (Table) 08/31/18 20:35 Blood Culture - Final Blood No Growth after 144 hours Assessment and Plan Assessment: Assessment and Plan: Acute hypercapnic and hypoxic respiratory failure probably secondary to COPD exacerbation, low possibility of CHF patient systemic steroids inhalational treatments respiratory support with BiPAP on Ventimask as mentioned above there may be an aspiration pneumonia for which patient was Zosyn patient is on IV steroids inhalational treatments continues to be significantly. Significant improvement in his respiratory status from 100% Ventimask to 3-4 L today -Suspected stroke with fascial droop on 1 side. 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
[2018-09-07] MEDS: HEPARIN SODIUM,PORCINE 5,000 UNIT/ML 1 ML VIAL SQ SCH ×3 (00:42→16:11)
[2018-09-07] MEDS: PIPERACILLIN-TAZOBACTAM 3.375 GM in SODIUM CHLORIDE 0.9% 100 ML IVPB SCH (04:02)
[2018-09-07] MEDS: IPRATROPIUM-ALBUTEROL 3 ML NEB INHALATION SCH ×6 (04:06→23:37)
[2018-09-07] MEDS: PANTOPRAZOLE 40 MG TABLET PO SCH (06:34)
[2018-09-07] MEDS: LEVOTHYROXINE 25 MCG TAB PO SCH (06:34)
[2018-09-07] MEDS: DIVALPROEX ER 500 MG TAB.ER.24H PO SCH ×2 (09:01→22:49)
[2018-09-07] MEDS: TAMSULOSIN 0.4 MG CAP.ER.24H PO SCH (09:01)
[2018-09-07] MEDS: predniSONE 20 MG TAB PO SCH (09:01)
[2018-09-07] MEDS: traZODone HCL 50 MG TAB PO SCH ×2 (09:01→22:49)
[2018-09-07] MEDS: THIAMINE 100 MG TAB PO SCH (09:01)
[2018-09-07] MEDS: CEFEPIME 2 GM in SODIUM CHLORIDE 0.9% 50 ML IVPB SCH (09:01)
[2018-09-07] MEDS: SENNOSIDES 8.6 MG TAB PO SCH ×2 (09:02→22:32)
[2018-09-07] MEDS: risperiDONE 2 MG TAB PO SCH ×2 (09:02→22:49)
--- NOTE | 2018-09-07 10:36 | XR ---
EXAMINATION TYPE: XR chest 1V DATE OF EXAM: 09/07/2018 COMPARISON: Prior chest x-ray 09/06/2018 HISTORY: Abnormal chest x-ray, pleural effusion TECHNIQUE: frontal view of the chest is obtained on 2 images. FINDINGS: Patient is rotated. No interval change is evident. Persistent blunting of the costophrenic angles. Heart size is stable. IMPRESSION: Findings suggest bilateral pleural effusions and associated atelectasis, correlate to ex clude pneumonia. Additional follow-up is recommended.
[2018-09-07 10:59] VITALS: BMI 25.2
[2018-09-07] MEDS: FUROSEMIDE 20 MG TAB PO SCH (11:27)
[2018-09-07 12:24] LABS: Glucose,Whole Blood 127 mg/dL (75-99)
--- NOTE | 2018-09-07 13:15 | P.PN ---
Subjective Patient is admitted for acute respiratory failure both hypoxic and hypercapnic and patient is presently on aspirin and Lanoxin 4 L per. Patient is wheezing quite a bit and patient is being treated for COPD patient was confused yesterday L leg much less awake lethargic all of which improved today patient is able to communicate and mental status close to his baseline. 09/03/2018 Patient seen and examined by me in the ICU. Patient the breathing is better than his of BiPAP on nasal cannula oxygen with saturating 95% on 5 L high flow. This always confused but he is oriented to place. He has some left-sided facial droop she denies chest pain or tenderness. CBC and BMP were reviewed with no significant change. Neurology and critical care input is appreciated. 09/04/2018 Patient seen and examined by me in the ICU. Patient the breathing is better than his of BiPAP on nasal cannula oxygen with saturating 95% on 5 L high flow. This always confused but he is oriented to place. He has some left-sided facial droop she denies chest pain or tenderness. CBC and BMP were reviewed with no significant change. Neurology and critical care input is appreciated. he is on steroids and zosyn . vancomycin was dc . his MRI is negative for stroke but suggestive of vascular dementia. pt is selective floor overflow 09/05/2018 pt is in ICU however he is select overflow. was sitting in chair comfortable , not in distress. with no significant change in his medication , CXR improving pulmonary vascular marking and cardiomegaly . CBC and BMP unremarkable , magnesium on the high side 09/06/2018 pt is in ICU however he is select overflow still today. was sitting in chair comfortable , not in distress. with no significant change in his medication , CXR improving pulmonary vascular marking and cardiomegaly . CBC and BMP unremarkable , no much change in his clinical status, labs and medications reviewed 09/07/2018 Patient remains in the ICU as general floor overflow. He is fully awake oriented, not in distress or pain area. He denies chest pain or dyspnea. No leg pain. his medication adjustment including Lasix 20 mg by mouth daily and prednisone 10 mg daily. Chest x-ray showing bilateral atelectasis. His Vitas looks stable and he is saturating 94% on 4 L oxygen via NC. Constitutional: Denied any fatigue denied any fever. Cardio vascular: denied any chest pain, palpitations Gastrointestinal denied any nausea vomiting Pulmonary: his of breath significantly improved and feeling much better Neurologic denied any new focal deficits All inpatient medications were reviewed and appropriate changes in these medications as dictated in the interval history and assessment and plan. Objective - Vital Signs Vital signs: Vital Signs Temp 98.6 F 09/06/18 11:30 Pulse 80 09/07/18 11:43 Resp 14 09/07/18 08:00 BP 136/85 09/07/18 06:45 Pulse Ox 94 L 09/07/18 06:45 Intake & Output 09/06/18 09/07/18 09/07/18 18:59 06:59 18:59 Intake Total 200 100 Output Total 0 0 Balance 200 100 0 Weight 82 kg Intake: IV 200 100 Cefepime 2 gm In Sodium 100 Chloride 0.9% 50 ml @ 100 mls/hr IVPB Q8HR [facility] Rx# :[id number] Piperacillin-Tazobactam 3 100 100 .375 gm In Sodium Chloride 0.9% 100 ml @ 25 mls/hr IVPB Q8H [facility] Rx#: [id number] Output: Urine 0 0 Other: Voiding Method Toilet Toilet Toilet # Voids 1 1 - Exam -GENERAL: The patient is alert and awake, oriented to place only, is on nasal cannula HEENT: Pupils are round and equally reacting to light. EOMI. No scleral icterus. No conjunctival pallor. Normocephalic, atraumatic. No pharyngeal erythema. No thyromegaly. CARDIOVASCULAR: S1 and S2 present. No murmurs, rubs, or gallops. PULMONARY: Rhonchus breath sounds expiratory wheezing or crackles in the right lower lung bases ABDOMEN: Soft, nontender, nondistended, normoactive bowel sounds. No palpable organomegaly. MUSCULOSKELETAL: No joint swelling or deformity. EXTREMITIES: No cyanosis, clubbing, I'll bilateral pedal edema NEUROLOGICAL: Unilateral facial droop. No weakness in arms or legs. No abnormal sensation rest of cranial nerves are grossly intact. Meningeal signs are absent SKIN: No rashes. - Labs CBC & Chem 7: 09/06/18 05:02 09/06/18 05:02 Labs: Abnormal Lab Results - Last 24 Hours (Table) 09/07/18 Range/Units 12:21 POC Glucose (mg/dL) 127 H (75-99) mg/dL Microbiology - Last 24 Hours (Table) 08/31/18 20:35 Blood Culture - Final Blood No Growth after 144 hours Assessment and Plan Assessment: Assessment and Plan: Acute hypercapnic and hypoxic respiratory failure probably secondary to COPD exacerbation, low possibility of CHF patient systemic steroids inhalational treatments respiratory support with BiPAP on Ventimask as mentioned above there may be an aspiration pneumonia for which patient was Zosyn patient is on IV steroids inhalational treatments continues to be significantly. Significant improvement in his respiratory status from 100% Ventimask to 3-4 L today -Suspected stroke with fascial droop on 1 side. 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
--- NOTE | 2018-09-07 13:49 | P.PN ---
Subjective Progress Note Date: 09/07/18 Principal diagnosis: Acute on chronic hypoxic and hypercapnic respiratory failure, multifactorial secondary to COPD, right lower lobe pneumonia, and congestive heart failure. This is a 83-year-old male patient, extensive psychiatric history, no history of COPD with chronic hypoxic and hypercapnic respiratory failure in addition to hypertension and dementia. The patient is able to answer only simple questions. He spine's by saying yes and no. Able to respond to more questions. The baseline mentation is not known to me at this point. Were unable to get useful information from the [facility]. Further Will be done to establish at least his baseline neurological and psychiatric and status. In summary, the patient has had history of dementia and chronic psychiatric disorder in addition to COPD and is a vague history of CHF in addition. I'm not aware of any based on echocardiogram on this patient. He comes in with worsening shortness of breath and cough and congestion. Chest x- ray revealed early megaly and COPD in addition to lung volumes being prominent. There is also confluent airspace disease in the lower lobes right more than left. He has a congested cough. Unable to bring up much sputum. No clear-cut history of aspiration. His white cell count is at 10.1. Blood gases at time of emergency arrival showed a pH of 7.42 with a pCO2 of 76 and pO2 of 134 and this was done while the patient a BiPAP at a pressure of 12 and 5 with an FiO2 of 50%. He obviously has chronic hypercapnic respiratory failure as this patient's blood work indicates chronic metabolic alkalosis. It is scan of the brain shows chronic small vessel ischemia and cerebral atrophy. No hemorrhage. There is evidence of ethmoid sinusitis. Currently the patient on BiPAP at a pressure of 12/5 cm of water. He is synchronous with the BiPAP fullface mask. He is calm and comfortable. No agitation. He is able to move all 4 extremities. He is slow in answering questions. Still quite lethargic. In the emergency department the patient was placed on IV cefepime and vancomycin. The patient was also started on IV Solu-Medrol. He is on albuterol nebulized treatments every 4 hours and when necessary. He was placed on IV Lasix. A pulmonary consultation was requested. He is currently in the intensive care unit. Outpatient psychiatric medications include Benadryl, Risperdal, and Depakote. On 09/02/2018 I'm seeing this patient for a follow-up. More awake and alert compared to yesterday. He is able to hold a short conversation. He has a congested cough. Unable to bring up much sputum. His swallow is poor. The patient aspirates. Unable to take his medication orally units. He is able to move all 4 extremities without any limitation and there is no focal neurological deficit. He had been scheduled for a follow-up CAT scan of the brain however this Canceled as the patient was not cooperative. Meanwhile, the patient is being treated for right lower lobe pneumonia. The patient is also being diuresed. The net fluid balance negative over the past 24 hours and the patient has diuresed approximately 3.2 L he had no fever. No chills. No leukocytosis. Hemoglobin is at 10.3. Repeat potassium level is at 5.6. Patient is on DuoNeb nebulized treatments around the clock, currently on a combination of IV Zosyn and vancomycin. He is also on IV Solu-Medrol. Less broncho spastic and wheezy compared to yesterday. Urine drug screen was negative. Valproic acid level was 41.2. Patient was reevaluated today on 09/03/2018, feeling better from the pulmonary perspective, however the patient remains confused, and intermittently agitated. Remains on antibiotics, bronchodilators, steroids, and he is definitely less bronchospastic, and less wheezy. Chest x-ray continues to show mild congestive heart failure changes, limited infiltrate in the bases is not entirely ruled out , there is also some subsegmental atelectasis. Pneumonia is not entirely ruled out. Blood cultures remain negative so far since admission. WBC count is 9 hemoglobin is 10.6 electrolytes are normal BUN is [address] of the brain is pending. Patient remains on cefepime, vancomycin, Solu- Medrol, and albuterol with Atrovent updraft treatments. He is also on Lasix. Psychiatric hardy, remains on multiple psych medications as noted. And he is to be seen by psychiatry. Patient was reevaluated today on 09/04/2018, continues to improve from the pulmonary perspective, however his mental status seems to be very poor. Patient had an MRI already, ruled out CVA, but it is suggestive of vascular dementia. Patient was seen by speech pathology, and he was placed on restriction for possible aspiration pneumonia. His chest x-ray is basically the same continues to show cardiomegaly, prominent interstitium, and bibasilar atelectasis or infiltrates. Labs showed relatively normal CBC and normal basic metabolic profile, BUN remains 51 creatinine 0.90. Remains on broad-spectrum antibiotics, and he is presently overflow in the ICU. Considering blood cultures remain negative, I will go ahead and discontinue vancomycin. Will also switch his methylprednisolone to prednisone. Reevaluated today on 09/05/2018, patient is basically about the same, he has no active pulmonary symptoms, no cough no wheezing no shortness of breath. Remains confused, and his follow-up chest x-ray showed significant improvement in the pulmonary vasculature markings, there is minimal residual left pleural effusion. No cough no wheezing no fever no chills no hemoptysis. Labs including CBC and basic metabolic profile are basically the same on unchanged. All his meds were reviewed, remains on his usual psychiatric medications, Zosyn , albuterol with Atrovent, prednisone at 20 mg daily, (will remain the same for now. Patient was reevaluated today on 09/06/2018, remains as an overflow, sitting in a bedside chair, very comfortable, in no distress, chest x-ray is showing steady improvement in his congestive heart failure and in his pneumonia. Patient is becoming less agitated, and seems to be a bit more appropriate today. Less confused. All his labs were reviewed including CBC and basic metabolic profile, and his renal profile continues to show some improvement. Reevaluated today on 09/07/2018, no ticket dispenser changer the last few days, patient is comfortable, and I believe it is possibly time to consider discharging the patient home. I will discontinue his antibiotics, his CBC is relatively normal his electrolytes are relatively normal his chest x-ray is showing significant improvement in his right lower lobe pneumonia and congestive heart failure. Objective - Vital Signs Vital signs: Vital Signs Temp 98.6 F 09/06/18 11:30 Pulse 80 09/07/18 11:43 Resp 14 09/07/18 08:00 BP 136/85 09/07/18 06:45 Pulse Ox 94 L 09/07/18 06:45 Intake & Output 09/06/18 09/07/18 09/07/18 18:59 06:59 18:59 Intake Total 200 100 Output Total 0 0 Balance 200 100 0 Weight 82 kg Intake: IV 200 100 Cefepime 2 gm In Sodium 100 Chloride 0.9% 50 ml @ 100 mls/hr IVPB Q8HR RUT Rx# :[id number] Piperacillin-Tazobactam 3 100 100 .375 gm In Sodium Chloride 0.9% 100 ml @ 25 mls/hr IVPB Q8H RUT Rx#: [id number] Output: Urine 0 0 Other: Voiding Method Toilet Toilet Toilet # Voids 1 1 - Exam Physical Exam: Revealed a 83-year-old white male, comfortable, in no distress. Head: Atraumatic, normocephalic. HEENT: PERRLA, EOMI, moist mucous membranes. [Neck is supple.] [No neck masses. ] [No thyromegaly.] [No JVD.] Chest: [Clear bilaterally no rhonchi and no wheezes. Cardiac Exam: [Normal S1 and S2, no S3 gallop, no murmur.] Abdomen: [Soft, nontender, no megaly, no rebound, no guarding, normal bowel sounds.] Extremities: [No clubbing, no edema, no cyanosis.] Neurological Exam: [No focal neurologic deficit.] However the patient is a bit confused, communicative, able to move all 4 extremities. Psychiatric: Blunted mood and affect, poor insight. - Labs CBC & Chem 7: 09/06/18 05:02 09/06/18 05:02 Labs: Abnormal Lab Results - Last 24 Hours (Table) 09/07/18 Range/Units 12:21 POC Glucose (mg/dL) 127 H (75-99) mg/dL Microbiology - Last 24 Hours (Table) 08/31/18 20:35 Blood Culture - Final Blood No Growth after 144 hours Assessment and Plan Assessment: Impression: 1 acute on chronic hypoxic and hypercapnic respiratory failure, multifactorial secondary to COPD exacerbation. Acute Diastolic Congestive heart failure . Suspect a right lower lobe aspiration pneumonia. Significantly improved. 2 chronic dementia with previous aggressive behavior. 3 chronic psychiatric disorder/bipolar disorder and history of psychotic features. Patient has history of manic psychosis. 4 hypothyroidism 5 hypertension 6 degenerative joint disease and vitamin D deficiency 7 failed swallow evaluation, suspect aspiration pneumonia involving the right lower lobe. 8 possible CVA this was actually ruled out by neurology. 9 pulmonary hypertension as noted on his echocardiogram, good LV function was noted. His PA pressures are around 45. Recommendation: Continue present supportive care measures, discontinue antibiotics, consider discharge planning to ECF. Time with Patient: Less than 30
[2018-09-07 17:35] LABS: Glucose,Whole Blood 110 mg/dL (75-99)
[2018-09-08] MEDS: HEPARIN SODIUM,PORCINE 5,000 UNIT/ML 1 ML VIAL SQ SCH ×3 (02:57→15:25)
[2018-09-08] MEDS: IPRATROPIUM-ALBUTEROL 3 ML NEB INHALATION SCH ×5 (03:48→20:08)
[2018-09-08] MEDS: LEVOTHYROXINE 25 MCG TAB PO SCH (06:49)
[2018-09-08] MEDS: FUROSEMIDE 20 MG TAB PO SCH (08:11)
[2018-09-08] MEDS: TAMSULOSIN 0.4 MG CAP.ER.24H PO SCH (08:11)
[2018-09-08] MEDS: PANTOPRAZOLE 40 MG TABLET PO SCH (08:11)
[2018-09-08] MEDS: risperiDONE 2 MG TAB PO SCH (08:11)
[2018-09-08] MEDS: DIVALPROEX ER 500 MG TAB.ER.24H PO SCH (08:11)
[2018-09-08] MEDS: THIAMINE 100 MG TAB PO SCH (08:11)
[2018-09-08] MEDS: SENNOSIDES 8.6 MG TAB PO SCH (08:12)
[2018-09-08] MEDS ORDERED: predniSONE 10 MG TAB PO SCH (09:00)
[2018-09-08 09:57] VITALS: RESP 16
--- NOTE | 2018-09-08 12:47 | P.PN ---
Subjective Progress Note Date: 09/08/18 Principal diagnosis: Acute on chronic hypoxic and hypercapnic respiratory failure, multifactorial secondary to COPD, right lower lobe pneumonia, and congestive heart failure. This is a 83-year-old male patient, extensive psychiatric history, no history of COPD with chronic hypoxic and hypercapnic respiratory failure in addition to hypertension and dementia. The patient is able to answer only simple questions. He spine's by saying yes and no. Able to respond to more questions. The baseline mentation is not known to me at this point. Were unable to get useful information from the long term where he resides. Further Will be done to establish at least his baseline neurological and psychiatric and status. In summary, the patient has had history of dementia and chronic psychiatric disorder in addition to COPD and is a vague history of CHF in addition. I'm not aware of any based on echocardiogram on this patient. He comes in with worsening shortness of breath and cough and congestion. Chest x- ray revealed early megaly and COPD in addition to lung volumes being prominent. There is also confluent airspace disease in the lower lobes right more than left. He has a congested cough. Unable to bring up much sputum. No clear-cut history of aspiration. His white cell count is at 10.1. Blood gases at time of emergency arrival showed a pH of 7.42 with a pCO2 of 76 and pO2 of 134 and this was done while the patient a BiPAP at a pressure of 12 and 5 with an FiO2 of 50%. He obviously has chronic hypercapnic respiratory failure as this patient's blood work indicates chronic metabolic alkalosis. It is scan of the brain shows chronic small vessel ischemia and cerebral atrophy. No hemorrhage. There is evidence of ethmoid sinusitis. Currently the patient on BiPAP at a pressure of 12/5 cm of water. He is synchronous with the BiPAP fullface mask. He is calm and comfortable. No agitation. He is able to move all 4 extremities. He is slow in answering questions. Still quite lethargic. In the emergency department the patient was placed on IV cefepime and vancomycin. The patient was also started on IV Solu-Medrol. He is on albuterol nebulized treatments every 4 hours and when necessary. He was placed on IV Lasix. A pulmonary consultation was requested. He is currently in the intensive care unit. Outpatient psychiatric medications include Benadryl, Risperdal, and Depakote. On 09/02/2018 I'm seeing this patient for a follow-up. More awake and alert compared to yesterday. He is able to hold a short conversation. He has a congested cough. Unable to bring up much sputum. His swallow is poor. The patient aspirates. Unable to take his medication orally units. He is able to move all 4 extremities without any limitation and there is no focal neurological deficit. He had been scheduled for a follow-up CAT scan of the brain however this Canceled as the patient was not cooperative. Meanwhile, the patient is being treated for right lower lobe pneumonia. The patient is also being diuresed. The net fluid balance negative over the past 24 hours and the patient has diuresed approximately 3.2 L he had no fever. No chills. No leukocytosis. Hemoglobin is at 10.3. Repeat potassium level is at 5.6. Patient is on DuoNeb nebulized treatments around the clock, currently on a combination of IV Zosyn and vancomycin. He is also on IV Solu-Medrol. Less broncho spastic and wheezy compared to yesterday. Urine drug screen was negative. Valproic acid level was 41.2. Patient was reevaluated today on 09/03/2018, feeling better from the pulmonary perspective, however the patient remains confused, and intermittently agitated. Remains on antibiotics, bronchodilators, steroids, and he is definitely less bronchospastic, and less wheezy. Chest x-ray continues to show mild congestive heart failure changes, limited infiltrate in the bases is not entirely ruled out , there is also some subsegmental atelectasis. Pneumonia is not entirely ruled out. Blood cultures remain negative so far since admission. WBC count is 9 hemoglobin is 10.6 electrolytes are normal BUN is [address] of the brain is pending. Patient remains on cefepime, vancomycin, Solu- Medrol, and albuterol with Atrovent updraft treatments. He is also on Lasix. Psychiatric hardy, remains on multiple psych medications as noted. And he is to be seen by psychiatry. Patient was reevaluated today on 09/04/2018, continues to improve from the pulmonary perspective, however his mental status seems to be very poor. Patient had an MRI already, ruled out CVA, but it is suggestive of vascular dementia. Patient was seen by speech pathology, and he was placed on restriction for possible aspiration pneumonia. His chest x-ray is basically the same continues to show cardiomegaly, prominent interstitium, and bibasilar atelectasis or infiltrates. Labs showed relatively normal CBC and normal basic metabolic profile, BUN remains 51 creatinine 0.90. Remains on broad-spectrum antibiotics, and he is presently overflow in the ICU. Considering blood cultures remain negative, I will go ahead and discontinue vancomycin. Will also switch his methylprednisolone to prednisone. Reevaluated today on 09/05/2018, patient is basically about the same, he has no active pulmonary symptoms, no cough no wheezing no shortness of breath. Remains confused, and his follow-up chest x-ray showed significant improvement in the pulmonary vasculature markings, there is minimal residual left pleural effusion. No cough no wheezing no fever no chills no hemoptysis. Labs including CBC and basic metabolic profile are basically the same on unchanged. All his meds were reviewed, remains on his usual psychiatric medications, Zosyn , albuterol with Atrovent, prednisone at 20 mg daily, (will remain the same for now. Patient was reevaluated today on 09/06/2018, remains as an overflow, sitting in a bedside chair, very comfortable, in no distress, chest x-ray is showing steady improvement in his congestive heart failure and in his pneumonia. Patient is becoming less agitated, and seems to be a bit more appropriate today. Less confused. All his labs were reviewed including CBC and basic metabolic profile, and his renal profile continues to show some improvement. Reevaluated today on 09/07/2018, no change management consultant the last few days, patient is comfortable, and I believe it is possibly time to consider discharging the patient home. I will discontinue his antibiotics, his CBC is relatively normal his electrolytes are relatively normal his chest x-ray is showing significant improvement in his right lower lobe pneumonia and congestive heart failure. Reevaluated today on 09/08/2018, patient continues to do well, his antibiotics have been discontinued, he is maintained on a small dose of diuretics, he is doing well, mental status is basically about the same, and I believe the patient could be considered for discharge home. Objective - Vital Signs Vital signs: Vital Signs Temp 98 F 09/08/18 07:00 Pulse 88 12/15/18 08:09 Resp 16 09/08/18 08:00 BP 135/68 09/08/18 07:00 Pulse Ox 96 09/08/18 07:00 Intake & Output 09/07/18 09/08/18 09/08/18 18:59 06:59 18:59 Output Total 0 0 0 Balance 0 0 0 Weight 82 kg 88.1 kg 88.1 kg Output: Urine 0 0 0 Other: Voiding Method Toilet Toilet Toilet # Voids 2 1 1 - Exam Physical Exam: Revealed a 83-year-old white male, comfortable, in no distress. Head: Atraumatic, normocephalic. HEENT: PERRLA, EOMI, moist mucous membranes. [Neck is supple.] [No neck masses. ] [No thyromegaly.] [No JVD.] Chest: [Clear bilaterally no rhonchi and no wheezes. Cardiac Exam: [Normal S1 and S2, no S3 gallop, no murmur.] Abdomen: [Soft, nontender, no megaly, no rebound, no guarding, normal bowel sounds.] Extremities: [No clubbing, no edema, no cyanosis.] Neurological Exam: [No focal neurologic deficit.] However the patient is a bit confused, communicative, able to move all 4 extremities. Psychiatric: Blunted mood and affect, poor insight. - Labs CBC & Chem 7: 09/06/18 05:02 09/06/18 05:02 Labs: Abnormal Lab Results - Last 24 Hours (Table) 09/07/18 Range/Units 17:21 POC Glucose (mg/dL) 110 H (75-99) mg/dL Assessment and Plan Assessment: Impression: 1 acute on chronic hypoxic and hypercapnic respiratory failure, multifactorial secondary to COPD exacerbation. Acute Diastolic Congestive heart failure . Suspect a right lower lobe aspiration pneumonia. Significantly improved. 2 chronic dementia with previous aggressive behavior. 3 chronic psychiatric disorder/bipolar disorder and history of psychotic features. Patient has history of manic psychosis. 4 hypothyroidism 5 hypertension 6 degenerative joint disease and vitamin D deficiency 7 failed swallow evaluation, suspect aspiration pneumonia involving the right lower lobe. 8 possible CVA this was actually ruled out by neurology. 9 pulmonary hypertension as noted on his echocardiogram, good LV function was noted. His PA pressures are around 45. Recommendation: Consider discharge planning today if possible if a bed is available in his long term or ECF. Time with Patient: Less than 30
--- NOTE | 2018-09-08 15:16 | P.DS ---
Providers Date of admission: 08/31/18 23:32 Attending physician: Evy Guevara Consults: 08/31/18 23:40 Consult Physician Routine Consulting Provider: Vicki Alfaro Consult Reason/Comments: Respiratory failure requiring BiPAP Do you want consulting provider notified?: Already Contacted 09/02/18 09:42 Consult Physician Routine Consulting Provider: Eden Mendiola Consult Reason/Comments: altered mentation Do you want consulting provider notified?: Yes Consult Physician Urgent Consulting Provider: Ruel Pabon Consult Reason/Comments: altered mentation Do you want consulting provider notified?: Yes Primary care physician: Stated None Hospital Course: This is a 83-year-old male patient, extensive psychiatric history, no history of COPD with chronic hypoxic and hypercapnic respiratory failure in addition to hypertension and dementia. Who presents because of altered mental status, with worsening shortness of breath and cough and congestion.CT scan of the brain shows chronic small vessel ischemia and cerebral atrophy. No hemorrhage. he was found to have acute metabolic encephalopathy secondary to cardiopulmonary disease. He had acute on chronic hypoxic and hypercapnic respiratory failure secondary to COPD acute exacerbation and acute diastolic congestive heart failure. There was suspicion also of right lower lobe aspiration pneumonia and he was treated with antibiotic, steroids, breathing treatments and oxygen and diuretics. Patient showed interval improvement and her return to his baseline mental status. chest x-ray is showing steady improvement in his congestive heart failure and in his pneumonia. He is saturating 96% on room air. And his vital signs stable his been afebrile. and He is been in the ICU for the last 3- 4 days as an overflow waiting for bed to be transferred to at the general medical floor, however no bed was available and today patient was cleared for discharge by the critical/pulmonary care team as well as by the other consultants on the case. Patient currently sitting up in chair enjoying his meal. He stated he liked it and pointed to his abdomen as a sign of satisfaction, is breathing quietly. No dyspnea. No chest pain. with no change in his urine or bowel habits. No fever Problems and management plan was discussed with the patient. Patient was found stable and can be discharged to his assisted living home in guarded [facility], however he needs follow-up as an outpatient. I spoke with his guardian Mr. Rendon at [phone] and discussed the case with him with recommendation with one-week follow-up with his primary care doctor as well as his psychiatrist within 1 week. Also recommended outpatient follow-up with pulmonary and neurology in 1-2 weeks. Kindly took note of it. Discussed the case also with the family welfare social work professor, care will be available continuously to take care of his wound and giving him medication, and underwent talked to the patient, Mr. Dobson confirmed to me that he has jake their name Moya who takes care of him all the time physical exam Gen.: Patient alert awake and oriented X 3, NOT IN DISTRESS CVS: s1-s2, RRR, no murmur CHEST:bilateral CTA, no wheezing or crepitation Abdomen: Soft, no tenderness, no distention, positive bowel sounds Extremities: No leg edema or induration Time spent more than 35 minutes Patient Condition at Discharge: Serious Plan - Discharge Summary New Discharge Prescriptions: No Action Tamsulosin HCl [Flomax] 0.4 mg PO DAILY@0800 Levothyroxine Sodium 25 mcg PO DAILY@0600 Thiamine [Vitamin B-1] 100 mg PO DAILY@0800 Sennosides [Senna] 8.6 mg PO BID@799,1999 Cholecalciferol (Vitamin D3) [Vitamin D3] 2,000 unit PO HS@1999 Loratadine [Claritin] 10 mg PO DAILY@0800 traZODone HCL [Desyrel] 50 mg PO HS@1999 risperiDONE [RisperDAL] 2 mg PO BID@08,1999 Furosemide [Lasix] 40 mg PO DAILY@0800 Divalproex ER [Depakote ER] 500 mg PO BID@08,1999 Potassium Chloride ER [K-Dur 10] 10 meq PO DAILY@0800 Furosemide [Lasix] 20 mg PO ONCE PRN PRN Reason: Edema Discharge Medication List Levothyroxine Sodium 25 mcg PO DAILY@0600 07/13/18 [History] Tamsulosin HCl [Flomax] 0.4 mg PO DAILY@0800 07/13/18 [History] Cholecalciferol (Vitamin D3) [Vitamin D3] 2,000 unit PO HS@199907/14/18 [ History] Sennosides [Senna] 8.6 mg PO BID@0800,199907/14/18 [History] Thiamine [Vitamin B-1] 100 mg PO DAILY@0800 07/14/18 [History] Divalproex ER [Depakote ER] 500 mg PO BID@799,199908/31/18 [History] Furosemide [Lasix] 20 mg PO ONCE PRN 08/31/18 [History] Furosemide [Lasix] 40 mg PO DAILY@79908/31/18 [History] Loratadine [Claritin] 10 mg PO DAILY@79908/31/18 [History] Potassium Chloride ER [K-Dur 10] 10 meq PO DAILY@79908/31/18 [History] risperiDONE [RisperDAL] 2 mg PO BID@799,199908/31/18 [History] traZODone HCL [Desyrel] 50 mg PO HS@199908/31/18 [History] Follow up Appointment(s)/Referral(s): Maggie Smith MD [STAFF PHYSICIAN] - 1 Week Eden Mendiola MD [STAFF PHYSICIAN] - 1 Week None,Stated [Primary Care Provider] - 1-2 days Activity/Diet/Wound Care/Special Instructions: [facility] - they will transport the pt at time of discharge - the nurse to call the [facility]
[2018-09-08 15:28] VITALS: BP 127/78; PULSE 72; TEMP 97
== END 2018-09-08 21:49 | disposition home or self-care (01) | DRG 177 ==
LOC: EC 19:57 → 2SICU 23:32
PROVIDERS: ADMIT Hospitalist; ATTEND Hospitalist
PROC: 5A09357 Assistance with Respiratory Ventilation, Less than 24 Consecutive Hours, Continuous Positive Airway Pressure (ICD-10-PCS; principal; 2018-08-31)
DX: J69.0 Pneumonitis due to inhalation of food and vomit (principal); G93.41 Metabolic encephalopathy; I50.31 Acute diastolic (congestive) heart failure; J96.21 Acute and chronic respiratory failure with hypoxia; J96.22 Acute and chronic respiratory failure with hypercapnia; J44.1 Chronic obstructive pulmonary disease with (acute) exacerbation; E87.2 Acidosis; F01.51 Vascular dementia, unspecified severity, with behavioral disturbance; F31.13 Bipolar disorder, current episode manic without psychotic features, severe; J44.0 Chronic obstructive pulmonary disease with (acute) lower respiratory infection; I11.0 Hypertensive heart disease with heart failure; E03.9 Hypothyroidism, unspecified; E55.9 Vitamin D deficiency, unspecified; F17.200 Nicotine dependence, unspecified, uncomplicated; E87.5 Hyperkalemia; I27.29 Other secondary pulmonary hypertension; M19.90 Unspecified osteoarthritis, unspecified site; J32.2 Chronic ethmoidal sinusitis; R47.1 Dysarthria and anarthria; Z96.642 Presence of left artificial hip joint; R53.83 Other fatigue; R29.810 Facial weakness; Z87.440 Personal history of urinary (tract) infections; Z79.899 Other long term (current) drug therapy; Z79.890 Hormone replacement therapy; Z72.89 Other problems related to lifestyle; Z80.3 Family history of malignant neoplasm of breast
CPT/HCPCS: 36415; 36600; 51702; 70450; 70551; 71045; 76380; 80048; 80053; 80164; 80202; 80306; 81003; 82140; 82803; 82805; 83520; 83605; 83735; 83880; 84100; 84132; 84484; 85025; 85610; 85730; 87040; 90935; 93005; 93306; 94640; 94660; 96365; 96366; 96368; 96375; 99291

== ENCOUNTER 2018-09-19 16:46 | Inpatient (IN) | payer MEDICARE, BC ==
[2018-09-19] MEDS ORDERED: FUROSEMIDE 10 MG/ML 4 ML VIAL IV STA (16:58)
[2018-09-19] MEDS ORDERED: methylPREDNISolone SOD SUCCI 125 MG/2 ML VIAL IV STA (16:58)
[2018-09-19] MEDS ORDERED: IPRATROPIUM-ALBUTEROL 3 ML NEB INHALATION STA (16:58)
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
[2018-09-19 17:28] LABS: Anisocytosis Slight; Basophils % (A) 0 %; Eosinophils # (A) 0.1 k/uL (0-0.7); Eosinophils % (A) 1 %; HCT 31.7 % (39.0-53.0); HGB 10.1 gm/dL (13.0-17.5); Hypochromasia Moderate; Lymphocytes # (A) 0.6 k/uL (1.0-4.8); Lymphocytes % (A) 8 %; MCH 31.9 pg (25.0-35.0); MCHC 31.8 g/dL (31.0-37.0); MCV 100.3 fL (80.0-100.0); Macrocytosis Slight; Mean Platelet Volume 7.2; Monocytes # (A) 0.6 k/uL (0-1.0); Monocytes % (A) 9 %; Neutrophils # (A) 5.4 k/uL (1.3-7.7); Neutrophils % (A) 79 %; RBC 3.16 m/uL (4.30-5.90); RDW 16.5 % (11.5-15.5); WBC 6.9 k/uL (3.8-10.6)
[2018-09-19 17:32] LABS: Platelet Count 178 k/uL (150-450)
[2018-09-19 17:41] LABS: ALT 65 U/L (21-72); AST 45 U/L (17-59); Albumin 3.2 g/dL (3.5-5.0); Alkaline Phosphatase 96 U/L (38-126); Anion Gap 2 mmol/L; Blood Urea Nitrogen 30 mg/dL (9-20); Calcium 8.7 mg/dL (8.4-10.2); Carbon Dioxide 37 mmol/L (22-30); Chloride 102 mmol/L (98-107); Glucose 93 mg/dL (74-99); INR 0.9 (<1.2); Magnesium 2.1 mg/dL (1.6-2.3); Partial Thromboplastin Time 29.1 sec (22.0-30.0); Potassium 5.2 mmol/L (3.5-5.1); Sodium 141 mmol/L (137-145); Total Bilirubin 0.3 mg/dL (0.2-1.3); Total Protein 6.3 g/dL (6.3-8.2)
[2018-09-19 17:47] LABS: Creatine Kinase 43 U/L (55-170)
[2018-09-19 18:00] LABS: Creatine Kinase MB 7.9 ng/mL (0.0-2.4); Troponin I <0.012 ng/mL (0.000-0.034)
--- NOTE | 2018-09-19 18:11 | XR ---
EXAMINATION TYPE: XR chest 2V DATE OF EXAM: 09/19/2018 COMPARISON: 09/07/2018 HISTORY: Short of breath TECHNIQUE: Frontal and lateral views of the chest are obtained. FINDINGS: There is general coarsening of the pulmonary interstitial markings. There is slight blunti ng of the costophrenic angles. Thoracic aorta is atheromatous. There is spurring in the thoracic spin e. IMPRESSION: Pulmonary interstitial edema and small pleural effusions. This could be mild congestive heart failure that is a change compared to last exam. Acute pneumonia is also possible.
[2018-09-19] MEDS ORDERED: ACETAMINOPHEN TAB 325 MG TAB PO PRN (19:54)
[2018-09-19] MEDS ORDERED: SODIUM CHLORIDE 0.9% 500 ML 500 ML IV STA (19:57)
[2018-09-19] MEDS ORDERED: SODIUM CHLORIDE 0.9% 1,000 ML IV STA (19:57)
[2018-09-19] MEDS: SODIUM CHLORIDE 0.9% 1,000 ML IV SCH (20:08)
[2018-09-19] MEDS: IPRATROPIUM-ALBUTEROL 3 ML NEB INHALATION SCH ×2 (20:53→23:17)
[2018-09-19] MEDS: CHOLECALCIFEROL 1,000 UNIT TAB PO SCH (22:29)
[2018-09-19] MEDS: SENNOSIDES 8.6 MG TAB PO SCH (22:29)
[2018-09-19] MEDS: risperiDONE 2 MG TAB PO SCH (22:30)
[2018-09-19] MEDS: traZODone HCL 50 MG TAB PO SCH (22:30)
[2018-09-19] MEDS: DIVALPROEX ER 500 MG TAB.ER.24H PO SCH (22:30)
[2018-09-20 00:59] VITALS: BMI 23.1
[2018-09-20] MEDS: methylPREDNISolone SOD SUCCI 125 MG/2 ML VIAL IV SCH ×5 (01:20→23:16)
[2018-09-20] MEDS: IPRATROPIUM-ALBUTEROL 3 ML NEB INHALATION SCH ×5 (03:17→20:51)
[2018-09-20] MEDS: LEVOTHYROXINE 25 MCG TAB PO SCH (05:32)
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
[2018-09-20] MEDS ORDERED: FUROSEMIDE 40 MG TAB PO SCH (08:00)
[2018-09-20] MEDS ORDERED: POTASSIUM CHLORIDE ER 10 MEQ TAB.ER.PRT PO SCH (08:00)
[2018-09-20] MEDS: DIVALPROEX ER 500 MG TAB.ER.24H PO SCH ×2 (08:48→20:34)
[2018-09-20] MEDS: SENNOSIDES 8.6 MG TAB PO SCH ×2 (08:49→20:35)
[2018-09-20] MEDS: TAMSULOSIN 0.4 MG CAP.ER.24H PO SCH (08:49)
[2018-09-20] MEDS: LORATADINE 10 MG TAB PO SCH (08:49)
[2018-09-20] MEDS: risperiDONE 2 MG TAB PO SCH ×2 (08:49→20:35)
[2018-09-20] MEDS: THIAMINE 100 MG TAB PO SCH (08:50)
[2018-09-20] MEDS: FAMOTIDINE 20 MG/2 ML VIAL IV SCH ×2 (08:50→20:39)
[2018-09-20] MEDS: HEPARIN SODIUM,PORCINE 5,000 UNIT/ML 1 ML VIAL SQ SCH ×2 (08:50→20:37)
[2018-09-20] MEDS ORDERED: FUROSEMIDE 10 MG/ML 4 ML VIAL IV SCH (09:00)
[2018-09-20 09:04] LABS: Anisocytosis Slight; Basophils % (A) 0 %; Eosinophils % (A) 0 %; HCT 33.9 % (39.0-53.0); HGB 10.4 gm/dL (13.0-17.5); Hypochromasia Slight; Lymphocytes # (A) 0.4 k/uL (1.0-4.8); Lymphocytes % (A) 6 %; MCH 30.6 pg (25.0-35.0); MCHC 30.6 g/dL (31.0-37.0); MCV 100.2 fL (80.0-100.0); Macrocytosis Slight; Mean Platelet Volume 7.2; Monocytes # (A) 0.1 k/uL (0-1.0); Monocytes % (A) 2 %; Neutrophils # (A) 5.9 k/uL (1.3-7.7); Neutrophils % (A) 91 %; Platelet Count 224 k/uL (150-450); RBC 3.39 m/uL (4.30-5.90); RDW 17.1 % (11.5-15.5); WBC 6.5 k/uL (3.8-10.6)
[2018-09-20 09:12] LABS: Anion Gap 6 mmol/L; Blood Urea Nitrogen 32 mg/dL (9-20); Calcium 8.8 mg/dL (8.4-10.2); Carbon Dioxide 35 mmol/L (22-30); Chloride 100 mmol/L (98-107); Glucose 175 mg/dL (74-99); Potassium 5.6 mmol/L (3.5-5.1); Sodium 141 mmol/L (137-145)
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
[2018-09-20] MEDS ORDERED: SODIUM POLYSTYRENE SULFONATE 15 GM/60 ML BOTTLE PO STA (17:21)
[2018-09-20] MEDS: CHOLECALCIFEROL 1,000 UNIT TAB PO SCH (20:34)
[2018-09-20] MEDS: traZODone HCL 50 MG TAB PO SCH (20:36)
[2018-09-20] MEDS: SODIUM CHLORIDE 0.9% 1,000 ML IV SCH (20:37)
[2018-09-21] MEDS: HALOPERIDOL LACTATE 5 MG/ML 1 ML VIAL IM PRN ×2 (00:44→07:37)
[2018-09-21] MEDS: IPRATROPIUM-ALBUTEROL 3 ML NEB INHALATION SCH ×7 (01:31→23:53)
[2018-09-21] MEDS: QUEtiapine 25 MG TAB PO SCH ×2 (01:36→20:37)
[2018-09-21] MEDS: LEVOTHYROXINE 25 MCG TAB PO SCH (05:03)
[2018-09-21] MEDS: methylPREDNISolone SOD SUCCI 125 MG/2 ML VIAL IV SCH ×2 (05:04→09:50)
[2018-09-21] MEDS: SODIUM CHLORIDE 0.9% 1,000 ML IV SCH (06:03)
[2018-09-21] MEDS: FUROSEMIDE 40 MG TAB PO SCH (07:41)
[2018-09-21 08:22] LABS: Anisocytosis Slight; Basophils % (A) 0 %; Eosinophils # (A) 0.1 k/uL (0-0.7); Eosinophils % (A) 2 %; HCT 30.3 % (39.0-53.0); HGB 9.5 gm/dL (13.0-17.5); Hypochromasia Slight; Lymphocytes # (A) 0.6 k/uL (1.0-4.8); Lymphocytes % (A) 8 %; MCH 31.2 pg (25.0-35.0); MCHC 31.5 g/dL (31.0-37.0); MCV 99.1 fL (80.0-100.0); Macrocytosis Slight; Mean Platelet Volume 6.9; Monocytes # (A) 0.3 k/uL (0-1.0); Monocytes % (A) 4 %; Neutrophils % (A) 85 %; Platelet Count 197 k/uL (150-450); RBC 3.06 m/uL (4.30-5.90); RDW 16.6 % (11.5-15.5); WBC 7.1 k/uL (3.8-10.6)
[2018-09-21 08:44] LABS: Anion Gap 3 mmol/L; Blood Urea Nitrogen 41 mg/dL (9-20); Calcium 8.3 mg/dL (8.4-10.2); Carbon Dioxide 38 mmol/L (22-30); Chloride 99 mmol/L (98-107); Glucose 108 mg/dL (74-99); Potassium 4.7 mmol/L (3.5-5.1); Sodium 140 mmol/L (137-145)
[2018-09-21] MEDS: LORATADINE 10 MG TAB PO SCH (09:51)
[2018-09-21] MEDS: FAMOTIDINE 20 MG/2 ML VIAL IV SCH ×2 (09:51→20:51)
[2018-09-21] MEDS: HEPARIN SODIUM,PORCINE 5,000 UNIT/ML 1 ML VIAL SQ SCH ×2 (09:51→20:51)
[2018-09-21] MEDS: SENNOSIDES 8.6 MG TAB PO SCH ×2 (09:51→20:42)
[2018-09-21] MEDS: TAMSULOSIN 0.4 MG CAP.ER.24H PO SCH (09:51)
[2018-09-21] MEDS: THIAMINE 100 MG TAB PO SCH (10:35)
--- NOTE | 2018-09-21 10:58 | P.PN ---
Subjective This is a pleasant 83 years old male with past medical history of congestive heart failure, COPD, extensive psychiatric history, dementia, hypertension, hypothyroidism, arthritis, who presents because of dyspnea of 2 days' duration. Patient is poor historian and he has a legal guardian. Patient does not know why he came to the hospital however he was not to be short of breath and tachypneic. Patient denies chest pain or abdominal pain or pain anywhere else. This denies diarrhea. However patient states he has cough without phlegm. Also noticed to have bilateral leg swelling. Recent echo performed 09/01/2018: Ejection fraction 55-60% with mild concentric left ventricular hypertrophy. Patient looks have some difficulty taking care of himself and he is [facility] from [facility] where he has a caregiver. On admission his Vitas looks stable with saturation 90-92% on 2 L oxygen via nasal cannula. His CBC and BMP were unremarkable except for mild anemia and mild hyperkalemia. Liver enzymes within normal limits. ProBNP is 6:30 and troponin is negative. Patient received breathing treatment, one dose of IV Lasix and Solu-Medrol, as well as antibiotics and fluids. EKG showing sinus bradycardia at [address]-T changes. Chest x-ray showing pulmonary congestion for mild CHF, with possible pneumonia 09/21/2018 Patient was a bit more agitated earlier this morning and tachypneic. Also he has noticed some swallowing difficulty and bedside swallow evaluation shows difficulties for the patient. Further evaluation with barium swallow imaging is ordered.cardiology input is appreciated, most likely patient does not have heart disease. Pulmonary consult. He is saturating 92% on 2 L . Repeat chest x-rays ordered. Repeat BMP showing normal potassium at 4.7 and creatinine 0.7. CBC looks his stable with mild drop in hemoglobin from 10.4 down to 9.5. manager combination is on the case and whenever patient is cleared medically he can go to rehab. Objective - Vital Signs Vital signs: Vital Signs Temp 97.6 F 09/21/18 05:00 Pulse 72 09/21/18 09:42 Resp 16 09/21/18 05:00 BP 171/85 09/21/18 05:00 Pulse Ox 92 L 09/21/18 07:23 Intake & Output 09/20/18 09/21/18 09/21/18 18:59 06:59 18:59 Intake Total 750 Balance 750 Weight 71.21 kg 84 kg Intake: Intake, IV Titration 160 Amount Sodium Chloride 0.9% 1, 160 000 ml @ 20 mls/hr IV . Q24H [facility] Rx#:[id number] Oral 590 Other: Voiding Method Urinal Diaper Diaper Incontinent Incontinent # Voids 4 2 - Exam GENERAL: The patient is alert and oriented x3, not in any acute distress. Well developed, well nourished. HEENT: Pupils are round and equally reacting to light. EOMI. No scleral icterus. No conjunctival pallor. Normocephalic, atraumatic. No pharyngeal erythema. No thyromegaly. CARDIOVASCULAR: S1 and S2 present. No murmurs, rubs, or gallops. PULMONARY: Chest is clear to auscultation, bilateral expiratory wheezing with coarse crepitation ABDOMEN: Soft, nontender, nondistended, normoactive bowel sounds. No palpable organomegaly. MUSCULOSKELETAL: No joint swelling or deformity. EXTREMITIES: No cyanosis, clubbing, or pedal edema. NEUROLOGICAL: Gross neurological examination did not reveal any focal deficits. SKIN: No rashes. - Labs CBC & Chem 7: 09/21/18 08:00 09/21/18 08:00 Labs: Abnormal Lab Results - Last 24 Hours (Table) 09/21/18 09/21/18 Range/Units 08:00 08:00 RBC 3.06 L (4.30-5.90) m/uL Hgb 9.5 L (13.0-17.5) gm/dL Hct 30.3 L (39.0-53.0) % RDW 16.6 H (11.5-15.5) % Lymphocytes # 0.6 L (1.0-4.8) k/uL Carbon Dioxide 38 H (22-30) mmol/L BUN 41 H (9-20) mg/dL Glucose 108 H (74-99) mg/dL Calcium 8.3 L (8.4-10.2) mg/dL Microbiology - Last 24 Hours (Table) 09/19/18 21:00 Blood Culture - Preliminary Blood No Growth after 24 hours Assessment and Plan Assessment: Acute COPD exacerbation Possible aspiration pneumonia Swallow difficulty, need further evaluation for possible dysphagia Generalized weakness History of dementia Essential hypertension History of hyperthyroidism History of arthritis Plan: This is a pleasant 83 years old male who presents with acute dyspnea, suspicious for COPD exacerbation and CHF. Patient was started on steroids, breathing treatment, oxygen and diuresis. Call cardiology and pulmonary consult.Labs and medication were reviewed.. Continue same treatment. Continue with symptomatic treatment. Resume home medication. Monitor lytes and vitals. DVT and GI prophylaxis. Further recommendations of the clinical course of the patient Also patient looks have difficulty taking care of himself and he is from [facility], he has a caregiver. However patient might benefit from higher level of care and placement. We going to consult the case management/social services designee. DVT prophylaxis: Subcutaneous heparin GI Prophylaxis: Pepcid PT/OT: Pending Prognosis is guarded
--- NOTE | 2018-09-21 11:29 | FL ---
EXAMINATION TYPE: FL barium swallow w video DATE OF EXAM: 09/21/2018 MODIFIED SWALLOW / DEGLUTITION STUDY CLINICAL HISTORY: Dysphagia. TECHNIQUE: Deglutition study is performed utilizing thin liquid barium, honey and nectar thick liqui d barium, and barium thick capsule sauce. A total of 1 minute 42 seconds of fluoroscopic time was uti lized during procedure. Serial spot images are saved to PACS COMPARISON: None. FINDINGS: The oral and pharyngeal phases show mild delay in initiation and propagation with all modal ities tested. There is deep penetration with thin liquid barium. No aspiration is identified with ot her modalities. Mild amount of pharyngeal residue was appreciated with various modalities. IMPRESSION: Deep penetration with thin liquid barium. No aspiration is seen. Please refer to speech t herapist notes for further details if necessary.
--- NOTE | 2018-09-21 11:42 | XR ---
EXAMINATION TYPE: XR chest 1V DATE OF EXAM: 09/21/2018 COMPARISON: Prior chest x-ray 09/19/2018 HISTORY: abnormal chest x-ray, shortness of breath and lower extremity edema TECHNIQUE: Single frontal view of the chest is obtained. FINDINGS: Findings are similar. The heart is enlarged. Patient is rotated. No pneumothorax or pleura l effusion. Retained contrast material present within the thoracic esophagus. Interstitium is increas ed. The aorta is dense. There may be some improvement in aeration in the perihilar regions. IMPRESSION: Correlate for pulmonary venous hypertension and interstitial edema. Follow-up recommended .
[2018-09-21] MEDS: DIVALPROEX ER 500 MG TAB.ER.24H PO SCH ×2 (13:47→20:37)
[2018-09-21] MEDS: risperiDONE 2 MG TAB PO SCH ×2 (13:47→20:37)
[2018-09-21] MEDS: LORazepam 1 MG TAB PO PRN ×2 (14:24→22:58)
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
[2018-09-21] MEDS: CHOLECALCIFEROL 1,000 UNIT TAB PO SCH (20:00)
[2018-09-21] MEDS: traZODone HCL 50 MG TAB PO SCH (20:37)
[2018-09-22] MEDS: IPRATROPIUM-ALBUTEROL 3 ML NEB INHALATION SCH ×6 (03:54→23:56)
[2018-09-22 08:18] LABS: Anisocytosis Slight; Basophils % (A) 0 %; Eosinophils # (A) 0.1 k/uL (0-0.7); Eosinophils % (A) 1 %; HCT 31.6 % (39.0-53.0); Hypochromasia Slight; Lymphocytes # (A) 1.1 k/uL (1.0-4.8); Lymphocytes % (A) 20 %; MCH 31.3 pg (25.0-35.0); MCHC 31.7 g/dL (31.0-37.0); MCV 98.6 fL (80.0-100.0); Macrocytosis Slight; Mean Platelet Volume 7.6; Monocytes # (A) 0.4 k/uL (0-1.0); Monocytes % (A) 7 %; Neutrophils # (A) 3.7 k/uL (1.3-7.7); Neutrophils % (A) 69 %; Platelet Count 186 k/uL (150-450); RBC 3.21 m/uL (4.30-5.90); WBC 5.4 k/uL (3.8-10.6)
[2018-09-22 08:39] LABS: Anion Gap 3 mmol/L; Blood Urea Nitrogen 43 mg/dL (9-20); Calcium 8.1 mg/dL (8.4-10.2); Chloride 98 mmol/L (98-107); Glucose 70 mg/dL (74-99); Potassium 3.8 mmol/L (3.5-5.1); Sodium 141 mmol/L (137-145)
[2018-09-22 08:46] LABS: Carbon Dioxide 40 mmol/L (22-30)
--- NOTE | 2018-09-22 10:21 | P.PN ---
Subjective This is a pleasant 83 years old male with past medical history of congestive heart failure, COPD, extensive psychiatric history, dementia, hypertension, hypothyroidism, arthritis, who presents because of dyspnea of 2 days' duration. Patient is poor historian and he has a legal guardian. Patient does not know why he came to the hospital however he was not to be short of breath and tachypneic. Patient denies chest pain or abdominal pain or pain anywhere else. This denies diarrhea. However patient states he has cough without phlegm. Also noticed to have bilateral leg swelling. Recent echo performed 09/01/2018: Ejection fraction 55-60% with mild concentric left ventricular hypertrophy. Patient looks have some difficulty taking care of himself and [facility]. On admission his Vitas looks stable with saturation 90-92% on 2 L oxygen via nasal cannula. His CBC and BMP were unremarkable except for mild anemia and mild hyperkalemia. Liver enzymes within normal limits. ProBNP is 6:30 and troponin is negative. Patient received breathing treatment, one dose of IV Lasix and Solu-Medrol, as well as antibiotics and fluids. EKG showing sinus bradycardia at [address]-T changes. Chest x-ray showing pulmonary congestion for mild CHF, with possible pneumonia 09/21/2018 Patient was a bit more agitated earlier this morning and tachypneic. Also he has noticed some swallowing difficulty and bedside swallow evaluation shows difficulties for the patient. Further evaluation with barium swallow imaging is ordered.cardiology input is appreciated, most likely patient does not have heart disease. Pulmonary consult. He is saturating 92% on 2 L . Repeat chest x-rays ordered. Repeat BMP showing normal potassium at 4.7 and creatinine 0.7. CBC looks his stable with mild drop in hemoglobin from 10.4 down to 9.5. manager discovery is on the case and whenever patient is cleared medically he can go to rehab. 09/22/2018 Patient was educated last night and with aggressive behavior and received 1 dose of Ativan yearly MRI and 3:00 as per staff, this morning he was more sleepy but he opens eyes to verbal stimuli. Such has been consulted. Steroids has been stopped by recommendation from pulmonary team for possible psychiatric side effects. Patient swallow test showing deep penetration but no active aspiration, patient suspected to have aspiration pneumonia, repeat chest x-ray in the past for GI consult. Patient is afebrile. Saturating 93% on 4 L, blood pressure high we going to add Norvasc. CBC and BMP looks stable Review of systems: Not applicable today Medication abuse with those issues including: Tylenol, Detrol, ceftriaxone, vitamin D, Depakote, Pepcid, Lasix, Haldol, heparin, Synthroid, Claritin, Ativan , Seroquel, Risperdal, Senokot, Flomax, vitamin D B Sunil, trazodone. Objective - Vital Signs Vital signs: Vital Signs Temp 97.6 F 09/21/18 05:00 Pulse 71 09/22/18 05:00 Resp 17 09/22/18 05:00 BP 184/78 09/22/18 05:00 Pulse Ox 93 L 09/22/18 05:00 Intake & Output 09/21/18 09/22/18 09/22/18 18:59 06:59 18:59 Intake Total 0 700 Balance 0 700 Weight 85.5 kg Intake: Oral 0 700 Other: Voiding Method Diaper Diaper Incontinent Incontinent # Voids 5 2 - Exam GENERAL: The patient is alert and oriented x3, not in any acute distress. Well developed, well nourished. HEENT: Pupils are round and equally reacting to light. EOMI. No scleral icterus. No conjunctival pallor. Normocephalic, atraumatic. No pharyngeal erythema. No thyromegaly. CARDIOVASCULAR: S1 and S2 present. No murmurs, rubs, or gallops. PULMONARY: Chest is clear to auscultation, bilateral expiratory wheezing with coarse crepitation ABDOMEN: Soft, nontender, nondistended, normoactive bowel sounds. No palpable organomegaly. MUSCULOSKELETAL: No joint swelling or deformity. EXTREMITIES: No cyanosis, clubbing, or pedal edema. NEUROLOGICAL: Gross neurological examination did not reveal any focal deficits. SKIN: No rashes. - Labs CBC & Chem 7: 09/22/18 08:03 09/22/18 08:03 Labs: Abnormal Lab Results - Last 24 Hours (Table) 09/22/18 09/22/18 Range/Units 08:03 08:03 RBC 3.21 L (4.30-5.90) m/uL Hgb 10.0 L (13.0-17.5) gm/dL Hct 31.6 L (39.0-53.0) % RDW 16.0 H (11.5-15.5) % Carbon Dioxide 40 H (22-30) mmol/L BUN 43 H (9-20) mg/dL Glucose 70 L (74-99) mg/dL Calcium 8.1 L (8.4-10.2) mg/dL Microbiology - Last 24 Hours (Table) 09/19/18 21:00 Blood Culture - Preliminary Blood No Growth after 48 hours Assessment and Plan Assessment: Acute COPD exacerbation Possible aspiration pneumonia Swallow difficulty, need further evaluation for possible dysphagia Generalized weakness Behavioral abnormality, related to his baseline of psychiatric illness, dementia and medication like steroids History of dementia Essential hypertension History of hyperthyroidism History of arthritis Plan: This is a pleasant 83 years old male who presents with acute dyspnea, suspicious for COPD exacerbation and CHF. Patient was started on steroids, breathing treatment, oxygen and diuresis. Call cardiology and pulmonary consult.Labs and medication were reviewed.. Continue same treatment. Continue with symptomatic treatment. Resume home medication. Monitor lytes and vitals. DVT and GI prophylaxis. Further recommendations of the clinical course of the patient Also patient looks have difficulty taking care of himself and he is [facility], he has a caregiver. However patient might benefit from higher level of care and placement. We going to consult the case management/director of social work. DVT prophylaxis: Subcutaneous heparin GI Prophylaxis: Pepcid PT/OT: Pending Prognosis is guarded
--- NOTE | 2018-09-22 11:12 | XR ---
EXAMINATION TYPE: XR chest 1V portable DATE OF EXAM: 09/22/2018 COMPARISON: 09/21/2018 INDICATION: Short of breath TECHNIQUE: Single frontal view of the chest is obtained. FINDINGS: The heart size is borderline in size. The pulmonary vasculature is slightly prominent. Diffuse increased lung markings are present. Some mild resolving pulmonary edema may be present. Cont inued follow-up is recommended IMPRESSION: 1. Findings suggestive for resolving pulmonary edema. Continued follow-up is recommended.
[2018-09-22] MEDS: FAMOTIDINE 20 MG/2 ML VIAL IV SCH ×2 (11:50→20:39)
[2018-09-22] MEDS: DIVALPROEX ER 500 MG TAB.ER.24H PO SCH ×2 (11:52→20:39)
[2018-09-22] MEDS: THIAMINE 100 MG TAB PO SCH (11:52)
[2018-09-22] MEDS: TAMSULOSIN 0.4 MG CAP.ER.24H PO SCH (11:52)
[2018-09-22] MEDS: risperiDONE 2 MG TAB PO SCH ×2 (11:52→20:39)
[2018-09-22] MEDS: FUROSEMIDE 40 MG TAB PO SCH (11:53)
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
[2018-09-22] MEDS: LORATADINE 10 MG TAB PO SCH (13:00)
[2018-09-22] MEDS: amLODIPine 5 MG TAB PO SCH (14:34)
[2018-09-22] MEDS: SENNOSIDES 8.6 MG TAB PO SCH ×2 (14:35→20:39)
[2018-09-22] MEDS: LEVOTHYROXINE 25 MCG TAB PO SCH (14:37)
[2018-09-22] MEDS: HEPARIN SODIUM,PORCINE 5,000 UNIT/ML 1 ML VIAL SQ SCH ×2 (15:03→20:40)
[2018-09-22] MEDS: traZODone HCL 50 MG TAB PO SCH (20:39)
[2018-09-22] MEDS: QUEtiapine 25 MG TAB PO SCH (20:39)
[2018-09-22] MEDS: CHOLECALCIFEROL 1,000 UNIT TAB PO SCH (20:39)
[2018-09-22] MEDS: SODIUM CHLORIDE 0.9% 1,000 ML IV SCH (20:40)
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
[2018-09-23] MEDS: IPRATROPIUM-ALBUTEROL 3 ML NEB INHALATION SCH ×5 (04:06→20:59)
[2018-09-23 08:56] LABS: Basophils % (A) 0 %; Eosinophils # (A) 0.1 k/uL (0-0.7); Eosinophils % (A) 2 %; HCT 34.3 % (39.0-53.0); Lymphocytes # (A) 0.7 k/uL (1.0-4.8); Lymphocytes % (A) 18 %; MCH 31.3 pg (25.0-35.0); MCHC 32.1 g/dL (31.0-37.0); MCV 97.6 fL (80.0-100.0); Mean Platelet Volume 7.3; Monocytes # (A) 0.4 k/uL (0-1.0); Monocytes % (A) 10 %; Neutrophils # (A) 2.7 k/uL (1.3-7.7); Neutrophils % (A) 66 %; Platelet Count 184 k/uL (150-450); RBC 3.51 m/uL (4.30-5.90); RDW 15.9 % (11.5-15.5)
[2018-09-23 09:45] LABS: Blood Urea Nitrogen 42 mg/dL (9-20); Calcium 8.1 mg/dL (8.4-10.2); Chloride 96 mmol/L (98-107); Glucose 61 mg/dL (74-99); Sodium 140 mmol/L (137-145)
[2018-09-23 09:52] LABS: Anion Gap 2 mmol/L
[2018-09-23 10:00] LABS: Carbon Dioxide 42 mmol/L (22-30)
[2018-09-23] MEDS: FUROSEMIDE 40 MG TAB PO SCH (10:35)
[2018-09-23] MEDS: HEPARIN SODIUM,PORCINE 5,000 UNIT/ML 1 ML VIAL SQ SCH ×2 (10:35→20:39)
[2018-09-23] MEDS: LEVOTHYROXINE 25 MCG TAB PO SCH (10:35)
[2018-09-23] MEDS: TAMSULOSIN 0.4 MG CAP.ER.24H PO SCH (10:35)
[2018-09-23] MEDS: DIVALPROEX ER 500 MG TAB.ER.24H PO SCH ×2 (10:35→20:40)
[2018-09-23] MEDS: LORATADINE 10 MG TAB PO SCH (10:35)
[2018-09-23] MEDS: risperiDONE 2 MG TAB PO SCH ×2 (10:35→20:39)
[2018-09-23] MEDS: SENNOSIDES 8.6 MG TAB PO SCH ×2 (10:35→20:40)
[2018-09-23] MEDS: THIAMINE 100 MG TAB PO SCH (10:35)
[2018-09-23] MEDS: amLODIPine 5 MG TAB PO SCH (10:35)
[2018-09-23] MEDS: FAMOTIDINE 20 MG/2 ML VIAL IV SCH ×2 (10:36→20:38)
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
[2018-09-23] MEDS: CHOLECALCIFEROL 1,000 UNIT TAB PO SCH (20:38)
[2018-09-23] MEDS: traZODone HCL 50 MG TAB PO SCH (20:38)
[2018-09-23] MEDS: QUEtiapine 25 MG TAB PO SCH (20:39)
[2018-09-23] MEDS: LORazepam 1 MG TAB PO PRN (20:39)
[2018-09-24] MEDS: IPRATROPIUM-ALBUTEROL 3 ML NEB INHALATION SCH ×6 (00:44→19:34)
[2018-09-24] MEDS: LEVOTHYROXINE 25 MCG TAB PO SCH (06:04)
[2018-09-24] MEDS: SODIUM CHLORIDE 0.9% 1,000 ML IV SCH ×2 (06:08→21:30)
[2018-09-24 07:33] LABS: Anisocytosis Slight; HCT 34.2 % (39.0-53.0); HGB 10.7 gm/dL (13.0-17.5); Hypochromasia Moderate; MCH 31.2 pg (25.0-35.0); MCHC 31.2 g/dL (31.0-37.0); MCV 99.9 fL (80.0-100.0); Macrocytosis Slight; Mean Platelet Volume 6.8; Platelet Count 181 k/uL (150-450); RBC 3.43 m/uL (4.30-5.90); RDW 16.1 % (11.5-15.5); WBC 3.8 k/uL (3.8-10.6)
[2018-09-24 07:55] LABS: Blood Urea Nitrogen 38 mg/dL (9-20); Calcium 7.9 mg/dL (8.4-10.2); Chloride 98 mmol/L (98-107); Glucose 73 mg/dL (74-99); Potassium 4.2 mmol/L (3.5-5.1); Sodium 142 mmol/L (137-145)
[2018-09-24 08:04] LABS: Anion Gap 1 mmol/L
[2018-09-24 08:11] LABS: Carbon Dioxide 43 mmol/L (22-30)
[2018-09-24] MEDS: DIVALPROEX ER 500 MG TAB.ER.24H PO SCH ×2 (08:30→21:29)
[2018-09-24] MEDS: LORATADINE 10 MG TAB PO SCH (08:31)
[2018-09-24] MEDS: risperiDONE 2 MG TAB PO SCH ×2 (08:31→21:29)
[2018-09-24] MEDS: amLODIPine 5 MG TAB PO SCH (08:31)
[2018-09-24] MEDS: TAMSULOSIN 0.4 MG CAP.ER.24H PO SCH (08:31)
[2018-09-24] MEDS: SENNOSIDES 8.6 MG TAB PO SCH ×2 (08:31→21:30)
[2018-09-24] MEDS: FAMOTIDINE 20 MG/2 ML VIAL IV SCH (08:31)
[2018-09-24] MEDS: THIAMINE 100 MG TAB PO SCH (08:31)
[2018-09-24] MEDS: HEPARIN SODIUM,PORCINE 5,000 UNIT/ML 1 ML VIAL SQ SCH ×2 (08:32→21:30)
[2018-09-24] MEDS: FUROSEMIDE 40 MG TAB PO SCH (08:32)
[2018-09-24 09:18] LABS: Band Neutrophils % 1 %; Eosinophils # (M) 0.11 k/uL (0-0.7); Lymphocytes # (M) 0.87 k/uL (1.0-4.8); Monocytes # (M) 0.72 k/uL (0-1.0); Neutrophils % (M) 54 %; Nucleated Red Blood Cells 0 /100 WBC (0-0); Total Cells Counted 100
[2018-09-24 09:19] LABS: Poikilocytosis (M) Present
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
--- NOTE | 2018-09-24 09:31 | CONS ---
CONSULTATION DATE OF CONSULTATION: 09/23/2018 PURPOSE OF CONSULTATION: Evaluate for mood disorder. INTERVAL HISTORY: Patient has been doing fair. I saw the patient yesterday. He continues to have some issues with shortness of breath. He appears to be stabilizing from his aspiration pneumonia, which is his underlying diagnosis. Nursing reports today that he has been cooperative. His main interest is frequently asking for various food items, all of which would be associated with chocolate. He has been cooperative. When I saw the patient he was resting in bed. He gave me fairly good eye contact. He was somewhat restless. He responded to questions though similar to yesterday, it was very difficult to understand anything that he said. It was difficult to say whether or not he was fully oriented to his circumstances. He was able to communicate that he wanted some chocolate ice cream. He did not appear to be significantly distressed. ASSESSMENT: I will continue the current diagnosis and treatment plan. We will continue to follow psychiatrically. CELIA / MARCELO: [id number] /
--- NOTE | 2018-09-24 15:01 | CONS ---
CONSULTATION DATE OF SERVICE: 09/24/2018 PURPOSE FOR CONSULTATION: Evaluate for mood disorder. INTERVAL HISTORY: The patient has been doing fairly well from a psychiatric standpoint. I also was informed from the nurse that he has been progressing from a general health standpoint. Nursing indicated that the patient is ready to be discharged to [facility] for a rehabilitation admission. He has been doing well behaviorally. He sleeps so well at night. He has a good appetite. He has been calm and quiet. He expresses himself a little better. He is limited in his overall communication, though he can make his needs be known. He has not had any difficult behavior. He is cooperative, through all aspects of care. When I saw him today he was just eating lunch. She had a nurse aide helping him. He responded appropriately. He asked for some food items which he took. He smiled a little. He made a few comments to me. He had a calm mood. He was not distressed at all. ASSESSMENT: The patient appears to be doing fairly well from a psychiatric standpoint. There are no significant behavioral issues noted. He has been eating and sleeping well. He has been cooperative with care. At this point, I will continue his psychotropic medications the same including Depakote ER 500 mg twice a day, Risperdal mg twice a day, Seroquel 25 mg at bedtime and trazodone 50 mg at bedtime. Patient will be discharged to [facility] rehabilitation. There is not an indication for his needing to be admitted to the psychiatric unit. I would continue his psychotropic medications the same. In regards to longer-term followup, I would look to simplify his psychotropic. It is not clear that he benefits much from the 25 mg dose of Seroquel which is a very low dose for psychosis. If he is having issues with sleep, his Desyrel possibly could be increased. Overall, he may be able to be stabilized psychiatrically just on the combination of Depakote and Risperdal. His Depakote level 09/21 was 56, which is in the low therapeutic range. If he needs additional attention to his medications, there might be benefit in titrating up on Depakote to achieve a blood level in the higher therapeutic range. Discharge recommendations at this time would be for the patient to be transferred to [facility] and continue his psychotropic medications at their current dose. MMODL / IJN: [id number] /
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
[2018-09-24] MEDS: CHOLECALCIFEROL 1,000 UNIT TAB PO SCH (21:29)
[2018-09-24] MEDS: QUEtiapine 25 MG TAB PO SCH (21:30)
[2018-09-24] MEDS: traZODone HCL 50 MG TAB PO SCH (21:30)
[2018-09-24] MEDS: FAMOTIDINE 20 MG TAB PO SCH (21:30)
[2018-09-24] MEDS: LORazepam 1 MG TAB PO PRN (21:59)
[2018-09-25] MEDS: IPRATROPIUM-ALBUTEROL 3 ML NEB INHALATION SCH ×7 (01:05→23:35)
[2018-09-25] MEDS: LEVOTHYROXINE 25 MCG TAB PO SCH (06:09)
[2018-09-25] MEDS: TAMSULOSIN 0.4 MG CAP.ER.24H PO SCH (08:55)
[2018-09-25] MEDS: DIVALPROEX ER 500 MG TAB.ER.24H PO SCH ×2 (08:55→19:42)
[2018-09-25] MEDS: FUROSEMIDE 40 MG TAB PO SCH (08:55)
[2018-09-25] MEDS: amLODIPine 5 MG TAB PO SCH (08:55)
[2018-09-25] MEDS: THIAMINE 100 MG TAB PO SCH (08:55)
[2018-09-25] MEDS: risperiDONE 2 MG TAB PO SCH ×2 (08:55→19:42)
[2018-09-25] MEDS: LORATADINE 10 MG TAB PO SCH (08:55)
[2018-09-25] MEDS: HEPARIN SODIUM,PORCINE 5,000 UNIT/ML 1 ML VIAL SQ SCH ×2 (08:55→20:02)
[2018-09-25] MEDS: SENNOSIDES 8.6 MG TAB PO SCH ×2 (08:55→19:42)
[2018-09-25] MEDS: FAMOTIDINE 20 MG TAB PO SCH ×2 (08:55→20:02)
[2018-09-25 10:21] LABS: Basophils % (A) 0 %; Eosinophils # (A) 0.1 k/uL (0-0.7); Eosinophils % (A) 3 %; HCT 34.5 % (39.0-53.0); HGB 11.2 gm/dL (13.0-17.5); Hypochromasia Slight; Lymphocytes # (A) 0.8 k/uL (1.0-4.8); Lymphocytes % (A) 21 %; MCH 31.8 pg (25.0-35.0); MCHC 32.4 g/dL (31.0-37.0); MCV 97.9 fL (80.0-100.0); Macrocytosis Slight; Mean Platelet Volume 6.7; Monocytes # (A) 0.4 k/uL (0-1.0); Monocytes % (A) 9 %; Neutrophils # (A) 2.4 k/uL (1.3-7.7); Neutrophils % (A) 63 %; Platelet Count 151 k/uL (150-450); RBC 3.52 m/uL (4.30-5.90); RDW 15.8 % (11.5-15.5); WBC 3.9 k/uL (3.8-10.6)
[2018-09-25 10:47] LABS: Blood Urea Nitrogen 27 mg/dL (9-20); Calcium 8.1 mg/dL (8.4-10.2); Chloride 96 mmol/L (98-107); Glucose 84 mg/dL (74-99); Potassium 3.9 mmol/L (3.5-5.1); Sodium 140 mmol/L (137-145)
[2018-09-25 10:54] LABS: Anion Gap 3 mmol/L
[2018-09-25 10:59] LABS: Carbon Dioxide 41 mmol/L (22-30)
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
[2018-09-25] MEDS: SODIUM CHLORIDE 0.9% 1,000 ML IV SCH (19:36)
[2018-09-25] MEDS: CHOLECALCIFEROL 1,000 UNIT TAB PO SCH (19:42)
[2018-09-25] MEDS: traZODone HCL 50 MG TAB PO SCH (19:43)
[2018-09-25] MEDS: QUEtiapine 25 MG TAB PO SCH (20:02)
[2018-09-26] MEDS: IPRATROPIUM-ALBUTEROL 3 ML NEB INHALATION SCH ×5 (04:10→20:22)
[2018-09-26 10:15] LABS: Anisocytosis Slight; HCT 33.8 % (39.0-53.0); HGB 10.6 gm/dL (13.0-17.5); MCH 30.6 pg (25.0-35.0); MCHC 31.4 g/dL (31.0-37.0); MCV 97.4 fL (80.0-100.0); Mean Platelet Volume 6.9; Platelet Count 152 k/uL (150-450); RBC 3.47 m/uL (4.30-5.90); RDW 16.1 % (11.5-15.5); WBC 4.3 k/uL (3.8-10.6)
[2018-09-26 10:21] LABS: Blood Urea Nitrogen 25 mg/dL (9-20); Calcium 8.2 mg/dL (8.4-10.2); Chloride 97 mmol/L (98-107); Glucose 73 mg/dL (74-99); Potassium 4.4 mmol/L (3.5-5.1); Sodium 140 mmol/L (137-145)
[2018-09-26 10:42] LABS: Carbon Dioxide 43 mmol/L (22-30)
[2018-09-26 10:43] LABS: Anion Gap 0 mmol/L
[2018-09-26] MEDS: HEPARIN SODIUM,PORCINE 5,000 UNIT/ML 1 ML VIAL SQ SCH ×2 (11:09→20:00)
[2018-09-26] MEDS: THIAMINE 100 MG TAB PO SCH (11:09)
[2018-09-26] MEDS: amLODIPine 5 MG TAB PO SCH (11:09)
[2018-09-26] MEDS: SENNOSIDES 8.6 MG TAB PO SCH ×2 (11:10→19:51)
[2018-09-26] MEDS: LORATADINE 10 MG TAB PO SCH (11:10)
[2018-09-26] MEDS: DIVALPROEX ER 500 MG TAB.ER.24H PO SCH ×2 (11:11→19:51)
[2018-09-26] MEDS: FAMOTIDINE 20 MG TAB PO SCH ×2 (11:11→20:00)
[2018-09-26] MEDS: LEVOTHYROXINE 25 MCG TAB PO SCH (11:11)
[2018-09-26] MEDS: risperiDONE 2 MG TAB PO SCH ×2 (11:11→19:51)
[2018-09-26] MEDS: FUROSEMIDE 40 MG TAB PO SCH (11:11)
[2018-09-26] MEDS: TAMSULOSIN 0.4 MG CAP.ER.24H PO SCH (11:12)
[2018-09-26 13:06] LABS: Eosinophils # (M) 0.17 k/uL (0-0.7); Lymphocytes # (M) 1.51 k/uL (1.0-4.8); Monocytes # (M) 0.39 k/uL (0-1.0); Neutrophils # (M) 2.24 k/uL (1.3-7.7); Neutrophils % (M) 52 %; Nucleated Red Blood Cells 0 /100 WBC (0-0); Total Cells Counted 100
[2018-09-26] MEDS: LORazepam 1 MG TAB PO PRN (14:30)
[2018-09-26] MEDS: SODIUM CHLORIDE 0.9% 1,000 ML IV SCH (19:46)
[2018-09-26] MEDS: CHOLECALCIFEROL 1,000 UNIT TAB PO SCH (19:50)
[2018-09-26] MEDS: traZODone HCL 50 MG TAB PO SCH (19:52)
[2018-09-26] MEDS: QUEtiapine 25 MG TAB PO SCH (20:00)
[2018-09-26 21:27] VITALS: RESP 17
[2018-09-27] MEDS: IPRATROPIUM-ALBUTEROL 3 ML NEB INHALATION SCH ×4 (00:11→11:06)
[2018-09-27 04:58] VITALS: BP 169/74; TEMP 97.6
[2018-09-27] MEDS: LEVOTHYROXINE 25 MCG TAB PO SCH (06:02)
[2018-09-27 09:01] LABS: Basophils % (A) 0 %; Eosinophils # (A) 0.2 k/uL (0-0.7); Eosinophils % (A) 3 %; HCT 35.7 % (39.0-53.0); HGB 11.4 gm/dL (13.0-17.5); Lymphocytes % (A) 21 %; MCH 30.8 pg (25.0-35.0); MCV 96.3 fL (80.0-100.0); Mean Platelet Volume 6.9; Monocytes # (A) 0.4 k/uL (0-1.0); Monocytes % (A) 8 %; Neutrophils # (A) 3.1 k/uL (1.3-7.7); Neutrophils % (A) 65 %; Platelet Count 140 k/uL (150-450); RBC 3.71 m/uL (4.30-5.90); RDW 15.8 % (11.5-15.5); WBC 4.9 k/uL (3.8-10.6)
[2018-09-27 09:29] LABS: Blood Urea Nitrogen 29 mg/dL (9-20); Calcium 8.4 mg/dL (8.4-10.2); Chloride 96 mmol/L (98-107); Glucose 85 mg/dL (74-99); Potassium 4.6 mmol/L (3.5-5.1); Sodium 140 mmol/L (137-145)
[2018-09-27 09:38] LABS: Anion Gap 3 mmol/L
[2018-09-27 09:39] LABS: Carbon Dioxide 41 mmol/L (22-30)
[2018-09-27] MEDS: SENNOSIDES 8.6 MG TAB PO SCH (11:11)
[2018-09-27] MEDS: TAMSULOSIN 0.4 MG CAP.ER.24H PO SCH (11:11)
[2018-09-27] MEDS: amLODIPine 5 MG TAB PO SCH (11:12)
[2018-09-27] MEDS: FUROSEMIDE 40 MG TAB PO SCH (11:12)
[2018-09-27] MEDS: FAMOTIDINE 20 MG TAB PO SCH (11:12)
[2018-09-27] MEDS: LORATADINE 10 MG TAB PO SCH (11:12)
[2018-09-27] MEDS: risperiDONE 2 MG TAB PO SCH (11:12)
[2018-09-27] MEDS: DIVALPROEX ER 500 MG TAB.ER.24H PO SCH (11:13)
[2018-09-27] MEDS: THIAMINE 100 MG TAB PO SCH (11:14)
[2018-09-27] MEDS: HEPARIN SODIUM,PORCINE 5,000 UNIT/ML 1 ML VIAL SQ SCH (11:14)
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
[2018-09-27 12:14] VITALS: PULSE 65
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
== END 2018-09-27 12:50 | DRG 177 ==
LOC: EC 16:46 → 3NMEDONC 19:51
PROVIDERS: ADMIT Internal Medicine; ATTEND Internal Medicine
DX: J69.0 Pneumonitis due to inhalation of food and vomit (principal); J96.01 Acute respiratory failure with hypoxia; I50.32 Chronic diastolic (congestive) heart failure; J44.1 Chronic obstructive pulmonary disease with (acute) exacerbation; D64.9 Anemia, unspecified; E03.9 Hypothyroidism, unspecified; E87.5 Hyperkalemia; F03.90 Unspecified dementia, unspecified severity, without behavioral disturbance, psychotic disturbance, mood disturbance, and anxiety; F17.200 Nicotine dependence, unspecified, uncomplicated; F31.9 Bipolar disorder, unspecified; F41.9 Anxiety disorder, unspecified; F70 Mild intellectual disabilities; I08.1 Rheumatic disorders of both mitral and tricuspid valves; I11.0 Hypertensive heart disease with heart failure; I27.20 Pulmonary hypertension, unspecified; R13.12 Dysphagia, oropharyngeal phase; E55.9 Vitamin D deficiency, unspecified; M19.90 Unspecified osteoarthritis, unspecified site; R45.1 Restlessness and agitation; R00.1 Bradycardia, unspecified; R32 Unspecified urinary incontinence; Z79.52 Long term (current) use of systemic steroids; Z79.890 Hormone replacement therapy; Z79.899 Other long term (current) drug therapy; Z96.642 Presence of left artificial hip joint; Z87.440 Personal history of urinary (tract) infections; Z80.3 Family history of malignant neoplasm of breast
CPT/HCPCS: 36415; 71045; 71046; 74230; 80048; 80053; 80164; 82550; 82553; 83735; 83880; 84443; 84484; 85025; 85610; 85730; 87040; 93005; 94640; 94760; 96365; 96375; 99285

== ENCOUNTER 2019-10-21 12:49 | Inpatient (IN) | payer MEDICARE, BC ==
[2019-10-21 12:53] LABS: Glucose,Whole Blood 111 mg/dL (75-99)
[2019-10-21] MEDS ORDERED: SODIUM CHLORIDE 0.9% 1,000 ML IV ONE (13:30)
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
[2019-10-21 13:52] LABS: Appearance,Urine Clear (Clear); Bacteria,Urine Rare /hpf; Bilirubin,Urine Negative (Negative); Blood,Urine Small (Negative); Color,Urine Yellow; Glucose,Urine (UA) Negative (Negative); Ketones,Urine Negative (Negative); Leukocyte Esterase,Urine Negative (Negative); Nitrite,Urine Negative (Negative); Protein,Urine Negative (Negative); RBC,Urine 23 /hpf (0-5); Specific Gravity,Urine 1.011 (1.001-1.035); Urobilinogen,Urine <2.0 mg/dL (<2.0); WBC,Urine 1 /hpf (0-5)
[2019-10-21 13:59] LABS: HCT 35.6 % (39.0-53.0); HGB 11.5 gm/dL (13.0-17.5); MCH 31.8 pg (25.0-35.0); MCHC 32.3 g/dL (31.0-37.0); MCV 98.5 fL (80.0-100.0); Macrocytosis Slight; Mean Platelet Volume 9.5; Platelet Count 111 k/uL (150-450); RBC 3.62 m/uL (4.30-5.90); RDW 15.5 % (11.5-15.5); WBC 4.5 k/uL (3.8-10.6)
[2019-10-21 14:01] LABS: Calcium 8.9 mg/dL (8.4-10.2); Total Bilirubin 0.4 mg/dL (0.2-1.3); Total Protein 7.2 g/dL (6.3-8.2)
[2019-10-21 14:03] LABS: Partial Thromboplastin Time 29.9 sec (22.0-30.0); Prothrombin Time 10.3 sec (9.0-12.0)
--- NOTE | 2019-10-21 14:12 | XR ---
EXAMINATION TYPE: XR chest 2V DATE OF EXAM: 10/21/2019 COMPARISON: 09/22/2018 HISTORY: Altered mental status TECHNIQUE: Frontal and lateral views of the chest are obtained. FINDINGS: There is no focal air space opacity, pleural effusion, or pneumothorax seen. Flattening o f the diaphragms on the lateral view suggests underlying COPD. The cardiac silhouette size is mildly enlarged. Moderate multilevel degenerative change of the spine. The osseous structures are intact. T here is diffuse osseous demineralization. Calcific pleural plaquing along the right hemidiaphragm. IMPRESSION: Chronic changes with no acute cardiopulmonary process.
[2019-10-21 14:17] LABS: Eosinophils # (M) 0.18 k/uL (0-0.7); Lymphocytes # (M) 1.17 k/uL (1.0-4.8); Neutrophils # (M) 2.66 k/uL (1.3-7.7); Neutrophils % (M) 59 %; Nucleated Red Blood Cells 0 /100 WBC (0-0); Total Cells Counted 100
--- NOTE | 2019-10-21 14:54 | CT ---
EXAMINATION TYPE: CT brain wo con DATE OF EXAM: 10/21/2019 HISTORY: altered mental status CT DLP: 1103.4 mGycm. Automated Exposure Control for Dose Reduction was Utilized. TECHNIQUE: CT scan of the head is performed without contrast. COMPARISON: CT brain August 31, 2018. FINDINGS: There is no acute intracranial hemorrhage or midline shift identified. There is diffuse v entricular and sulcal prominence consistent with diffuse age-related cerebral atrophy. There is low- attenuation in the periventricular white matter consistent with chronic small vessel ischemic change. Scleral calcification bilateral globes. Mild to moderate mucosal thickening involving ethmoid sinuse s bilaterally. Vascular calculation distal internal carotid arteries bilaterally. IMPRESSION: No acute intracranial hemorrhage or midline shift. There is mild to moderate diffuse ce rebral atrophy and moderate to advanced chronic small vessel ischemic change redemonstrated. No sign ificant change from prior CT.
[2019-10-21 15:00] LABS: T4, Free (Free Thyroxine) 0.94 ng/dL (0.78-2.19)
[2019-10-21] MEDS ORDERED: NALOXONE 0.4 MG/ML 1 ML VIAL IV PRN (15:40)
[2019-10-21] MEDS ORDERED: ACETAMINOPHEN TAB 325 MG TAB PO PRN (15:40)
[2019-10-21] MEDS ORDERED: IBUPROFEN 200 MG TAB PO PRN (19:36)
[2019-10-21] MEDS ORDERED: LORazepam 2 MG/ML INJ IV PRN (19:38)
[2019-10-21] MEDS ORDERED: IPRATROPIUM-ALBUTEROL 3 ML NEB INHALATION PRN (19:40)
[2019-10-21] MEDS ORDERED: DEXTROSE 5% IN WATER 1,000 ML with POTASSIUM CHLORIDE 40 MEQ IV SCH ×2 (19:45→21:00)
[2019-10-21] MEDS: QUEtiapine 25 MG TAB PO SCH (21:12)
[2019-10-21] MEDS: HEPARIN SODIUM,PORCINE 5,000 UNIT/ML 1 ML VIAL SQ SCH (21:12)
[2019-10-21] MEDS: risperiDONE 2 MG TAB PO SCH (21:12)
[2019-10-21] MEDS: CHOLECALCIFEROL 1,000 UNIT TAB PO SCH (21:12)
[2019-10-21] MEDS: traZODone HCL 50 MG TAB PO SCH (21:12)
[2019-10-21] MEDS: SENNOSIDES 8.6 MG TAB PO SCH (21:12)
[2019-10-21] MEDS: SODIUM CHLORIDE 0.9% 1,000 ML IV SCH ×2 (21:13→23:15)
[2019-10-21] MEDS: DIVALPROEX ER 500 MG TAB.ER.24H PO SCH (21:13)
[2019-10-21] MEDS: IPRATROPIUM-ALBUTEROL 3 ML NEB INHALATION SCH (21:18)
--- NOTE | 2019-10-21 23:50 | HP ---
HISTORY AND PHYSICAL DATE OF SERVICE: 10/21/2019 CHIEF COMPLAINT: Change in mental status and cough. HISTORY OF PRESENT ILLNESS: This 84-year-old gentleman with a past medical history of multiple medical problems including CHF, COPD, dementia, hypertension, history of memory impairment, hypothyroidism, history of bipolar being followed by Dr. Migue Rosenthal from [place], is living in an [facility] home. The patient apparently found to have some change in mental status. Patient also had cough and EMS found the blood sugar is 60 and D10 was given with sugar improved to 117. The patient admitted to the hospital for further evaluation and treatment. Patient unable to give coherent history because of the above mentioned reasons and most of the history taken from my discussion with staff and discussion with the patient and discussed with the ER physician over the phone. A chest x-ray done in the ER which I reviewed personally showed some increased bronchovascular markings indicating some bronchitis. No acute findings are noted. The CT scan of the brain was also done which showed no acute abnormality. Mild to moderate cerebral atrophy was also noted. Otherwise, there is no history of trauma. PAST MEDICAL HISTORY: History of COPD, CHF, history of dementia, hypertension, history of memory impairment, history of DJD, history of bipolar. MEDICATIONS: Prior to admission include home medications are: 1. DuoNeb q.i.d. and p.r.n. 2. Trazodone 50 mg q.h.s. 3. Risperdal 2 mg p.o. b.i.d. 4. Depakote ER 500 mg p.o. b.i.d. 5. Norvasc 5 mg p.o. daily. 6. Seroquel 25 mg q.h.s. 7. Claritin 10 mg p.o. daily. 8. Pepcid 20 mg p.o. b.i.d. 9. Motrin 200 mg q.6 p.r.n. 10.Flomax 0.4 daily. 11.Senna 8.6 p.o. b.i.d. 12.Levothyroxine 25 mcg p.o. daily. 13.Lasix 40 mg p.o. daily. 14.Vitamin D3 2000 q.h.s. 15.Vitamin B1 100 mg p.o. daily. 16.K-Dur 10 mEq p.o. daily. ALLERGIES: None. Family history, social history and review of system could not be taken because of the patient's change in mental status. Family history of breast cancer per chart and remote history of smoking also. PHYSICAL EXAM: Patient is stuporous, arousable but confused. Pulse 55. Blood pressure 130/60, respiration 18, temperature 97 degrees. The patient hypothermic at the ER at 94.6, pulse ox 93 percent on 3 L. HEENT is conjunctivae normal. NECK: No JVD. CARDIOVASCULAR: S1, S2 muffled. RESPIRATIONS: Breath sounds diminished in the bases. A few scattered rhonchi and crackles. Expiratory wheezing also present. ABDOMEN: Soft, obese, nontender. LEGS: No edema. No swelling. NERVOUS SYSTEM higher functions as mentioned. Diffusely weak. LYMPHATICS: No lymph nodes palpable in the neck, axillae or groin. SKIN: No ulcer, rash or bleeding. JOINTS: No active deforming arthropathy. LABS: WBC 4.2, hemoglobin 11.5, platelets are 111. Otherwise, TSH is 7.5, T4 is 0.94 and free T3 is 2.4. Urine RBCs valproic acid 58.7. ASSESSMENT: 1. Chronic obstructive pulmonary disease acute exacerbation with possible acute purulent tracheobronchitis or bronchopneumonia with possible sepsis present on admission. 2. Hyperthermia. 3. Change in mental status, acute on chronic metabolic encephalopathy. 4. History of dementia. 5. Anemia, normocytic anemia of chronic disease. 6. Thrombocytopenia. 7. History of congestive heart failure. 8. History of chronic obstructive pulmonary disease. 9. Dementia. 10.Hypertension. 11.History of memory impairment. 12.History hypothyroidism. 13.History of degenerative joint disease. 14.Vitamin D deficiency. 15.History urinary tract infections. 16.History of bipolar. 17.FULL CODE. RECOMMENDATIONS AND DISCUSSION: In this 84-year-old gentleman who presented with multiple complex medical issues, we will monitor the patient closely, continue the current medications, management and symptomatic treatment. Otherwise, I recommend empiric antibiotics and optimize treatment of COPD. Cut down the IV fluids. The lactic acid is within normal limits, but however we will repeat labs and I would also recommend a flu swab also. Home medications will be reconciled. The prognosis extremely guarded because of multiple complex medical issues. Further recommendations to follow. Discussed with staff. MMODL / IJN: [id number] / MTDD
[2019-10-22] MEDS: LEVOTHYROXINE 50 MCG TAB PO SCH (05:29)
[2019-10-22] MEDS: DIVALPROEX ER 500 MG TAB.ER.24H PO SCH ×2 (08:03→20:52)
[2019-10-22] MEDS: PANTOPRAZOLE 40 MG TABLET PO SCH (08:03)
[2019-10-22] MEDS: THIAMINE 100 MG TAB PO SCH (08:03)
[2019-10-22] MEDS: risperiDONE 2 MG TAB PO SCH ×2 (08:03→20:53)
[2019-10-22] MEDS: amLODIPine 5 MG TAB PO SCH (08:03)
[2019-10-22] MEDS: HEPARIN SODIUM,PORCINE 5,000 UNIT/ML 1 ML VIAL SQ SCH ×2 (08:03→20:52)
[2019-10-22] MEDS: LORATADINE 10 MG TAB PO SCH (08:03)
[2019-10-22] MEDS: SENNOSIDES 8.6 MG TAB PO SCH ×2 (08:03→20:52)
[2019-10-22] MEDS: TAMSULOSIN 0.4 MG CAP.ER.24H PO SCH (08:03)
[2019-10-22] MEDS: SODIUM CHLORIDE 0.9% 1,000 ML IV SCH (08:05)
[2019-10-22] MEDS: IPRATROPIUM-ALBUTEROL 3 ML NEB INHALATION SCH ×4 (09:35→20:29)
[2019-10-22 09:51] LABS: Albumin 3.7 g/dL (3.5-5.0); Calcium 8.7 mg/dL (8.4-10.2); Potassium 5.8 mmol/L (3.5-5.1); Total Bilirubin 0.3 mg/dL (0.2-1.3); Total Protein 6.9 g/dL (6.3-8.2)
[2019-10-22 10:05] LABS: Basophils % (A) 0 %; Eosinophils # (A) 0.1 k/uL (0-0.7); Eosinophils % (A) 2 %; HCT 35.2 % (39.0-53.0); HGB 11.2 gm/dL (13.0-17.5); Lymphocytes # (A) 1.3 k/uL (1.0-4.8); Lymphocytes % (A) 29 %; MCH 31.8 pg (25.0-35.0); MCHC 31.9 g/dL (31.0-37.0); MCV 99.7 fL (80.0-100.0); Macrocytosis Slight; Mean Platelet Volume 9.8; Monocytes # (A) 0.4 k/uL (0-1.0); Monocytes % (A) 9 %; Neutrophils # (A) 2.4 k/uL (1.3-7.7); Neutrophils % (A) 55 %; Platelet Count 119 k/uL (150-450); RBC 3.52 m/uL (4.30-5.90); WBC 4.3 k/uL (3.8-10.6)
[2019-10-22 11:30] LABS: Glucose,Whole Blood 80 mg/dL (75-99)
[2019-10-22 17:01] LABS: Glucose,Whole Blood 76 mg/dL (75-99)
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
--- NOTE | 2019-10-22 20:07 | PN ---
PROGRESS NOTE DATE OF SERVICE: 10/22/2019 This 84-year-old gentleman admitted with change in mental status and COPD, acute exacerbation, with acute tracheobronchitis and bronchopneumonia, was started on empiric antibiotics and bronchodilators. Patient is improving slightly at this time. Patient is still short of breath and has cough also. A CT scan of the brain was also done, which was reviewed personally by me. It showed mild to moderate diffuse atrophy; no acute changes are noted. Chronic small-vessel ischemia is suspected. The patient also has a significant inguinal hernia on the right side without any difficulties at this time. Potassium is elevated to 5.8. Potassium was discontinued IV fluids at this time. Influenza is negative. Past medical history reviewed. Review of systems could not be taken; the patient is still confused. CURRENT MEDICATIONS: 1. Tylenol p.r.n. 2. DuoNeb q.i.d. and p.r.n. 3. Norvasc 5 mg p.o. daily. 4. Rocephin 1 gram daily. 5. Depakote 500 mg p.o. b.i.d. 6. Heparin. 7. Advil. 8. Synthroid p.o. daily. 9. Claritin 10 mg daily. 10.Ativan p.r.n. 11.Protonix 40 mg daily. 12.Seroquel 25 mg at bedtime. 13.Risperdal 2 mg p.o. b.i.d. 14.Senokot. 15.Flomax 0.4 daily. 16.Vitamin B1 100 mg p.o. daily. 17.Desyrel 50 mg at bedtime. PHYSICAL EXAMINATION: Patient is alert, oriented . Pulse 54, blood pressure 98/44, respiration 18, temperature 97.5, pulse ox 94% on 3 L. HEENT: Conjunctivae normal. Oral mucosa moist. NECK: No jugular venous distention. No carotid bruit. No lymph node enlargement. CARDIOVASCULAR SYSTEM: S1, S2 muffled. RESPIRATORY SYSTEM: Breath sounds diminished at the bases. A few scattered rhonchi and crackles. Expiratory wheezing also present. ABDOMEN: Soft, obese, non-tender. No mass palpable. Significant inguinal hernia on the right side, non-tender, which is reducible. No tenderness. No evidence of any strangulation or incarceration. LEGS: No edema. No swelling. NERVOUS SYSTEM: Higher functions as mentioned earlier. Otherwise diffusely weak. SKIN: No ulcer, rash, bleeding. LABS: WBC 4.3, hemoglobin 11.2. Sodium 141, potassium 5.8. ASSESSMENT: 1. Chronic obstructive pulmonary disease, acute exacerbation, with possible acute purulent tracheobronchitis or bronchopneumonia with possible sepsis, present on admission. 2. Change in mental status, metabolic encephalopathy, acute on chronic. 3. Hypothermia, present on admission, improved. 4. Hyperkalemia currently. 5. Right direct inguinal hernia without any complications. 6. History of dementia. 7. Anemia, normocytic; anemia of chronic disease. 8. Thrombocytopenia. 9. History of congestive heart failure; ejection fraction unknown. 10.History of chronic obstructive pulmonary disease. 11.Hypertension. 12.History of memory impairment. 13.History of hypothyroidism. 14.Degenerative joint disease. 15.Vitamin D deficiency. 16.History of urinary tract infections. 17.History of bipolar. 18.FULL CODE. RECOMMENDATIONS AND DISCUSSION: I recommend to continue current medications, continue with the monitoring, symptomatic treatment. Continue with empiric antibiotics and bronchodilators. PT/OT evaluation. Otherwise, DVT prophylaxis. See orders for further details. Guarded prognosis because of multiple complex medical issues. Further recommendations to follow. Cultures are negative so far. MMODL / IJN: [id number] / DEEP
[2019-10-22 20:22] LABS: Glucose,Whole Blood 80 mg/dL (75-99)
[2019-10-22] MEDS: CHOLECALCIFEROL 1,000 UNIT TAB PO SCH (20:52)
[2019-10-22] MEDS: QUEtiapine 25 MG TAB PO SCH (20:52)
[2019-10-22] MEDS: traZODone HCL 50 MG TAB PO SCH (20:52)
[2019-10-23] MEDS: LEVOTHYROXINE 50 MCG TAB PO SCH (06:00)
[2019-10-23 07:16] LABS: Glucose,Whole Blood 68 mg/dL (75-99)
[2019-10-23 07:30] LABS: Glucose,Whole Blood 69 mg/dL (75-99)
[2019-10-23] MEDS: IPRATROPIUM-ALBUTEROL 3 ML NEB INHALATION SCH ×4 (07:35→21:14)
[2019-10-23 07:44] LABS: Glucose,Whole Blood 118 mg/dL (75-99)
[2019-10-23] MEDS: HEPARIN SODIUM,PORCINE 5,000 UNIT/ML 1 ML VIAL SQ SCH ×2 (09:22→21:29)
[2019-10-23] MEDS: SENNOSIDES 8.6 MG TAB PO SCH ×2 (09:23→21:29)
[2019-10-23] MEDS: TAMSULOSIN 0.4 MG CAP.ER.24H PO SCH (09:23)
[2019-10-23] MEDS: DIVALPROEX ER 500 MG TAB.ER.24H PO SCH ×2 (09:23→21:28)
[2019-10-23] MEDS: THIAMINE 100 MG TAB PO SCH (09:24)
[2019-10-23] MEDS: risperiDONE 2 MG TAB PO SCH ×2 (09:24→21:28)
[2019-10-23] MEDS: LORATADINE 10 MG TAB PO SCH (09:24)
[2019-10-23] MEDS: amLODIPine 5 MG TAB PO SCH (09:24)
[2019-10-23] MEDS: PANTOPRAZOLE 40 MG TABLET PO SCH (09:24)
[2019-10-23 10:04] LABS: Calcium 8.9 mg/dL (8.4-10.2); Potassium 5.1 mmol/L (3.5-5.1)
[2019-10-23 10:23] LABS: Basophils % (A) 0 %; Eosinophils # (A) 0.1 k/uL (0-0.7); Eosinophils % (A) 2 %; HCT 36.6 % (39.0-53.0); HGB 11.5 gm/dL (13.0-17.5); Lymphocytes # (A) 1.2 k/uL (1.0-4.8); Lymphocytes % (A) 32 %; MCH 31.9 pg (25.0-35.0); MCHC 31.6 g/dL (31.0-37.0); MCV 101.2 fL (80.0-100.0); Macrocytosis Slight; Mean Platelet Volume 9.4; Monocytes # (A) 0.3 k/uL (0-1.0); Monocytes % (A) 8 %; Neutrophils # (A) 2.1 k/uL (1.3-7.7); Neutrophils % (A) 54 %; Platelet Count 100 k/uL (150-450); RBC 3.61 m/uL (4.30-5.90); RDW 15.4 % (11.5-15.5); WBC 3.9 k/uL (3.8-10.6)
[2019-10-23 12:06] LABS: Glucose,Whole Blood 112 mg/dL (75-99)
[2019-10-23 12:25] LABS: Anisocytosis (M) Present; Poikilocytosis (M) Present
[2019-10-23 17:07] LABS: Glucose,Whole Blood 101 mg/dL (75-99)
[2019-10-23 21:14] LABS: Glucose,Whole Blood 117 mg/dL (75-99)
[2019-10-23] MEDS: CHOLECALCIFEROL 1,000 UNIT TAB PO SCH (21:28)
[2019-10-23] MEDS: QUEtiapine 25 MG TAB PO SCH (21:28)
[2019-10-23] MEDS: traZODone HCL 50 MG TAB PO SCH (21:29)
--- NOTE | 2019-10-23 22:07 | P.PN ---
Progress Note - Text Progress Note Date: 10/23/19 SUBJECTIVE/INTERVAL EVENTS: No acute overnight event. Pt with no pain, no complaints. PHYSICAL EXAMINATION: VITAL SIGNS: T 97.5 HR 80 RR 20 BP 121/75 O2 sat 89% on RA GEN.: just woken up, NAD HEENT: NCAT, sclera without icterus NECK: Supple SKIN AND EXTREMITIES: Warm to touch, no edema NEURO: MENTAL STATUS: Patient alert and oriented to self and place. Unable to tell time or name the current president. Follow simple commands. Difficult to perform a thorough exam as patient barely answers in "yes" or "no." No right and left disorientation CRANIAL NERVES II THROUGH XII: II: Pupils are equal and reactive to light symmetrically. Visual moser are intact to confrontation. III, IV, : No ptosis. Extraocular movements full. XII: Tongue midline without fasciculation or atrophy. MOTOR: Normal bulk. Patient able to lift b/l UE against gravity spontaneously. Difficulty with moving b/l LE, but withdraws to noxious stimuli SENSORY: Grimaces to noxious stimuli in all 4 extremities REFLEXES: 2+ in b/l UE. 1+ in b/l LE. Toes are mute. COORDINATION: Finger to nose intact. No dysmetria. GAIT: not assessed DIAGNOSTIC TESTING: LABORATORY: WBC 4.3 Hgb 11.2 Platelet 119 Na 141 K 5.8 Cl 104 CO2 34 BUN 43 Cr 1.21 glucose 82 TSH 7.500 fT4 0.94 urinalysis negative nitrite and LE. valproic acid level 58.7 IMAGING: CT brain w/o contrast 10/21/2019: no acute intracranial hemorrhage or midline shift. There is mild to moderate diffuse cerebral atrophy and moderate to advanced chronic small vessel ischemic change redemonstrated. No significant change from prior. ASSESSMENT: 84 year-old man with PMhx of heart failure, COPD, dementia, HTN, hypothyroidism, arthritis, bipolar, presented to [facility] with AMS. Patient with underlying dementia, unclear what his baseline is. Patient was found with low blood glucose when he initially had changes in mental status. Patient with elevated ammonia level. RECOMMENDATIONS: 1. Ammonia level 46; management per primary team 2. f/u Vitamin B12 level 3. will obtain routine EEG 4. Neurology will continue to follow.
--- NOTE | 2019-10-23 22:31 | P.PN ---
Subjective Progress Note Date: 10/23/19 Principal diagnosis: Acute on chronic metabolic encephalopathy Dementia Possible COPD Patient is a 84-year-old male with a known history of COPD and other multiple medical problems was admitted to the hospital due to altered mental status, acute tracheobronchitis and bronchopneumonia. Influenza negative Patient is being continued on DuoNeb's and antibiotics in the form of cef triaxone. Potassium level improved after discontinuation of oral potassium.. Currently patient is sitting in the chair comfortably. Awake alert oriented 1- 2 Patient has been afebrile. Tolerating oral diet and more level is elevated to 46 today. Neurology is planning for EEG. Active Medications Acetaminophen (Tylenol Tab) 650 mg PO Q6HR PRN PRN Reason: Mild Pain or Fever > 100.5 Albuterol/Ipratropium (Duoneb 0.5 Mg-3 Mg/3 Ml Soln) 3 ml INHALATION RT-QID [facility] Last Admin: 10/23/19 21:14 Dose: 3 ml Documented by: Albuterol/Ipratropium (Duoneb 0.5 Mg-3 Mg/3 Ml Soln) 3 ml INHALATION RT-TID PRN PRN Reason: Shortness Of Breath Or Wheezing Amlodipine Besylate (Norvasc) 5 mg PO DAILY@0800 [facility] Last Admin: 10/23/19 09:24 Dose: 5 mg Documented by: Cholecalciferol (Vitamin D3 (25 Mcg = 1000 Iu)) 2,000 unit PO HS@1999 [facility] Last Admin: 10/23/19 21:28 Dose: 2,000 unit Documented by: Divalproex Sodium (Depakote Er) 500 mg PO BID@799,1999 [facility] Last Admin: 10/23/19 21:28 Dose: 500 mg Documented by: Heparin Sodium (Porcine) (Heparin) 5,000 unit SQ Q12HR [facility] Last Admin: 10/23/19 21:29 Dose: 5,000 unit Documented by: Ceftriaxone Sodium 1 gm/ (Sodium Chloride) 50 mls @ 100 mls/hr IVPB Q24HR [facility] Last Admin: 10/23/19 07:33 Dose: 100 mls/hr Documented by: Ibuprofen (Advil) 200 mg PO Q6H PRN PRN Reason: Pain Lactulose (Cephulac) 20 gm PO BID [facility] Levothyroxine Sodium (Synthroid) 50 mcg PO DAILY@0630 [facility] Last Admin: 10/23/19 06:00 Dose: 50 mcg Documented by: Loratadine (Claritin) 10 mg PO DAILY@08 [facility] Last Admin: 10/23/19 09:24 Dose: 10 mg Documented by: Lorazepam (Ativan) 0.5 mg IV Q6HR PRN PRN Reason: Anxiety Naloxone HCl (Narcan) 0.2 mg IV Q2M PRN PRN Reason: Opioid Reversal Pantoprazole Sodium (Protonix) 40 mg PO AC-BRKFST [facility] Last Admin: 10/23/19 09:24 Dose: 40 mg Documented by: Quetiapine Fumarate (Seroquel) 25 mg PO HS@1999 [facility] Last Admin: 10/23/19 21:28 Dose: 25 mg Documented by: Risperidone (Risperdal) 2 mg PO BID@ [facility] Last Admin: 10/23/19 21:28 Dose: 2 mg Documented by: Senna (Senokot) 8.6 mg PO BID@ [facility] Last Admin: 10/23/19 21:29 Dose: 8.6 mg Documented by: Tamsulosin HCl (Flomax) 0.4 mg PO DAILY@799 [facility] Last Admin: 10/23/19 09:23 Dose: 0.4 mg Documented by: Thiamine HCl (Vitamin B-1) 100 mg PO DAILY@799 [facility] Last Admin: 10/23/19 09:24 Dose: 100 mg Documented by: Trazodone HCl (Desyrel) 50 mg PO HS@1999 [facility] Last Admin: 10/23/19 21:29 Dose: 50 mg Documented by: . Objective - Vital Signs Vital signs: Vital Signs Temp 97.5 F L 10/23/19 12:39 Pulse 62 10/23/19 12:39 Resp 20 10/23/19 12:39 BP 118/66 10/23/19 12:39 Pulse Ox 94 L 10/23/19 12:39 Intake & Output 10/22/19 10/23/19 10/23/19 18:59 06:59 18:59 Intake Total 560 280 240 Balance 560 280 240 Weight 100.5 kg 94.5 kg Intake: Intake, IV Titration 320 160 Amount Dextrose 5% in Water 1, 160 000 ml @ 40 mls/hr IV . Q24H RUT with Potassium Chloride 40 meq Rx#: [id number] Sodium Chloride 0.9% 1, 160 160 000 ml @ 120 mls/hr IV . Q8H20M RUT Rx#:[id number] Oral 240 120 240 Other: Voiding Method Urinal Diaper Diaper Diaper Incontinent Incontinent Incontinent # Voids 1 4 2 # Bowel Movements 0 - Exam PHYSICAL EXAMINATION: Patient is lying in the bed comfortably, no acute distress, awake alert and oriented 1.. HEENT: Normocephalic. Neck is supple. Pupils reactive. Nostrils clear. Oral cavity is moist. Ears reveal no drainage. Neck reveals no JVD, carotid bruits, or thyromegaly. CHEST EXAMINATION: Trachea is central. Symmetrical expansion. Bibasilar diminished air entry. Lung moser clear to auscultation and percussion. CARDIAC: Normal S1, S2 with no gallops. No murmurs ABDOMEN: Soft. Bowel sounds normal. No organomegaly. No abdominal bruits. Extremities: reveal no edema. No clubbing or cyanosis Neurologically awake, alert, oriented x1-2 with well-coordinated movements. Dementia. No focal deficits noted Skin: No rash or skin lesions. Psychiatric: Coperative. Could not be assessed completely. Musculoskeletal: No joint swelling or deformity. Normal range of motion. - Labs CBC & Chem 7: 10/23/19 08:20 10/23/19 08:20 Labs: Abnormal Lab Results - Last 24 Hours (Table) 10/23/19 10/23/19 10/23/19 Range/Units 07:08 07:25 07:42 RBC (4.30-5.90) m/uL Hgb (13.0-17.5) gm/dL Hct (39.0-53.0) % MCV (80.0-100.0) fL Plt Count (150-450) k/uL Carbon Dioxide (22-30) mmol/L BUN (9-20) mg/dL Glucose (74-99) mg/dL POC Glucose (mg/dL) 68 L 69 L 118 H (75-99) mg/dL Ammonia (<30) umol/L 10/23/19 10/23/19 10/23/19 Range/Units 08:20 08:20 10:34 RBC 3.61 L (4.30-5.90) m/uL Hgb 11.5 L (13.0-17.5) gm/dL Hct 36.6 L (39.0-53.0) % MCV 101.2 H (80.0-100.0) fL Plt Count 100 L (150-450) k/uL Carbon Dioxide 31 H (22-30) mmol/L BUN 38 H (9-20) mg/dL Glucose 140 H (74-99) mg/dL POC Glucose (mg/dL) (75-99) mg/dL Ammonia 46 H (<30) umol/L 10/23/19 Range/Units 12:04 RBC (4.30-5.90) m/uL Hgb (13.0-17.5) gm/dL Hct (39.0-53.0) % MCV (80.0-100.0) fL Plt Count (150-450) k/uL Carbon Dioxide (22-30) mmol/L BUN (9-20) mg/dL Glucose (74-99) mg/dL POC Glucose (mg/dL) 112 H (75-99) mg/dL Ammonia (<30) umol/L Microbiology - Last 24 Hours (Table) 10/21/19 13:25 Blood Culture - Preliminary Blood No Growth after 24 hours Assessment and Plan Assessment: Altered mental status possible acute on chronic metabolic encephalopathy with underlying dementia COPD with acute exacerbation and acute tracheobronchitis Slightly elevated ammonia level Hypothymia on admission. Improved now Hyperkalemia improved Right direct inguinal hernia without complications. Anemia of chronic disease Thrombocytopenia History of CHF with ejection fraction unknown Hypertension Hypothyroidism DVT prophylaxis Obesity with BMI 30.8 Plan: Patient will be continued on antibiotics in the form of ceftriaxone. Cultures have been negative so far. Patient does have underlying dementia. EEG was ord ered as per neurology. Follow-up B12 level. Continue with lactulose for hyperammonemia. PT OT and possible discharge back to assisted living facility. Further recommendations based on the clinical course. Prognosis is guarded with multiple medical problems and comorbid conditions along with underlying dementia. Time with Patient: Greater than 30
[2019-10-23] MEDS: LACTULOSE 20 GM/30 ML CUP PO SCH (22:42)
[2019-10-24] MEDS: LEVOTHYROXINE 50 MCG TAB PO SCH (05:40)
[2019-10-24 07:13] LABS: Glucose,Whole Blood 79 mg/dL (75-99)
[2019-10-24] MEDS: IPRATROPIUM-ALBUTEROL 3 ML NEB INHALATION SCH ×4 (08:04→20:00)
[2019-10-24] MEDS: TAMSULOSIN 0.4 MG CAP.ER.24H PO SCH (08:21)
[2019-10-24] MEDS: SENNOSIDES 8.6 MG TAB PO SCH ×2 (08:21→20:22)
[2019-10-24] MEDS: LACTULOSE 20 GM/30 ML CUP PO SCH ×2 (08:21→20:22)
[2019-10-24] MEDS: risperiDONE 2 MG TAB PO SCH ×2 (08:21→20:22)
[2019-10-24] MEDS: DIVALPROEX ER 500 MG TAB.ER.24H PO SCH ×2 (08:21→20:21)
[2019-10-24] MEDS: LORATADINE 10 MG TAB PO SCH (08:21)
[2019-10-24] MEDS: PANTOPRAZOLE 40 MG TABLET PO SCH (08:21)
[2019-10-24] MEDS: amLODIPine 5 MG TAB PO SCH (08:21)
[2019-10-24] MEDS: HEPARIN SODIUM,PORCINE 5,000 UNIT/ML 1 ML VIAL SQ SCH ×2 (08:21→20:22)
[2019-10-24] MEDS: THIAMINE 100 MG TAB PO SCH (08:21)
[2019-10-24 09:31] LABS: Calcium 8.7 mg/dL (8.4-10.2); Potassium 5.3 mmol/L (3.5-5.1)
[2019-10-24 09:52] LABS: HCT 34.9 % (39.0-53.0); HGB 11.1 gm/dL (13.0-17.5); MCH 31.7 pg (25.0-35.0); MCHC 31.9 g/dL (31.0-37.0); MCV 99.4 fL (80.0-100.0); Macrocytosis Slight; Mean Platelet Volume 9.2; Platelet Count 113 k/uL (150-450); RBC 3.51 m/uL (4.30-5.90); RDW 15.2 % (11.5-15.5); WBC 4.6 k/uL (3.8-10.6)
[2019-10-24 11:02] LABS: Eosinophils # (M) 0.14 k/uL (0-0.7); Lymphocytes # (M) 1.33 k/uL (1.0-4.8); Monocytes # (M) 0.46 k/uL (0-1.0); Neutrophils # (M) 2.67 k/uL (1.3-7.7); Neutrophils % (M) 58 %; Nucleated Red Blood Cells 0 /100 WBC (0-0); Total Cells Counted 100
[2019-10-24 11:04] LABS: Anisocytosis (M) Present; Poikilocytosis (M) Present; Stomatocytes Present
[2019-10-24 11:53] LABS: Glucose,Whole Blood 83 mg/dL (75-99)
[2019-10-24 17:06] LABS: Glucose,Whole Blood 134 mg/dL (75-99)
--- NOTE | 2019-10-24 19:42 | P.PN ---
Progress Note - Text Progress Note Date: 10/24/19 SUBJECTIVE/INTERVAL EVENTS: No acute overnight events. Patient's exam stable. PHYSICAL EXAMINATION: VITAL SIGNS: T 98.1 HR 63 RR 18 BP 144/66 O2 sat 93% on 2L O2 via NC GEN.: just woken up, NAD HEENT: NCAT, sclera without icterus NECK: Supple SKIN AND EXTREMITIES: Warm to touch, no edema NEURO: MENTAL STATUS: Patient alert and oriented to self and place. Unable to tell time or name the current president. Follow simple commands. Difficult to perform a thorough exam as patient barely answers in "yes" or "no." No right and left disorientation CRANIAL NERVES II THROUGH XII: II: Pupils are equal and reactive to light symmetrically. Visual moser are intact to confrontation. III, IV, : No ptosis. Extraocular movements full. XII: Tongue midline without fasciculation or atrophy. MOTOR: Normal bulk. Patient able to lift b/l UE against gravity spontaneously. Difficulty with moving b/l LE, but withdraws to noxious stimuli SENSORY: Grimaces to noxious stimuli in all 4 extremities REFLEXES: 2+ in b/l UE. 1+ in b/l LE. Toes are mute. COORDINATION: Finger to nose intact. No dysmetria. GAIT: not assessed DIAGNOSTIC TESTING: LABORATORY: WBC 4.3 Hgb 11.2 Platelet 119 Na 141 K 5.8 Cl 104 CO2 34 BUN 43 Cr 1.21 glucose 82 TSH 7.500 fT4 0.94 urinalysis negative nitrite and LE. valproic acid level 58.7 ammonia 46 Vitamin B12 1127 IMAGING: CT brain w/o contrast 10/21/2019: no acute intracranial hemorrhage or midline shift. There is mild to moderate diffuse cerebral atrophy and moderate to advanced chronic small vessel ischemic change redemonstrated. No significant change from prior. ASSESSMENT: 84 year-old man with PMhx of heart failure, COPD, dementia, HTN, hypothyroidism, arthritis, bipolar, presented to [facility] with AMS. Patient with underlying dementia, unclear what his baseline is. Patient was found with low blood glucose when he initially had changes in mental status. Patient with elevated ammonia level. RECOMMENDATIONS: 1. Ammonia level 46; management per primary team 2. routine EEG obtained today; will f/u on final read 3. Neurology will sign off at this time unless EEG shows seizures/epileptiform activity. Please contact with additional questions or concerns.
--- NOTE | 2019-10-24 20:05 | PN ---
PROGRESS NOTE DATE OF SERVICE: 10/24/2019 This 84-year-old gentleman with a past medical history of multiple medical problems was admitted with shortness of breath, possible pneumonia. Patient also had change in mental status. Ammonia is also elevated. Patient is being closely monitored. ECF rehab is being planned at this time. Patient was living in an assisted-living facility previously. The patient continues to be confused. PHYSICAL EXAMINATION: Pulse 65, blood pressure 134/74, respiration 17, temperature 98 degrees, pulse ox 94% on 2 L. HEENT: Conjunctivae normal. NECK: No jugular venous distention. CARDIOVASCULAR SYSTEM: S1, S2 muffled. RESPIRATORY SYSTEM: Breath sounds diminished at the bases. A few scattered rhonchi and crackles. ABDOMEN: Soft, non-tender. Right inguinal hernia present. LEGS: No edema. No swelling. NERVOUS SYSTEM: Mild diffuse weakness. LABS: WBC 4.6, hemoglobin 11.1. Sodium 142, potassium 5.3. ASSESSMENT: 1. Chronic obstructive pulmonary disease, acute exacerbation, with possible acute purulent tracheobronchitis or bronchopneumonia with possible sepsis, present on admission. 2. Change in mental status, metabolic encephalopathy, acute on chronic, multifactorial. 3. Hypothermia, present on admission, possibly sepsis-related, improving. 4. Hyperammonemia. 5. Hyperkalemia recently. 6. Right direct inguinal hernia without any complications. 7. History of dementia. 8. Anemia; normocytic anemia of chronic disease. 9. Thrombocytopenia. 10.History of congestive heart failure; ejection fraction unknown. 11.History of chronic obstructive pulmonary disease. 12.Hypertension. 13.History of memory impairment. 14.History of hypothyroidism. 15.Degenerative joint disease. 16.Vitamin D deficiency. 17.History of urinary tract infections. 18.History of bipolar. 19.FULL CODE. RECOMMENDATIONS AND DISCUSSION: I recommend to continue current medications, continue with the monitoring, symptomatic treatment. Continue with the antibiotics. Continue with lactulose. Continue the rest of the medications. Repeat ammonia. Repeat labs. Increase ambulation. PT/OT evaluation. Possible ECF rehab. Guarded prognosis. Further recommendations to follow. MMODL / IJN: [id number] /
[2019-10-24] MEDS: CHOLECALCIFEROL 1,000 UNIT TAB PO SCH (20:21)
[2019-10-24] MEDS: traZODone HCL 50 MG TAB PO SCH (20:22)
[2019-10-24 20:28] LABS: Glucose,Whole Blood 208 mg/dL (75-99)
[2019-10-24] MEDS: QUEtiapine 25 MG TAB PO SCH (20:29)
--- NOTE | 2019-10-24 23:35 | EEG ---
ELECTROENCEPHALOGRAM REPORT DATE OF PROCEDURE: 10/24/2019 ELECTROENCEPHALOGRAM (EEG) REPORT: TECHNIQUE: A routine 18-channel EEG was performed with video using the 10/20 electrode placement system. HISTORY: Encephalopathy, dementia, memory impairment, as well as bipolar disorder. CURRENT MEDICATIONS: Desyrel, vitamin B1, Flomax, Senokot, Risperdal, Seroquel. STUDY DURATION: 24 minutes. FINDINGS: BACKGROUND: The background activity consists of 6-7 Hz rhythmic waveforms symmetrically distributed through both posterior quadrants. ACTIVATION: Hyperventilation: Not performed. Photic stimulation: Mild symmetric driving seen. Sleep: Drowsy. ABNORMALITIES: Diffuse synchronous and asynchronous 3-6 Hz slow wave activity was seen. IMPRESSION: Abnormal EEG. The diffuse synchronous and asynchronous theta delta range slowing mentioned above is not epileptiform in nature. In combination with the slow background, these findings indicate moderate diffuse cerebral dysfunction, as may be seen in a toxometabolic encephalopathy. No seizures were recorded. No epileptiform activity was present. MMODL / IJN: [id number] /
[2019-10-25] MEDS: LEVOTHYROXINE 50 MCG TAB PO SCH (05:58)
[2019-10-25 07:08] LABS: Glucose,Whole Blood 75 mg/dL (75-99)
[2019-10-25] MEDS: IPRATROPIUM-ALBUTEROL 3 ML NEB INHALATION SCH ×4 (07:24→19:41)
[2019-10-25 08:00] LABS: HCT 32.5 % (39.0-53.0); HGB 10.3 gm/dL (13.0-17.5); MCH 31.8 pg (25.0-35.0); MCHC 31.8 g/dL (31.0-37.0); MCV 99.9 fL (80.0-100.0); Macrocytosis Slight; Mean Platelet Volume 8.9; Platelet Count 95 k/uL (150-450); RBC 3.25 m/uL (4.30-5.90); RDW 15.4 % (11.5-15.5); WBC 3.8 k/uL (3.8-10.6)
[2019-10-25 08:08] LABS: Calcium 8.9 mg/dL (8.4-10.2); Potassium 5.3 mmol/L (3.5-5.1)
[2019-10-25] MEDS: risperiDONE 2 MG TAB PO SCH ×2 (08:54→21:50)
[2019-10-25] MEDS: TAMSULOSIN 0.4 MG CAP.ER.24H PO SCH (08:54)
[2019-10-25] MEDS: THIAMINE 100 MG TAB PO SCH (08:54)
[2019-10-25] MEDS: amLODIPine 5 MG TAB PO SCH (08:54)
[2019-10-25] MEDS: LACTULOSE 20 GM/30 ML CUP PO SCH ×2 (08:54→21:51)
[2019-10-25] MEDS: HEPARIN SODIUM,PORCINE 5,000 UNIT/ML 1 ML VIAL SQ SCH ×2 (08:54→21:51)
[2019-10-25] MEDS: LORATADINE 10 MG TAB PO SCH (08:54)
[2019-10-25] MEDS: DIVALPROEX ER 500 MG TAB.ER.24H PO SCH ×2 (08:54→21:51)
[2019-10-25] MEDS: PANTOPRAZOLE 40 MG TABLET PO SCH (08:54)
[2019-10-25] MEDS: SENNOSIDES 8.6 MG TAB PO SCH ×2 (08:55→21:51)
[2019-10-25 09:11] LABS: Eosinophils # (M) 0.27 k/uL (0-0.7); Lymphocytes # (M) 1.06 k/uL (1.0-4.8); Monocytes # (M) 0.61 k/uL (0-1.0); Neutrophils # (M) 1.86 k/uL (1.3-7.7); Neutrophils % (M) 49 %; Nucleated Red Blood Cells 0 /100 WBC (0-0); Total Cells Counted 100
[2019-10-25 09:12] LABS: Anisocytosis (M) Present; Poikilocytosis (M) Present
[2019-10-25 10:24] VITALS: BMI 26.9
[2019-10-25 11:09] LABS: Glucose,Whole Blood 94 mg/dL (75-99)
[2019-10-25] MEDS: MULTIVITAMINS, THERA 1 EACH TAB PO SCH (13:12)
[2019-10-25] MEDS: FOLIC ACID 1 MG TAB PO SCH (13:12)
[2019-10-25 16:56] LABS: Glucose,Whole Blood 133 mg/dL (75-99)
[2019-10-25] MEDS: methylPREDNISolone SOD SUCCI 40 MG/ML 1 ML VIAL IV SCH (17:37)
[2019-10-25] MEDS: INSULIN ASPART (NovoLOG) 100 UNIT/ML VIAL SQ SCH ×2 (17:37→21:50)
--- NOTE | 2019-10-25 17:43 | PN ---
PROGRESS NOTE DATE OF SERVICE: 10/25/2019 This 84-year-old gentleman was admitted with COPD acute exacerbation as well as acute purulent tracheobronchitis and bronchopneumonia, is being closely monitored at this time. The patient is feeling much better, but however the patient is on IV antibiotics. Neurology following the patient closely. Of note, the ammonia level is also found to be elevated up to 44. There is no evidence of any chronic liver disease. Past medical history reviewed. PHYSICAL EXAM: Patient is conscious and confused pulse 59, blood pressure 150/62, respiration 18, temperature 97 degrees, pulse ox 97% on 2 L. HEENT: Conjunctivae normal. NECK: No JVD. CARDIOVASCULAR: S1, S2 muffled. RESPIRATORY SYSTEM: Breath sounds diminished at the bases. A few bilateral scattered rhonchi and crackles. ABDOMEN: Soft, nontender. No mass palpable. Significant right inguinal hernia present. LEGS are no edema. No swelling. CENTRAL NERVOUS SYSTEM: Diffusely weak. LABS: Blood cultures are negative. Otherwise, WBC 3.8, hemoglobin is 10.3, sodium 140, potassium 5.3. Ammonia is 44. ASSESSMENT: 1. Chronic obstructive pulmonary disease acute exacerbation with possible acute purulent tracheobronchitis, bronchopneumonia with possible sepsis present on admission. 2. Change in mental status, metabolic encephalopathy, acute on chronic, multifactorial. 3. Hypothermia, present on admission, possibly sepsis related, improving. 4. Hyperammonemia of undetermined significance. 5. Hyperkalemia history recently. 6. Right direct inguinal hernia without any complications. 7. History of dementia. 8. Anemia, normocytic anemia of chronic disease. 9. Thrombocytopenia. 10.History of congestive heart failure, ejection fraction unknown. 11.History of chronic obstructive pulmonary disease. 12.History of hypertension. 13.History of memory impairment. 14.History of hypothyroidism. 15.History of degenerative joint disease. 16.History of vitamin D deficiency. 17.History urinary tract infection. 18.History of bipolar. 19.FULL CODE. RECOMMENDATIONS AND DISCUSSION: Recommend to continue current medications, continue with monitoring and symptomatic treatment. Otherwise, at this time, I recommend continue the broad-spectrum IV antibiotics, bronchodilators. Increase ambulation. Consider possible ECF rehab early next week. Otherwise, prognosis guarded. Patient has significant wheezing at this time. Further recommendations to follow. I would also add a small dose of steroids also. MMODL / IJN: [id number] /
[2019-10-25 21:10] LABS: Glucose,Whole Blood 124 mg/dL (75-99)
[2019-10-25] MEDS: traZODone HCL 50 MG TAB PO SCH (21:45)
[2019-10-25] MEDS: CHOLECALCIFEROL 1,000 UNIT TAB PO SCH (21:51)
[2019-10-25] MEDS: QUEtiapine 25 MG TAB PO SCH (21:51)
[2019-10-26] MEDS: methylPREDNISolone SOD SUCCI 40 MG/ML 1 ML VIAL IV SCH ×3 (00:51→17:29)
[2019-10-26 07:11] LABS: Glucose,Whole Blood 112 mg/dL (75-99)
[2019-10-26] MEDS: IPRATROPIUM-ALBUTEROL 3 ML NEB INHALATION SCH ×4 (07:13→19:20)
[2019-10-26 07:23] LABS: Basophils % (A) 0 %; Eosinophils % (A) 0 %; HCT 34.5 % (39.0-53.0); HGB 10.9 gm/dL (13.0-17.5); Lymphocytes # (A) 0.9 k/uL (1.0-4.8); Lymphocytes % (A) 25 %; MCH 31.4 pg (25.0-35.0); MCHC 31.6 g/dL (31.0-37.0); MCV 99.5 fL (80.0-100.0); Macrocytosis Slight; Mean Platelet Volume 8.9; Monocytes # (A) 0.1 k/uL (0-1.0); Monocytes % (A) 3 %; Neutrophils # (A) 2.5 k/uL (1.3-7.7); Neutrophils % (A) 70 %; Platelet Count 111 k/uL (150-450); RBC 3.47 m/uL (4.30-5.90); RDW 15.3 % (11.5-15.5); WBC 3.5 k/uL (3.8-10.6)
[2019-10-26 07:38] LABS: Calcium 8.8 mg/dL (8.4-10.2); Potassium 5.6 mmol/L (3.5-5.1)
[2019-10-26] MEDS: INSULIN ASPART (NovoLOG) 100 UNIT/ML VIAL SQ SCH ×4 (09:14→21:17)
[2019-10-26] MEDS: DIVALPROEX ER 500 MG TAB.ER.24H PO SCH ×2 (09:17→21:17)
[2019-10-26] MEDS: amLODIPine 5 MG TAB PO SCH (09:17)
[2019-10-26] MEDS: LACTULOSE 20 GM/30 ML CUP PO SCH ×2 (09:17→21:17)
[2019-10-26] MEDS: SENNOSIDES 8.6 MG TAB PO SCH ×2 (09:17→21:17)
[2019-10-26] MEDS: LEVOTHYROXINE 50 MCG TAB PO SCH (09:17)
[2019-10-26] MEDS: THIAMINE 100 MG TAB PO SCH (09:18)
[2019-10-26] MEDS: LORATADINE 10 MG TAB PO SCH (09:18)
[2019-10-26] MEDS: risperiDONE 2 MG TAB PO SCH ×2 (09:18→21:17)
[2019-10-26] MEDS: PANTOPRAZOLE 40 MG TABLET PO SCH (09:18)
[2019-10-26] MEDS: HEPARIN SODIUM,PORCINE 5,000 UNIT/ML 1 ML VIAL SQ SCH ×2 (09:18→21:16)
[2019-10-26] MEDS: TAMSULOSIN 0.4 MG CAP.ER.24H PO SCH (09:18)
[2019-10-26 11:23] LABS: Glucose,Whole Blood 193 mg/dL (75-99)
[2019-10-26] MEDS: MULTIVITAMINS, THERA 1 EACH TAB PO SCH (13:22)
[2019-10-26] MEDS: FOLIC ACID 1 MG TAB PO SCH (13:22)
--- NOTE | 2019-10-26 15:19 | PN ---
PROGRESS NOTE DATE OF SERVICE: 10/26/2019 This 84-year-old gentleman who was admitted with change in mental status and possible COPD, acute exacerbation, is being closely monitored. The confusion is still there but improving at this time. Neurology is following the patient closely. EEG was done which showed toxic metabolic encephalopathy. Patient is being closely monitored. No chest pain. No palpitations. No fever. PHYSICAL EXAMINATION: Alert and oriented x1. Pulse 61, blood pressure 121/57, respiration 20, temperature 97.9, pulse ox 91% on 2 L. HEENT: Conjunctivae normal. Oral mucosa moist. NECK: No jugular venous distention. No carotid bruit. CARDIOVASCULAR SYSTEM: S1, S2 muffled. RESPIRATORY SYSTEM: Breath sounds diminished at the bases. No rhonchi. No crackles. ABDOMEN: Soft, non-tender. LEGS: No edema. No swelling. NERVOUS SYSTEM: Diffusely weak. LABS: WBC 3.5, hemoglobin 10.9. Sodium ntd, potassium 5.6. ASSESSMENT: 1. Chronic obstructive pulmonary disease, acute exacerbation, with possible acute purulent tracheobronchitis or bronchopneumonia with possible sepsis, present on admission. 2. Change in mental status, metabolic encephalopathy, acute on chronic, multifactorial. 3. Hypothermia, present on admission, possibly related to sepsis, improving. 4. Hyperammonemia of undetermined significance. 5. Hyperkalemia, mild. 6. Right direct inguinal hernia without any complications. 7. History of dementia. 8. Anemia, normocytic; anemia of chronic disease. 9. Thrombocytopenia. 10.History of congestive heart failure; ejection fraction unknown. 11.Chronic obstructive pulmonary disease. 12.Hypertension. 13.History of memory impairment. 14.Hypothyroidism. 15.History of degenerative joint disease. 16.History of vitamin D deficiency. 17.History of urinary tract infections. 18.History of bipolar. 19.FULL CODE. RECOMMENDATIONS AND DISCUSSION: I recommend to continue current medications, continue with the monitoring, symptomatic treatment. Otherwise at this time I recommend continuing with the antibiotics. Aspiration precautions. Continue to follow. Prognosis guarded because of multiple complex medical issues. Further recommendations to follow. MMODL / IJN: [id number] / MTDD
[2019-10-26 17:34] LABS: Glucose,Whole Blood 112 mg/dL (75-99)
[2019-10-26 17:47] LABS: Glucose,Whole Blood 114 mg/dL (75-99)
[2019-10-26 20:45] LABS: Glucose,Whole Blood 200 mg/dL (75-99)
[2019-10-26] MEDS: traZODone HCL 50 MG TAB PO SCH (21:17)
[2019-10-26] MEDS: CHOLECALCIFEROL 1,000 UNIT TAB PO SCH (21:17)
[2019-10-26] MEDS: QUEtiapine 25 MG TAB PO SCH (21:17)
[2019-10-27] MEDS: methylPREDNISolone SOD SUCCI 40 MG/ML 1 ML VIAL IV SCH ×3 (00:28→20:20)
[2019-10-27 07:12] LABS: Glucose,Whole Blood 122 mg/dL (75-99)
[2019-10-27 07:26] LABS: Basophils % (A) 0 %; Eosinophils % (A) 0 %; HCT 32.2 % (39.0-53.0); HGB 10.4 gm/dL (13.0-17.5); Lymphocytes % (A) 17 %; MCH 32.4 pg (25.0-35.0); MCHC 32.5 g/dL (31.0-37.0); MCV 99.7 fL (80.0-100.0); Macrocytosis Slight; Mean Platelet Volume 8.8; Monocytes # (A) 0.3 k/uL (0-1.0); Monocytes % (A) 5 %; Neutrophils # (A) 4.4 k/uL (1.3-7.7); Neutrophils % (A) 76 %; Platelet Count 102 k/uL (150-450); RBC 3.23 m/uL (4.30-5.90); RDW 15.1 % (11.5-15.5); WBC 5.8 k/uL (3.8-10.6)
[2019-10-27 07:33] LABS: Calcium 8.6 mg/dL (8.4-10.2); Potassium 5.5 mmol/L (3.5-5.1)
[2019-10-27] MEDS: INSULIN ASPART (NovoLOG) 100 UNIT/ML VIAL SQ SCH ×4 (07:39→20:21)
[2019-10-27] MEDS: IPRATROPIUM-ALBUTEROL 3 ML NEB INHALATION SCH ×4 (08:21→19:40)
[2019-10-27] MEDS: LEVOTHYROXINE 50 MCG TAB PO SCH (09:07)
[2019-10-27] MEDS: amLODIPine 5 MG TAB PO SCH (09:07)
[2019-10-27] MEDS: DIVALPROEX ER 500 MG TAB.ER.24H PO SCH ×2 (09:07→20:21)
[2019-10-27] MEDS: PANTOPRAZOLE 40 MG TABLET PO SCH (09:07)
[2019-10-27] MEDS: LACTULOSE 20 GM/30 ML CUP PO SCH ×2 (09:07→20:20)
[2019-10-27] MEDS: MULTIVITAMINS, THERA 1 EACH TAB PO SCH (09:07)
[2019-10-27] MEDS: LORATADINE 10 MG TAB PO SCH (09:07)
[2019-10-27] MEDS: SENNOSIDES 8.6 MG TAB PO SCH ×2 (09:07→20:21)
[2019-10-27] MEDS: TAMSULOSIN 0.4 MG CAP.ER.24H PO SCH (09:07)
[2019-10-27] MEDS: FOLIC ACID 1 MG TAB PO SCH (09:08)
[2019-10-27] MEDS: HEPARIN SODIUM,PORCINE 5,000 UNIT/ML 1 ML VIAL SQ SCH ×2 (09:08→20:20)
[2019-10-27] MEDS: THIAMINE 100 MG TAB PO SCH (09:10)
[2019-10-27] MEDS: risperiDONE 2 MG TAB PO SCH ×2 (09:15→20:21)
[2019-10-27 11:26] LABS: Glucose,Whole Blood 112 mg/dL (75-99)
[2019-10-27 17:14] LABS: Glucose,Whole Blood 131 mg/dL (75-99)
[2019-10-27 20:20] LABS: Glucose,Whole Blood 129 mg/dL (75-99)
[2019-10-27] MEDS: traZODone HCL 50 MG TAB PO SCH (20:21)
[2019-10-27] MEDS: QUEtiapine 25 MG TAB PO SCH (20:21)
[2019-10-27] MEDS: CHOLECALCIFEROL 1,000 UNIT TAB PO SCH (20:21)
--- NOTE | 2019-10-27 20:38 | PN ---
PROGRESS NOTE DATE OF SERVICE: 10/27/2019 This 84-year-old gentleman who was admitted with COPD acute exacerbation, possible bronchopneumonia is being closely monitored. Sensorium is much improved with antibiotics. No chest pain. No palpitation. Patient continues to be confused. PHYSICAL EXAMINATION: Alert and oriented x1. Pulse 57, blood pressure 135/67, respiration 20, temperature 97.2, pulse ox 93% on 2 L. HEENT is conjunctivae normal. NECK: No JVD. CARDIOVASCULAR: S1, S2 muffled. RESPIRATIONS: Breath sound diminished in the bases. Bilateral scattered rhonchi and crackles. ABDOMEN is soft, nontender. LEGS are no edema. No swelling. CENTRAL NERVOUS SYSTEM: Diffusely weak. LAB STUDIES: WBC 5.2, hemoglobin 10.4. Sodium 130, potassium 5.5, glucose 106. ASSESSMENT: 1. Chronic obstructive pulmonary disease acute exacerbation with possible acute bronchopneumonia with gram-negative with possible sepsis present on admission. 2. Change in mental status, metabolic encephalopathy, acute on chronic multifactorial. 3. Hypothermia, present on admission possibly related to sepsis, improving. 4. Hyperammonemia of undetermined significance. 5. Hyperkalemia, mild. 6. Right direct inguinal hernia without any complications large. 7. History of dementia. 8. Anemia, normocytic anemia of chronic disease. 9. Thrombocytopenia. 10.History of congestive heart failure, ejection fraction unknown. 11.Chronic obstructive pulmonary disease. 12.Hypertension. 13.History of memory impairment. 14.Hypothyroidism. 15.History of degenerative joint disease. 16.History of vitamin D deficiency. 17.History urinary tract infection. 18.History of bipolar. 19.FULL CODE. RECOMMENDATIONS AND DISCUSSION: Continue current medications, monitoring and symptomatic treatment. Otherwise, continue with antibiotic, bronchodilators. We will taper the steroids at this time. PT/OT evaluation. If the patient qualifies, possibly ECF rehab. Guarded prognosis because of multiple complex medical issues. Further recommendations to follow. MMODL / IJN: [id number] /
[2019-10-28] MEDS: LEVOTHYROXINE 50 MCG TAB PO SCH (05:22)
[2019-10-28 06:57] LABS: Glucose,Whole Blood 80 mg/dL (75-99)
[2019-10-28] MEDS: INSULIN ASPART (NovoLOG) 100 UNIT/ML VIAL SQ SCH ×2 (07:22→13:09)
[2019-10-28] MEDS: IPRATROPIUM-ALBUTEROL 3 ML NEB INHALATION SCH ×2 (08:08→12:19)
[2019-10-28] MEDS: HEPARIN SODIUM,PORCINE 5,000 UNIT/ML 1 ML VIAL SQ SCH (08:24)
[2019-10-28] MEDS: methylPREDNISolone SOD SUCCI 40 MG/ML 1 ML VIAL IV SCH (08:24)
[2019-10-28] MEDS: LACTULOSE 20 GM/30 ML CUP PO SCH (08:24)
[2019-10-28] MEDS: amLODIPine 5 MG TAB PO SCH (08:25)
[2019-10-28] MEDS: THIAMINE 100 MG TAB PO SCH (08:25)
[2019-10-28] MEDS: DIVALPROEX ER 500 MG TAB.ER.24H PO SCH (08:25)
[2019-10-28] MEDS: TAMSULOSIN 0.4 MG CAP.ER.24H PO SCH (08:25)
[2019-10-28] MEDS: PANTOPRAZOLE 40 MG TABLET PO SCH (08:25)
[2019-10-28] MEDS: risperiDONE 2 MG TAB PO SCH (08:25)
[2019-10-28] MEDS: LORATADINE 10 MG TAB PO SCH (08:25)
[2019-10-28] MEDS: SENNOSIDES 8.6 MG TAB PO SCH (08:25)
[2019-10-28 11:36] VITALS: BP 125/60; PULSE 54; RESP 20; TEMP 97.5
[2019-10-28 11:46] LABS: Glucose,Whole Blood 146 mg/dL (75-99)
--- NOTE | 2019-10-28 11:48 | P.DS ---
Providers Date of admission: 10/22/19 11:42 Expected date of discharge: 10/28/19 Attending physician: Evy Guevara Consults: 10/21/19 15:40 Consult Physician Urgent Consulting Provider: Betzaida Valdovinos Reason/Comments: ams Do you want consulting provider notified?: Yes Primary care physician: Migue Rosenthal [facility] Course: Final diagnosis Chronic obstructive pulmonary disease acute exacerbation with possible acute bronchopneumonia with gram-negative with possible sepsis, present on admission Change in mental status, metabolic encephalopathy, acute on chronic multifacto rial Hypothymia, present on admission possibly related to sepsis Hyperammonemia of undetermined significance Hyperkalemia, mild Right direct inguinal hernia without any complications large History of dementia Anemia, normocytic anemia of chronic disease Thrombocytopenia History of congestive heart failure, ejection fraction unknown Chronic obstructive pulmonary disease Hypertension History of memory impairment Hypothyroidism history of degenerative joint disease History of vitamin D deficiency history of urinary tract infections history of bipolar full code Discharge disposition Patient is being discharged in a stable condition with guarded prognosis to [facility] for continued PT/OT therapy. Patient will follow-up with primary care provider Dr. Rosenthal in the outpatient setting upon discharge. Patient will continue on oral antibiotics in the form of Ceftin for the next 4 days and then may discontinue. Patient will also continue with the prednisone taper upon discharge. Total time taken is 35 minutes. History of present illness This is an 84-year-old male who was recently admitted with COPD acute exacerbation, hospital bronchopneumonia and was being closely monitored. Patient continues to be slightly confused but sensorium has improved since hospitalization admission with antibiotics. Patient is currently at his baseline and alert 1. Patient will continue with oral antibiotics in the form of Ceftin twice daily for the next 4 days and then may discontinue. Patient will also continue with the prednisone taper in the outpatient setting. During hospitalization patient had some mild hyperkalemia and potassium today is 5.5. Will need to continue with low potassium diet and repeat labs in 2-3 days to monitor potassium. Patient will continue with the dysphasia to ground diet with nectar thickened liquids, no straws, aspiration precautions, one-on-one supervision during eating. Currently patient's condition is stable and is ready for discharge to [facility] today. Guarded prognosis. On exam vital signs are stable. Temp is 97.5F, pulse is 54, respirations are 20, blood pressure is 125/60, oxygen saturation is 95% on 1 L via nasal cannula. Cardio S1, S2 are muffled. Respiratory system shows diminished breath sounds at the bases with a few scattered rhonchi and crackles noted bilaterally. Abdomen is soft and nontender. Nervous system shows mild to moderate diffuse weakness. Please refer to medication reconciliation sheet for a list of medications. Patient Condition at Discharge: Stable Plan - Discharge Summary Discharge Rx Participant: Yes New Discharge Prescriptions: New Cefuroxime Axetil [Ceftin] 500 mg PO BID 4 Days #8 tab Lactulose [Cephulac] 20 gm PO BID ml Folic Acid 1 mg PO DAILY@1200 tab Multivitamins, Thera [Multivitamin (formulary)] 1 each PO DAILY@1200 tab INSULIN ASPART (NovoLOG) [NovoLOG (formulary)] 0 unit SQ ACHS vial predniSONE 10 mg PO DIRECTED #30 tab Levothyroxine Sodium [Synthroid] 50 mcg PO DAILY@0630 tab Acetaminophen Tab [Tylenol] 650 mg PO Q6HR PRN tab PRN Reason: Mild Pain Or Fever > 100.5 Continue Loratadine [Claritin] 10 mg PO DAILY@0800 Cholecalciferol (Vitamin D3) [Vitamin D3] 2,000 unit PO HS@1999 #30 capsule Divalproex ER [Depakote ER] 500 mg PO BID@799,1999 #60 tab.er.24h risperiDONE [RisperDAL] 2 mg PO BID@799,1999 #20 tab Sennosides [Senna] 8.6 mg PO BID@799,1999 #20 tablet Tamsulosin HCl [Flomax] 0.4 mg PO DAILY@0800 #30 capsule Thiamine [Vitamin B-1] 100 mg PO DAILY@0800 #30 tab traZODone HCL [Desyrel] 50 mg PO HS@1999 #10 tab Ibuprofen [Motrin Ib] 200 mg PO Q6H PRN PRN Reason: Pain Famotidine [Pepcid] 20 mg PO BID@799,1999 QUEtiapine [SEROquel] 25 mg PO HS@1999 amLODIPine [Norvasc] 5 mg PO DAILY@0800 Ipratropium-Albuterol Nebulize [Duoneb 0.5 mg-3 mg/3 ml Soln] 3 ml INHALATION RT-Q4H PRN PRN Reason: Shortness Of Breath Discontinued Potassium Chloride ER [K-Dur 10] 10 meq PO DAILY@0800 PRN PRN Reason: Edema Levothyroxine Sodium 25 mcg PO DAILY@0600 #30 tablet Furosemide [Lasix] 40 mg PO DAILY@0800 PRN PRN Reason: Edema Discharge Medication List Loratadine [Claritin] 10 mg PO DAILY@0800 08/31/18 [History] Cholecalciferol (Vitamin D3) [Vitamin D3] 2,000 unit PO HS@1999 #30 capsule 09/08/18 [Rx] Divalproex ER [Depakote ER] 500 mg PO BID@08,1999 #60 tab.er.24h 09/08/18 [Rx] Sennosides [Senna] 8.6 mg PO BID@08,1999 #20 tablet 09/08/18 [Rx] Tamsulosin HCl [Flomax] 0.4 mg PO DAILY@0800 #30 capsule 09/08/18 [Rx] Thiamine [Vitamin B-1] 100 mg PO DAILY@0800 #30 tab 09/08/18 [Rx] risperiDONE [RisperDAL] 2 mg PO BID@08,1999 #20 tab 09/08/18 [Rx] traZODone HCL [Desyrel] 50 mg PO HS@1999 #10 tab 09/08/18 [Rx] Famotidine [Pepcid] 20 mg PO BID@08,199910/21/19 [History] Ibuprofen [Motrin Ib] 200 mg PO Q6H PRN 10/21/19 [History] Ipratropium-Albuterol Nebulize [Duoneb 0.5 mg-3 mg/3 ml Soln] 3 ml INHALATION RT-Q4H PRN 10/21/19 [History] QUEtiapine [SEROquel] 25 mg PO HS@199910/21/19 [History] amLODIPine [Norvasc] 5 mg PO DAILY@0800 10/21/19 [History] Acetaminophen Tab [Tylenol] 650 mg PO Q6HR PRN tab 10/28/19 [Rx] Cefuroxime Axetil [Ceftin] 500 mg PO BID 4 Days #8 tab 10/28/19 [Rx] Folic Acid 1 mg PO DAILY@1200 tab 10/28/19 [Rx] INSULIN ASPART (NovoLOG) [NovoLOG (formulary)] 0 unit SQ ACHS vial 10/28/19 [Rx] Lactulose [Cephulac] 20 gm PO BID ml 10/28/19 [Rx] Levothyroxine Sodium [Synthroid] 50 mcg PO DAILY@0630 tab 10/28/19 [Rx] Multivitamins, Thera [Multivitamin (formulary)] 1 each PO DAILY@1200 tab 10/28/19 [Rx] predniSONE 10 mg PO DIRECTED #30 tab 10/28/19 [Rx] Follow up Appointment(s)/Referral(s): Migue Rosenthal MD [Primary Care Provider] - 1-2 Days Ambulatory/Diagnostic Orders: Basic Metabolic Panel [LAB.AMB] Time Frame: 2 Days, Location: None Selected Activity/Diet/Wound Care/Special Instructions: Patient is going to [facility] as tolerated Take antibiotics until finished Follow up with primary care provider upon discharge Patient labs in 2-3 days Continue current diet of dysphagia to crown diet with nectar thick liquids, no straws, aspiration precautions, with one-on-one supervision Keep head of bed elevated 30-45 at all times to maintain aspiration precautions Discharge Disposition: TRANSFER TO SNF/ECF
[2019-10-28] MEDS: FOLIC ACID 1 MG TAB PO SCH (13:09)
[2019-10-28] MEDS: MULTIVITAMINS, THERA 1 EACH TAB PO SCH (13:09)
== END 2019-10-28 14:48 | DRG 871 ==
LOC: EC 12:49 → SUPCPDRO 12:49 → 5NMEDONC 15:40 → 6NMEDSUR 16:03 → 5NMEDONC 16:52 → OBSVTOIN 10-22 11:42
PROVIDERS: ADMIT Hospitalist; ATTEND Hospitalist
DX: A41.50 Gram-negative sepsis, unspecified (principal); J15.6 Pneumonia due to other Gram-negative bacteria; G92 Toxic encephalopathy; J44.0 Chronic obstructive pulmonary disease with (acute) lower respiratory infection; J44.1 Chronic obstructive pulmonary disease with (acute) exacerbation; E72.20 Disorder of urea cycle metabolism, unspecified; K40.90 Unilateral inguinal hernia, without obstruction or gangrene, not specified as recurrent; D63.8 Anemia in other chronic diseases classified elsewhere; D69.6 Thrombocytopenia, unspecified; E03.9 Hypothyroidism, unspecified; E55.9 Vitamin D deficiency, unspecified; E66.9 Obesity, unspecified; E86.0 Dehydration; E87.5 Hyperkalemia; F03.90 Unspecified dementia, unspecified severity, without behavioral disturbance, psychotic disturbance, mood disturbance, and anxiety; F41.9 Anxiety disorder, unspecified; I11.0 Hypertensive heart disease with heart failure; I50.9 Heart failure, unspecified; J20.9 Acute bronchitis, unspecified; M19.90 Unspecified osteoarthritis, unspecified site; Z68.30 Body mass index [BMI] 30.0-30.9, adult; Z79.890 Hormone replacement therapy; Z79.899 Other long term (current) drug therapy; Z80.3 Family history of malignant neoplasm of breast; Z87.440 Personal history of urinary (tract) infections; Z87.891 Personal history of nicotine dependence; Z96.642 Presence of left artificial hip joint; F10.11 Alcohol abuse, in remission; T68.XXXA Hypothermia, initial encounter
CPT/HCPCS: 36415; 70450; 71046; 80048; 80053; 80164; 81001; 82140; 82533; 82550; 82607; 83605; 84439; 84443; 84481; 84484; 85025; 85610; 85730; 87040; 87502; 93005; 94640; 94760; 95816; 96361; 96365; 99285

== ENCOUNTER 2019-11-25 17:59 | Inpatient (IN) | payer MEDICARE, BC ==
[2019-11-25] MEDS ORDERED: SODIUM CHLORIDE 0.9% 1,000 ML IV STA (18:20)
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
[2019-11-25 19:08] LABS: Basophils % (A) 0 %; Eosinophils # (A) 0.1 k/uL (0-0.7); Eosinophils % (A) 2 %; HGB 10.8 gm/dL (13.0-17.5); Lymphocytes # (A) 1.3 k/uL (1.0-4.8); Lymphocytes % (A) 20 %; MCH 32.1 pg (25.0-35.0); MCHC 31.9 g/dL (31.0-37.0); MCV 100.8 fL (80.0-100.0); Macrocytosis Slight; Mean Platelet Volume 8.2; Monocytes # (A) 0.7 k/uL (0-1.0); Monocytes % (A) 10 %; Neutrophils # (A) 4.2 k/uL (1.3-7.7); Neutrophils % (A) 65 %; Platelet Count 109 k/uL (150-450); RBC 3.37 m/uL (4.30-5.90); RDW 14.6 % (11.5-15.5); WBC 6.3 k/uL (3.8-10.6)
[2019-11-25 19:18] LABS: ALT 11 U/L (4-49); AST 22 U/L (17-59); African American GFR (CKD) 87 (>60 ml/min/1.73 sqM); Albumin 3.5 g/dL (3.5-5.0); Alkaline Phosphatase 61 U/L (38-126); Anion Gap 3 mmol/L; Blood Urea Nitrogen 32 mg/dL (9-20); Calcium 8.5 mg/dL (8.4-10.2); Carbon Dioxide 33 mmol/L (22-30); Chloride 105 mmol/L (98-107); Glucose 100 mg/dL (74-99); Non-African American GFR(CKD) 76 (>60 ml/min/1.73 sqM); Potassium 5.3 mmol/L (3.5-5.1); Sodium 141 mmol/L (137-145); Total Bilirubin <0.1 mg/dL (0.2-1.3); Total Protein 6.3 g/dL (6.3-8.2)
[2019-11-25 19:21] LABS: Appearance,Urine Clear (Clear); Bilirubin,Urine Negative (Negative); Blood,Urine Negative (Negative); Color,Urine Light Yellow; Glucose,Urine (UA) Negative (Negative); Ketones,Urine Negative (Negative); Leukocyte Esterase,Urine Negative (Negative); Nitrite,Urine Negative (Negative); Protein,Urine Negative (Negative); Specific Gravity,Urine 1.017 (1.001-1.035); Urobilinogen,Urine <2.0 mg/dL (<2.0)
--- NOTE | 2019-11-25 19:58 | CT ---
EXAMINATION TYPE: CT abdomen pelvis w con DATE OF EXAM: 11/25/2019 COMPARISON: None HISTORY: Testicular pain. CT DLP: 2167.7 mGycm Automated exposure control for dose reduction was used. CONTRAST: Performed with IV Contrast, patient injected with 100ml mL of Isovue 300. There is some mild pleural thickening and atelectasis at the lung bases. Heart is enlarged. There is no pericardial effusion. Liver shows no focal defect. Gallbladder is contracted. Spleen is intact. St omach is intact. There is no evidence of pancreatic mass. The bile ducts are not dilated. There is no adrenal mass. There is symmetric mild renal cortical atrophy. Ureters are not dilated. Th ere is 4 cm cortical cyst medial right kidney. There is no retroperitoneal adenopathy. Bladder disten ds smoothly. There is large right side scrotal hernia that contains multiple loops of small bowel. No evidence of bowel obstruction. Bladder distends smoothly. There is right hip prosthesis. There is no free fluid in the pelvis. There are phleboliths in the pelvis. There is atherosclerotic calcificatio n in the abdominal aorta and the branches. There is no mesenteric edema. There is no ascites or free air. There is no sign of a bowel obstructio n. Lumbar spine is intact. Bony pelvis appears intact. IMPRESSION: Mild pleural thickening and atelectasis at the lung bases. Large right side scrotal hernia contains incarcerated multiple small bowel loops. No evidence of a katelyn wel obstruction. Atherosclerotic vascular disease.
[2019-11-25] MEDS ORDERED: NALOXONE 0.4 MG/ML 1 ML VIAL IV PRN (22:23)
[2019-11-25] MEDS ORDERED: MORPHINE SULFATE 4 MG/ML SYRINGE IV PRN (22:23)
[2019-11-26] MEDS: SODIUM CHLORIDE 0.9% 1,000 ML IV SCH ×2 (05:43→16:10)
[2019-11-26 13:12] LABS: HGB 11.3 gm/dL (13.0-17.5); Hypochromasia Marked; MCH 32.6 pg (25.0-35.0); MCHC 29.7 g/dL (31.0-37.0); Macrocytosis Marked; Mean Platelet Volume 8.5; Platelet Count 114 k/uL (150-450); RBC 3.47 m/uL (4.30-5.90); RDW 14.3 % (11.5-15.5); WBC 5.6 k/uL (3.8-10.6)
[2019-11-26 13:14] LABS: MCV 109.7 fL (80.0-100.0)
[2019-11-26 13:22] LABS: Prothrombin Time 10.3 sec (9.0-12.0)
[2019-11-26 13:25] LABS: Albumin 3.7 g/dL (3.5-5.0); Calcium 8.5 mg/dL (8.4-10.2); Potassium 5.2 mmol/L (3.5-5.1); Total Bilirubin 0.2 mg/dL (0.2-1.3); Total Protein 6.8 g/dL (6.3-8.2)
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
[2019-11-26] MEDS: LACTATED RINGERS 1,000 ML IV SCH (16:06)
[2019-11-26] MEDS: HEPARIN SODIUM,PORCINE 5,000 UNIT/ML 1 ML VIAL SQ SCH (16:10)
[2019-11-26] MEDS ORDERED: SODIUM POLYSTYRENE SULFONATE 15 GM/60 ML BOTTLE PO STA (16:16)
[2019-11-26] MEDS: IPRATROPIUM-ALBUTEROL 3 ML NEB INHALATION PRN (16:24)
[2019-11-26] MEDS ORDERED: CALCIUM GLUCONATE 1 GM in SODIUM CHLORIDE 0.9% 100 ML IVPB ONE (16:30)
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
--- NOTE | 2019-11-26 19:35 | ECHOF ---
Referral Reason:chf MEASUREMENTS -------- HEIGHT: 175.3 cm WEIGHT: 90.7 kg BP: RVIDd: 4.7 cm (< 3.3) IVSd: 1.7 cm (0.6 - 1.1) LVIDd: 4.3 cm (3.9 - 5.3) LVPWd: 1.7 cm (0.6 - 1.1) IVSs: 1.7 cm LVIDs: 2.6 cm LVPWs: 2.2 cm LAESV Index (A-L): 42.48 ml/m Ao Diam: 3.4 cm (2.0 - 3.7) AV Cusp: 1.9 cm (1.5 - 2.6) MV EXCURSION: 14.036 mm (> 18.000) MV EF SLOPE: 51 mm/s (70 - 150) EPSS: 1.1 cm MV E Kingsley: 0.80 m/s MV DecT: 338 ms MV A Kingsley: 1.01 m/s MV E/A Ratio: 0.79 AV maxP.75 mmHg AV meanP.21 mmHg RAP: 5.00 mmHg RVSP: 19.36 mmHg FINDINGS -------- Sinus rhythm with extra systolic beats. This was a technically adequate study. The left ventricular size is normal. There is moderate concentric left ventricular hypertrophy. O verall left ventricular systolic function is normal with, an EF between 55 - 60 %. Mitral Doppler i nflow pattern suggests diastolic filling abnormality 20.18. The right ventricle is severely enlarged. LA is severely dilated >40 ml/m2 The right atrium is moderately enlarged. Interatrial and interventricular septum intact. There is no evidence of aortic regurgitation. There is mild aortic stenosis present. Peak/mean gr adient across the Aortic Valve is 21.75mmHg / 12.21mmHg. Mild mitral annular calcification present. [id number] mitral regurgitation is present. Mild tricuspid regurgitation present. There is no evidence of pulmonary hypertension. The right v entricular systolic pressure, as measured by Doppler, is 19.36mmHg. There is no pulmonic regurgitation present. The aortic root size is normal. IVC Not well visulized. There is no pericardial effusion. CONCLUSIONS -------- 1. Sinus rhythm with extra systolic beats. 2. This was a technically adequate study. 3. The left ventricular size is normal. 4. There is moderate concentric left ventricular hypertrophy. 5. Overall left ventricular systolic function is normal with, an EF between 55 - 60 %. 6. Mitral Doppler inflow pattern suggest diastolic filling abnormality 20.18. 7. The right ventricle is severely enlarged. 8. LA is severely dilated >40 ml/m2 9. The right atrium is moderately enlarged. 10. Interatrial and interventricular septum intact. 11. There is no evidence of aortic regurgitation. 12. There is mild aortic stenosis present. 13. Peak/mean gradient across the Aortic Valve is 21.75mmHg / 12.21mmHg. 14. Mild mitral annular calcification present. 15. [id number] mitral regurgitation is present. 16. Mild tricuspid regurgitation present. 17. There is no evidence of pulmonary hypertension. 18. The right ventricular systolic pressure, as measured by Doppler, is 19.36mmHg. 19. There is no pulmonic regurgitation present. 20. The aortic root size is normal. 21. IVC Not well visulized. 22. There is no pericardial effusion. LIBRARIAN HEAD: Delmis Arora RDCS
[2019-11-26] MEDS: LACTULOSE 20 GM/30 ML CUP PO SCH (20:45)
[2019-11-26] MEDS: QUEtiapine 25 MG TAB PO SCH (20:45)
[2019-11-26] MEDS: DIVALPROEX ER 500 MG TAB.ER.24H PO SCH (20:45)
[2019-11-26] MEDS: risperiDONE 2 MG TAB PO SCH (20:45)
[2019-11-26] MEDS: traZODone HCL 50 MG TAB PO SCH (20:45)
[2019-11-26] MEDS: SENNOSIDES 8.6 MG TAB PO SCH (20:46)
[2019-11-26 22:56] LABS: African American GFR (CKD) >90 (>60 ml/min/1.73 sqM); Anion Gap 1 mmol/L; Blood Urea Nitrogen 24 mg/dL (9-20); Calcium 8.4 mg/dL (8.4-10.2); Carbon Dioxide 33 mmol/L (22-30); Chloride 103 mmol/L (98-107); Glucose 72 mg/dL (74-99); Non-African American GFR(CKD) 86 (>60 ml/min/1.73 sqM); Potassium 5.5 mmol/L (3.5-5.1); Sodium 137 mmol/L (137-145)
[2019-11-27] MEDS: HEPARIN SODIUM,PORCINE 5,000 UNIT/ML 1 ML VIAL SQ SCH ×4 (01:44→23:51)
[2019-11-27] MEDS: SODIUM CHLORIDE 0.9% 1,000 ML IV SCH ×2 (01:44→16:44)
[2019-11-27] MEDS: LEVOTHYROXINE 50 MCG TAB PO SCH (05:33)
[2019-11-27] MEDS ORDERED: ONDANSETRON 4 MG/2 ML VIAL IVP ONE (06:00)
[2019-11-27] MEDS ORDERED: fentaNYL (PF) 50 MCG/ML 2 ML AMP IVP PRN (06:00)
[2019-11-27] MEDS ORDERED: MIDAZOLAM 2 MG/2 ML VIAL IV PRN ×2 (06:00→18:36)
[2019-11-27] MEDS ORDERED: DEXAMETHASONE SOD PHOSPHATE 10 MG/ML 1 ML VIAL IV ONE ×2 (06:00→18:36)
[2019-11-27] MEDS ORDERED: HYDROmorphone 0.5 MG/0.5 ML SYRINGE IVP PRN (06:00)
[2019-11-27] MEDS ORDERED: LIDOCAINE 1% (10MG/ML) FOR IV START INTRADERMA PRN ×2 (06:00→18:36)
[2019-11-27] MEDS: LACTULOSE 20 GM/30 ML CUP PO SCH ×3 (07:38→20:46)
[2019-11-27] MEDS: LORATADINE 10 MG TAB PO SCH (07:38)
[2019-11-27] MEDS: DIVALPROEX ER 500 MG TAB.ER.24H PO SCH ×3 (07:38→20:46)
[2019-11-27] MEDS: FOLIC ACID 1 MG TAB PO SCH (07:38)
[2019-11-27] MEDS: MULTIVITAMINS, THERA 1 EACH TAB PO SCH (07:38)
[2019-11-27] MEDS: SENNOSIDES 8.6 MG TAB PO SCH ×2 (07:39→20:46)
[2019-11-27] MEDS: THIAMINE 100 MG TAB PO SCH (07:39)
[2019-11-27 07:40] LABS: Basophils % (A) 0 %; Eosinophils # (A) 0.1 k/uL (0-0.7); Eosinophils % (A) 3 %; HCT 31.8 % (39.0-53.0); Lymphocytes # (A) 1.4 k/uL (1.0-4.8); Lymphocytes % (A) 30 %; MCH 31.9 pg (25.0-35.0); MCHC 31.3 g/dL (31.0-37.0); Macrocytosis Slight; Mean Platelet Volume 8.1; Monocytes # (A) 0.5 k/uL (0-1.0); Monocytes % (A) 11 %; Neutrophils # (A) 2.4 k/uL (1.3-7.7); Neutrophils % (A) 52 %; RBC 3.12 m/uL (4.30-5.90); RDW 14.4 % (11.5-15.5); WBC 4.7 k/uL (3.8-10.6)
[2019-11-27] MEDS: IPRATROPIUM-ALBUTEROL 3 ML NEB INHALATION PRN ×2 (07:41→20:49)
[2019-11-27 07:47] LABS: African American GFR (CKD) >90 (>60 ml/min/1.73 sqM); Anion Gap 2 mmol/L; Blood Urea Nitrogen 19 mg/dL (9-20); Calcium 7.9 mg/dL (8.4-10.2); Carbon Dioxide 32 mmol/L (22-30); Chloride 104 mmol/L (98-107); Glucose 80 mg/dL (74-99); Non-African American GFR(CKD) 86 (>60 ml/min/1.73 sqM); Sodium 138 mmol/L (137-145)
[2019-11-27] MEDS: TAMSULOSIN 0.4 MG CAP.ER.24H PO SCH (08:14)
[2019-11-27] MEDS: PANTOPRAZOLE 40 MG/10 ML VIAL IVP SCH (08:14)
[2019-11-27] MEDS: amLODIPine 5 MG TAB PO SCH (08:14)
[2019-11-27] MEDS: risperiDONE 2 MG TAB PO SCH ×2 (08:14→20:46)
[2019-11-27 08:31] LABS: MCV 101.9 fL (80.0-100.0)
[2019-11-27 09:07] LABS: Platelet Count 99 k/uL (150-450)
--- NOTE | 2019-11-27 15:16 | P.PN ---
Subjective Progress Note Date: 11/27/19 (delayed charting seen at 1015) Principal diagnosis: scrotal enlargement Patient is an 84-year-old male with a past medical history of memory impairment, congestive heart failure unknown type with no recent echo, COPD, hypertension, and hypothyroidism who presented to the emergency department and his assisted living secondary to swelling in his left testicle. In the ER he underwent an extensive evaluation. His initial laboratory analysis showed a hemoglobin of 10.8, platelets 109, potassium 5.3, carbon dioxide 33, BUN 32, glucose 100, bilirubin less than 0.1, AST 22, ALT 11, albumin of 3.5. Urinalysis was negative. CT abdomen and pelvis showed mild pleural thickening and atelectasis of the lung bases as well as a large right sided scrotal hernia containing incarcerated multiple small bowel loops with no evidence of bowel obstruction. He was admitted for further management. He was seen by surgery who recommended surgical treatment of hernia. He was noted to have mild hyperkalemia and had 2 runs of NSVT, he was given calcium gluconate and kayexelate. Patient seen and examined at bedside. He denies any abdominal pain, nausea, vomiting, chest pain, or shortness of breath. He feels as though his breathing is better than yesterday. Objective - Vital Signs Vital signs: Vital Signs Temp 98.3 F 11/27/19 07:00 Pulse 60 11/27/19 08:25 Resp 19 11/27/19 07:00 BP 153/83 11/27/19 07:00 Pulse Ox 95 11/27/19 07:47 Intake & Output 11/26/19 11/27/19 11/27/19 18:59 06:59 18:59 Output Total 450 1000 Balance -450 -1000 Output: Urine 450 1000 Other: Voiding Method Urinal Urinal # Voids 1 1 - Exam General: ill appearing, no distress, appears at stated age Derm: warm, dry Head: atraumatic, normocephalic, symmetric Eyes: EOMI, no lid lag, anicteric sclera Mouth: no lip lesion, mucus membranes moist Cardiovascular: S1S2 reg, no murmur, positive posterior tibial pulse bilateral, Lungs: rhonchi that clears with cough bilateral , no accessory muscle use Abdominal: soft, nontender to palpation, no guarding, no appreciable organomegaly, + scrotal swelling Ext: no gross muscle atrophy, no edema, no contractures Neuro: CN II-XI grossly intact, no focal neuro deficits Psych: Alert, oriented, appropriate affect - Labs CBC & Chem 7: 11/27/19 06:37 11/27/19 06:37 Labs: Abnormal Lab Results - Last 24 Hours (Table) 11/26/19 11/27/19 11/27/19 Range/Units 22:25 06:37 06:37 RBC 3.12 L (4.30-5.90) m/uL Hgb 10.0 L (13.0-17.5) gm/dL Hct 31.8 L (39.0-53.0) % MCV 101.9 H D (80.0-100.0) fL Plt Count 99 L (150-450) k/uL Potassium 5.5 H (3.5-5.1) mmol/L Carbon Dioxide 33 H 32 H (22-30) mmol/L BUN 24 H (9-20) mg/dL Glucose 72 L (74-99) mg/dL Calcium 7.9 L (8.4-10.2) mg/dL Assessment and Plan Assessment: Incarcerated right inguinal hernia -Pain control -Surgery recommendations: Plan is for surgery today -ACS- NSQIP shows 14.3% of serious complication risk, 16% overall complication risks, and 36.7% chance of postoperative delirium. Anticipated length of stay 2.5 days. Exercise capacity is less than 4 mets. Patient is at above average risk for surgery. No need for further testing at this time. -Echocardiogram ordered as part of perioperative risk stratification evaluation to determine appropriate fluid management in this patient. Thrombocytopenia, chronic and unchanged Anemia macrocytic chronic and unchanged -Follow CBC - check folate and B 12 - check TSH Compensated CHF, diastolic EF 55-60%, - no chronically on ACEi or BB - Monitor fluid status closel. COPD suspect severe, with chronic hypoxic respiratory failure - O2 as needed - continue wtih duoneb Memory impairment - safe and supportive environment - limit interrupations in sleep - appropriate post-op pain control Chronic- HTN Hypothyroidism Vit D Def Hyperkalemia undetermined etiology, resolved DVT prophylaxis: SCDs Discussed with: patient, nursing Anticipated discharge date: 3-[address]: [facility] A total of 25 minutes was spent on the care of this complex patient more than 50% of the time was spent in counseling and care coordination.
[2019-11-27] MEDS: LACTATED RINGERS 1,000 ML IV SCH (16:44)
[2019-11-27] MEDS ORDERED: fentaNYL (PF) 50 MCG/ML 2 ML AMP IV PRN (18:36)
[2019-11-27] MEDS: QUEtiapine 25 MG TAB PO SCH (20:45)
[2019-11-27] MEDS: traZODone HCL 50 MG TAB PO SCH (20:46)
[2019-11-28] MEDS: SODIUM CHLORIDE 0.9% 1,000 ML IV SCH ×2 (05:43→21:05)
[2019-11-28] MEDS: LEVOTHYROXINE 50 MCG TAB PO SCH (05:43)
[2019-11-28] MEDS: LACTATED RINGERS 1,000 ML IV SCH ×3 (07:26→20:59)
[2019-11-28] MEDS: FOLIC ACID 1 MG TAB PO SCH (07:27)
[2019-11-28] MEDS: LACTULOSE 20 GM/30 ML CUP PO SCH ×2 (07:27→21:04)
[2019-11-28] MEDS: MULTIVITAMINS, THERA 1 EACH TAB PO SCH (07:28)
[2019-11-28] MEDS: LORATADINE 10 MG TAB PO SCH (07:28)
[2019-11-28] MEDS: risperiDONE 2 MG TAB PO SCH ×2 (07:28→21:04)
[2019-11-28] MEDS: TAMSULOSIN 0.4 MG CAP.ER.24H PO SCH (07:29)
[2019-11-28] MEDS: DIVALPROEX ER 500 MG TAB.ER.24H PO SCH ×2 (07:29→21:04)
[2019-11-28] MEDS: SENNOSIDES 8.6 MG TAB PO SCH ×2 (07:29→21:04)
[2019-11-28] MEDS: amLODIPine 5 MG TAB PO SCH (07:29)
[2019-11-28] MEDS: THIAMINE 100 MG TAB PO SCH (07:29)
[2019-11-28 07:51] LABS: Basophils % (A) 0 %; Eosinophils % (A) 0 %; HGB 10.9 gm/dL (13.0-17.5); Lymphocytes # (A) 1.1 k/uL (1.0-4.8); Lymphocytes % (A) 22 %; MCH 32.1 pg (25.0-35.0); MCV 100.5 fL (80.0-100.0); Macrocytosis Slight; Mean Platelet Volume 8.5; Monocytes # (A) 0.2 k/uL (0-1.0); Monocytes % (A) 4 %; Neutrophils # (A) 3.5 k/uL (1.3-7.7); Neutrophils % (A) 73 %; Platelet Count 110 k/uL (150-450); RBC 3.38 m/uL (4.30-5.90); RDW 14.2 % (11.5-15.5); WBC 4.8 k/uL (3.8-10.6)
[2019-11-28] MEDS: HEPARIN SODIUM,PORCINE 5,000 UNIT/ML 1 ML VIAL SQ SCH ×2 (07:57→18:53)
[2019-11-28] MEDS: PANTOPRAZOLE 40 MG/10 ML VIAL IVP SCH (07:57)
[2019-11-28 08:13] LABS: African American GFR (CKD) >90 (>60 ml/min/1.73 sqM); Anion Gap 5 mmol/L; Blood Urea Nitrogen 18 mg/dL (9-20); Carbon Dioxide 31 mmol/L (22-30); Chloride 99 mmol/L (98-107); Glucose 111 mg/dL (74-99); Non-African American GFR(CKD) 86 (>60 ml/min/1.73 sqM); Potassium 5.7 mmol/L (3.5-5.1); Sodium 135 mmol/L (137-145)
[2019-11-28] MEDS ORDERED: IV FLUID CONTINUATION 1,000 ML IV ONE (10:20)
[2019-11-28] MEDS ORDERED: GLYCOPYRROLATE 0.2 MG/ML 2 ML VIAL ONE (11:44)
[2019-11-28] MEDS ORDERED: ROCURONIUM BROMIDE 10 MG/ML 5 ML VIAL IV ONE (11:44)
[2019-11-28] MEDS ORDERED: LIDOCAINE 1% INJ 10MG/ML (20 ML MDV) ONE (11:44)
[2019-11-28] MEDS ORDERED: PROPOFOL 10 MG/ML 20 ML VIAL IV ONE (11:44)
[2019-11-28] MEDS ORDERED: NEOSTIGMINE 1 MG/ML 10 ML VIAL ONE (11:44)
[2019-11-28] MEDS ORDERED: ePHEDrine SULFATE/0.9% NACL/PF 50 MG/5 ML SYRINGE IV ONE (11:44)
[2019-11-28] MEDS ORDERED: fentaNYL (PF) 50 MCG/ML 2 ML AMP ONE (11:44)
[2019-11-28] MEDS ORDERED: SODIUM CHLORIDE 0.9% 1,000 ML IV ONE (11:45)
[2019-11-28] MEDS ORDERED: ceFAZolin 1,000 MG VIAL IVPB ONE (11:50)
[2019-11-28] MEDS ORDERED: BUPIVACAINE (PF) 0.25% 30 ML VIAL SQ ONE ×2 (12:20)
[2019-11-28] MEDS ORDERED: LACTATED RINGERS 1,000 ML IV ONE (12:20)
[2019-11-28] MEDS ORDERED: HYDROmorphone 1 MG/ML 1 ML SYRINGE IM PRN (13:00)
[2019-11-28] MEDS: IPRATROPIUM-ALBUTEROL 3 ML NEB INHALATION PRN ×2 (15:34→19:05)
[2019-11-28 15:50] LABS: African American GFR (CKD) >90 (>60 ml/min/1.73 sqM); Anion Gap 4 mmol/L; Blood Urea Nitrogen 18 mg/dL (9-20); Calcium 8.1 mg/dL (8.4-10.2); Carbon Dioxide 30 mmol/L (22-30); Chloride 101 mmol/L (98-107); Glucose 131 mg/dL (74-99); Non-African American GFR(CKD) 86 (>60 ml/min/1.73 sqM); Potassium 5.2 mmol/L (3.5-5.1); Sodium 135 mmol/L (137-145)
--- NOTE | 2019-11-28 17:41 | P.PN ---
Subjective Progress Note Date: 11/28/19 (patient seen at 1600) Principal diagnosis: scrotal enlargement Patient is an 84-year-old male with a past medical history of memory impairment, congestive heart failure unknown type with no recent echo, COPD, hypertension, and hypothyroidism who presented to the emergency department and his assisted living secondary to swelling in his left testicle. In the ER he underwent an extensive evaluation. His initial laboratory analysis showed a hemoglobin of 10.8, platelets 109, potassium 5.3, carbon dioxide 33, BUN 32, glucose 100, bilirubin less than 0.1, AST 22, ALT 11, albumin of 3.5. Urinalysis was negative. CT abdomen and pelvis showed mild pleural thickening and atelectasis of the lung bases as well as a large right sided scrotal hernia containing incarcerated multiple small bowel loops with no evidence of bowel obstruction. He was admitted for further management. He was seen by surgery who recommended surgical treatment of hernia. He was noted to have mild hyperkalemia and had 2 runs of NSVT, he was given calcium gluconate and kayexelate. He underwent surgical resection on 11/27 without any immediate postoperative complications. Patient seen and examined at bedside. Patient currently denies any chest pain, shortness breath, nausea, or vomiting. He states that his abdominal pain is well controlled. He did not remember going to surgery. He states he feels very dry and is asking for water. Objective - Vital Signs Vital signs: Vital Signs Temp 96.7 F L 11/28/19 10:11 Pulse 54 L 11/28/19 15:47 Resp 18 11/28/19 15:00 BP 119/56 11/28/19 15:00 Pulse Ox 92 L 11/28/19 15:00 Intake & Output 11/27/19 11/28/19 11/28/19 18:59 06:59 18:59 Intake Total 1050 Output Total 1075 275 Balance -1075 775 Weight 90.718 kg Intake: IV 1050 Output: Urine 1075 250 Estimated Blood Loss 25 Other: Voiding Method Urinal Urinal # Voids 1 - Exam General: non toxic, no distress, appears at stated age Derm: warm, dry Head: atraumatic, normocephalic, symmetric Eyes: EOMI, no lid lag, anicteric sclera Mouth: no lip lesion, mucus membranes moist Cardiovascular: S1S2 reg, no murmur, positive posterior tibial pulse bilateral, Lungs: rhonchi that clears with cough bilateral , no accessory muscle use Abdominal: soft, nontender to palpation, no guarding, no appreciable organome rory, + scrotal swelling Ext: no gross muscle atrophy, no edema, no contractures Neuro: CN II-XI grossly intact, no focal neuro deficits Psych: Alert, oriented, appropriate affect - Labs CBC & Chem 7: 11/28/19 06:59 11/28/19 15:10 Labs: Abnormal Lab Results - Last 24 Hours (Table) 11/28/19 11/28/19 11/28/19 Range/Units 06:59 06:59 15:10 RBC 3.38 L (4.30-5.90) m/uL Hgb 10.9 L (13.0-17.5) gm/dL Hct 34.0 L (39.0-53.0) % MCV 100.5 H (80.0-100.0) fL Plt Count 110 L (150-450) k/uL Sodium 135 L 135 L (137-145) mmol/L Potassium 5.7 H 5.2 H (3.5-5.1) mmol/L Carbon Dioxide 31 H (22-30) mmol/L Glucose 111 H 131 H (74-99) mg/dL Calcium 8.0 L 8.1 L (8.4-10.2) mg/dL Vitamin B12 1151.0 H (200.0-944.0) pg/mL Assessment and Plan Assessment: Incarcerated right inguinal hernia s/p repair -Pain control -Surgery recommendations - on regular diet Thrombocytopenia, chronic and unchanged Anemia macrocytic chronic and unchanged -Follow CBC - Folate pending and B 12 normal - check TSH - check depakote level Hyperkalemia undetermined etiology, recurrent - continue IVF - repeat in AM Compensated CHF, diastolic EF 55-60%, - no chronically on ACEi or BB - Monitor fluid status closely COPD suspect severe, with chronic hypoxic respiratory failure - O2 as needed - continue wtih duoneb Memory impairment - safe and supportive environment - limit interruptions in sleep - appropriate post-op pain control Chronic- HTN Hypothyroidism Vit D Def DVT prophylaxis: SCDs Discussed with: patient, nursing Anticipated discharge date: 2-[address]: f A total of 25 minutes was spent on the care of this complex patient more than 50% of the time was spent in counseling and care coordination.
[2019-11-28] MEDS: QUEtiapine 25 MG TAB PO SCH (21:03)
[2019-11-28] MEDS: traZODone HCL 50 MG TAB PO SCH (21:04)
[2019-11-29] MEDS: HYDROmorphone 1 MG/ML 1 ML SYRINGE IVP PRN ×2 (01:15→05:41)
[2019-11-29] MEDS: SODIUM CHLORIDE 0.9% 1,000 ML IV SCH (01:16)
[2019-11-29] MEDS: HEPARIN SODIUM,PORCINE 5,000 UNIT/ML 1 ML VIAL SQ SCH ×3 (01:16→16:38)
[2019-11-29] MEDS: LEVOTHYROXINE 50 MCG TAB PO SCH (05:41)
[2019-11-29] MEDS: FOLIC ACID 1 MG TAB PO SCH (07:45)
[2019-11-29] MEDS: THIAMINE 100 MG TAB PO SCH (07:45)
[2019-11-29] MEDS: SENNOSIDES 8.6 MG TAB PO SCH ×2 (07:45→20:04)
[2019-11-29] MEDS: MULTIVITAMINS, THERA 1 EACH TAB PO SCH (07:45)
[2019-11-29] MEDS: risperiDONE 2 MG TAB PO SCH ×2 (07:45→20:05)
[2019-11-29] MEDS: amLODIPine 5 MG TAB PO SCH (07:45)
[2019-11-29] MEDS: TAMSULOSIN 0.4 MG CAP.ER.24H PO SCH (07:45)
[2019-11-29] MEDS: LORATADINE 10 MG TAB PO SCH (07:50)
[2019-11-29] MEDS: DIVALPROEX ER 500 MG TAB.ER.24H PO SCH ×2 (07:50→20:05)
[2019-11-29] MEDS: LACTULOSE 20 GM/30 ML CUP PO SCH (07:51)
[2019-11-29] MEDS: PANTOPRAZOLE 40 MG/10 ML VIAL IVP SCH (07:52)
[2019-11-29 08:11] LABS: Basophils % (A) 0 %; Eosinophils % (A) 0 %; HCT 33.4 % (39.0-53.0); HGB 10.5 gm/dL (13.0-17.5); Lymphocytes % (A) 15 %; MCH 32.2 pg (25.0-35.0); MCHC 31.5 g/dL (31.0-37.0); MCV 101.9 fL (80.0-100.0); Macrocytosis Slight; Mean Platelet Volume 8.4; Monocytes # (A) 0.8 k/uL (0-1.0); Monocytes % (A) 11 %; Neutrophils # (A) 4.7 k/uL (1.3-7.7); Neutrophils % (A) 71 %; Platelet Count 104 k/uL (150-450); RBC 3.27 m/uL (4.30-5.90); RDW 14.5 % (11.5-15.5); WBC 6.7 k/uL (3.8-10.6)
[2019-11-29 08:22] LABS: African American GFR (CKD) >90 (>60 ml/min/1.73 sqM); Anion Gap 4 mmol/L; Blood Urea Nitrogen 22 mg/dL (9-20); Calcium 8.1 mg/dL (8.4-10.2); Carbon Dioxide 32 mmol/L (22-30); Chloride 101 mmol/L (98-107); Glucose 86 mg/dL (74-99); Non-African American GFR(CKD) 81 (>60 ml/min/1.73 sqM); Potassium 5.3 mmol/L (3.5-5.1); Sodium 137 mmol/L (137-145)
[2019-11-29 09:15] LABS: Valproic Acid (Depakene) 37.8 ug/mL
[2019-11-29 09:27] LABS: T4, Free (Free Thyroxine) 0.88 ng/dL (0.78-2.19)
[2019-11-29] MEDS ORDERED: ACETAMINOPHEN TAB 325 MG TAB PO PRN (11:39)
--- NOTE | 2019-11-29 11:39 | P.PN ---
Subjective Progress Note Date: 11/29/19 CHIEF COMPLAINT: Inguinal hernia HISTORY OF PRESENT ILLNESS: Patient is status post repair of right inguinal hernia. Postop day #1. Patient examined this morning. He is sitting up in the chair. Patient is somewhat lethargic this morning. He states he did not sleep well overnight. He is tolerating diet without nausea or vomiting. He states his pain is tolerable this morning. Vital signs are stable. He is afebrile. PHYSICAL EXAM: VITAL SIGNS: Reviewed. GENERAL: Well-developed in no acute distress. HEENT: No sclera icterus. Extraocular movements grossly intact. Moist buccal mucosa. Head is atraumatic, normocephalic. ABDOMEN: Soft. Nondistended. Surgical incision to right groin clean dry and intact. NEUROLOGIC: Alert and oriented. Cranial nerves II through XII grossly intact. ASSESSMENT: 1. Large incarcerated right inguinal hernia extending into the scrotum PLAN: -Continue diet as tolerated -Pain control -Incentive spirometer 10 times an hour -Activity as tolerated -Medical management per [place] [facility] hospitalist Nurse practitioner note has been reviewed by physician. Signing provider agrees with the documented findings, assessment, and plan of care. Objective - Vital Signs Vital signs: Vital Signs Temp 96.4 F L 11/29/19 07:30 Pulse 67 11/29/19 07:30 Resp 17 11/29/19 07:40 BP 118/65 11/29/19 07:30 Pulse Ox 93 L 11/29/19 07:30 Intake & Output 11/28/19 11/29/19 11/29/19 18:59 06:59 18:59 Intake Total 1050 900 Output Total 275 Balance 775 900 Weight 90.718 kg Intake: IV 1050 Intake, IV Titration 900 Amount Sodium Chloride 0.9% 1, 900 000 ml @ 75 mls/hr IV . [id number] [facility] Rx#:[id number] Output: Urine 250 Estimated Blood Loss 25 Other: Voiding Method Urinal - Labs CBC & Chem 7: 11/29/19 07:33 11/29/19 07:33 Labs: Abnormal Lab Results - Last 24 Hours (Table) 11/28/19 11/28/19 11/29/19 Range/Units 06:59 15:10 07:33 RBC 3.27 L (4.30-5.90) m/uL Hgb 10.5 L (13.0-17.5) gm/dL Hct 33.4 L (39.0-53.0) % MCV 101.9 H (80.0-100.0) fL Plt Count 104 L (150-450) k/uL Sodium 135 L (137-145) mmol/L Potassium 5.2 H (3.5-5.1) mmol/L Carbon Dioxide (22-30) mmol/L BUN (9-20) mg/dL Glucose 131 H (74-99) mg/dL Calcium 8.1 L (8.4-10.2) mg/dL Vitamin B12 1151.0 H (200.0-944.0) pg/mL TSH (0.465-4.680) mIU/L 11/29/19 Range/Units 07:33 RBC (4.30-5.90) m/uL Hgb (13.0-17.5) gm/dL Hct (39.0-53.0) % MCV (80.0-100.0) fL Plt Count (150-450) k/uL Sodium (137-145) mmol/L Potassium 5.3 H (3.5-5.1) mmol/L Carbon Dioxide 32 H (22-30) mmol/L BUN 22 H (9-20) mg/dL Glucose (74-99) mg/dL Calcium 8.1 L (8.4-10.2) mg/dL Vitamin B12 (200.0-944.0) pg/mL TSH 7.000 H (0.465-4.680) mIU/L
[2019-11-29] MEDS: IPRATROPIUM-ALBUTEROL 3 ML NEB INHALATION PRN (12:03)
[2019-11-29] MEDS: LACTATED RINGERS 1,000 ML IV SCH ×2 (12:04→16:38)
--- NOTE | 2019-11-29 12:24 | XR ---
EXAMINATION TYPE: XR chest 1V DATE OF EXAM: 11/29/2019 COMPARISON: 10/21/2019 HISTORY: Fluid overload. Shortness of breath. TECHNIQUE: Single frontal view of the chest is obtained. FINDINGS: Calcific pleural plaquing along the right hemidiaphragm. Pulmonary hyperinflation of under lying COPD. The cardiac silhouette size is enlarged with the superior vena cava/azygos confluence new ly dilated from the prior. New trace pleural effusions blunt the costophrenic angles. Possible left b asilar lung nodule versus nipple shadow. New linear right basilar airspace disease. Diffuse osseous d emineralization. IMPRESSION: 1. Progressively enlarged cardiomediastinal silhouette in comparison to the prior, possibly partially due to rotation. This could also be due to fluid overload with engorgement of the superior vena cava . Repeat x-ray with improved positioning could be performed. 2. Trace bilateral pleural effusions are new with new right basilar linear airspace disease, likely a telectasis. 3. Left basilar pulmonary nodule versus overlying nipple shadow. Attention on follow-up exams.
[2019-11-29] MEDS: HYDROcodone/APAP 5-325MG 1 EACH TAB PO PRN ×2 (14:04→20:04)
[2019-11-29] MEDS ORDERED: FUROSEMIDE 10 MG/ML 4 ML VIAL IV STA (14:15)
--- NOTE | 2019-11-29 16:22 | P.PN ---
Subjective Progress Note Date: 11/29/19 (delayed charting seen at 1000) Principal diagnosis: scrotal enlargement Patient is an 84-year-old male with a past medical history of memory impairment, congestive heart failure diastolic EF 55%, COPD, hypertension, and hypothyroidism who presented to the emergency department from his assisted living secondary to swelling in his left testicle. In the ER he underwent an extensive evaluation. His initial laboratory analysis showed a hemoglobin of 10.8, platelets 109, potassium 5.3, carbon dioxide 33, BUN 32, glucose 100, bilirubin less than 0.1, AST 22, ALT 11, albumin of 3.5. Urinalysis was negative. CT abdomen and pelvis showed mild pleural thickening and atelectasis of the lung bases as well as a large right sided scrotal hernia containing incarcerated multiple small bowel loops with no evidence of bowel obstruction. He was admitted for further management. He was seen by surgery who recommended surgical treatment of hernia. He was noted to have mild hyperkalemia and had 2 runs of NSVT, he was given calcium gluconate and kayexelate. He underwent arriola rgical resection on 11/27 without any immediate postoperative complications. He had decreased urine output with urinary retention and required a gan cath placed. Patient seen and examined at bedside. He denies any chest pain or shortness of breath or he looks dyspneic on exam, denies any abdominal pain, no nausea, no vomiting, no bowel movement yet since surgery. Objective - Vital Signs Vital signs: Vital Signs Temp 96.4 F L 11/29/19 07:30 Pulse 60 11/29/19 12:14 Resp 17 11/29/19 07:40 BP 118/65 11/29/19 07:30 Pulse Ox 93 L 11/29/19 07:30 Intake & Output 11/28/19 11/29/19 11/29/19 18:59 06:59 18:59 Intake Total 1050 900 Output Total 275 Balance 775 900 Weight 90.718 kg Intake: IV 1050 Intake, IV Titration 900 Amount Sodium Chloride 0.9% 1, 900 000 ml @ 75 mls/hr IV . [id number] [facility] Rx#:[id number] Output: Urine 250 Estimated Blood Loss 25 Other: Voiding Method Urinal - Exam General: non toxic, no distress, appears at stated age Derm: warm, dry Head: atraumatic, normocephalic, symmetric Eyes: EOMI, no lid lag, anicteric sclera Mouth: no lip lesion, mucus membranes moist, + lip lesion Cardiovascular: S1S2 reg, no murmur, positive posterior tibial pulse bilateral, Lungs: Crackles bilateral,+ accessory muscle use Abdominal: soft, nontender to palpation, no guarding, no appreciable organomegaly, no scrotal swelling , right lower quadrant bikini line incision Ext: no gross muscle atrophy, no edema, no contractures Neuro: CN II-XI grossly intact, no focal neuro deficits Psych: Alert, oriented, appropriate affect - Labs CBC & Chem 7: 11/29/19 07:33 11/29/19 07:33 Labs: Abnormal Lab Results - Last 24 Hours (Table) 11/28/19 11/29/19 11/29/19 Range/Units 06:59 07:33 07:33 RBC 3.27 L (4.30-5.90) m/uL Hgb 10.5 L (13.0-17.5) gm/dL Hct 33.4 L (39.0-53.0) % MCV 101.9 H (80.0-100.0) fL Plt Count 104 L (150-450) k/uL Potassium 5.3 H (3.5-5.1) mmol/L Carbon Dioxide 32 H (22-30) mmol/L BUN 22 H (9-20) mg/dL Calcium 8.1 L (8.4-10.2) mg/dL Vitamin B12 1151.0 H (200.0-944.0) pg/mL TSH 7.000 H (0.465-4.680) mIU/L Assessment and Plan Assessment: Incarcerated right inguinal hernia s/p repair -Pain control -Surgery recommendations - on regular diet Acute on chronic hypoxic respiratory failure -Continue with O2 -Chest x-ray shows fluid overload -Lasix Thrombocytopenia, chronic and unchanged Anemia macrocytic chronic and unchanged -Follow CBC - Folate pending and B 12 normal -TSH slightly elevated and may be secondary to stress. Repeat in 4-6 weeks to increase levothyroxine - Depakote level normal Hyperkalemia undetermined etiology, recurrent -Lasix 1 - repeat in AM Acute on chronic CHF, diastolic EF 55-60%, - no chronically on ACEi or BB -Lasix -Follow fluid status closely Acute urinary retention -Gan catheter -Concerns of abdominal distention will check upright abdominal x-ray COPD without exacerbation - O2 as needed - continue with duoneb Memory impairment - safe and supportive environment - limit interruptions in sleep - appropriate post-op pain control Chronic- HTN Hypothyroidism Vit D Def DVT prophylaxis: SCDs Discussed with: patient, nursing Anticipated discharge date: 1-[address]: [facility] A total of 25 minutes was spent on the care of this complex patient more than 50% of the time was spent in counseling and care coordination.
[2019-11-29] MEDS: IPRATROPIUM-ALBUTEROL 3 ML NEB INHALATION SCH ×3 (16:50→21:05)
--- NOTE | 2019-11-29 18:20 | XR ---
EXAMINATION TYPE: XR abdomen 2V DATE OF EXAM: 11/29/2019 COMPARISON: 06/12/2013 HISTORY: Abdominal pain. Surgery. TECHNIQUE: 3 views supine and upright FINDINGS: There is blunting of the costophrenic angles. Heart appears enlarged. There is probably inf iltrate left lower lobe. There is gas in multiple loops of large and small bowel. I see no sign of a mechanical bowel obstruction. There is increased density over the abdomen that could relate to ascite s. IMPRESSION: Possible ascites. No free air. No sign of a mechanical bowel obstruction. Pleural effusio ns and cardiomegaly could relate to some congestive heart failure.
[2019-11-29] MEDS: traZODone HCL 50 MG TAB PO SCH (20:04)
[2019-11-29] MEDS: QUEtiapine 25 MG TAB PO SCH (20:05)
[2019-11-29] MEDS: FUROSEMIDE 10 MG/ML 4 ML VIAL IV SCH (20:17)
[2019-11-30] MEDS: HEPARIN SODIUM,PORCINE 5,000 UNIT/ML 1 ML VIAL SQ SCH ×3 (00:01→16:13)
[2019-11-30] MEDS: IPRATROPIUM-ALBUTEROL 3 ML NEB INHALATION SCH ×7 (00:01→23:56)
[2019-11-30] MEDS: HYDROcodone/APAP 5-325MG 1 EACH TAB PO PRN ×2 (02:39→21:06)
[2019-11-30] MEDS: LEVOTHYROXINE 50 MCG TAB PO SCH (05:34)
[2019-11-30 07:35] LABS: HGB 10.7 gm/dL (13.0-17.5); MCH 32.7 pg (25.0-35.0); MCHC 32.4 g/dL (31.0-37.0); MCV 101.1 fL (80.0-100.0); Macrocytosis Slight; Mean Platelet Volume 8.7; Platelet Count 106 k/uL (150-450); RBC 3.27 m/uL (4.30-5.90); RDW 14.6 % (11.5-15.5); WBC 9.7 k/uL (3.8-10.6)
[2019-11-30 07:47] LABS: Calcium 8.3 mg/dL (8.4-10.2); Magnesium 1.9 mg/dL (1.6-2.3); Potassium 5.5 mmol/L (3.5-5.1)
[2019-11-30] MEDS: PANTOPRAZOLE 40 MG TABLET PO SCH (08:55)
[2019-11-30] MEDS: MULTIVITAMINS, THERA 1 EACH TAB PO SCH (08:55)
[2019-11-30] MEDS: LORATADINE 10 MG TAB PO SCH (08:55)
[2019-11-30] MEDS: TAMSULOSIN 0.4 MG CAP.ER.24H PO SCH (08:55)
[2019-11-30] MEDS: amLODIPine 5 MG TAB PO SCH (08:55)
[2019-11-30] MEDS: THIAMINE 100 MG TAB PO SCH (08:55)
[2019-11-30] MEDS: FOLIC ACID 1 MG TAB PO SCH (08:55)
[2019-11-30] MEDS: FUROSEMIDE 10 MG/ML 4 ML VIAL IV SCH (08:56)
[2019-11-30] MEDS: risperiDONE 2 MG TAB PO SCH ×2 (08:56→20:57)
[2019-11-30] MEDS: DIVALPROEX ER 500 MG TAB.ER.24H PO SCH ×2 (08:56→20:57)
[2019-11-30] MEDS: SENNOSIDES 8.6 MG TAB PO SCH ×2 (08:56→20:57)
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
[2019-11-30] MEDS ORDERED: ALBUTEROL NEB (CONC) 2.5 MG/0.5 ML INHALATION ONE (13:30)
[2019-11-30] MEDS ORDERED: INSULIN REGULAR 100 UNIT/ML VIAL IV ONE (13:30)
[2019-11-30] MEDS ORDERED: DEXTROSE 50% SYRINGE 50 ML IVP ONE (13:30)
[2019-11-30 13:54] LABS: Glucose,Whole Blood 97 mg/dL (75-99)
[2019-11-30] MEDS: SODIUM CHLORIDE 0.9% 1,000 ML IV SCH (13:56)
[2019-11-30] MEDS: LACTULOSE 20 GM/30 ML CUP PO SCH ×2 (13:57→20:56)
--- NOTE | 2019-11-30 13:58 | P.PN ---
Subjective Progress Note Date: 11/30/19 (delayed charting seen at 1100) Principal diagnosis: scrotal enlargement Patient is an 84-year-old male with a past medical history of memory impairment, congestive heart failure diastolic EF 55%, COPD, hypertension, and hypothyroidism who presented to the emergency department from his assisted living secondary to swelling in his left testicle. In the ER he underwent an extensive evaluation. His initial laboratory analysis showed a hemoglobin of 10.8, platelets 109, potassium 5.3, carbon dioxide 33, BUN 32, glucose 100, bilirubin less than 0.1, AST 22, ALT 11, albumin of 3.5. Urinalysis was negative. CT abdomen and pelvis showed mild pleural thickening and atelectasis of the lung bases as well as a large right sided scrotal hernia containing incarcerated multiple small bowel loops with no evidence of bowel obstruction. He was admitted for further management. He was seen by surgery who recommended surgical treatment of hernia. He was noted to have mild hyperkalemia and had 2 runs of NSVT, he was given calcium gluconate and kayexelate. He underwent arriola rgical resection on 11/27 without any immediate postoperative complications. He had decreased urine output with urinary retention and required a gan cath placed. He developed worsening shortness of breath with crackles and possible aspiration event on 11/28. His CXR showed possible fluid overload. His fluids were stopped and he was started on IV lasix. He was also started on scheduled bronchodilators. He had some improvement in his breath. He was seen by speech and switched to a dysphagia II diet. He had a distended abdomen KUB was ordered which showed no signs of mechanical bowel obstruction with pleural effusions and possible ascities. Due to his abdominal distension and possible aspiration event he was transitioned to a clear liquid diet and his lactulose was held. On the morning of 11/29 his abdomen was still distended, he did not improvement despite diuresis. His potassium had increased more and nephrology was consulted. Patient seen and examined at bedside. He states that his breathing is easier than yesterday and his left shoulder breath, no chest pain, complains of abdominal pain at his incisional site, denies any nausea or vomiting, not feeling hungry. Objective - Vital Signs Vital signs: Vital Signs Temp 97.9 F 11/30/19 08:10 Pulse 76 11/30/19 11:33 Resp 18 11/30/19 08:10 BP 121/67 11/30/19 08:10 Pulse Ox 90 L 11/30/19 08:10 Intake & Output 11/29/19 11/30/19 11/30/19 18:59 06:59 18:59 Intake Total 100 Output Total 100 1999 700 Balance -100 -1900 -700 Intake: Oral 100 Output: Urine 100 1999 700 Other: Voiding Method Urinal Indwelling Catheter Indwelling Catheter - Exam General: non toxic, no distress, appears at stated age Derm: warm, dry Head: atraumatic, normocephalic, symmetric Eyes: EOMI, no lid lag, anicteric sclera Mouth: no lip lesion, mucus membranes moist, + lip lesion Cardiovascular: S1S2 reg, no murmur, positive posterior tibial pulse bilateral, Lungs: ronchi bilateral, no accessory muscle use Abdominal: soft, + tender to palpation diffusely, no guarding, no appreciable organomegaly, no scrotal swelling , right lower quadrant with dressing in place Ext: no gross muscle atrophy, 1+ edema, no contractures Neuro: CN II-XI grossly intact, no focal neuro deficits Psych: Alert, oriented, appropriate affect - Labs CBC & Chem 7: 11/30/19 06:47 11/30/19 06:47 Labs: Abnormal Lab Results - Last 24 Hours (Table) 11/28/19 11/30/19 11/30/19 Range/Units 06:59 06:47 06:47 RBC 3.27 L (4.30-5.90) m/uL Hgb 10.7 L (13.0-17.5) gm/dL Hct 33.0 L (39.0-53.0) % MCV 101.1 H (80.0-100.0) fL Plt Count 106 L (150-450) k/uL Sodium 136 L (137-145) mmol/L Potassium 5.5 H (3.5-5.1) mmol/L Carbon Dioxide 32 H (22-30) mmol/L BUN 26 H (9-20) mg/dL Calcium 8.3 L (8.4-10.2) mg/dL RBC Folate 1,043 H (280 - 791) ng/mL Assessment and Plan Assessment: Incarcerated right inguinal hernia s/p repair -Pain control -Surgery recommendations - on regular diet Abdominal distension - initially US ordered and then nephro recommended CT - clear liquids - resume lactulose - await surgery evaluation Acute on chronic hypoxic respiratory failure -Continue with O2 - wean O2 as able Hyperkalemia undetermined etiology, recurrent - consult nephro - taken off lasix and started on IVF due to increasing Cr. Thrombocytopenia, chronic and unchanged Anemia macrocytic chronic and unchanged - Follow CBC - Folate high and B 12 normal -TSH slightly elevated and may be secondary to stress. Repeat in 4-6 weeks to increase levothyroxine - Depakote level normal Acute on chronic CHF, diastolic EF 55-60%, - not chronically on ACEi or BB - lasix stopped by nephro - Follow fluid status closely Acute urinary retention -Gan catheter COPD without exacerbation - O2 as needed - continue with duoneb Memory impairment - safe and supportive environment - limit interruptions in sleep - appropriate post-op pain control Chronic- HTN Hypothyroidism Vit D Def DVT prophylaxis: SCDs Discussed with: patient, nursing Anticipated discharge date: 1-[address]: [facility] A total of 25 minutes was spent on the care of this complex patient more than 50% of the time was spent in counseling and care coordination.
[2019-11-30] MEDS: HYDROmorphone 1 MG/ML 1 ML SYRINGE IVP PRN (14:14)
--- NOTE | 2019-11-30 14:41 | P.PN ---
Subjective Progress Note Date: 11/30/19 CHIEF COMPLAINT: Right inguinal hernia HISTORY OF PRESENT ILLNESS: The patient is a 84-year-old male status post right inguinal hernia repair with orchiectomy, 11/28/2019. No complaints. Pain is cont rolled. ROS: No reports of nausea and vomiting. No fevers or chills. No new chest pain. No productive sputum PHYSICAL EXAM: VITAL SIGNS: Reviewed CONSTITUTIONAL: Well developed and in no acute distress. EYES: Conjuctivae without sclera icterus. Extraocular movements grossly intact. HEAD, EARS, NOSE, THROAT: Moist buccal mucosa. Head is atraumatic, normocephalic. Hears conversational speech. No nasal drainage. NECK: Supple. No thyroidomegaly. RESPIRATORY: Non-labored respirations and equal bilateral excursions. CARDIOVASCULAR: Palpable 2+ radial pulses. Regular rate. Regular rhythm. ABDOMEN: Incisions clean dry and intact. Soft. No peritonitis. MUSCULOSKELETAL: No gross deformity of the lower extremities noted. No clubbing. No cyanosis. SKIN: Good skin turgor. Well perfused. NEUROLOGIC: Cranial nerves I through XII grossly intact. No focal or lateralizing signs. PSYCH: Alert and oriented to person : Gaines present, clear and yellow. CLINICAL LABS: White blood cell count normal at 9.7. Hemoglobin 10.7. Creatinine elevated from 0.75-1.05. Potassium elevated at 5.5 STUDIES: Abdominal x-ray independently reviewed demonstrating no free air or bowel obstruction. ASSESSMENT: 1. Incarcerated right inguinal hernia status post right inguinal hernia repair and orchiectomy 2. Hyperkalemia PLAN: 1. Adjust diet to renal diet. 2. Remove all extra potassium sources. Objective - Vital Signs Vital signs: Vital Signs Temp 97.9 F 11/30/19 08:10 Pulse 76 11/30/19 11:33 Resp 18 11/30/19 08:10 BP 121/67 11/30/19 08:10 Pulse Ox 90 L 11/30/19 08:10 Intake & Output 11/29/19 11/30/19 11/30/19 18:59 06:59 18:59 Intake Total 100 Output Total 100 2000 Balance -100 -1900 Intake: Oral 100 Output: Urine 100 2000 Other: Voiding Method Urinal Indwelling Catheter Indwelling Catheter - Labs CBC & Chem 7: 11/30/19 06:47 11/30/19 06:47 Labs: Abnormal Lab Results - Last 24 Hours (Table) 11/28/19 11/30/19 11/30/19 Range/Units 06:59 06:47 06:47 RBC 3.27 L (4.30-5.90) m/uL Hgb 10.7 L (13.0-17.5) gm/dL Hct 33.0 L (39.0-53.0) % MCV 101.1 H (80.0-100.0) fL Plt Count 106 L (150-450) k/uL Sodium 136 L (137-145) mmol/L Potassium 5.5 H (3.5-5.1) mmol/L Carbon Dioxide 32 H (22-30) mmol/L BUN 26 H (9-20) mg/dL Calcium 8.3 L (8.4-10.2) mg/dL RBC Folate 1,043 H (280 - 791) ng/mL
--- NOTE | 2019-11-30 17:46 | CT ---
EXAMINATION TYPE: CT abdomen pelvis wo con DATE OF EXAM: 11/30/2019 COMPARISON: November 25, 2019 HISTORY: abdominal distention CT DLP: 1525.1 mGycm Automated exposure control for dose reduction was used. Multiple axial sections were obtained from the diaphragm to the floor the pelvis with no contrast. There is some infiltrate and atelectasis at the lung bases. There is small pleural effusions. Heart i s enlarged. There is no pericardial effusion. There is some patchy nodular density in both lower lobe s. Liver shows no focal defect. Spleen is intact. Gallbladder has normal size and contour. Stomach is in tact. There is no evidence of pancreatic mass. There is no adrenal mass. There is 3 cm cortical cyst medial right kidney. There is described vascula r calcification. There is no hydronephrosis. Ureters are not dilated. Abdominal aorta is atheromatous . There is no retroperitoneal adenopathy. There is metal artifact from right hip prosthesis. There is Gaines catheter in the bladder. Bladder is empty. There is no inguinal hernia. There is soft tissue s welling and fat stranding involving the right inguinal region consistent with hernia surgery. There a re air bubbles in the right inguinal region. There is reduction of the large right side scrotal herni a compared to last exam. There is no evidence of a bowel obstruction. Appendix is lateral and appears normal. There is no evid ence of pneumoperitoneum. Lumbar vertebra have normal alignment. There is no compression fracture. The bony pelvis is intact. IMPRESSION: There is reduction of the large right side scrotal hernia compared to recent exam. Postsurgical medina es with air bubbles in the right inguinal region. Air and fluid seen in the upper right scrotal regio n. Inflammatory process not excluded. No renal obstruction. Atherosclerotic vascular disease. Bilateral lower lobe pneumonia and atelectasis increased compared to last exam.
[2019-11-30] MEDS: traZODone HCL 50 MG TAB PO SCH (20:57)
[2019-11-30] MEDS: QUEtiapine 25 MG TAB PO SCH (20:57)
[2019-12-01] MEDS: HEPARIN SODIUM,PORCINE 5,000 UNIT/ML 1 ML VIAL SQ SCH ×3 (00:24→16:24)
[2019-12-01] MEDS: IPRATROPIUM-ALBUTEROL 3 ML NEB INHALATION SCH ×6 (04:49→23:30)
[2019-12-01] MEDS: LEVOTHYROXINE 50 MCG TAB PO SCH (06:15)
[2019-12-01] MEDS: SODIUM CHLORIDE 0.9% 1,000 ML IV SCH (06:19)
[2019-12-01 07:20] LABS: Potassium 5.1 mmol/L (3.5-5.1)
[2019-12-01 09:22] LABS: ABG Base Excess 12.1 mmol/L; ABG HCO3 37 mmol/L (21-25); ABG PCO2 56 mmHg (35-45); ABG PH 7.42 (7.35-7.45); ABG PO2 64 mmHg (83-108); ABG TCO2 38 mmol/L (19-24); Allen Test Performed? Yes
[2019-12-01 09:37] LABS: HCT 30.1 % (39.0-53.0); HGB 9.8 gm/dL (13.0-17.5); MCH 32.4 pg (25.0-35.0); MCHC 32.6 g/dL (31.0-37.0); MCV 99.5 fL (80.0-100.0); Macrocytosis Slight; Mean Platelet Volume 8.8; Platelet Count 122 k/uL (150-450); RBC 3.02 m/uL (4.30-5.90); RDW 14.7 % (11.5-15.5); WBC 8.9 k/uL (3.8-10.6)
--- NOTE | 2019-12-01 09:38 | XR ---
EXAMINATION TYPE: XR chest 1V portable DATE OF EXAM: 12/01/2019 Comparison: 11/29/2019 Clinical History: 84-year-old male shortness of breath Findings: Heart remains mildly enlarged. Patchy lower lung opacities remain. Dense retrocardiac opacity persist s along with small effusions. Impression: Bibasilar opacities, left greater than right, persist. Possible areas of pulmonary edema or infiltrat es. Small effusions persist. There may be slight worsening from prior exam.
[2019-12-01 09:45] LABS: Prothrombin Time 10.5 sec (9.0-12.0)
[2019-12-01] MEDS: FUROSEMIDE 10 MG/ML 4 ML VIAL IV SCH ×2 (10:02→21:37)
[2019-12-01] MEDS ORDERED: HYDROcodone/APAP 5-325MG 1 EACH TAB PO PRN (11:00)
[2019-12-01] MEDS: amLODIPine 5 MG TAB PO SCH (11:00)
[2019-12-01] MEDS: FOLIC ACID 1 MG TAB PO SCH (11:00)
[2019-12-01] MEDS: MULTIVITAMINS, THERA 1 EACH TAB PO SCH (11:00)
[2019-12-01] MEDS: DIVALPROEX ER 500 MG TAB.ER.24H PO SCH ×2 (11:00→21:26)
[2019-12-01] MEDS: risperiDONE 2 MG TAB PO SCH ×2 (11:00→21:27)
[2019-12-01] MEDS: LORATADINE 10 MG TAB PO SCH (11:00)
[2019-12-01] MEDS: PANTOPRAZOLE 40 MG TABLET PO SCH (11:01)
[2019-12-01] MEDS: LACTULOSE 20 GM/30 ML CUP PO SCH ×2 (11:01→21:29)
[2019-12-01] MEDS: SENNOSIDES 8.6 MG TAB PO SCH ×2 (11:01→21:27)
[2019-12-01] MEDS: TAMSULOSIN 0.4 MG CAP.ER.24H PO SCH (11:01)
--- NOTE | 2019-12-01 11:09 | P.PN ---
Subjective Progress Note Date: 12/01/19 Principal diagnosis: scrotal enlargement Patient is an 84-year-old male with a past medical history of memory impairment, congestive heart failure diastolic EF 55%, COPD, hypertension, and hypothyroidism who presented to the emergency department from his assisted living secondary to swelling in his left testicle. In the ER he underwent an extensive evaluation. His initial laboratory analysis showed a hemoglobin of 10.8, platelets 109, potassium 5.3, carbon dioxide 33, BUN 32, glucose 100, bilirubin less than 0.1, AST 22, ALT 11, albumin of 3.5. Urinalysis was n egative. CT abdomen and pelvis showed mild pleural thickening and atelectasis of the lung bases as well as a large right sided scrotal hernia containing incarcerated multiple small bowel loops with no evidence of bowel obstruction. He was admitted for further management. He was seen by surgery who recommended surgical treatment of hernia. He was noted to have mild hyperkalemia and had 2 runs of NSVT, he was given calcium gluconate and kayexelate. He underwent surgical resection on 11/27 without any immediate postoperative complications. He had decreased urine output with urinary retention and required a gan cath placed. He developed worsening shortness of breath with crackles and possible aspiration event on 11/28. His CXR showed possible fluid overload. His fluids were stopped and he was started on IV lasix. He was also started on scheduled bronchodilators. He had some improvement in his breath. He was seen by speech and switched to a dysphagia II diet. He had a distended abdomen KUB was ordered which showed no signs of mechanical bowel obstruction with pleural effusions and possible ascities. Due to his abdominal distension and possible aspiration event he was transitioned to a clear liquid diet and his lactulose was held. On the morning of 11/29 his abdomen was still distended, he did not improvement despite diuresis. His potassium had increased more and nephrology was consulted he was started on IVF by nephro. Morning of 12/01/19 Called to bedside by nursing for altered mentation. More lethargic, difficultly following commands, appears ill. Patient seen and examined at bedside with nursing present. He is umbling to pain. His eyes are open. He did get pain medications over night. Objective - Vital Signs Vital signs: Vital Signs Temp 99.5 F 12/01/19 09:23 Pulse 96 12/01/19 09:46 Resp 16 12/01/19 07:28 BP 133/73 12/01/19 07:28 Pulse Ox 91 L 12/01/19 07:28 Intake & Output 11/30/19 12/01/19 12/01/19 17:59 06:59 18:59 Intake Total Output Total 450 Balance -450 Intake: Other Output: Urine 450 Other: Voiding Method Indwelling Catheter - Exam General: ill appearing, no distress, appears at stated age Derm: warm, dry Head: atraumatic, normocephalic, symmetric Eyes: EOMI, no lid lag, anicteric sclera Mouth: no lip lesion, mucus membranes moist, + lip lesion Cardiovascular: S1S2 reg, no murmur, positive posterior tibial pulse bilateral, Lungs: ronchi bilateral, no accessory muscle use Abdominal: soft, nontender to palpation diffusely, no guarding, no appreciable organomegaly, right lower quadrant incision C/D/I, + right scrotal swelling Ext: no gross muscle atrophy, 2+ edema, no contractures Neuro: CN II-XI grossly intact + moans to pain, moving extremities independently. Psych: lethargic, flat affect - Labs CBC & Chem 7: 12/01/19 09:18 12/01/19 06:29 Labs: Abnormal Lab Results - Last 24 Hours (Table) 11/30/19 12/01/19 12/01/19 Range/Units 06:47 06:29 09:18 RBC 3.02 L (4.30-5.90) m/uL Hgb 9.8 L (13.0-17.5) gm/dL Hct 30.1 L (39.0-53.0) % Plt Count 122 L (150-450) k/uL ABG pCO2 (35-45) mmHg ABG pO2 (83-108) mmHg ABG HCO3 (21-25) mmol/L ABG Total CO2 (19-24) mmol/L ABG O2 Saturation (94-97) % Sodium 135 L (137-145) mmol/L Carbon Dioxide 34 H (22-30) mmol/L BUN 30 H (9-20) mg/dL Calcium 8.0 L (8.4-10.2) mg/dL Creatine Kinase 37 L (55-170) U/L 12/01/19 Range/Units 09:19 RBC (4.30-5.90) m/uL Hgb (13.0-17.5) gm/dL Hct (39.0-53.0) % Plt Count (150-450) k/uL ABG pCO2 56 H (35-45) mmHg ABG pO2 64 L (83-108) mmHg ABG HCO3 37 H (21-25) mmol/L ABG Total CO2 38 H (19-24) mmol/L ABG O2 Saturation 93.0 L (94-97) % Sodium (137-145) mmol/L Carbon Dioxide (22-30) mmol/L BUN (9-20) mg/dL Calcium (8.4-10.2) mg/dL Creatine Kinase (55-170) U/L Assessment and Plan Assessment: Acute metabolic encephalopathy - fever X 1 overnight - ABG ordered and normal - CXR- with edema vs infiltrates. Augmentin and Lasix, stop IVF - Supportive care - No WBC increase - Stop IV dilaudid - ammonia normal - check head CT Incarcerated right inguinal hernia s/p repair -Pain control -Surgery recommendations - on regular diet SHARMIN with Fluid overload - IV lasix - stop IVF - FOllow Cr closely - Avoid additional nephrotoxic agents - nehrology recs Abdominal distension - CT with swelling in right inguinal region and post surgical changes, on signs of obstruction - still no BM despite lactulose yesterday - clear liquids - surgery recs Acute on chronic hypoxic respiratory failure -Continue with O2 - wean O2 as able Hyperkalemia undetermined etiology, improved - nephro recs - repeat BMP in AM Thrombocytopenia, chronic and unchanged Anemia macrocytic chronic and unchanged - Follow CBC - Folate high and B 12 normal -TSH slightly elevated and may be secondary to stress. Repeat in 4-6 weeks to increase levothyroxine - Depakote level normal Acute on chronic CHF, diastolic EF 55-60%, - not chronically on ACEi or BB - lasix - Follow fluid status closely Acute urinary retention -Gan catheter COPD without exacerbation - O2 as needed - continue with duoneb Memory impairment - safe and supportive environment - limit interruptions in sleep - appropriate post-op pain control Chronic- HTN Hypothyroidism Vit D Def DVT prophylaxis: SCDs Discussed with: patient, nursing Anticipated discharge date: 1-[address]: [facility] A total of 35 minutes was spent on the care of this complex patient more than 50% of the time was spent in counseling and care coordination.
[2019-12-01 11:10] LABS: Glucose,Whole Blood 85 mg/dL (75-99)
--- NOTE | 2019-12-01 11:52 | P.PN ---
Subjective Progress Note Date: 12/01/19 Follow-up for hyperkalemia. Objective - Vital Signs Vital signs: Vital Signs Temp 99.5 F 12/01/19 09:23 Pulse 96 12/01/19 09:46 Resp 16 12/01/19 07:28 BP 133/73 12/01/19 07:28 Pulse Ox 91 L 12/01/19 07:28 Intake & Output 11/30/19 12/01/19 12/01/19 17:59 06:59 18:59 Intake Total Output Total 450 Balance -450 Intake: Other Output: Urine 450 Other: Voiding Method Indwelling Catheter - Exam No acute distress S1-S2 heard Lungs clear Abdomen distended. Edema - Labs CBC & Chem 7: 12/01/19 09:18 12/01/19 06:29 Labs: Abnormal Lab Results - Last 24 Hours (Table) 11/30/19 12/01/19 12/01/19 Range/Units 06:47 06:29 09:18 RBC 3.02 L (4.30-5.90) m/uL Hgb 9.8 L (13.0-17.5) gm/dL Hct 30.1 L (39.0-53.0) % Plt Count 122 L (150-450) k/uL ABG pCO2 (35-45) mmHg ABG pO2 (83-108) mmHg ABG HCO3 (21-25) mmol/L ABG Total CO2 (19-24) mmol/L ABG O2 Saturation (94-97) % Sodium 135 L (137-145) mmol/L Carbon Dioxide 34 H (22-30) mmol/L BUN 30 H (9-20) mg/dL Calcium 8.0 L (8.4-10.2) mg/dL Creatine Kinase 37 L (55-170) U/L 12/01/19 Range/Units 09:19 RBC (4.30-5.90) m/uL Hgb (13.0-17.5) gm/dL Hct (39.0-53.0) % Plt Count (150-450) k/uL ABG pCO2 56 H (35-45) mmHg ABG pO2 64 L (83-108) mmHg ABG HCO3 37 H (21-25) mmol/L ABG Total CO2 38 H (19-24) mmol/L ABG O2 Saturation 93.0 L (94-97) % Sodium (137-145) mmol/L Carbon Dioxide (22-30) mmol/L BUN (9-20) mg/dL Calcium (8.4-10.2) mg/dL Creatine Kinase (55-170) U/L Assessment and Plan Assessment: #1 acute kidney injury suspect prerenal process from over diuresis #2 persistent hyperkalemia, chronic. #3 metabolic alkalosis #4 inguinal hernia repair. Plan: #1 Lasix as per primary team #2 stop lactated Ringer as it has potassium #3 CK within normal limits. And CAT scan no acute process. #5 awaiting urine potassium to creatinine ratio to rule out renal retention
--- NOTE | 2019-12-01 12:09 | CT ---
EXAMINATION TYPE: CT brain wo con DATE OF EXAM: 12/01/2019 COMPARISON: 10/21/2019 HISTORY: 84-year-old male mental status changes. TECHNIQUE: Examination was done in axial plane without intravenous contrast. Coronal and sagittal r econstructions performed. CT DLP: 1260.4 mGycm Automated exposure control for dose reduction was used. FINDINGS: There is no evidence of acute intracranial hemorrhage, acute ischemic changes, mass, mass-effect, or extra-axial fluid collection. There is no effacement of cerebral sulci or basal subarachnoid cister ns. There is no midline shift. Smith-white matter distinction is preserved. Moderate mucosal thickening ethmoid air cells and mild within the maxillary sinuses. There may be alyssia e layering fluid in the left sphenoid sinus. Mastoid air cells are well pneumatized. Mild ventriculomegaly with Junaid's ratio of 0.31 likely secondary to central cerebral atrophy. Normal variation persistent CSP. Moderate patchy and confluent white matter hypodensities in both cerebral h emispheres IMPRESSION: 1. Stable mild ventriculomegaly, likely secondary to central cerebral atrophy. Severe patchy white ma tter hypodensities redemonstrated, probably related to chronic small vessel ischemic disease changes. No acute intracranial abnormality seen. 2. Mild to moderate paranasal sinus disease. Possible superimposed acute sinusitis left sphenoid sinu s.
--- NOTE | 2019-12-01 12:57 | P.PN ---
Subjective Progress Note Date: 12/01/19 CHIEF COMPLAINT: Right inguinal hernia HISTORY OF PRESENT ILLNESS: The patient is a 84-year-old male status post right inguinal hernia repair with orchiectomy, 11/28/2019. He had a CT of the abd/pelv is ordered per nephrology. He is resting comfortably in bed. He is lethargic. No complaints. He had tmax 99.8 yesterday. ROS: No reports of nausea and vomiting. No chills. No new chest pain. PHYSICAL EXAM: VITAL SIGNS: Reviewed CONSTITUTIONAL: Well developed and in no acute distress. EYES: Conjuctivae without sclera icterus. Extraocular movements grossly intact. HEAD, EARS, NOSE, THROAT: Moist buccal mucosa. Head is atraumatic, normocephalic. Hears conversational speech. No nasal drainage. NECK: Supple. No thyroidomegaly. RESPIRATORY: Non-labored respirations and equal bilateral excursions. CARDIOVASCULAR: Palpable 2+ radial pulses. Regular rate. Regular rhythm. ABDOMEN: Right groin incision clean, dry and intact. No cellulitis. No infection. MUSCULOSKELETAL: No gross deformity of the lower extremities noted. No clubbing. No cyanosis. SKIN: Good skin turgor. Well perfused. NEUROLOGIC: Cranial nerves I through XII grossly intact. No focal or lateralizing signs. PSYCH: Alert and oriented to person : Gaines present, clear and yellow. CLINICAL LABS: White blood cell count normal at 9.7. STUDIES: CT of the abdomen and pelvis independently reviewed with moderate stool along the ascending and transverse colon. Post-surgical changes and is appropriate along the right groin. ASSESSMENT: 1. Incarcerated right inguinal hernia status post right inguinal hernia repair and orchiectomy 2. Hyperkalemia PLAN: 1. No additional surgical intervention 2. Recommend bowel regimen Objective - Vital Signs Vital signs: Vital Signs Temp 99.5 F 12/01/19 09:23 Pulse 82 12/01/19 12:20 Resp 16 12/01/19 07:28 BP 133/73 12/01/19 07:28 Pulse Ox 91 L 12/01/19 07:28 Intake & Output 11/30/19 12/01/19 12/01/19 17:59 06:59 18:59 Intake Total Output Total 450 Balance -450 Intake: Other Output: Urine 450 Other: Voiding Method Indwelling Catheter - Labs CBC & Chem 7: 03/08/20 09:18 12/01/19 06:29 Labs: Abnormal Lab Results - Last 24 Hours (Table) 11/30/19 12/01/19 12/01/19 Range/Units 06:47 06:29 09:18 RBC 3.02 L (4.30-5.90) m/uL Hgb 9.8 L (13.0-17.5) gm/dL Hct 30.1 L (39.0-53.0) % Plt Count 122 L (150-450) k/uL ABG pCO2 (35-45) mmHg ABG pO2 (83-108) mmHg ABG HCO3 (21-25) mmol/L ABG Total CO2 (19-24) mmol/L ABG O2 Saturation (94-97) % Sodium 135 L (137-145) mmol/L Carbon Dioxide 34 H (22-30) mmol/L BUN 30 H (9-20) mg/dL Calcium 8.0 L (8.4-10.2) mg/dL Creatine Kinase 37 L (55-170) U/L 12/01/19 Range/Units 09:19 RBC (4.30-5.90) m/uL Hgb (13.0-17.5) gm/dL Hct (39.0-53.0) % Plt Count (150-450) k/uL ABG pCO2 56 H (35-45) mmHg ABG pO2 64 L (83-108) mmHg ABG HCO3 37 H (21-25) mmol/L ABG Total CO2 38 H (19-24) mmol/L ABG O2 Saturation 93.0 L (94-97) % Sodium (137-145) mmol/L Carbon Dioxide (22-30) mmol/L BUN (9-20) mg/dL Calcium (8.4-10.2) mg/dL Creatine Kinase (55-170) U/L
[2019-12-01] MEDS ORDERED: MAGNESIUM HYDROXIDE 2,400 MG/10 ML CUP PO STA (12:58)
[2019-12-01] MEDS: QUEtiapine 25 MG TAB PO SCH (21:26)
[2019-12-01] MEDS: traZODone HCL 50 MG TAB PO SCH (21:27)
[2019-12-01] MEDS: AMOXIC-POT CLAV 875-125MG 1 EACH TAB PO SCH (21:28)
[2019-12-02] MEDS: HEPARIN SODIUM,PORCINE 5,000 UNIT/ML 1 ML VIAL SQ SCH ×3 (00:50→16:45)
[2019-12-02] MEDS: IPRATROPIUM-ALBUTEROL 3 ML NEB INHALATION SCH ×5 (03:22→21:30)
[2019-12-02] MEDS: LEVOTHYROXINE 50 MCG TAB PO SCH (05:09)
[2019-12-02] MEDS: PANTOPRAZOLE 40 MG TABLET PO SCH (07:46)
[2019-12-02] MEDS: FOLIC ACID 1 MG TAB PO SCH (07:46)
[2019-12-02] MEDS: amLODIPine 5 MG TAB PO SCH (07:46)
[2019-12-02] MEDS: SENNOSIDES 8.6 MG TAB PO SCH ×2 (07:46→21:26)
[2019-12-02] MEDS: MULTIVITAMINS, THERA 1 EACH TAB PO SCH (07:46)
[2019-12-02] MEDS: LACTULOSE 20 GM/30 ML CUP PO SCH ×2 (07:47→21:26)
[2019-12-02] MEDS: TAMSULOSIN 0.4 MG CAP.ER.24H PO SCH (07:47)
[2019-12-02] MEDS: AMOXIC-POT CLAV 875-125MG 1 EACH TAB PO SCH ×2 (07:47→21:26)
[2019-12-02] MEDS: LORATADINE 10 MG TAB PO SCH (07:47)
[2019-12-02] MEDS: FUROSEMIDE 10 MG/ML 4 ML VIAL IV SCH (07:47)
[2019-12-02] MEDS: risperiDONE 2 MG TAB PO SCH ×2 (07:48→20:38)
[2019-12-02] MEDS: DIVALPROEX ER 500 MG TAB.ER.24H PO SCH ×2 (07:48→20:38)
[2019-12-02 08:37] LABS: HCT 30.9 % (39.0-53.0); HGB 10.1 gm/dL (13.0-17.5); MCH 32.2 pg (25.0-35.0); MCHC 32.5 g/dL (31.0-37.0); MCV 99.1 fL (80.0-100.0); Platelet Count 136 k/uL (150-450); RBC 3.12 m/uL (4.30-5.90); RDW 14.6 % (11.5-15.5); WBC 9.4 k/uL (3.8-10.6)
[2019-12-02 08:58] LABS: Albumin 2.8 g/dL (3.5-5.0); Calcium 8.2 mg/dL (8.4-10.2); Magnesium 2.4 mg/dL (1.6-2.3); Phosphorus 5.2 mg/dL (2.5-4.5); Potassium 4.8 mmol/L (3.5-5.1); Total Bilirubin 0.4 mg/dL (0.2-1.3); Total Protein 5.6 g/dL (6.3-8.2)
[2019-12-02] MEDS ORDERED: BISACODYL 10 MG SUPP RECTAL STA (09:49)
[2019-12-02 10:10] LABS: Appearance,Urine Clear (Clear); Bilirubin,Urine Negative (Negative); Blood,Urine Negative (Negative); Color,Urine Colorless; Glucose,Urine (UA) Negative (Negative); Ketones,Urine Negative (Negative); Leukocyte Esterase,Urine Negative (Negative); Nitrite,Urine Negative (Negative); Protein,Urine Negative (Negative); Specific Gravity,Urine 1.006 (1.001-1.035); Urobilinogen,Urine <2.0 mg/dL (<2.0)
--- NOTE | 2019-12-02 10:33 | P.PN ---
Subjective Progress Note Date: 12/02/19 CHIEF COMPLAINT: Inguinal hernia HISTORY OF PRESENT ILLNESS: Patient is status post repair of right inguinal hernia. Patient examined this morning. Patient remains somewhat lethargic. He is tolerating diet without nausea or vomiting. Patient denies pain. Vital signs are stable. He is afebrile. Nursing reports patient has not had a bowel movement since surgery. WBC 9.4. Hemoglobin 10.1. PHYSICAL EXAM: VITAL SIGNS: Reviewed. GENERAL: Well-developed in no acute distress. HEENT: No sclera icterus. Extraocular movements grossly intact. Moist buccal mucosa. Head is atraumatic, normocephalic. ABDOMEN: Soft. Nondistended. Surgical incision to right groin clean dry and intact. NEUROLOGIC: Lethargic. Awakens to verbal stimuli. ASSESSMENT: 1. Large incarcerated right inguinal hernia extending into the scrotum PLAN: -Continue diet as tolerated -Pain control -Incentive spirometer 10 times an hour -Activity as tolerated -Continue Lactulose. Add Dulcolax now and daily. Await BM. Nurse practitioner note has been reviewed by physician. Signing provider agrees with the documented findings, assessment, and plan of care. Objective - Vital Signs Vital signs: Vital Signs Temp 98.6 F 12/02/19 07:00 Pulse 88 12/02/19 08:22 Resp 16 12/02/19 07:40 BP 135/62 12/02/19 07:00 Pulse Ox 92 L 12/02/19 07:00 Intake & Output 12/01/19 12/02/19 12/02/19 18:59 06:59 18:59 Intake Total 50 Output Total 450 2700 Balance -400 -2700 Intake: Intake, IV Titration 50 Amount cefTRIAXone 1 gm In 50 Sodium Chloride 0.9% 50 ml @ 100 mls/hr IVPB Q24HR [facility] Rx#:[id number] Output: Urine 450 2700 Other: Voiding Method Indwelling Catheter Indwelling Catheter Indwelling Catheter # Voids 2 - Labs CBC & Chem 7: 12/02/19 07:46 12/02/19 07:46 Labs: Abnormal Lab Results - Last 24 Hours (Table) 12/02/19 12/02/19 Range/Units 07:46 07:46 RBC 3.12 L (4.30-5.90) m/uL Hgb 10.1 L (13.0-17.5) gm/dL Hct 30.9 L (39.0-53.0) % Plt Count 136 L (150-450) k/uL Chloride 94 L (98-107) mmol/L Carbon Dioxide 37 H (22-30) mmol/L BUN 35 H (9-20) mg/dL Calcium 8.2 L (8.4-10.2) mg/dL Phosphorus 5.2 H (2.5-4.5) mg/dL Magnesium 2.4 H (1.6-2.3) mg/dL Total Protein 5.6 L (6.3-8.2) g/dL Albumin 2.8 L (3.5-5.0) g/dL
--- NOTE | 2019-12-02 13:06 | P.PN ---
Subjective Progress Note Date: 12/02/19 Principal diagnosis: Incarcerated hernia with bowel obstruction Patient has not been acting himself over the past few days, when asked about how he was doing he said he was okay. He denied having abdominal pain or nausea. Still awaiting a bowel movement. Objective - Vital Signs Vital signs: Vital Signs Temp 98.6 F 12/02/19 07:00 Pulse 80 12/02/19 11:47 Resp 16 12/02/19 07:40 BP 135/62 12/02/19 07:00 Pulse Ox 92 L 12/02/19 07:00 Intake & Output 12/01/19 12/02/19 12/02/19 18:59 06:59 18:59 Intake Total 50 Output Total 450 2700 1300 Balance -400 -2700 -1300 Intake: Intake, IV Titration 50 Amount cefTRIAXone 1 gm In 50 Sodium Chloride 0.9% 50 ml @ 100 mls/hr IVPB Q24HR [facility] Rx#:[id number] Output: Urine 450 2700 1300 Uretheral (Gaines) 1300 Other: Voiding Method Indwelling Catheter Indwelling Catheter Indwelling Catheter # Voids 2 - Exam General: ill appearing, no distress, appears at stated age Derm: warm, dry Head: atraumatic, normocephalic, symmetric Eyes: EOMI, no lid lag, anicteric sclera Mouth: no lip lesion, mucus membranes moist, + lip lesion Cardiovascular: S1S2 reg, no murmur, positive posterior tibial pulse bilateral, Lungs: ronchi bilateral, no accessory muscle use Abdominal: soft, nontender to palpation diffusely, no guarding, no appreciable organomegaly, right lower quadrant incision C/D/I, + right scrotal swelling Ext: no gross muscle atrophy, 2+ edema, no contractures Neuro: CN II-XI grossly intact + moans to pain, moving extremities independently. Psych: lethargic, flat affect - Labs CBC & Chem 7: 12/02/19 07:46 12/02/19 07:46 Labs: Abnormal Lab Results - Last 24 Hours (Table) 12/02/19 12/02/19 Range/Units 07:46 07:46 RBC 3.12 L (4.30-5.90) m/uL Hgb 10.1 L (13.0-17.5) gm/dL Hct 30.9 L (39.0-53.0) % Plt Count 136 L (150-450) k/uL Chloride 94 L (98-107) mmol/L Carbon Dioxide 37 H (22-30) mmol/L BUN 35 H (9-20) mg/dL Calcium 8.2 L (8.4-10.2) mg/dL Phosphorus 5.2 H (2.5-4.5) mg/dL Magnesium 2.4 H (1.6-2.3) mg/dL Total Protein 5.6 L (6.3-8.2) g/dL Albumin 2.8 L (3.5-5.0) g/dL Assessment and Plan Plan: Acute metabolic encephalopathy - CXR- with edema vs infiltrates. -Continue augmentin, Lasix - Stopped IV dilaudid - ammonia normal, UA came back ok - head CT ok Acute on chronic CHF, diastolic EF 55-60%, - not chronically on ACEi or BB - lasix - Follow fluid status closely Incarcerated right inguinal hernia s/p repair -Pain control -Surgery recommendations - on regular diet SHARMIN with Fluid overload - IV lasix - stop IVF - FOllow Cr closely - Avoid additional nephrotoxic agents - nehrology recs Abdominal distension - CT with swelling in right inguinal region and post surgical changes, on signs of obstruction - still no BM despite lactulose yesterday - clear liquids - surgery recs Acute on chronic hypoxic respiratory failure -Continue with O2 - wean O2 as able Hyperkalemia undetermined etiology, improved - nephro recs - Stable, monitor Thrombocytopenia, chronic and unchanged asnemia macrocytic chronic and unchanged - Follow CBC - Folate high and B 12 normal -TSH slightly elevated and may be secondary to stress. Repeat in 4-6 weeks to increase levothyroxine - Depakote level normal Acute urinary retention -Gaines catheter COPD without exacerbation - O2 as needed - continue with duoneb Memory impairment - safe and supportive environment - limit interruptions in sleep - appropriate post-op pain control Chronic- HTN Hypothyroidism Vit D Def DVT prophylaxis: SCDs Discussed with: patient, nursing Anticipated discharge date: 1-[address]: [facility] A total of 35 minutes was spent on the care of this complex patient more than 50% of the time was spent in counseling and care coordination.
[2019-12-02 15:05] VITALS: BMI 29.5
[2019-12-02] MEDS: traZODone HCL 50 MG TAB PO SCH (20:38)
[2019-12-02] MEDS: QUEtiapine 25 MG TAB PO SCH (20:38)
[2019-12-03] MEDS: HEPARIN SODIUM,PORCINE 5,000 UNIT/ML 1 ML VIAL SQ SCH ×3 (00:32→18:08)
[2019-12-03] MEDS: IPRATROPIUM-ALBUTEROL 3 ML NEB INHALATION SCH ×6 (01:06→20:01)
[2019-12-03] MEDS: LEVOTHYROXINE 50 MCG TAB PO SCH (06:01)
--- NOTE | 2019-12-03 07:25 | XR ---
EXAMINATION TYPE: XR chest 1V portable DATE OF EXAM: 12/03/2019 CLINICAL HISTORY: Difficulty breathing progress study. TECHNIQUE: Single AP portable semiupright view of the chest is obtained. COMPARISON: Chest x-ray from 2 days earlier FINDINGS: Current exam is suboptimal as the entire left lung base not included. Persistent cardiomeg [place] with atherosclerotic thoracic aorta. Background chronic parenchymal changes with persistent bibas ilar opacities. Osseous structures are demineralized. Old posterior left third through fifth rib frac tures are redemonstrated. IMPRESSION: Suboptimal study, chronic parenchymal change and cardiomegaly with persistent small bilat eral pleural effusions and associated bibasilar acute atelectasis and/or infiltrates are all redemons trated.
[2019-12-03 08:38] VITALS: RESP 18
[2019-12-03] MEDS: SENNOSIDES 8.6 MG TAB PO SCH ×2 (08:58→20:23)
[2019-12-03] MEDS: LACTULOSE 20 GM/30 ML CUP PO SCH ×2 (08:58→20:30)
[2019-12-03] MEDS: BISACODYL 10 MG SUPP RECTAL SCH (08:58)
[2019-12-03] MEDS: MULTIVITAMINS, THERA 1 EACH TAB PO SCH (08:58)
[2019-12-03] MEDS: FOLIC ACID 1 MG TAB PO SCH (08:59)
[2019-12-03] MEDS: LORATADINE 10 MG TAB PO SCH (08:59)
[2019-12-03] MEDS: AMOXIC-POT CLAV 875-125MG 1 EACH TAB PO SCH ×2 (08:59→20:23)
[2019-12-03] MEDS: TAMSULOSIN 0.4 MG CAP.ER.24H PO SCH (09:00)
[2019-12-03] MEDS: PANTOPRAZOLE 40 MG TABLET PO SCH (09:00)
[2019-12-03] MEDS: amLODIPine 5 MG TAB PO SCH (09:00)
[2019-12-03] MEDS ORDERED: FUROSEMIDE 10 MG/ML 2 ML VIAL IV SCH (09:00)
[2019-12-03] MEDS: risperiDONE 2 MG TAB PO SCH (09:01)
[2019-12-03] MEDS: DIVALPROEX ER 500 MG TAB.ER.24H PO SCH ×2 (09:01→20:23)
[2019-12-03 09:21] LABS: Basophils % (A) 0 %; Calcium 8.3 mg/dL (8.4-10.2); Eosinophils # (A) 0.1 k/uL (0-0.7); Eosinophils % (A) 1 %; HCT 30.9 % (39.0-53.0); HGB 10.2 gm/dL (13.0-17.5); Lymphocytes # (A) 1.5 k/uL (1.0-4.8); Lymphocytes % (A) 19 %; MCH 32.5 pg (25.0-35.0); MCHC 33.1 g/dL (31.0-37.0); MCV 98.1 fL (80.0-100.0); Mean Platelet Volume 8.6; Monocytes % (A) 12 %; Neutrophils % (A) 64 %; Platelet Count 184 k/uL (150-450); Potassium 4.5 mmol/L (3.5-5.1); RBC 3.15 m/uL (4.30-5.90); RDW 14.5 % (11.5-15.5); WBC 7.8 k/uL (3.8-10.6)
--- NOTE | 2019-12-03 11:05 | P.PN ---
Subjective Progress Note Date: 12/03/19 Principal diagnosis: Incarcerated hernia with bowel obstruction Patient is still slightly lethargic, is able to answer questions but slow to respond. He denied having pain. No shortness of breath. No nausea or vomiting. He had a bowel movement yesterday. Objective - Vital Signs Vital signs: Vital Signs Temp 98.4 F 12/03/19 07:00 Pulse 74 12/03/19 08:34 Resp 18 12/03/19 07:00 BP 154/76 12/03/19 07:00 Pulse Ox 90 L 12/03/19 08:19 Intake & Output 12/02/19 12/03/19 12/03/19 18:59 06:59 18:59 Intake Total 50 Output Total 1300 2100 Balance -1299 -2049 Weight 90.718 kg Intake: Oral 50 Output: Urine 1300 2100 Uretheral (Gaines) 1300 Other: Voiding Method Indwelling Catheter Indwelling Catheter # Bowel Movements 2 1 - Exam General: ill appearing, no distress, appears at stated age Derm: warm, dry Head: atraumatic, normocephalic, symmetric Eyes: EOMI, no lid lag, anicteric sclera Mouth: no lip lesion, mucus membranes moist, + lip lesion Cardiovascular: S1S2 reg, no murmur, positive posterior tibial pulse bilateral, Lungs: ronchi bilateral, no accessory muscle use Abdominal: soft, nontender to palpation diffusely, no guarding, no appreciable organomegaly, right lower quadrant incision C/D/I, + right scrotal swelling Ext: no gross muscle atrophy, 2+ edema, no contractures Neuro: CN II-XI grossly intact + moans to pain, moving extremities independently. Psych: lethargic, flat affect - Labs CBC & Chem 7: 12/03/19 07:17 12/03/19 07:17 Labs: Abnormal Lab Results - Last 24 Hours (Table) 12/03/19 12/03/19 Range/Units 07:17 07:17 RBC 3.15 L (4.30-5.90) m/uL Hgb 10.2 L (13.0-17.5) gm/dL Hct 30.9 L (39.0-53.0) % Sodium 136 L (137-145) mmol/L Chloride 96 L (98-107) mmol/L Carbon Dioxide 38 H (22-30) mmol/L BUN 34 H (9-20) mg/dL Calcium 8.3 L (8.4-10.2) mg/dL Assessment and Plan Plan: Acute metabolic encephalopathy - CXR- with edema vs infiltrates. -Continue augmentin - Stopped IV dilaudid - ammonia normal, UA came back ok - head CT ok - Due to lethargy will decrease risperidone dose to 1 mg by mouth twice a day, he was on 2 mg by mouth twice a day. Discontinue seroquel. Check Depakote [place] Acute on chronic CHF, diastolic EF 55-60%, - not chronically on ACEi or BB - Hold lasix - Follow fluid status closely Incarcerated right inguinal hernia s/p repair -Pain control -Surgery recommendations - on regular diet SHARMIN with Fluid overload - IV lasix - stop IVF - FOllow Cr closely - Avoid additional nephrotoxic agents - nehrology recs Abdominal distension - CT with swelling in right inguinal region and post surgical changes, on signs of obstruction - Had BM yesterday - Continue diet, continue laxatives Acute on chronic hypoxic respiratory failure -Continue with O2 - wean O2 as able Hyperkalemia undetermined etiology, improved - nephro recs - Stable, monitor Thrombocytopenia, chronic and unchanged asnemia macrocytic chronic and unchanged - Follow CBC - Folate high and B 12 normal -TSH slightly elevated and may be secondary to stress. Repeat in 4-6 weeks to increase levothyroxine - Depakote level normal Acute urinary retention -Gaines catheter COPD without exacerbation - O2 as needed - continue with duoneb Memory impairment - safe and supportive environment - limit interruptions in sleep - appropriate post-op pain control Chronic- HTN Hypothyroidism Vit D Def DVT prophylaxis: SCDs Discussed with: patient, nursing Anticipated discharge date: 1-[address]: [facility] A total of 35 minutes was spent on the care of this complex patient more than 50% of the time was spent in counseling and care coordination.
--- NOTE | 2019-12-03 12:00 | CDI ---
Documentation Clarification Form Date: 12/03/2019 11:33:24 AM From: Nazia Crook RN, CCDS Admit Date: 11/25/2019 10:02:00 PM Patient Name: Sampson Dobson Visit Number: [id number] Discharge Date: ATTENTION: The Clinical Documentation Specialists (CDI) and [facility] Coding Staff appreciate your assistance in clarifying documentation. Please respond to the clarification below the line at the bottom and electronically sign. The CDI & [facility] Coding staff will review the response and follow-up if needed. Please note: Queries are made part of the Legal Health Record. If you have any questions, please contact the author of this message via ITS. Dr. Tom Kennedy Urinary retention is documented in the ongoing progress notes starting on 11/30/[address] Garcia continue in your progress note on 12/02 and further clarification is needed. Patients Admitting Diagnosis: Right incarcerated inguinal hernia Post-Operative Diagnosis: Procedure performed: Incarcerated right inguinal hernia and right orchiectomy History/Risk Factors: Heart failure, COPD Dementia, Hypertension Clinical Indicators: 84-year-old male who present on 11/24 to ED for evaluation of possible scrotal swelling. CT of abdomen/pelvis display large right-sided scrotal hernia containing incarcerated small bowel loops. No evidence of bowel obstruction. On 11/27 patient had repair of right incarcerated inguinal hernia and right orchiectomy. Operative report is bending at this time on 12/02. 11/29 progress notes has decreased urine output with urinary retention and required a Gaines cath placed. 11/28 abdomen X-ray: possible ascites. No free air. No sign of a mechanical bowel obstruction 11/29 CT abdomen/pelvis w/o contrast: There is reduction of the large right side scrotal hernia. Postsurgical changes with air bubbles in the right inguinal region. air and fluid seen in the upper right scrotal region. Inflammatory process note excluded. Treatment: Monitor I/O Gaines catheter In order to accurately reflect this patients severity of illness, please clarify if the urinary retention requiring Gaines catheter: -is a complication of surgical procedure -is an expected outcome of the surgical procedure -is related to co-morbid condition(s) of -Other please specify -Unable to determine (Last Revision: October 2019) -Urine retention is an expected outcome of the surgical procedure MTDD
--- NOTE | 2019-12-03 13:47 | P.PN ---
Subjective Progress Note Date: 12/03/19 CHIEF COMPLAINT: Inguinal hernia HISTORY OF PRESENT ILLNESS: Patient is status post repair of right inguinal hernia. Patient examined this morning. Patient remains somewhat lethargic. He is tolerating diet without nausea or vomiting. Patient denies pain. Vital signs are stable. He is afebrile. PHYSICAL EXAM: VITAL SIGNS: Reviewed. GENERAL: Well-developed in no acute distress. HEENT: No sclera icterus. Extraocular movements grossly intact. Moist buccal mucosa. Head is atraumatic, normocephalic. ABDOMEN: Soft. Nondistended. Surgical incision to right groin clean dry and intact. NEUROLOGIC: Lethargic. Awakens to verbal stimuli. ASSESSMENT: 1. Large incarcerated right inguinal hernia extending into the scrotum PLAN: -Continue diet as tolerated -Pain control -Incentive spirometer 10 times an hour -Activity as tolerated -Discharge per medicine Nurse practitioner note has been reviewed by physician. Signing provider agrees with the documented findings, assessment, and plan of care. Objective - Vital Signs Vital signs: Vital Signs Temp 98.4 F 12/03/19 07:00 Pulse 78 12/03/19 11:36 Resp 18 12/03/19 07:00 BP 154/76 12/03/19 07:00 Pulse Ox 90 L 12/03/19 08:19 Intake & Output 12/02/19 12/03/19 12/03/19 18:59 06:59 18:59 Intake Total 50 Output Total 1300 2100 Balance -1300 -2050 Weight 90.718 kg Intake: Oral 50 Output: Urine 1300 2100 Uretheral (Gaines) 1300 Other: Voiding Method Indwelling Catheter Indwelling Catheter Indwelling Catheter # Bowel Movements 2 1 - Labs CBC & Chem 7: 12/03/19 07:17 12/03/19 07:17 Labs: Abnormal Lab Results - Last 24 Hours (Table) 12/03/19 12/03/19 Range/Units 07:17 07:17 RBC 3.15 L (4.30-5.90) m/uL Hgb 10.2 L (13.0-17.5) gm/dL Hct 30.9 L (39.0-53.0) % Sodium 136 L (137-145) mmol/L Chloride 96 L (98-107) mmol/L Carbon Dioxide 38 H (22-30) mmol/L BUN 34 H (9-20) mg/dL Calcium 8.3 L (8.4-10.2) mg/dL
--- NOTE | 2019-12-03 17:29 | PN ---
PROGRESS NOTE Patient is seen for followup for hyperkalemia. His serum potassium has improved significantly, currently staying at about 4.5-4.8 mEq/L. Renal function is also improved, creatinine down to 1.1 from 1.25 yesterday. No significant complaints today. PHYSICAL EXAMINATION: On examination, blood pressure 154/76, heart rate 77 per minute, patient is afebrile. Examination of the heart S1, S2. Examination of the lungs, bilateral breath sounds are heard. Abdomen is soft, nontender. Examination of lower extremities shows no significant edema. LABS: Show hemoglobin 10.2, sodium 136, potassium 4.5, chloride 96, CO2 is 38, BUN 34, creatinine 1.16. UA is completely negative. ASSESSMENT: 1. Hyperkalemia associated with acute kidney injury as well as chronic tendency towards hyperkalemia currently improved. Maintain patient on loop diuretics, small dose as outpatient if the hyperkalemia persists. 2. Acute kidney injury, prerenal, currently improved. 3. Incarcerated right inguinal hernia status post repair. PLAN: Continue low-potassium diet. Maintain low-dose loop diuretics as outpatient if hyperkalemia persists. Avoid use of JAZMINE inhibitors. Avoid constipation. MMODL / IJN: [id number] /
[2019-12-03] MEDS: traZODone HCL 50 MG TAB PO SCH (20:34)
[2019-12-03] MEDS: risperiDONE 1 MG TAB PO SCH (21:12)
[2019-12-04] MEDS: HEPARIN SODIUM,PORCINE 5,000 UNIT/ML 1 ML VIAL SQ SCH ×2 (00:51→09:26)
[2019-12-04] MEDS: IPRATROPIUM-ALBUTEROL 3 ML NEB INHALATION SCH ×5 (01:05→16:10)
[2019-12-04] MEDS: LEVOTHYROXINE 50 MCG TAB PO SCH (06:00)
[2019-12-04 07:25] LABS: Calcium 8.2 mg/dL (8.4-10.2); Magnesium 2.7 mg/dL (1.6-2.3)
[2019-12-04 07:45] LABS: HCT 30.3 % (39.0-53.0); HGB 9.7 gm/dL (13.0-17.5); MCH 31.9 pg (25.0-35.0); MCHC 32.1 g/dL (31.0-37.0); MCV 99.5 fL (80.0-100.0); Mean Platelet Volume 7.6; Platelet Count 204 k/uL (150-450); RBC 3.04 m/uL (4.30-5.90); RDW 14.2 % (11.5-15.5); WBC 6.4 k/uL (3.8-10.6)
[2019-12-04 08:40] VITALS: BP 125/64; TEMP 98
[2019-12-04] MEDS: MULTIVITAMINS, THERA 1 EACH TAB PO SCH (09:23)
[2019-12-04] MEDS: AMOXIC-POT CLAV 875-125MG 1 EACH TAB PO SCH (09:23)
[2019-12-04] MEDS: FOLIC ACID 1 MG TAB PO SCH (09:23)
[2019-12-04] MEDS: SENNOSIDES 8.6 MG TAB PO SCH (09:23)
[2019-12-04] MEDS: BISACODYL 10 MG SUPP RECTAL SCH (09:23)
[2019-12-04] MEDS: LACTULOSE 20 GM/30 ML CUP PO SCH (09:23)
[2019-12-04] MEDS: DIVALPROEX ER 500 MG TAB.ER.24H PO SCH (09:24)
[2019-12-04] MEDS: LORATADINE 10 MG TAB PO SCH (09:24)
[2019-12-04] MEDS: amLODIPine 5 MG TAB PO SCH (09:25)
[2019-12-04] MEDS: TAMSULOSIN 0.4 MG CAP.ER.24H PO SCH (09:26)
[2019-12-04] MEDS: PANTOPRAZOLE 40 MG TABLET PO SCH (09:26)
[2019-12-04] MEDS: risperiDONE 1 MG TAB PO SCH (09:27)
--- NOTE | 2019-12-04 10:07 | P.PN ---
Subjective Progress Note Date: 12/04/19 CHIEF COMPLAINT: Inguinal hernia HISTORY OF PRESENT ILLNESS: Patient is status post repair of right inguinal hernia. Patient examined this morning. Patient remains somewhat lethargic. He is tolerating diet without nausea or vomiting. Patient denies pain. Vital signs are stable. He is afebrile. PHYSICAL EXAM: VITAL SIGNS: Reviewed. GENERAL: Well-developed in no acute distress. HEENT: No sclera icterus. Extraocular movements grossly intact. Moist buccal mucosa. Head is atraumatic, normocephalic. ABDOMEN: Soft. Nondistended. Surgical incision to right groin clean dry and intact. NEUROLOGIC: Lethargic. Awakens to verbal stimuli. ASSESSMENT: 1. Large incarcerated right inguinal hernia extending into the scrotum PLAN: -Continue diet as tolerated -Pain control -Incentive spirometer 10 times an hour -Activity as tolerated -Discharge per medicine Nurse practitioner note has been reviewed by physician. Signing provider agrees with the documented findings, assessment, and plan of care. Objective - Vital Signs Vital signs: Vital Signs Temp 98.0 F 12/04/19 07:30 Pulse 68 12/04/19 08:17 Resp 18 12/04/19 07:30 BP 125/64 12/04/19 07:30 Pulse Ox 96 12/04/19 07:30 Intake & Output 12/03/19 12/04/19 12/04/19 18:59 06:59 18:59 Intake Total 20 Output Total 900 600 Balance -900 -580 Intake: Oral 20 Output: Urine 900 600 Other: Voiding Method Indwelling Catheter Indwelling Catheter # Bowel Movements 1 - Labs CBC & Chem 7: 12/04/19 06:55 12/04/19 06:55 Labs: Abnormal Lab Results - Last 24 Hours (Table) 12/04/19 12/04/19 Range/Units 06:55 06:55 RBC 3.04 L (4.30-5.90) m/uL Hgb 9.7 L (13.0-17.5) gm/dL Hct 30.3 L (39.0-53.0) % Carbon Dioxide 35 H (22-30) mmol/L BUN 40 H (9-20) mg/dL Calcium 8.2 L (8.4-10.2) mg/dL Magnesium 2.7 H (1.6-2.3) mg/dL
--- NOTE | 2019-12-04 10:54 | P.DS ---
Providers Date of admission: 11/25/19 22:02 Expected date of discharge: 12/04/19 Attending physician: Roman Hogan MD Consults: 11/25/19 22:23 Consult Physician Stat Consulting Provider: Arvind Rodríguez Consult Reason/Comments: incarcerated inguinal hernia Do you want consulting provider notified?: Yes 11/30/19 10:19 Consult Physician Routine Consulting Provider: Alfonso Ram Consult Reason/Comments: persistnet hyperkalemia Do you want consulting provider notified?: Yes Primary care physician: Stated None Hospital Course: 84-year-old male with a past medical history of memory impairment, congestive heart failure unknown type with no recent echo, COPD, hypertension, and hypothyroidism who presented to the emergency department from his assisted living secondary to swelling in his left testicle. He said he knew that he had a hernia, but 3 days prior to admission he started having right scrotal swelling which at that point was not painful per him. No nausea, vomiting, abdominal pain, constipation or diarrhea. No new cough or fevers. No chest pain. He wears oxygen 24/7, uses a walker, and needs help with dressing and bathing due to exertional dyspnea. In the ER he underwent an extensive evaluation. His initial laboratory analysis showed a hemoglobin of 10.8, platelets 109, potassium 5.3, carbon dioxide 33, BUN 32, glucose 100, bilirubin less than 0.1, AST 22, ALT 11, albumin of 3.5. Urinalysis was negative. CT abdomen and pelvis showed mild pleural thickening and atelectasis of the lung bases as well as a large right sided scrotal hernia containing incarcerated multiple small bowel loops with no evidence of bowel obstruction. He was admitted for further management. Patient was seen by general surgery in consultation, surgeon thought that patient had large incarcerated right inguinal hernia extending into the scrotum. The next day patient had surgical repair of the hernia in conjunction with right orchiectomy. Postoperatively patient oxygen saturations were dropping in the upper 80s, chest x-ray revealed some pulmonary edema with bibasilar atelectasis versus airspace disease. It also showed bilateral pleural effusions. Patient was started on Augmentin and Lasix. Patient had an echocardiogram which showed normal EF at 55-60%, mild to moderate mitral regurgitation. He was diagnosed with acute on chronic diastolic CHF. In addition his potassium was noted to be high at 5.7. He was seen by nephrology who advised avoiding kaycee inhibitors, and treatment with Lasix. K came down eventually. Patient was noted to be lethargic postoperatively, he would wake up and answer questions appropriately but in general he was not very responsive and interactive. Depakote level was sent and it came back okay. Due to that I discontinued his Seroquel and cut down his risperidone dose in half. Patient's diet was advanced gradually, with laxatives he started having bowel movements and passing gas. Today he was cleared by surgery for discharge. He still has a Gaines catheter, this will be discontinued today. He will be discharged to the skilled nursing for further rehabilitation and treatment. Time for discharge 35 minutes. Patient Condition at Discharge: Serious Plan - Discharge Summary Discharge Rx Participant: Yes New Discharge Prescriptions: New Acetaminophen Tab [Tylenol Tab] 650 mg PO Q4H PRN #30 tablet PRN Reason: Pain risperiDONE [RisperDAL] 1 mg PO BID 30 Days #60 tab Continue Loratadine [Claritin] 10 mg PO DAILY@0800 Cholecalciferol (Vitamin D3) [Vitamin D3] 2,000 unit PO HS@1999 #30 capsule Divalproex ER [Depakote ER] 500 mg PO BID@799,1999 #60 tab.er.24h Sennosides [Senna] 8.6 mg PO BID@799,1999 #20 tablet Tamsulosin HCl [Flomax] 0.4 mg PO DAILY@0800 #30 capsule Thiamine [Vitamin B-1] 100 mg PO DAILY@0800 #30 tab traZODone HCL [Desyrel] 50 mg PO HS@1999 #10 tab Ibuprofen [Motrin Ib] 200 mg PO Q6H PRN PRN Reason: Pain Famotidine [Pepcid] 20 mg PO BID@08,1999 amLODIPine [Norvasc] 5 mg PO DAILY@0800 Ipratropium-Albuterol Nebulize [Duoneb 0.5 mg-3 mg/3 ml Soln] 3 ml INHALATION RT-Q4H PRN PRN Reason: Shortness Of Breath Levothyroxine Sodium [Synthroid] 50 mcg PO DAILY@0630 tab Acetaminophen Tab [Tylenol] 650 mg PO Q6HR PRN tab PRN Reason: Mild Pain Or Fever > 100.5 Multivitamins, Thera [Multivitamin (formulary)] 1 tab PO DAILY@0800 Folic Acid 1 mg PO DAILY@08 Lactulose [Cephulac] 20 gm PO BID@ Discontinued risperiDONE [RisperDAL] 2 mg PO BID@799,1999 #20 tab QUEtiapine [SEROquel] 25 mg PO HS@1999 Discharge Medication List Loratadine [Claritin] 10 mg PO DAILY@0800 08/31/18 [History] Cholecalciferol (Vitamin D3) [Vitamin D3] 2,000 unit PO HS@1999 #30 capsule 09/08/18 [Rx] Divalproex ER [Depakote ER] 500 mg PO BID@799,1999 #60 tab.er.24h 09/08/18 [Rx] Sennosides [Senna] 8.6 mg PO BID@799,1999 #20 tablet 09/08/18 [Rx] Tamsulosin HCl [Flomax] 0.4 mg PO DAILY@0800 #30 capsule 09/08/18 [Rx] Thiamine [Vitamin B-1] 100 mg PO DAILY@0800 #30 tab 09/08/18 [Rx] traZODone HCL [Desyrel] 50 mg PO HS@1999 #10 tab 09/08/18 [Rx] Famotidine [Pepcid] 20 mg PO BID@799,199910/21/19 [History] Ibuprofen [Motrin Ib] 200 mg PO Q6H PRN 10/21/19 [History] Ipratropium-Albuterol Nebulize [Duoneb 0.5 mg-3 mg/3 ml Soln] 3 ml INHALATION RT-Q4H PRN 10/21/19 [History] amLODIPine [Norvasc] 5 mg PO DAILY@0800 10/21/19 [History] Acetaminophen Tab [Tylenol] 650 mg PO Q6HR PRN tab 10/28/19 [Rx] Levothyroxine Sodium [Synthroid] 50 mcg PO DAILY@0630 tab 10/28/19 [Rx] Folic Acid 1 mg PO DAILY@0800 11/25/19 [History] Lactulose [Cephulac] 20 gm PO BID@799,199911/25/19 [History] Multivitamins, Thera [Multivitamin (formulary)] 1 tab PO DAILY@0800 11/25/19 [History] Acetaminophen Tab [Tylenol Tab] 650 mg PO Q4H PRN #30 tablet 11/29/19 [Rx] risperiDONE [RisperDAL] 1 mg PO BID 30 Days #60 tab 12/04/19 [Rx] Follow up Appointment(s)/Referral(s): None,Stated [Primary Care Provider] - 1-2 days Arvind Rodríguez MD [STAFF PHYSICIAN] - 1 Week Activity/Diet/Wound Care/Special Instructions: No lifting over 10 pounds You may shower. No soaking or tub baths Very light activity until you are reevaluated at your follow up appointment with your surgeon
[2019-12-04 11:16] LABS: Eosinophils # (M) 0.32 k/uL (0-0.7); Lymphocytes # (M) 1.92 k/uL (1.0-4.8); Metamyelocytes # (M) 0.06 k/uL (0); Metamyelocytes % 1 %; Monocytes # (M) 1.28 k/uL (0-1.0); Myelocytes # (M) 0.19 k/uL (0); Myelocytes % 3 %; Neutrophils # (M) 2.69 k/uL (1.3-7.7); Neutrophils % (M) 42 %; Nucleated Red Blood Cells 0 /100 WBC (0-0); Total Cells Counted 200
--- NOTE | 2019-12-04 15:49 | PN ---
PROGRESS NOTE Patient is seen for followup for acute kidney injury. Renal function has improved significantly. Creatinine staying at about 1.1 mg/dL. No significant complaints. PHYSICAL EXAMINATION: On examination, blood pressure was 125/64, heart rate 68 per minute, patient is afebrile. Examination of the heart S1, S2. Examination of the lungs, bilateral breath sounds are heard. Abdomen is soft, nontender. Examination of lower extremities shows no significant edema. 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 LABS: Show sodium 140, potassium 4.0, BUN 40, creatinine 1.1. ASSESSMENT: 1. Hyperkalemia associated with acute kidney injury, currently improved. 2. Incarcerated inguinal hernia status post repair. PLAN: Monitor electrolytes as outpatient, maintain low-dose loop diuretics if hyperkalemia is persistent. MMODL / IJN: [id number] /
[2019-12-04 16:23] VITALS: PULSE 74
--- NOTE | 2019-12-17 09:57 | P.OP ---
Date of Procedure: 11/28/19 Preoperative Diagnosis: Incarcerated right inguinal hernia Postoperative Diagnosis: Incarcerated right inguinal hernia Procedure(s) Performed: Incarcerated right inguinal hernia Right orchiectomy Anesthesia: VICENTA Surgeon: Arvind Rodríguez Estimated Blood Loss (ml): 10 Pathology: other (Right testicle and cord) Condition: stable Disposition: PACU Description of Procedure: DESCRIPTION OF PROCEDURE: The patient was placed in the supine position after receiving adequate anesthesia. Patient'ss right groin was prepped and draped in the usual sterile fashion. A standard hernia incision was made and the subcutaneous tissues were divided with electrocautery. The fascia of the external oblique was exposed. A nani the fascia was made with #15 blade. The fascia was then opened with pair of Metzenbaum scissors. A Weitlaner retractor was placed in the wound. The patient had an incarcerated inguinal hernia. This point the scrotum was explored in the hernia sac was brought up into the wound along with the testicle. Due to the incarceration of the hernia. The hernia sac was opened and the the cord structures were grasped and dissected free from the inguinal canal. A rubber [place] drain was placed around the cord structures. The hernial sac was seen on the anterior-medial portion of the cord and this was dissected free from the cord. The hernia sac was opened and the in the incarcerated omentum was placed back into the pleural cavity. Due to the large size the defect was decided to perform an orchiectomy. The cord structures underwent a high ligation were ligated with 0 silk ties and then the core structures were transected. The testicle and spermatic cord were sent to pathology. The fascial defect was then closed using 0 Ethibond suture. A piece of flap Prolene mesh was then placed over top the repair and then the fascia external oblique was then closed using 0 Vicryl suture. A TERESA drain was placed into the scrotum and then brought out through the incision. Shannan's fascia closed with 3-0 Vicryl. Skin was closed interrupted 3-0 Monocryl suture. Dermabond was applied. Patient top she will was sent to recovery room in stable condition. T
== END 2019-12-04 16:38 | DRG 350 ==
LOC: EC 17:59 → 4SSUR 22:02
PROVIDERS: ADMIT Internal Medicine; ATTEND Internal Medicine
PROC: 0VT90ZZ Resection of Right Testis, Open Approach (ICD-10-PCS; 2019-11-28)
PROC: 0YU50JZ Supplement Right Inguinal Region with Synthetic Substitute, Open Approach (ICD-10-PCS; principal; 2019-11-28 12:10)
DX: K40.30 Unilateral inguinal hernia, with obstruction, without gangrene, not specified as recurrent (principal); I50.33 Acute on chronic diastolic (congestive) heart failure; J96.21 Acute and chronic respiratory failure with hypoxia; G93.41 Metabolic encephalopathy; I47.2 Ventricular tachycardia; N17.9 Acute kidney failure, unspecified; R18.8 Other ascites; E87.3 Alkalosis; J98.11 Atelectasis; I11.0 Hypertensive heart disease with heart failure; D69.6 Thrombocytopenia, unspecified; J44.9 Chronic obstructive pulmonary disease, unspecified; E03.9 Hypothyroidism, unspecified; E87.5 Hyperkalemia; F03.90 Unspecified dementia, unspecified severity, without behavioral disturbance, psychotic disturbance, mood disturbance, and anxiety; E55.9 Vitamin D deficiency, unspecified; R33.9 Retention of urine, unspecified; F31.9 Bipolar disorder, unspecified; H91.90 Unspecified hearing loss, unspecified ear; D53.9 Nutritional anemia, unspecified; I34.0 Nonrheumatic mitral (valve) insufficiency; F10.11 Alcohol abuse, in remission; M19.90 Unspecified osteoarthritis, unspecified site; Z71.3 Dietary counseling and surveillance; Z79.899 Other long term (current) drug therapy; Z79.890 Hormone replacement therapy; Z96.642 Presence of left artificial hip joint; Z99.81 Dependence on supplemental oxygen; Z87.891 Personal history of nicotine dependence; Z87.440 Personal history of urinary (tract) infections; Z87.81 Personal history of (healed) traumatic fracture; Z98.890 Other specified postprocedural states; Z80.3 Family history of malignant neoplasm of breast
CPT/HCPCS: 36415; 36600; 70450; 71045; 74019; 74176; 74177; 80048; 80053; 80164; 81003; 82140; 82550; 82570; 82607; 82747; 82805; 83605; 83735; 83880; 84100; 84133; 84439; 84443; 85025; 85027; 85610; 88305; 93306; 94640; 94760; 96360; 96361; 99285